=== PATIENT | male | born 1940 | race Caucasian/White ===

== ENCOUNTER → 2016-08-21 | Outpatient (REF) | payer OTHER ==
[~2016-08-21] MED LIST: ACET65TA OR; ACTO45TA OR; DIOV160T5 OR; DIOV80TA OR; GLIP5TAB2 OR; GLUC1000 OR; GLUC850T OR; SIMV40TA2 OR; VIT D 2000 OR; VITA250T OR
[2016-08-21 15:52] LABS: MEAN CORPUSCULAR HEMOGLOBIN 30.6 pg (27.0-33.0); MEAN CORPUSCULAR HGB CONC 33.7 g/dl (32.0-36.5); MEAN CORPUSCULAR VOLUME 90.8 fl (80.0-96.0); RED CELL DISTRIBUTION WIDTH 13.5 % (11.5-14.5); WHITE BLOOD COUNT 9.1 K/mm3 (4.0-10.0)
== END ==
LOC: M LAB REF 15:33
DX: I10 Essential (primary) hypertension (principal)

== ENCOUNTER → 2016-09-02 | Outpatient (REF) | payer OTHER ==
[2016-09-02 14:18] LABS: INR 1.28
== END ==
LOC: M SHH 13:38
DX: Z79.01 Long term (current) use of anticoagulants (principal)

== ENCOUNTER → 2016-09-06 | Outpatient (REF) | payer OTHER ==
[2016-09-06 11:54] LABS: INR 2.07
== END ==
LOC: M SHH 11:32
PROVIDERS: ATTEND Internal Medicine Cardiovascular Disease
DX: Z51.81 Encounter for therapeutic drug level monitoring (principal); Z79.01 Long term (current) use of anticoagulants; I48.91 Unspecified atrial fibrillation

== ENCOUNTER → 2016-09-12 | Outpatient (REF) | payer OTHER ==
[2016-09-12 12:28] LABS: INR 2.15
== END ==
LOC: M LAB REF 12:09
PROVIDERS: ATTEND Internal Medicine Cardiovascular Disease
DX: I48.91 Unspecified atrial fibrillation (principal); Z79.01 Long term (current) use of anticoagulants

== ENCOUNTER → 2016-09-19 | Outpatient (REF) | payer OTHER ==
[2016-09-19 10:17] LABS: INR 3.36
== END ==
LOC: M LABDRAW1 10:00
PROVIDERS: ATTEND Internal Medicine Cardiovascular Disease
DX: I48.91 Unspecified atrial fibrillation (principal)

== ENCOUNTER → 2016-09-26 | Outpatient (REF) | payer OTHER ==
[2016-09-26 11:41] LABS: INR 3.66
== END ==
LOC: M LABDRAW1 11:12
PROVIDERS: ATTEND Internal Medicine Cardiovascular Disease
DX: I48.91 Unspecified atrial fibrillation (principal)

== ENCOUNTER → 2016-10-03 | Outpatient (REF) | payer OTHER ==
[2016-10-03 12:18] LABS: INR 2.77
== END ==
LOC: M LABDRAW1 11:48
PROVIDERS: ATTEND Internal Medicine Cardiovascular Disease
DX: I48.91 Unspecified atrial fibrillation (principal)

== ENCOUNTER → 2016-10-10 | Outpatient (REF) | payer OTHER ==
[2016-10-10 13:26] LABS: INR 2.54
== END ==
LOC: M LABDRAW1 12:23
PROVIDERS: ATTEND Internal Medicine Cardiovascular Disease
DX: I48.91 Unspecified atrial fibrillation (principal)

== ENCOUNTER → 2016-10-17 | Outpatient (REF) | payer OTHER ==
[2016-10-17 11:47] LABS: INR 2.36
== END ==
LOC: M LABDRAW1 11:15
PROVIDERS: ATTEND Internal Medicine Cardiovascular Disease
DX: I48.91 Unspecified atrial fibrillation (principal)

== ENCOUNTER → 2016-10-31 | Outpatient (REF) | payer OTHER ==
[2016-10-31 11:47] LABS: INR 2.93
== END ==
LOC: M LABDRAW1 11:26
PROVIDERS: ATTEND Internal Medicine Cardiovascular Disease
DX: I48.91 Unspecified atrial fibrillation (principal)

== ENCOUNTER → 2016-11-04 | Outpatient (REF) | payer OTHER ==
[2016-11-04 16:21] LABS: BASO % 0.3 % (0.0-1.0); EOS # 0.8 K/mm3 (0.0-0.50); EOS % 8.2 % (0.0-3.0); LYMPH # 1.9 K/mm3 (1.5-4.5); LYMPH % 18.3 % (24.0-44.0); MEAN CORPUSCULAR HEMOGLOBIN 27.4 pg (27.0-33.0); MEAN CORPUSCULAR HGB CONC 32.4 g/dl (32.0-36.5); MEAN CORPUSCULAR VOLUME 84.4 fl (80.0-96.0); MONO # 0.7 K/mm3 (0.0-0.8); MONO % 7.2 % (0.0-5.0); NEUTROPHILS # 6.7 K/mm3 (1.8-7.7); NEUTROPHILS % 65.3 % (36.0-66.0); WHITE BLOOD COUNT 10.2 K/mm3 (4.0-10.0)
[2016-11-04 16:24] LABS: ALBUMIN 2.8 GM/DL (3.2-5.2); ALBUMIN/GLOBULIN RATIO 0.93 (1.00-1.93); ALKALINE PHOSPHATASE 105 U/L (45-117); ALT/SGPT 37 U/L (12-78); ANION GAP 9 MEQ/L (8-16); AST/SGOT 30 U/L (15-37); BILIRUBIN,TOTAL 0.3 MG/DL (0.2-1.0); BLOOD UREA NITROGEN 13 MG/DL (7-18); CALCIUM LEVEL 7.9 MG/DL (8.8-10.2); CARBON DIOXIDE LEVEL 26 MEQ/L (21-32); CHLORIDE LEVEL 108 MEQ/L (98-107); CREATININE FOR GFR 0.89 MG/DL (0.70-1.30); GLOMERULAR FILTRATION RATE > 60.0 (>42); GLUCOSE, FASTING 91 MG/DL (83-110); POTASSIUM SERUM 3.4 MEQ/L (3.5-5.1); SODIUM LEVEL 143 MEQ/L (136-145); TOTAL PROTEIN 5.8 GM/DL (6.4-8.2)
== END ==
LOC: M LABDRAW1 15:43
PROVIDERS: ATTEND Internal Medicine Cardiovascular Disease
DX: I50.42 Chronic combined systolic (congestive) and diastolic (congestive) heart failure (principal); I48.91 Unspecified atrial fibrillation; Z95.0 Presence of cardiac pacemaker

== ENCOUNTER → 2016-11-14 | Outpatient (REF) | payer OTHER ==
[2016-11-14 10:29] LABS: INR 2.16
== END ==
LOC: M LABDRAW1 10:13
PROVIDERS: ATTEND Internal Medicine Cardiovascular Disease
DX: I48.91 Unspecified atrial fibrillation (principal)

== ENCOUNTER → 2016-12-10 | Outpatient (REF) | payer OTHER ==
[2016-12-10 13:10] LABS: ANION GAP 9 MEQ/L (8-16); BLOOD UREA NITROGEN 25 MG/DL (7-18); CARBON DIOXIDE LEVEL 26 MEQ/L (21-32); CHLORIDE LEVEL 108 MEQ/L (98-107); CREATININE FOR GFR 0.98 MG/DL (0.70-1.30); GLOMERULAR FILTRATION RATE > 60.0 (>42); GLUCOSE, FASTING 93 MG/DL (83-110); POTASSIUM SERUM 3.1 MEQ/L (3.5-5.1); SODIUM LEVEL 143 MEQ/L (136-145)
== END ==
LOC: M LABDRAW1 11:27
PROVIDERS: ATTEND Internal Medicine Cardiovascular Disease
DX: I50.42 Chronic combined systolic (congestive) and diastolic (congestive) heart failure (principal)

== ENCOUNTER → 2016-12-16 | Outpatient (REF) | payer OTHER ==
[2016-12-16 11:53] LABS: BASO % 0.3 % (0.0-1.0); EOS # 0.3 K/mm3 (0.0-0.50); EOS % 3.8 % (0.0-3.0); LARGE UNSTAINED CELL # 0.1 K/mm3 (0.0-0.4); LARGE UNSTAINED CELL % 0.6 % (0.0-4.0); LYMPH # 1.5 K/mm3 (1.5-4.5); LYMPH % 17.1 % (24.0-44.0); MEAN CORPUSCULAR HEMOGLOBIN 27.5 pg (27.0-33.0); MEAN CORPUSCULAR HGB CONC 32.2 g/dl (32.0-36.5); MEAN CORPUSCULAR VOLUME 85.4 fl (80.0-96.0); MONO # 0.5 K/mm3 (0.0-0.8); MONO % 5.8 % (0.0-5.0); NEUTROPHILS # 6.3 K/mm3 (1.8-7.7); NEUTROPHILS % 72.3 % (36.0-66.0); PLATELET COUNT, AUTOMATED 121 k/mm3 (150-450); RED CELL DISTRIBUTION WIDTH 14.9 % (11.5-14.5); WHITE BLOOD COUNT 8.7 K/mm3 (4.0-10.0)
[2016-12-16 12:02] LABS: ALBUMIN 2.7 GM/DL (3.2-5.2); ALKALINE PHOSPHATASE 87 U/L (45-117); ALT/SGPT 29 U/L (12-78); ANION GAP 9 MEQ/L (8-16); AST/SGOT 23 U/L (15-37); BILIRUBIN,TOTAL 0.4 MG/DL (0.2-1.0); BLOOD UREA NITROGEN 16 MG/DL (7-18); CALCIUM LEVEL 7.9 MG/DL (8.8-10.2); CARBON DIOXIDE LEVEL 27 MEQ/L (21-32); CHLORIDE LEVEL 108 MEQ/L (98-107); CHOLESTEROL LEVEL 70 MG/DL (<200); CREATININE FOR GFR 0.86 MG/DL (0.70-1.30); GLOMERULAR FILTRATION RATE > 60.0 (>42); GLUCOSE, FASTING 100 MG/DL (83-110); MAGNESIUM LEVEL 1.7 MG/DL (1.8-2.4); POTASSIUM SERUM 3.1 MEQ/L (3.5-5.1); SODIUM LEVEL 144 MEQ/L (136-145); TOTAL PROTEIN 5.7 GM/DL (6.4-8.2); TRIGLYCERIDES LEVEL 58 MG/DL (<150)
== END ==
LOC: M LABDRAW1 11:16
PROVIDERS: ATTEND Emergency Medicine
DX: E55.9 Vitamin D deficiency, unspecified (principal); I50.42 Chronic combined systolic (congestive) and diastolic (congestive) heart failure; E11.9 Type 2 diabetes mellitus without complications

== ENCOUNTER → 2017-01-14 | Outpatient (REF) | payer OTHER ==
[~2017-01-14] MED LIST changes: +ATOR40TA PO; +CORE3.12 PO; +FURO40TA2 PO; +GLIM1TAB PO; +LOSA50TA20 PO; +METF750T PO; +POTA10TA44 PO; +PRAD150C PO; +SPIR25TA2 PO; +VITA50003 PO
[2017-01-14 13:26] LABS: ALBUMIN 2.9 GM/DL (3.2-5.2); BILIRUBIN,TOTAL 0.3 MG/DL (0.2-1.0); CALCIUM LEVEL 8.3 MG/DL (8.8-10.2); CREATININE FOR GFR 1.35 MG/DL (0.70-1.30); FREE T4 1.1 NG/DL (0.76-1.46); GLOMERULAR FILTRATION RATE 54.7 (>42); MAGNESIUM LEVEL 1.9 MG/DL (1.8-2.4); POTASSIUM SERUM 4.3 MEQ/L (3.5-5.1); TOTAL PROTEIN 5.8 GM/DL (6.4-8.2)
== END ==
LOC: M LABDRAW1 11:40
PROVIDERS: ATTEND Internal Medicine Cardiovascular Disease
DX: I48.0 Paroxysmal atrial fibrillation (principal); I50.42 Chronic combined systolic (congestive) and diastolic (congestive) heart failure

== ENCOUNTER → 2017-01-21 | Outpatient (REF) | payer OTHER ==
[2017-01-21 12:35] LABS: BASO % 0.3 % (0.0-1.0); EOS # 0.2 K/mm3 (0.0-0.50); EOS % 1.7 % (0.0-3.0); LARGE UNSTAINED CELL # 0.1 K/mm3 (0.0-0.4); LARGE UNSTAINED CELL % 0.7 % (0.0-4.0); LYMPH # 1.4 K/mm3 (1.5-4.5); LYMPH % 13.6 % (24.0-44.0); MEAN CORPUSCULAR HEMOGLOBIN 26.9 pg (27.0-33.0); MEAN CORPUSCULAR HGB CONC 31.8 g/dl (32.0-36.5); MEAN CORPUSCULAR VOLUME 84.6 fl (80.0-96.0); MONO # 0.6 K/mm3 (0.0-0.8); NEUTROPHILS # 7.5 K/mm3 (1.8-7.7); NEUTROPHILS % 77.6 % (36.0-66.0); PLATELET COUNT, AUTOMATED 121 k/mm3 (150-450); RED CELL DISTRIBUTION WIDTH 16.2 % (11.5-14.5); WHITE BLOOD COUNT 9.7 K/mm3 (4.0-10.0)
[2017-01-21 13:46] LABS: ALBUMIN 2.9 GM/DL (3.2-5.2); ALBUMIN/GLOBULIN RATIO 0.97 (1.00-1.93); BILIRUBIN,TOTAL 0.4 MG/DL (0.2-1.0); CREATININE FOR GFR 1.27 MG/DL (0.70-1.30); GLOMERULAR FILTRATION RATE 58.7 (>42); MAGNESIUM LEVEL 1.9 MG/DL (1.8-2.4); POTASSIUM SERUM 3.8 MEQ/L (3.5-5.1); TOTAL PROTEIN 5.9 GM/DL (6.4-8.2)
== END ==
LOC: M LABDRAW1 11:07
PROVIDERS: ATTEND Emergency Medicine
DX: I10 Essential (primary) hypertension (principal); E83.42 Hypomagnesemia

== ENCOUNTER → 2017-01-23 | Outpatient (CLI) | payer OTHER ==
[~2017-01-23] VITALS: Ht 175.3 cm; Wt 83.5 kg
[~2017-01-23] MED LIST changes: +ASPI81TA85 PO; -ATOR40TA PO; +ATOR40TA75 PO; +DRIS50002 PO; +GLIM1TAB; +LR 1,000 ML IV SCH; +PHENYLephrine HCL 500 MCG/5 ML (100MCG/ML) SYRINGE (J2370) As Ordered ONE; +POTA10TA17 PO; -POTA10TA44 PO; +PROPOFOL 200 MG/20 ML VIAL As Ordered ONE; +VITA1CAP40 PO; -VITA50003 PO
--- NOTE | 2017-01-23 09:07 | ROOR ---
Patient Name: Dino Baldwin Procedure Date: 01/23/2017 8:20 AM Date of : 1940 Age: 76 Room: [facility] Gender: Male Note Status: Finalized Procedure: Colonoscopy Indications: Surveillance: Personal history of adenomatous polyps on last colonoscopy > 5 years ago Providers: Derick Camejo MD Referring MD: JANNETH GALLARDO MD, Siobhan Gómez MD Requesting Provider: Medicines: Monitored Anesthesia Care Complications: No immediate complications. Procedure: Pre-Anesthesia Assessment: - Prior to the procedure, a History and Physical was performed, and patient medications and allergies were reviewed. The patient is competent. The risks and benefits of the procedure and the sedation options and risks were discussed with the patient. All questions were answered and informed consent was obtained. Patient identification and proposed procedure were verified by the physician, the nurse and the blade operator in the procedure room. Mental Status Examination: alert and oriented. Airway Examination: normal oropharyngeal airway and neck mobility. CV Examination: regular rate and rhythm. Prophylactic Antibiotics: The patient does not require prophylactic antibiotics. Prior Anticoagulants: The patient has taken no previous anticoagulant or antiplatelet agents. ASA Grade Assessment: III - A patient with severe systemic disease. After reviewing the risks and benefits, the patient was deemed in satisfactory condition to undergo the procedure. The anesthesia plan was to use monitored anesthesia care (MAC). Immediately prior to administration of medications, the patient was re-assessed for adequacy to receive sedatives. The heart rate, respiratory rate, oxygen saturations, blood pressure, adequacy of pulmonary ventilation, and response to care were monitored throughout the procedure. The physical status of the patient was re-assessed after the procedure. The Colonoscope was introduced through the anus and advanced to the cecum, identified by appendiceal orifice and ileocecal valve. The colonoscopy was performed without difficulty. The patient tolerated the procedure well. The quality of the bowel preparation was good. Findings: The perianal and digital rectal examinations were normal. A few medium-mouthed diverticula were found in the sigmoid colon and distal descending colon. A 7 mm polyp was found in the proximal ascending colon. The polyp was sessile. The polyp was removed with a piecemeal technique using a cold biopsy forceps. Resection was complete, and retrieval was complete. Impression: - Diverticulosis in the sigmoid colon and in the distal descending colon. - One 7 mm polyp in the proximal ascending colon, removed piecemeal using a cold biopsy forceps. Resected and retrieved. Recommendation: - Await pathology results. - Telephone endoscopist for pathology results in 10 days. - Resume previous diet. - Continue present medications. Derick Camejo MD 01/23/2017 9:06:20 AM Number of Addenda: 0 Note Initiated On: 01/23/2017 8:20 AM Estimated Blood Loss: Estimated blood loss was minimal.
[2017-01-23 09:15] VITALS: BP 121/6
== END | disposition home or self-care (01) ==
LOC: M OPP 07:05
PROVIDERS: ATTEND Surgery
DX: Z12.11 Encounter for screening for malignant neoplasm of colon (principal); D12.2 Benign neoplasm of ascending colon; K57.30 Diverticulosis of large intestine without perforation or abscess without bleeding; Z86.010 Personal history of colon polyps; R63.4 Abnormal weight loss; R19.4 Change in bowel habit; I10 Essential (primary) hypertension; I25.10 Atherosclerotic heart disease of native coronary artery without angina pectoris; E78.5 Hyperlipidemia, unspecified; Z86.79 Personal history of other diseases of the circulatory system; Z95.0 Presence of cardiac pacemaker; E11.9 Type 2 diabetes mellitus without complications; Z95.2 Presence of prosthetic heart valve; Z87.891 Personal history of nicotine dependence; Z79.899 Other long term (current) drug therapy; Z79.84 Long term (current) use of oral hypoglycemic drugs; Z79.01 Long term (current) use of anticoagulants; Z79.82 Long term (current) use of aspirin; Z80.3 Family history of malignant neoplasm of breast; Z80.8 Family history of malignant neoplasm of other organs or systems
CPT/HCPCS: 45380; 88305; J2370

== ENCOUNTER → 2017-02-04 | Outpatient (REF) | payer OTHER ==
[~2017-02-04] MED LIST changes: -LR 1,000 ML IV SCH; -PHENYLephrine HCL 500 MCG/5 ML (100MCG/ML) SYRINGE (J2370) As Ordered ONE; -PROPOFOL 200 MG/20 ML VIAL As Ordered ONE
[2017-02-04 11:28] LABS: BASO % 0.5 % (0.0-1.0); EOS # 0.2 K/mm3 (0.0-0.50); EOS % 2.2 % (0.0-3.0); LARGE UNSTAINED CELL # 0.1 K/mm3 (0.0-0.4); LARGE UNSTAINED CELL % 1.2 % (0.0-4.0); LYMPH # 1.3 K/mm3 (1.5-4.5); LYMPH % 18.1 % (24.0-44.0); MEAN CORPUSCULAR HEMOGLOBIN 27.2 pg (27.0-33.0); MEAN CORPUSCULAR HGB CONC 32.2 g/dl (32.0-36.5); MEAN CORPUSCULAR VOLUME 84.4 fl (80.0-96.0); MONO # 0.4 K/mm3 (0.0-0.8); MONO % 5.1 % (0.0-5.0); NEUTROPHILS # 5.4 K/mm3 (1.8-7.7); PLATELET COUNT, AUTOMATED 128 k/mm3 (150-450); RED CELL DISTRIBUTION WIDTH 15.8 % (11.5-14.5); WHITE BLOOD COUNT 7.4 K/mm3 (4.0-10.0)
[2017-02-04 11:47] LABS: PERCENT SATURATION 9.5 % (19.7-37.4); TOTAL IRON BINDING CAPACITY 316 UG/DL (250-450)
[2017-02-04 13:46] LABS: FOLATE > 24.0 NG/ML (>5.4); VITAMIN B12 LEVEL 193 PG/ML (247-911)
== END ==
LOC: M LABDRAW1 08:50
PROVIDERS: ATTEND Emergency Medicine
DX: D64.9 Anemia, unspecified (principal)

== ENCOUNTER → 2017-03-14 | Outpatient (REF) | payer OTHER ==
[2017-03-14 12:38] LABS: ALBUMIN 3.1 GM/DL (3.2-5.2); ALBUMIN/GLOBULIN RATIO 1.07 (1.00-1.93); BILIRUBIN,TOTAL 0.3 MG/DL (0.2-1.0); CALCIUM LEVEL 8.1 MG/DL (8.8-10.2); CREATININE FOR GFR 1.41 MG/DL (0.70-1.30); GLOMERULAR FILTRATION RATE 51.9 (>42); MAGNESIUM LEVEL 2.2 MG/DL (1.8-2.4); POTASSIUM SERUM 4.6 MEQ/L (3.5-5.1)
== END ==
LOC: M LABDRAW1 11:41
PROVIDERS: ATTEND Internal Medicine Cardiovascular Disease
DX: I48.0 Paroxysmal atrial fibrillation (principal); I50.42 Chronic combined systolic (congestive) and diastolic (congestive) heart failure

== ENCOUNTER 2017-03-30 18:39 | Emergency (ER) | payer OTHER ==
[~2017-03-30] VITALS: Ht 175.3 cm; Wt 79.5 kg
[~2017-03-30 18:39] MED LIST changes: -ASPI81TA85 PO; -DRIS50002 PO; -GLIM1TAB
[2017-03-30] MEDS ORDERED: DRIS50002 PO (18:50)
[2017-03-30] MEDS ORDERED: GLIM1TAB (18:50)
[2017-03-30] MEDS ORDERED: ASPI81TA85 PO (18:50)
[2017-03-30] MEDS ORDERED: NS 1,000 ML IV ONE (20:30)
[2017-03-30 21:19] LABS: BASO % 0.4 % (0.0-1.0); EOS # 0.2 K/mm3 (0.0-0.50); EOS % 1.6 % (0.0-3.0); LARGE UNSTAINED CELL # 0.1 K/mm3 (0.0-0.4); LARGE UNSTAINED CELL % 0.9 % (0.0-4.0); LYMPH # 2.4 K/mm3 (1.5-4.5); MEAN CORPUSCULAR HEMOGLOBIN 28.2 pg (27.0-33.0); MEAN CORPUSCULAR VOLUME 85.4 fl (80.0-96.0); MONO # 0.9 K/mm3 (0.0-0.8); MONO % 8.1 % (0.0-5.0); NEUTROPHILS # 7.1 K/mm3 (1.8-7.7); PLATELET COUNT, AUTOMATED 129 k/mm3 (150-450); RED CELL DISTRIBUTION WIDTH 15.7 % (11.5-14.5); WHITE BLOOD COUNT 10.6 K/mm3 (4.0-10.0)
[2017-03-30 21:46] LABS: ALBUMIN 3.2 GM/DL (3.2-5.2); ALBUMIN/GLOBULIN RATIO 0.91 (1.00-1.93); BILIRUBIN,DIRECT 0.1 MG/DL (0.0-0.2); BILIRUBIN,TOTAL 0.5 MG/DL (0.2-1.0); CALCIUM LEVEL 8.2 MG/DL (8.8-10.2); CREATININE FOR GFR 1.75 MG/DL (0.70-1.30); GLOMERULAR FILTRATION RATE 40.4 (>42); POTASSIUM SERUM 4.6 MEQ/L (3.5-5.1); TOTAL PROTEIN 6.7 GM/DL (6.4-8.2)
--- NOTE | 2017-03-30 22:25 | REP ---
Clinical: Abdominal pain and diarrhea. Technique: Axial noncontrast images from the lung bases to the pubic symphysis with coronal and sagittal re-formations. Comparison: 06/26/2011. Findings: The enteric system demonstrates distended, air and fluid-filled loops of small bowel as well as mildly distended colon. Infiltration to the mesentery along with prominent mesenteric lymph nodes are also appreciated as well as diffuse sigmoid diverticulosis without evidence for acute diverticulitis. A normal terminal ileum and appendix are identified in the right lower quadrant. No free air, free fluid or drainable collection identified. Liver, spleen, pancreas, and bilateral adrenal glands are normal for noncontrast evaluation. Kidneys demonstrate chronic-appearing age-related changes including chronic perinephric stranding and cortical thinning. 2 cm right renal hypodensity compatible with cyst. No hydronephrosis or nephroureterolithiasis. Cholelithiasis noted without CT evidence for acute cholecystitis. Pelvis demonstrates sigmoid diverticulosis. Partially collapsed normal bladder is appreciated along with mildly prominent prostate gland having mass effect on the base of the bladder. No significant retroperitoneal adenopathy. Abdominal aorta demonstrates atherosclerotic changes without aneurysm. Musculoskeletal structures demonstrate age-related degenerative changes without focal osseous abnormality. Lung bases demonstrate chronic changes. Impression: 1. Findings involving the small large bowel as described above suggest ileus. Differential diagnosis includes enterocolitis. 2. Chronic diverticulosis without acute diverticulitis. 3. Cholelithiasis without CT evidence for acute cholecystitis. 4. Further chronic changes as described above. 5. No further acute abdominopelvic pathology appreciated. Signed by Telly Bridges MD 03/30/2017 10:24 P
[2017-03-31 01:44] VITALS: BP 129/62
--- NOTE | 2017-03-31 01:45 | ED PDOC ---
Post-Departure Follow-Up AT THIS TIME, DR. PEREZ SPOKE WITH PT. PT STATED HAD 1 LARGE BOWEL MOVEMENT WHILE HERE IN THE ER AND IS FEELING IMPROVED. DR. PEREZ, THIS BEHAVIORAL HEALTH CONSULTANT AND PATIENT IN AGREEMENT FOR DISCHARGE AT THIS TIME. ANAND ALMARAZ PA-C Mar 31, 2017 01:45
== END 2017-03-31 02:06 | disposition home or self-care (01) ==
LOC: M ED 18:39
DX: K56.7 Ileus, unspecified (principal); I48.91 Unspecified atrial fibrillation; I25.10 Atherosclerotic heart disease of native coronary artery without angina pectoris; E11.9 Type 2 diabetes mellitus without complications; I10 Essential (primary) hypertension; E78.4 Other hyperlipidemia; Z95.1 Presence of aortocoronary bypass graft; Z87.891 Personal history of nicotine dependence

== ENCOUNTER → 2017-04-02 | Outpatient (REF) | payer OTHER ==
[~2017-04-02] MED LIST changes: +ASPI81TA85 PO; +DRIS50002 PO; +GLIM1TAB
== END ==
LOC: M LAB REF 10:39
PROVIDERS: ATTEND Emergency Medicine
DX: R19.7 Diarrhea, unspecified (principal)

== ENCOUNTER → 2017-04-16 | Outpatient (REF) | payer OTHER ==
[2017-04-16 18:36] LABS: BASO % 0.2 % (0.0-1.0); EOS # 0.1 K/mm3 (0.0-0.50); EOS % 1.2 % (0.0-3.0); LARGE UNSTAINED CELL # 0.1 K/mm3 (0.0-0.4); LYMPH # 1.3 K/mm3 (1.5-4.5); LYMPH % 16.4 % (24.0-44.0); MEAN CORPUSCULAR HEMOGLOBIN 29.3 pg (27.0-33.0); MEAN CORPUSCULAR HGB CONC 33.3 g/dl (32.0-36.5); MEAN CORPUSCULAR VOLUME 87.9 fl (80.0-96.0); MONO # 0.5 K/mm3 (0.0-0.8); MONO % 5.7 % (0.0-5.0); NEUTROPHILS # 6.1 K/mm3 (1.8-7.7); NEUTROPHILS % 75.4 % (36.0-66.0); PLATELET COUNT, AUTOMATED 118 k/mm3 (150-450); RED CELL DISTRIBUTION WIDTH 16.1 % (11.5-14.5)
== END ==
LOC: M LABDRAW1 14:31
PROVIDERS: ATTEND Emergency Medicine
DX: R19.7 Diarrhea, unspecified (principal)

== ENCOUNTER → 2017-05-01 | Outpatient (CLI) | payer OTHER ==
[~2017-05-01] MED LIST changes: +E-Z-PAQUE 96% w/w SUSP 176GM BTL As Ordered ONE
--- NOTE | 2017-05-01 17:22 | REP ---
Small follow-through study: History: Diarrhea, weight loss. Nearly [address] study abdomen and pelvis March 30, 2017. Findings: Preliminary electrical continuity inspector radiograph demonstrates opaque gallstones in the gallbladder and multiple loops of air-filled borderline caliber small bowel in the central abdomen. Sequential images after contrast injection show normal stomach, duodenal bulb and C-loop. The jejunum and ileum, however, are diffusely dilated and there are multiple large jejunal and ileal small bowel diverticula. Small bowel transit time is quite sluggish. The right colon was not opacified on the 250-minute imaging and the patient was allowed to eat. Following this, the right colon and distal ileum are opacified. The distal most ileum is normal. Some retention of barium in the small bowel diverticulosis changes is seen. The diverticula range in size up to 5-6 cm. No point of transition is seen. No mass lesion is observed. Impression: Extensive small bowel diverticulosis with delayed small bowel transit and mild dilation and mild mucosal fold thickening. Question malabsorption. Signed by Ahsan Vinson MD 05/01/2017 05:25 P
== END ==
LOC: M RAD 09:57
PROVIDERS: ATTEND Internal Medicine Gastroenterology
DX: R19.7 Diarrhea, unspecified (principal); K57.10 Diverticulosis of small intestine without perforation or abscess without bleeding; D64.9 Anemia, unspecified

== ENCOUNTER → 2017-05-01 | Outpatient (REF) | payer OTHER ==
[~2017-05-01] MED LIST changes: -E-Z-PAQUE 96% w/w SUSP 176GM BTL As Ordered ONE
== END ==
LOC: M LABDRAW1 10:31
PROVIDERS: ATTEND Internal Medicine Gastroenterology
DX: R19.7 Diarrhea, unspecified (principal); D64.9 Anemia, unspecified

== ENCOUNTER 2017-05-09 06:28 | Outpatient (CLI) | payer OTHER ==
[~2017-05-09] VITALS: Ht 175.3 cm; Wt 78.0 kg
[2017-05-09] MEDS ORDERED: NS 1,000 ML IV SCH (06:45)
[2017-05-09] MEDS ORDERED: PROPOFOL 200 MG/20 ML VIAL As Ordered ONE (07:58)
[2017-05-09] MEDS ORDERED: LIDOCAINE 2% INJ 100 MG/5 ML SDV (FOR ANES.) As Ordered ONE (07:58)
--- NOTE | 2017-05-09 08:07 | ROOR ---
Patient Name: Dino Baldwin Procedure Date: 05/09/2017 7:55 AM Date of : 1940 Age: 77 Room: [facility] Gender: Male Note Status: Finalized Procedure: Upper GI endoscopy Indications: Iron deficiency anemia. (Pt with extensive small bowel diverticulosis/malabsorption, diarrhea) Providers: Dino ACOSTA MD Referring MD: JANNETH GALLARDO MD Requesting Provider: Medicines: Monitored Anesthesia Care Complications: No immediate complications. Procedure: Pre-Anesthesia Assessment: - The heart rate, respiratory rate, oxygen saturations, blood pressure, adequacy of pulmonary ventilation, and response to care were monitored throughout the procedure. The Endoscope was introduced through the mouth, and advanced to the second part of duodenum. The upper GI endoscopy was accomplished without difficulty. The patient tolerated the procedure well. Findings: The esophagus was normal. The stomach was normal. The examined duodenum was normal. Impression: - Normal esophagus. - Normal stomach. - Normal examined duodenum. - No specimens collected. Recommendation: - Perform a colonoscopy today. Dino Acosta MD Dino ACOSTA MD 05/09/2017 8:07:20 AM This report has been signed electronically. Number of Addenda: 0 Note Initiated On: 05/09/2017 7:55 AM Estimated Blood Loss: Estimated blood loss: none.
[2017-05-09] MEDS ORDERED: ePHEDrine SULFATE 25 MG/5 ML(5MG/ML) SYRINGE As Ordered ONE (08:23)
--- NOTE | 2017-05-09 08:24 | ROOR ---
Patient Name: Dino Baldwin Procedure Date: 05/09/2017 7:56 AM Date of : 1940 Age: 77 Room: [facility] Gender: Male Note Status: Finalized Procedure: Colonoscopy Indications: Chronic diarrhea, Iron deficiency anemia. (extensive small bowel diverticulosis, malabsorption,diarrhea--r/o colonic pathology) Providers: Dino ACOSTA MD Referring MD: JANNETH GALLARDO MD Requesting Provider: Medicines: Monitored Anesthesia Care Complications: No immediate complications. Procedure: Pre-Anesthesia Assessment: - The heart rate, respiratory rate, oxygen saturations, blood pressure, adequacy of pulmonary ventilation, and response to care were monitored throughout the procedure. The Colonoscope was introduced through the anus and advanced to 10 cm into the ileum. The colonoscopy was performed without difficulty. The patient tolerated the procedure well. The quality of the bowel preparation was good. Findings: The perianal and digital rectal examinations were normal. (Exam: Complete, Prep: Good or Excellent.) Scattered medium-mouthed diverticula were found in the sigmoid colon and transverse colon. The entire examined colon appeared normal. The terminal ileum appeared normal. Biopsies for histology were taken with a cold forceps for evaluation of microscopic colitis. Impression: - (Exam: Complete, Prep: Good or Excellent.) - Mild diverticulosis in the sigmoid colon and in the transverse colon. - The entire examined colon is normal. - The examined portion of the ileum was normal. - Biopsies were taken with a cold forceps for evaluation of microscopic colitis. Recommendation: - Telephone endoscopist for pathology results in 2 weeks. - Resume Pradaxa (dabigatran) at prior dose today. - Await pathology results. Dino Acosta MD Dino ACOSTA MD 05/09/2017 8:24:15 AM This report has been signed electronically. Number of Addenda: 0 Note Initiated On: 05/09/2017 7:56 AM Estimated Blood Loss: Estimated blood loss: none.
[2017-05-09 08:50] VITALS: BP 101/53
== END 2017-05-09 08:58 | disposition home or self-care (01) ==
LOC: M OPP 06:28
PROVIDERS: ATTEND Internal Medicine Gastroenterology
DX: R50.9 Fever, unspecified (principal); R19.7 Diarrhea, unspecified; K57.30 Diverticulosis of large intestine without perforation or abscess without bleeding; K90.9 Intestinal malabsorption, unspecified; I10 Essential (primary) hypertension; Z95.2 Presence of prosthetic heart valve; I34.9 Nonrheumatic mitral valve disorder, unspecified; E78.5 Hyperlipidemia, unspecified; Z86.79 Personal history of other diseases of the circulatory system; Z95.0 Presence of cardiac pacemaker; E11.9 Type 2 diabetes mellitus without complications; K57.32 Diverticulitis of large intestine without perforation or abscess without bleeding; R23.3 Spontaneous ecchymoses; Z79.82 Long term (current) use of aspirin; Z79.899 Other long term (current) drug therapy; Z79.02 Long term (current) use of antithrombotics/antiplatelets; Z80.3 Family history of malignant neoplasm of breast; Z80.8 Family history of malignant neoplasm of other organs or systems

== ENCOUNTER → 2017-05-14 | Outpatient (REF) | payer OTHER ==
[2017-05-14 11:46] LABS: ALBUMIN 2.4 GM/DL (3.2-5.2); ALBUMIN/GLOBULIN RATIO 0.77 (1.00-1.93); ALKALINE PHOSPHATASE 122 U/L (45-117); ALT/SGPT 35 U/L (12-78); ANION GAP 6 MEQ/L (8-16); AST/SGOT 23 U/L (15-37); BILIRUBIN,TOTAL 0.4 MG/DL (0.2-1.0); BLOOD UREA NITROGEN 14 MG/DL (7-18); CALCIUM LEVEL 7.8 MG/DL (8.8-10.2); CARBON DIOXIDE LEVEL 28 MEQ/L (21-32); CHLORIDE LEVEL 105 MEQ/L (98-107); CREATININE FOR GFR 0.93 MG/DL (0.70-1.30); GLOMERULAR FILTRATION RATE > 60.0 (>42); GLUCOSE, FASTING 106 MG/DL (83-110); MAGNESIUM LEVEL 1.7 MG/DL (1.8-2.4); POTASSIUM SERUM 3.8 MEQ/L (3.5-5.1); SODIUM LEVEL 139 MEQ/L (136-145); TOTAL PROTEIN 5.5 GM/DL (6.4-8.2)
== END ==
LOC: M LABDRAW1 09:25
PROVIDERS: ATTEND Internal Medicine Cardiovascular Disease
DX: I48.0 Paroxysmal atrial fibrillation (principal); I50.42 Chronic combined systolic (congestive) and diastolic (congestive) heart failure

== ENCOUNTER → 2017-08-11 | Outpatient (REF) | payer OTHER ==
[2017-08-11 12:19] LABS: ANION GAP 6 MEQ/L (8-16); BLOOD UREA NITROGEN 29 MG/DL (7-18); CALCIUM LEVEL 8.1 MG/DL (8.8-10.2); CARBON DIOXIDE LEVEL 27 MEQ/L (21-32); CHLORIDE LEVEL 103 MEQ/L (98-107); CREATININE FOR GFR 1.31 MG/DL (0.70-1.30); GLOMERULAR FILTRATION RATE 56.5 (>42); GLUCOSE, FASTING 181 MG/DL (83-110); MAGNESIUM LEVEL 2.4 MG/DL (1.8-2.4); POTASSIUM SERUM 4.2 MEQ/L (3.5-5.1); SODIUM LEVEL 136 MEQ/L (136-145)
== END ==
LOC: M LABDRAW1 11:33
DX: I50.42 Chronic combined systolic (congestive) and diastolic (congestive) heart failure (principal); I48.91 Unspecified atrial fibrillation
CPT/HCPCS: 83735

== ENCOUNTER → 2017-09-10 | Outpatient (REF) | payer OTHER ==
[2017-09-10 10:26] LABS: ANION GAP 7 MEQ/L (8-16); BLOOD UREA NITROGEN 31 MG/DL (7-18); CALCIUM LEVEL 8.4 MG/DL (8.8-10.2); CARBON DIOXIDE LEVEL 27 MEQ/L (21-32); CHLORIDE LEVEL 102 MEQ/L (98-107); CREATININE FOR GFR 1.19 MG/DL (0.70-1.30); GLOMERULAR FILTRATION RATE > 60.0 (>42); GLUCOSE, FASTING 129 MG/DL (70-100); MAGNESIUM LEVEL 1.7 MG/DL (1.8-2.4); POTASSIUM SERUM 3.9 MEQ/L (3.5-5.1); SODIUM LEVEL 136 MEQ/L (136-145)
== END ==
LOC: M LABDRAW1 09:47
DX: I50.42 Chronic combined systolic (congestive) and diastolic (congestive) heart failure (principal); I48.91 Unspecified atrial fibrillation
CPT/HCPCS: 83735

== ENCOUNTER → 2017-09-29 | Outpatient (REF) | payer OTHER ==
[2017-09-29 11:54] LABS: BASO % 0.3 % (0.0-1.0); EOS # 0.4 10^3/uL (0.0-0.50); EOS % 4.2 % (0.0-3.0); HEMATOCRIT 32.7 % (42.0-52.0); HEMOGLOBIN 10.8 g/dl (14.0-18.0); IMMATURE GRANULOCYTE # 0.1 10^3/uL (0-0); IMMATURE GRANULOCYTE % 0.5 % (0-3.0); LYMPH # 1.6 10^3/uL (1.5-4.5); MEAN CORPUSCULAR HEMOGLOBIN 28.7 pg (27.0-33.0); MONO % 10.2 % (0.0-5.0); NEUTROPHILS # 6.9 10^3/uL (1.8-7.7); NEUTROPHILS % 68.8 % (36.0-66.0); PLATELET COUNT, AUTOMATED 129 10^3/uL (150-450); RED BLOOD COUNT 3.76 10^6/uL (4.30-6.10); RED CELL DISTRIBUTION WIDTH 14.7 % (11.5-14.5)
[2017-09-29 12:39] LABS: ANION GAP 11 MEQ/L (8-16); BLOOD UREA NITROGEN 27 MG/DL (7-18); CALCIUM LEVEL 8.4 MG/DL (8.8-10.2); CARBON DIOXIDE LEVEL 23 MEQ/L (21-32); CHLORIDE LEVEL 103 MEQ/L (98-107); CREATININE FOR GFR 1.18 MG/DL (0.70-1.30); GLOMERULAR FILTRATION RATE > 60.0 (>42); GLUCOSE, FASTING 143 MG/DL (70-100); MAGNESIUM LEVEL 1.7 MG/DL (1.8-2.4); POTASSIUM SERUM 3.8 MEQ/L (3.5-5.1); SODIUM LEVEL 137 MEQ/L (136-145)
== END ==
LOC: M LABDRAW1 08:49
DX: I50.42 Chronic combined systolic (congestive) and diastolic (congestive) heart failure (principal); I80.9 Phlebitis and thrombophlebitis of unspecified site; I47.2 Ventricular tachycardia
CPT/HCPCS: 83735

== ENCOUNTER → 2017-11-07 | Outpatient (REF) | payer OTHER ==
[2017-11-07 11:31] LABS: ANION GAP 7 MEQ/L (8-16); BLOOD UREA NITROGEN 42 MG/DL (7-18); CALCIUM LEVEL 8.3 MG/DL (8.8-10.2); CARBON DIOXIDE LEVEL 23 MEQ/L (21-32); CHLORIDE LEVEL 108 MEQ/L (98-107); CREATININE FOR GFR 1.53 MG/DL (0.70-1.30); GLOMERULAR FILTRATION RATE 47.2 (>42); GLUCOSE, FASTING 127 MG/DL (70-100); MAGNESIUM LEVEL 2.5 MG/DL (1.8-2.4); POTASSIUM SERUM 4.9 MEQ/L (3.5-5.1); SODIUM LEVEL 138 MEQ/L (136-145)
== END ==
LOC: M LABDRAW1 10:39
DX: I50.42 Chronic combined systolic (congestive) and diastolic (congestive) heart failure (principal); I48.91 Unspecified atrial fibrillation
CPT/HCPCS: 83735

== ENCOUNTER 2017-11-17 10:33 | Inpatient (IN) | payer OTHER ==
[2017-11-17 11:49] LABS: BASO % 0.1 % (0.0-1.0); EOS # 0.1 10^3/uL (0.0-0.50); EOS % 0.5 % (0.0-3.0); HEMATOCRIT 28.6 % (42.0-52.0); HEMOGLOBIN 9.6 g/dl (13.5-17.5); IMMATURE GRANULOCYTE % 0.4 % (0-3.0); LYMPH # 1.3 10^3/uL (1.5-4.5); LYMPH % 10.4 % (24.0-44.0); MEAN CORPUSCULAR HEMOGLOBIN 28.9 pg (27.0-33.0); MEAN CORPUSCULAR HGB CONC 33.6 g/dl (32.0-36.5); MEAN CORPUSCULAR VOLUME 86.1 fl (80.0-96.0); MONO # 1.1 10^3/uL (0.0-0.8); MONO % 8.7 % (0.0-5.0); NEUTROPHILS # 10.3 10^3/uL (1.8-7.7); NEUTROPHILS % 79.9 % (36.0-66.0); PLATELET COUNT, AUTOMATED 106 10^3/uL (150-450); RED BLOOD COUNT 3.32 10^6/uL (4.30-6.10); RED CELL DISTRIBUTION WIDTH 14.8 % (11.5-14.5); WHITE BLOOD COUNT 12.8 10^3/uL (4.0-10.0)
[2017-11-17 11:59] LABS: ANION GAP 11 MEQ/L (8-16); BLOOD UREA NITROGEN 95 MG/DL (7-18); CALCIUM LEVEL 7.9 MG/DL (8.8-10.2); CARBON DIOXIDE LEVEL 16 MEQ/L (21-32); CHLORIDE LEVEL 106 MEQ/L (98-107); GLOMERULAR FILTRATION RATE 34.7 (>42); GLUCOSE, FASTING 202 MG/DL (70-100); POTASSIUM SERUM 4.6 MEQ/L (3.5-5.1); SODIUM LEVEL 133 MEQ/L (136-145)
[2017-11-17] MEDS: NS 1,000 ML IV ×2 (12:13→13:00)
[2017-11-17] MEDS: PANTOPRAZOLE 40MG INJ (PROTONIX) (C9113) IV (12:14)
[2017-11-17] MEDS: PANTOPRAZOLE SODIUM 40 MG in D5W 50 ML IV ×3 (12:14→20:58)
[2017-11-17 12:51] LABS: PROTHROMBIN TIME 27.1 SECONDS (12.4-14.5)
[2017-11-17 12:53] LABS: PARTIAL THROMBOPLASTIN TIME 71.7 SECONDS (26.8-37.9)
[2017-11-17 13:10] LABS: BILIRUBIN,DIRECT 0.2 MG/DL (0.0-0.2)
[2017-11-17 13:13] LABS: ALBUMIN 2.9 GM/DL (3.2-5.2); ALBUMIN/GLOBULIN RATIO 0.88 (1.00-1.93); ALKALINE PHOSPHATASE 93 U/L (45-117); ALT/SGPT 26 U/L (12-78); AST/SGOT 18 U/L (7-37); BILIRUBIN,TOTAL 0.6 MG/DL (0.2-1.0); CK-MB VALUE MASS 2.3 NG/ML (<3.6); CPK CREATINE PHOSPHOKINASE 41 U/L (39-308); TOTAL PROTEIN 6.2 GM/DL (6.4-8.2); TROPONIN I 0.02 NG/ML (< 0.10)
[2017-11-17] MEDS: LR 1,000 ML IV ×2 (13:24→23:56)
[2017-11-17] MEDS: idaruCIZUmab 2.5 GM in APPROPRIATE DILUENT 1 EA IV ×2 (13:34→13:37)
[2017-11-17] MEDS: SUCRALFATE 1 GM TAB PO ×3 (14:27→23:24)
[2017-11-17 14:54] LABS: IMMEDIATE SPIN CROSSMATCH 1 2
[2017-11-17 19:49] LABS: HEMATOCRIT 28.8 % (42.0-52.0); HEMOGLOBIN 9.6 g/dl (13.5-17.5)
[2017-11-17 19:50] LABS: POSITIVE MORPH POS FLAG
[2017-11-17] MEDS ORDERED: PANTOPRAZOLE 40MG INJ (PROTONIX) (C9113) IV (21:00)
[2017-11-18] MEDS: PANTOPRAZOLE SODIUM 40 MG in D5W 50 ML IV ×2 (02:06→07:17)
[2017-11-18 05:41] LABS: HEMATOCRIT 26.9 % (42.0-52.0); HEMOGLOBIN 9.1 g/dl (13.5-17.5); MEAN CORPUSCULAR HEMOGLOBIN 28.6 pg (27.0-33.0); MEAN CORPUSCULAR HGB CONC 33.8 g/dl (32.0-36.5); MEAN CORPUSCULAR VOLUME 84.6 fl (80.0-96.0); RED BLOOD COUNT 3.18 10^6/uL (4.30-6.10); RED CELL DISTRIBUTION WIDTH 14.5 % (11.5-14.5); WHITE BLOOD COUNT 5.9 10^3/uL (4.0-10.0)
[2017-11-18] MEDS: SUCRALFATE 1 GM TAB PO ×3 (05:43→16:37)
[2017-11-18 05:55] LABS: ALBUMIN 2.4 GM/DL (3.2-5.2); ANION GAP 5 MEQ/L (8-16); BLOOD UREA NITROGEN 70 MG/DL (7-18); CALCIUM LEVEL 8.2 MG/DL (8.8-10.2); CARBON DIOXIDE LEVEL 19 MEQ/L (21-32); CHLORIDE LEVEL 115 MEQ/L (98-107); CREATININE FOR GFR 1.24 MG/DL (0.70-1.30); GLOMERULAR FILTRATION RATE > 60.0 (>42); GLUCOSE, FASTING 80 MG/DL (70-100); PHOSPHORUS LEVEL 2.7 MG/DL (2.5-4.9); POTASSIUM SERUM 4.2 MEQ/L (3.5-5.1); SODIUM LEVEL 139 MEQ/L (136-145)
[2017-11-18 05:59] LABS: IMMATURE PLATELET FRACTION % 6.7 % (0.0-10.9); PLATELET COUNT, AUTOMATED 79 10^3/uL (150-450)
[2017-11-18] MEDS ORDERED: LIDOCAINE 2% INJ 100 MG/5 ML SDV (FOR ANES.) As Ordered (07:04)
[2017-11-18] MEDS ORDERED: PROPOFOL 200 MG/20 ML VIAL As Ordered (07:04)
[2017-11-18] MEDS: LR 1,000 ML IV (07:17)
[2017-11-18] MEDS: ATORVASTATIN 20 MG TAB PO (09:42)
[2017-11-18] MEDS: PANTOPRAZOLE 40MG INJ (PROTONIX) (C9113) IV ×2 (09:42→21:27)
[2017-11-18 11:43] LABS: MAGNESIUM LEVEL 1.7 MG/DL (1.8-2.4)
[2017-11-18 13:36] LABS: HEMOGLOBIN 9.1 g/dl (13.5-17.5)
[2017-11-18 19:33] LABS: HEMATOCRIT 26.6 % (42.0-52.0)
[2017-11-19] MEDS: SUCRALFATE 1 GM TAB PO ×3 (00:16→11:17)
[2017-11-19 01:44] LABS: HEMOGLOBIN 8.5 g/dl (13.5-17.5)
[2017-11-19 05:11] LABS: HEMATOCRIT 24.7 % (42.0-52.0); HEMOGLOBIN 8.5 g/dl (13.5-17.5); MEAN CORPUSCULAR HEMOGLOBIN 29.5 pg (27.0-33.0); MEAN CORPUSCULAR HGB CONC 34.4 g/dl (32.0-36.5); MEAN CORPUSCULAR VOLUME 85.8 fl (80.0-96.0); RED BLOOD COUNT 2.88 10^6/uL (4.30-6.10); RED CELL DISTRIBUTION WIDTH 14.6 % (11.5-14.5); WHITE BLOOD COUNT 5.8 10^3/uL (4.0-10.0)
[2017-11-19 05:21] LABS: PLATELET COUNT, AUTOMATED 73 10^3/uL (150-450)
[2017-11-19 05:22] LABS: ALBUMIN 2.2 GM/DL (3.2-5.2); ANION GAP 6 MEQ/L (8-16); BLOOD UREA NITROGEN 36 MG/DL (7-18); CALCIUM LEVEL 7.9 MG/DL (8.8-10.2); CARBON DIOXIDE LEVEL 22 MEQ/L (21-32); CHLORIDE LEVEL 113 MEQ/L (98-107); CREATININE FOR GFR 1.06 MG/DL (0.70-1.30); GLOMERULAR FILTRATION RATE > 60.0 (>42); GLUCOSE, FASTING 96 MG/DL (70-100); PHOSPHORUS LEVEL 2.5 MG/DL (2.5-4.9); POTASSIUM SERUM 4.3 MEQ/L (3.5-5.1); SODIUM LEVEL 141 MEQ/L (136-145)
[2017-11-19] MEDS: ATORVASTATIN 20 MG TAB PO (08:49)
[2017-11-19] MEDS: PANTOPRAZOLE 40MG INJ (PROTONIX) (C9113) IV (08:49)
[2017-11-19] MEDS ORDERED: SLF 3 ML SYR IV (11:30)
[2017-11-19] MEDS: SLF 3 ML SYR IV (12:27)
[2017-11-19 14:17] LABS: HEMATOCRIT 28.6 % (42.0-52.0); HEMOGLOBIN 9.6 g/dl (13.5-17.5)
== END 2017-11-19 16:14 | disposition home or self-care (01) | DRG 378 ==
LOC: M ED 10:33 → M ED INP 13:24 → M PCU 16:25
PROC: 0DJ08ZZ Inspection of Upper Intestinal Tract, Via Natural or Artificial Opening Endoscopic (ICD-10-PCS; 2017-11-18 07:30)
PROC: 30233N1 Transfusion of Nonautologous Red Blood Cells into Peripheral Vein, Percutaneous Approach (ICD-10-PCS; principal; 2017-11-18 08:11)
DX: K92.2 Gastrointestinal hemorrhage, unspecified (principal); D62 Acute posthemorrhagic anemia; I11.0 Hypertensive heart disease with heart failure; E78.5 Hyperlipidemia, unspecified; I50.9 Heart failure, unspecified; K57.30 Diverticulosis of large intestine without perforation or abscess without bleeding; K44.9 Diaphragmatic hernia without obstruction or gangrene; K29.70 Gastritis, unspecified, without bleeding; K21.9 Gastro-esophageal reflux disease without esophagitis; Z79.899 Other long term (current) drug therapy; Z95.0 Presence of cardiac pacemaker; K80.20 Calculus of gallbladder without cholecystitis without obstruction; Z95.2 Presence of prosthetic heart valve; I45.6 Pre-excitation syndrome; D69.6 Thrombocytopenia, unspecified

== ENCOUNTER → 2018-01-09 | Outpatient (REF) | payer OTHER ==
[2018-01-09 12:26] LABS: BASO % 0.3 % (0.0-1.0); EOS # 0.1 10^3/uL (0.0-0.50); EOS % 1.5 % (0.0-3.0); HEMATOCRIT 34.6 % (42.0-52.0); HEMOGLOBIN 11.4 g/dl (13.5-17.5); IMMATURE GRANULOCYTE % 0.5 % (0-3.0); LYMPH # 2.1 10^3/uL (1.5-4.5); LYMPH % 23.8 % (24.0-44.0); MEAN CORPUSCULAR HEMOGLOBIN 28.4 pg (27.0-33.0); MEAN CORPUSCULAR HGB CONC 32.9 g/dl (32.0-36.5); MEAN CORPUSCULAR VOLUME 86.3 fl (80.0-96.0); MONO # 0.8 10^3/uL (0.0-0.8); NEUTROPHILS # 5.7 10^3/uL (1.8-7.7); NEUTROPHILS % 64.9 % (36.0-66.0); PLATELET COUNT, AUTOMATED 112 10^3/uL (150-450); RED BLOOD COUNT 4.01 10^6/uL (4.30-6.10); RED CELL DISTRIBUTION WIDTH 15.2 % (11.5-14.5); WHITE BLOOD COUNT 8.8 10^3/uL (4.0-10.0)
[2018-01-09 13:13] LABS: ALBUMIN 2.4 GM/DL (3.2-5.2); ALKALINE PHOSPHATASE 93 U/L (45-117); ALT/SGPT 28 U/L (12-78); ANION GAP 8 MEQ/L (8-16); AST/SGOT 27 U/L (7-37); BILIRUBIN,TOTAL 0.7 MG/DL (0.2-1.0); BLOOD UREA NITROGEN 20 MG/DL (7-18); CALCIUM LEVEL 5.6 MG/DL (8.8-10.2); CARBON DIOXIDE LEVEL 27 MEQ/L (21-32); CHLORIDE LEVEL 106 MEQ/L (98-107); CHOLESTEROL LEVEL 82 MG/DL (<200); CHOLESTEROL RISK RATIO 1.518 (<5); CREATININE FOR GFR 1.15 MG/DL (0.70-1.30); GLOMERULAR FILTRATION RATE > 60.0 (>42); GLUCOSE, FASTING 86 MG/DL (70-100); HDL CHOLESTEROL 54 MG/DL (>40); IRON (FE) 35 UG/DL (65-175); LDL CHOLESTEROL 16.8 MG/DL (<100); NON-HDL-C 28 MG/DL; POTASSIUM SERUM 2.5 MEQ/L (3.5-5.1); SODIUM LEVEL 141 MEQ/L (136-145); TOTAL IRON BINDING CAPACITY 250 UG/DL (250-450); TOTAL PROTEIN 5.4 GM/DL (6.4-8.2); TRIGLYCERIDES LEVEL 56 MG/DL (<150)
[2018-01-09 13:23] LABS: MAGNESIUM LEVEL 0.7 MG/DL (1.8-2.4)
[2018-01-09 13:59] LABS: ESTIMATED AVERAGE GLUCOSE 123 MG/DL (60-110); HEMOGLOBIN A1c 5.9 %
[2018-01-09 14:59] LABS: TOTAL 25(OH) VITAMIN D 51.3 NG/ML (30.0-100.0)
== END ==
LOC: M LAB REF 11:33
DX: E55.9 Vitamin D deficiency, unspecified (principal); E11.9 Type 2 diabetes mellitus without complications; I50.42 Chronic combined systolic (congestive) and diastolic (congestive) heart failure; D50.9 Iron deficiency anemia, unspecified; Z79.899 Other long term (current) drug therapy; I48.91 Unspecified atrial fibrillation
CPT/HCPCS: 83550

== ENCOUNTER → 2018-01-09 | Outpatient (REF) | payer OTHER ==
[2018-01-09 13:00] LABS: ANION GAP 9 MEQ/L (8-16); BLOOD UREA NITROGEN 20 MG/DL (7-18); CALCIUM LEVEL 5.7 MG/DL (8.8-10.2); CARBON DIOXIDE LEVEL 27 MEQ/L (21-32); CHLORIDE LEVEL 106 MEQ/L (98-107); GLOMERULAR FILTRATION RATE > 60.0 (>42); GLUCOSE, FASTING 86 MG/DL (70-100); POTASSIUM SERUM 2.5 MEQ/L (3.5-5.1); SODIUM LEVEL 142 MEQ/L (136-145)
[2018-01-09 13:26] LABS: MAGNESIUM LEVEL 0.8 MG/DL (1.8-2.4)
== END ==
LOC: M LABDRAW1 11:35
DX: I50.42 Chronic combined systolic (congestive) and diastolic (congestive) heart failure (principal); I48.91 Unspecified atrial fibrillation
CPT/HCPCS: 83735

== ENCOUNTER → 2018-01-12 | Outpatient (REF) | payer OTHER ==
[2018-01-12 12:35] LABS: ANION GAP 11 MEQ/L (8-16); BLOOD UREA NITROGEN 17 MG/DL (7-18); CALCIUM LEVEL 5.9 MG/DL (8.8-10.2); CARBON DIOXIDE LEVEL 25 MEQ/L (21-32); CHLORIDE LEVEL 104 MEQ/L (98-107); CREATININE FOR GFR 1.08 MG/DL (0.70-1.30); GLOMERULAR FILTRATION RATE > 60.0 (>42); GLUCOSE, FASTING 109 MG/DL (70-100); POTASSIUM SERUM 3.3 MEQ/L (3.5-5.1); SODIUM LEVEL 140 MEQ/L (136-145)
== END ==
LOC: M LABDRAW1 11:30
DX: E87.6 Hypokalemia (principal)
CPT/HCPCS: 80048

== ENCOUNTER → 2018-01-19 | Outpatient (REF) | payer OTHER ==
[2018-01-19 13:47] LABS: ANION GAP 10 MEQ/L (8-16); BLOOD UREA NITROGEN 15 MG/DL (7-18); CALCIUM LEVEL 5.8 MG/DL (8.8-10.2); CARBON DIOXIDE LEVEL 25 MEQ/L (21-32); CHLORIDE LEVEL 107 MEQ/L (98-107); CREATININE FOR GFR 0.97 MG/DL (0.70-1.30); GLOMERULAR FILTRATION RATE > 60.0 (>42); GLUCOSE, FASTING 66 MG/DL (70-100); SODIUM LEVEL 142 MEQ/L (136-145)
[2018-01-19 13:58] LABS: MAGNESIUM LEVEL 0.8 MG/DL (1.8-2.4)
== END ==
LOC: M LABDRAW1 08:17
DX: E87.6 Hypokalemia (principal); E83.42 Hypomagnesemia
CPT/HCPCS: 83735

== ENCOUNTER → 2018-01-26 | Outpatient (REF) | payer OTHER ==
[2018-01-26 11:56] LABS: ANION GAP 7 MEQ/L (8-16); BLOOD UREA NITROGEN 16 MG/DL (7-18); CALCIUM LEVEL 7.1 MG/DL (8.8-10.2); CARBON DIOXIDE LEVEL 26 MEQ/L (21-32); CHLORIDE LEVEL 109 MEQ/L (98-107); CREATININE FOR GFR 1.13 MG/DL (0.70-1.30); GLOMERULAR FILTRATION RATE > 60.0 (>42); GLUCOSE, FASTING 112 MG/DL (70-100); MAGNESIUM LEVEL 1.2 MG/DL (1.8-2.4); POTASSIUM SERUM 4.2 MEQ/L (3.5-5.1); SODIUM LEVEL 142 MEQ/L (136-145)
== END ==
LOC: M LABDRAW1 07:30
DX: I50.42 Chronic combined systolic (congestive) and diastolic (congestive) heart failure (principal)
CPT/HCPCS: 83735

== ENCOUNTER → 2018-02-09 | Outpatient (REF) | payer OTHER ==
[2018-02-09 12:12] LABS: ALBUMIN 2.5 GM/DL (3.2-5.2); ALBUMIN/GLOBULIN RATIO 0.74 (1.00-1.93); ALKALINE PHOSPHATASE 90 U/L (45-117); ALT/SGPT 27 U/L (12-78); ANION GAP 10 MEQ/L (8-16); AST/SGOT 20 U/L (7-37); BILIRUBIN,TOTAL 0.4 MG/DL (0.2-1.0); BLOOD UREA NITROGEN 25 MG/DL (7-18); CALCIUM LEVEL 7.5 MG/DL (8.8-10.2); CARBON DIOXIDE LEVEL 23 MEQ/L (21-32); CHLORIDE LEVEL 108 MEQ/L (98-107); CREATININE FOR GFR 1.33 MG/DL (0.70-1.30); GLOMERULAR FILTRATION RATE 55.5 (>42); GLUCOSE, FASTING 113 MG/DL (70-100); MAGNESIUM LEVEL 1.2 MG/DL (1.8-2.4); POTASSIUM SERUM 3.4 MEQ/L (3.5-5.1); SODIUM LEVEL 141 MEQ/L (136-145); TOTAL PROTEIN 5.9 GM/DL (6.4-8.2)
== END ==
LOC: M LABDRAW1 07:54
DX: I50.42 Chronic combined systolic (congestive) and diastolic (congestive) heart failure (principal)
CPT/HCPCS: 83735

== ENCOUNTER → 2018-02-23 | Outpatient (REF) | payer OTHER ==
[2018-02-23 11:10] LABS: ANION GAP 8 MEQ/L (8-16); BLOOD UREA NITROGEN 26 MG/DL (7-18); CALCIUM LEVEL 7.5 MG/DL (8.8-10.2); CARBON DIOXIDE LEVEL 25 MEQ/L (21-32); CHLORIDE LEVEL 107 MEQ/L (98-107); CREATININE FOR GFR 1.16 MG/DL (0.70-1.30); GLOMERULAR FILTRATION RATE > 60.0 (>42); GLUCOSE, FASTING 161 MG/DL (70-100); MAGNESIUM LEVEL 1.4 MG/DL (1.8-2.4); SODIUM LEVEL 140 MEQ/L (136-145)
== END ==
LOC: M LABDRAW1 09:59
DX: I50.42 Chronic combined systolic (congestive) and diastolic (congestive) heart failure (principal)
CPT/HCPCS: 83735

== ENCOUNTER → 2018-02-26 | Outpatient (REF) | payer OTHER ==
[2018-02-26 09:59] LABS: HEMATOCRIT 36.3 % (42.0-52.0); HEMOGLOBIN 11.4 g/dl (13.5-17.5); MEAN CORPUSCULAR HEMOGLOBIN 27.1 pg (27.0-33.0); MEAN CORPUSCULAR HGB CONC 31.4 g/dl (32.0-36.5); MEAN CORPUSCULAR VOLUME 86.4 fl (80.0-96.0); PLATELET COUNT, AUTOMATED 179 10^3/uL (150-450); RED CELL DISTRIBUTION WIDTH 14.1 % (11.5-14.5); WHITE BLOOD COUNT 7.2 10^3/uL (4.0-10.0)
[2018-02-26 10:19] LABS: ANION GAP 7 MEQ/L (8-16); BLOOD UREA NITROGEN 17 MG/DL (7-18); CALCIUM LEVEL 7.9 MG/DL (8.8-10.2); CARBON DIOXIDE LEVEL 26 MEQ/L (21-32); CHLORIDE LEVEL 109 MEQ/L (98-107); CREATININE FOR GFR 0.89 MG/DL (0.70-1.30); GLOMERULAR FILTRATION RATE > 60.0 (>42); GLUCOSE, FASTING 118 MG/DL (70-100); POTASSIUM SERUM 3.7 MEQ/L (3.5-5.1); SODIUM LEVEL 142 MEQ/L (136-145)
== END ==
LOC: M LABDRAW1 09:46
DX: I48.91 Unspecified atrial fibrillation (principal)
CPT/HCPCS: 80048

== ENCOUNTER → 2018-03-09 | Outpatient (REF) | payer OTHER ==
[2018-03-09 12:41] LABS: ANION GAP 8 MEQ/L (8-16); BLOOD UREA NITROGEN 23 MG/DL (7-18); CARBON DIOXIDE LEVEL 26 MEQ/L (21-32); CHLORIDE LEVEL 106 MEQ/L (98-107); GLOMERULAR FILTRATION RATE > 60.0 (>42); GLUCOSE, FASTING 114 MG/DL (70-100); MAGNESIUM LEVEL 1.8 MG/DL (1.8-2.4); POTASSIUM SERUM 4.3 MEQ/L (3.5-5.1); SODIUM LEVEL 140 MEQ/L (136-145)
== END ==
LOC: M LABDRAW1 08:20
DX: I50.42 Chronic combined systolic (congestive) and diastolic (congestive) heart failure (principal)
CPT/HCPCS: 83735

== ENCOUNTER → 2018-03-23 | Outpatient (REF) | payer OTHER ==
[2018-03-23 12:45] LABS: ANION GAP 8 MEQ/L (8-16); BLOOD UREA NITROGEN 22 MG/DL (7-18); CALCIUM LEVEL 7.8 MG/DL (8.8-10.2); CARBON DIOXIDE LEVEL 24 MEQ/L (21-32); CHLORIDE LEVEL 109 MEQ/L (98-107); CREATININE FOR GFR 0.97 MG/DL (0.70-1.30); GLOMERULAR FILTRATION RATE > 60.0 (>42); GLUCOSE, FASTING 92 MG/DL (70-100); MAGNESIUM LEVEL 1.4 MG/DL (1.8-2.4); POTASSIUM SERUM 4.2 MEQ/L (3.5-5.1); SODIUM LEVEL 141 MEQ/L (136-145)
== END ==
LOC: M LABDRAW1 11:47
DX: I48.91 Unspecified atrial fibrillation (principal); I50.42 Chronic combined systolic (congestive) and diastolic (congestive) heart failure
CPT/HCPCS: 83735

== ENCOUNTER → 2018-04-06 | Outpatient (REF) | payer OTHER ==
[2018-04-06 10:26] LABS: ANION GAP 6 MEQ/L (8-16); BLOOD UREA NITROGEN 17 MG/DL (7-18); CALCIUM LEVEL 7.7 MG/DL (8.8-10.2); CARBON DIOXIDE LEVEL 25 MEQ/L (21-32); CHLORIDE LEVEL 110 MEQ/L (98-107); GLOMERULAR FILTRATION RATE > 60.0 (>42); GLUCOSE, FASTING 94 MG/DL (70-100); MAGNESIUM LEVEL 1.8 MG/DL (1.8-2.4); SODIUM LEVEL 141 MEQ/L (136-145)
== END ==
LOC: M LABDRAW1 09:27
DX: I48.91 Unspecified atrial fibrillation (principal); I50.42 Chronic combined systolic (congestive) and diastolic (congestive) heart failure
CPT/HCPCS: 83735

== ENCOUNTER → 2018-04-20 | Outpatient (REF) | payer OTHER ==
[2018-04-20 13:02] LABS: ANION GAP 8 MEQ/L (8-16); BLOOD UREA NITROGEN 22 MG/DL (7-18); CALCIUM LEVEL 7.7 MG/DL (8.8-10.2); CARBON DIOXIDE LEVEL 22 MEQ/L (21-32); CHLORIDE LEVEL 110 MEQ/L (98-107); CREATININE FOR GFR 0.94 MG/DL (0.70-1.30); GLOMERULAR FILTRATION RATE > 60.0 (>42); GLUCOSE, FASTING 86 MG/DL (70-100); MAGNESIUM LEVEL 1.6 MG/DL (1.8-2.4); POTASSIUM SERUM 4.2 MEQ/L (3.5-5.1); SODIUM LEVEL 140 MEQ/L (136-145)
== END ==
LOC: M LABDRAW1 09:08
DX: I48.1 Persistent atrial fibrillation (principal); I50.42 Chronic combined systolic (congestive) and diastolic (congestive) heart failure
CPT/HCPCS: 83735

== ENCOUNTER → 2018-05-04 | Outpatient (REF) | payer OTHER ==
[2018-05-04 11:46] LABS: ANION GAP 8 MEQ/L (8-16); BLOOD UREA NITROGEN 25 MG/DL (7-18); CALCIUM LEVEL 7.3 MG/DL (8.8-10.2); CARBON DIOXIDE LEVEL 20 MEQ/L (21-32); CHLORIDE LEVEL 112 MEQ/L (98-107); CREATININE FOR GFR 1.02 MG/DL (0.70-1.30); GLOMERULAR FILTRATION RATE > 60.0 (>42); GLUCOSE, FASTING 115 MG/DL (70-100); MAGNESIUM LEVEL 1.6 MG/DL (1.8-2.4); POTASSIUM SERUM 4.3 MEQ/L (3.5-5.1); SODIUM LEVEL 140 MEQ/L (136-145)
== END ==
LOC: M LABDRAW1 10:29
DX: I48.91 Unspecified atrial fibrillation (principal); I50.42 Chronic combined systolic (congestive) and diastolic (congestive) heart failure
CPT/HCPCS: 83735

== ENCOUNTER → 2018-05-18 | Outpatient (REF) | payer OTHER ==
[2018-05-18 11:33] LABS: ANION GAP 7 MEQ/L (8-16); BLOOD UREA NITROGEN 22 MG/DL (7-18); CALCIUM LEVEL 7.9 MG/DL (8.8-10.2); CARBON DIOXIDE LEVEL 23 MEQ/L (21-32); CHLORIDE LEVEL 110 MEQ/L (98-107); CREATININE FOR GFR 1.08 MG/DL (0.70-1.30); GLOMERULAR FILTRATION RATE > 60.0 (>42); GLUCOSE, FASTING 91 MG/DL (70-100); MAGNESIUM LEVEL 1.6 MG/DL (1.8-2.4); POTASSIUM SERUM 4.3 MEQ/L (3.5-5.1); SODIUM LEVEL 140 MEQ/L (136-145)
== END ==
LOC: M LABDRAW1 10:58
DX: I48.1 Persistent atrial fibrillation (principal); I50.42 Chronic combined systolic (congestive) and diastolic (congestive) heart failure
CPT/HCPCS: 83735

== ENCOUNTER → 2018-06-01 | Outpatient (REF) | payer OTHER ==
[2018-06-01 13:33] LABS: ANION GAP 7 MEQ/L (8-16); BLOOD UREA NITROGEN 27 MG/DL (7-18); CALCIUM LEVEL 8.1 MG/DL (8.8-10.2); CARBON DIOXIDE LEVEL 23 MEQ/L (21-32); CHLORIDE LEVEL 107 MEQ/L (98-107); CREATININE FOR GFR 1.12 MG/DL (0.70-1.30); GLOMERULAR FILTRATION RATE > 60.0 (>42); GLUCOSE, FASTING 84 MG/DL (70-100); MAGNESIUM LEVEL 1.7 MG/DL (1.8-2.4); POTASSIUM SERUM 4.6 MEQ/L (3.5-5.1); SODIUM LEVEL 137 MEQ/L (136-145)
== END ==
LOC: M LABDRAW1 12:07
DX: I50.42 Chronic combined systolic (congestive) and diastolic (congestive) heart failure (principal)
CPT/HCPCS: 83735

== ENCOUNTER → 2018-06-15 | Outpatient (REF) | payer OTHER ==
[2018-06-15 12:14] LABS: ANION GAP 8 MEQ/L (8-16); BLOOD UREA NITROGEN 22 MG/DL (7-18); CALCIUM LEVEL 8.3 MG/DL (8.8-10.2); CARBON DIOXIDE LEVEL 21 MEQ/L (21-32); CHLORIDE LEVEL 111 MEQ/L (98-107); GLOMERULAR FILTRATION RATE > 60.0 (>42); GLUCOSE, FASTING 109 MG/DL (70-100); MAGNESIUM LEVEL 1.7 MG/DL (1.8-2.4); POTASSIUM SERUM 4.5 MEQ/L (3.5-5.1); SODIUM LEVEL 140 MEQ/L (136-145)
== END ==
LOC: M LABDRAW1 08:36
DX: I48.91 Unspecified atrial fibrillation (principal); I50.42 Chronic combined systolic (congestive) and diastolic (congestive) heart failure
CPT/HCPCS: 83735

== ENCOUNTER → 2018-06-29 | Outpatient (REF) | payer OTHER ==
[2018-06-29 12:08] LABS: ANION GAP 9 MEQ/L (8-16); BLOOD UREA NITROGEN 23 MG/DL (7-18); CALCIUM LEVEL 7.3 MG/DL (8.8-10.2); CARBON DIOXIDE LEVEL 24 MEQ/L (21-32); CHLORIDE LEVEL 110 MEQ/L (98-107); GLOMERULAR FILTRATION RATE > 60.0 (>42); GLUCOSE, FASTING 128 MG/DL (70-100); MAGNESIUM LEVEL 1.4 MG/DL (1.8-2.4); POTASSIUM SERUM 3.8 MEQ/L (3.5-5.1); SODIUM LEVEL 143 MEQ/L (136-145)
== END ==
LOC: M LABDRAW1 09:12
DX: I50.42 Chronic combined systolic (congestive) and diastolic (congestive) heart failure (principal); I48.1 Persistent atrial fibrillation
CPT/HCPCS: 83735

== ENCOUNTER → 2018-07-13 | Outpatient (REF) | payer OTHER ==
[~2018-07-13] MED LIST changes: -DRIS50002 PO; +DRIS50003 PO; +KLOR10TA76 PO; +LASI40TA PO; -LOSA50TA20 PO; +LOSA50TA73 PO; +PROT1TAB2 PO; +SPIR-10 PO; -SPIR25TA2 PO; +SUCR1TA PO; -VITA1CAP40 PO; +VITA50005 PO
[2018-07-13 12:39] LABS: BASO % 0.5 % (0.0-1.0); EOS # 0.2 10^3/uL (0.0-0.50); EOS % 2.3 % (0.0-3.0); HEMATOCRIT 33.7 % (42.0-52.0); HEMOGLOBIN 10.2 g/dl (13.5-17.5); LYMPH # 1.5 10^3/uL (1.5-4.5); LYMPH % 23.2 % (24.0-44.0); MEAN CORPUSCULAR HEMOGLOBIN 24.9 pg (27.0-33.0); MEAN CORPUSCULAR HGB CONC 30.3 g/dl (32.0-36.5); MEAN CORPUSCULAR VOLUME 82.2 fl (80.0-96.0); MONO # 0.6 10^3/uL (0.0-0.8); MONO % 9.4 % (0.0-5.0); NEUTROPHILS # 4.3 10^3/uL (1.8-7.7); NEUTROPHILS % 64.4 % (36.0-66.0); PLATELET COUNT, AUTOMATED 122 10^3/uL (150-450); WHITE BLOOD COUNT 6.6 10^3/uL (4.0-10.0)
[2018-07-13 12:59] LABS: ALBUMIN 2.9 GM/DL (3.2-5.2); ALT/SGPT 21 U/L (12-78); BILIRUBIN,TOTAL 0.4 MG/DL (0.2-1.0); BLOOD UREA NITROGEN 21 MG/DL (7-18); CALCIUM LEVEL 7.9 MG/DL (8.8-10.2); CARBON DIOXIDE LEVEL 22 MEQ/L (21-32); CHLORIDE LEVEL 111 MEQ/L (98-107); CHOLESTEROL LEVEL 86 MG/DL (<200); CHOLESTEROL RISK RATIO 2.457 (<5); CREATININE FOR GFR 1.09 MG/DL (0.70-1.30); GLOMERULAR FILTRATION RATE > 60.0 (>42); GLUCOSE, FASTING 88 MG/DL (70-100); HDL CHOLESTEROL 35 MG/DL (>40); LDL CHOLESTEROL 35 MG/DL (<100); MAGNESIUM LEVEL 1.5 MG/DL (1.8-2.4); NON-HDL-C 51 MG/DL; POTASSIUM SERUM 4.3 MEQ/L (3.5-5.1); SODIUM LEVEL 142 MEQ/L (136-145); TOTAL 25(OH) VITAMIN D 27.1 NG/ML (30.0-100.0); TOTAL PROTEIN 5.7 GM/DL (6.4-8.2); TRIGLYCERIDES LEVEL 82 MG/DL (<150)
[2018-07-13 13:28] LABS: HEMOGLOBIN A1c 5.9 %
== END ==
LOC: M LABDRAW1 11:44
PROVIDERS: ATTEND Emergency Medicine
DX: D50.9 Iron deficiency anemia, unspecified (principal); E11.42 Type 2 diabetes mellitus with diabetic polyneuropathy; I10 Essential (primary) hypertension; E78.2 Mixed hyperlipidemia; E83.42 Hypomagnesemia; E55.9 Vitamin D deficiency, unspecified

== ENCOUNTER → 2018-07-23 | Outpatient (REF) | payer OTHER ==
[~2018-07-23] MED LIST changes: -LASI40TA PO; +LASI40TA9 PO; -LOSA50TA73 PO; +LOSA50TA88 PO
[2018-07-23 11:37] LABS: BLOOD UREA NITROGEN 23 MG/DL (7-18); CALCIUM LEVEL 7.8 MG/DL (8.8-10.2); CARBON DIOXIDE LEVEL 22 MEQ/L (21-32); CHLORIDE LEVEL 111 MEQ/L (98-107); CREATININE FOR GFR 1.04 MG/DL (0.70-1.30); GLOMERULAR FILTRATION RATE > 60.0 (>42); GLUCOSE, FASTING 95 MG/DL (70-100); MAGNESIUM LEVEL 1.4 MG/DL (1.8-2.4); SODIUM LEVEL 141 MEQ/L (136-145)
== END ==
LOC: M LABDRAW1 09:40
PROVIDERS: ATTEND Internal Medicine Cardiovascular Disease
DX: I50.42 Chronic combined systolic (congestive) and diastolic (congestive) heart failure (principal)

== ENCOUNTER → 2018-08-10 | Outpatient (REF) | payer OTHER ==
[2018-08-10 10:36] LABS: BLOOD UREA NITROGEN 24 MG/DL (7-18); CALCIUM LEVEL 8.2 MG/DL (8.8-10.2); CARBON DIOXIDE LEVEL 20 MEQ/L (21-32); CHLORIDE LEVEL 110 MEQ/L (98-107); CREATININE FOR GFR 1.01 MG/DL (0.70-1.30); GLOMERULAR FILTRATION RATE > 60.0 (>42); GLUCOSE, FASTING 97 MG/DL (70-100); MAGNESIUM LEVEL 1.9 MG/DL (1.8-2.4); POTASSIUM SERUM 4.1 MEQ/L (3.5-5.1); SODIUM LEVEL 141 MEQ/L (136-145)
== END ==
LOC: M LABDRAW1 09:29
PROVIDERS: ATTEND Internal Medicine Cardiovascular Disease
DX: I50.42 Chronic combined systolic (congestive) and diastolic (congestive) heart failure (principal); I48.91 Unspecified atrial fibrillation

== ENCOUNTER → 2018-08-24 | Outpatient (REF) | payer OTHER ==
[2018-08-24 12:41] LABS: BLOOD UREA NITROGEN 23 MG/DL (7-18); CALCIUM LEVEL 8.1 MG/DL (8.8-10.2); CARBON DIOXIDE LEVEL 20 MEQ/L (21-32); CHLORIDE LEVEL 112 MEQ/L (98-107); CREATININE FOR GFR 1.17 MG/DL (0.70-1.30); GLOMERULAR FILTRATION RATE > 60.0 (>42); GLUCOSE, FASTING 107 MG/DL (70-100); MAGNESIUM LEVEL 1.8 MG/DL (1.8-2.4); POTASSIUM SERUM 4.1 MEQ/L (3.5-5.1); SODIUM LEVEL 141 MEQ/L (136-145)
== END ==
LOC: M LABDRAW1 11:30
PROVIDERS: ATTEND Internal Medicine Cardiovascular Disease
DX: I50.42 Chronic combined systolic (congestive) and diastolic (congestive) heart failure (principal)

== ENCOUNTER → 2018-09-07 | Outpatient (REF) | payer OTHER ==
[~2018-09-07] MED LIST changes: +ASPI325T25 PO; +FLUTISP NARES; +MAGN400C PO; +PLAV1TAB2 PO; +RANI300T PO
== END ==
LOC: M LABDRAW1 09:03
PROVIDERS: ATTEND Internal Medicine Cardiovascular Disease
DX: I48.91 Unspecified atrial fibrillation (principal); I50.42 Chronic combined systolic (congestive) and diastolic (congestive) heart failure

== ENCOUNTER → 2018-09-07 | Outpatient (REF) | payer OTHER ==
[2018-09-07 12:07] LABS: BASO % 0.3 % (0.0-1.0); EOS # 0.2 10^3/uL (0.0-0.50); EOS % 2.9 % (0.0-3.0); HEMATOCRIT 36.7 % (42.0-52.0); HEMOGLOBIN 11.3 g/dl (13.5-17.5); LYMPH # 1.7 10^3/uL (1.5-4.5); LYMPH % 23.8 % (24.0-44.0); MEAN CORPUSCULAR HEMOGLOBIN 25.6 pg (27.0-33.0); MEAN CORPUSCULAR HGB CONC 30.8 g/dl (32.0-36.5); MONO # 0.6 10^3/uL (0.0-0.8); MONO % 8.5 % (0.0-5.0); NEUTROPHILS # 4.5 10^3/uL (1.8-7.7); NEUTROPHILS % 64.2 % (36.0-66.0); PLATELET COUNT, AUTOMATED 111 10^3/uL (150-450); RED BLOOD COUNT 4.42 10^6/uL (4.30-6.10); WHITE BLOOD COUNT 6.9 10^3/uL (4.0-10.0)
[2018-09-07 12:15] LABS: ALBUMIN 3.2 GM/DL (3.2-5.2); ALT/SGPT 26 U/L (12-78); BILIRUBIN,TOTAL 0.3 MG/DL (0.2-1.0); BLOOD UREA NITROGEN 24 MG/DL (7-18); CALCIUM LEVEL 7.7 MG/DL (8.8-10.2); CARBON DIOXIDE LEVEL 23 MEQ/L (21-32); CHLORIDE LEVEL 112 MEQ/L (98-107); CREATININE FOR GFR 1.15 MG/DL (0.70-1.30); FERRITIN 10 NG/ML (26-388); GLOMERULAR FILTRATION RATE > 60.0 (>42); GLUCOSE, FASTING 91 MG/DL (70-100); IRON (FE) 32 UG/DL (65-175); PERCENT SATURATION 8.8 % (19.7-50.0); SODIUM LEVEL 141 MEQ/L (136-145); TOTAL IRON BINDING CAPACITY 364 UG/DL (250-450); TOTAL PROTEIN 6.1 GM/DL (6.4-8.2)
== END ==
LOC: M LABDRAW1 08:59
PROVIDERS: ATTEND Physician Assistant
DX: D64.9 Anemia, unspecified (principal); I11.0 Hypertensive heart disease with heart failure; E83.42 Hypomagnesemia; I48.91 Unspecified atrial fibrillation; I50.42 Chronic combined systolic (congestive) and diastolic (congestive) heart failure

== ENCOUNTER 2018-09-16 06:20 | Day surgery (SDC) | payer MEDICARE ==
[~2018-09-16] VITALS: Ht 175.3 cm; Wt 74.8 kg
[~2018-09-16 06:20] MED LIST changes: +ACETAMINOPHEN 325 MG TAB PO PRN
[2018-09-16] MEDS ORDERED: CEFUROXIME 1MG/0.1ML INTRACAMERAL INJ As Ordered ONE (06:41)
[2018-09-16] MEDS ORDERED: LIDOCAINE 1% SDV 5 ML VIAL As Ordered ONE (06:41)
[2018-09-16] MEDS ORDERED: BALANCED SALT IRRIGATION SOLUTION 500ML BAG (FOR OR EYE MACHINE) As Ordered ONE (06:41)
[2018-09-16] MEDS ORDERED: POVIDONE-IODINE 5% OPHTH PREP SOL 30ML As Ordered ONE (06:41)
[2018-09-16] MEDS ORDERED: HEALON DUET PRO(HEALON 10MG/ML 0.55ML & HEALON ENDOCOAT 30MG/ML 0.85ML) As Ordered ONE (06:42)
[2018-09-16] MEDS ORDERED: OFLOXACIN 0.3 % (OCUFLOX) OPTH SOL 5ML OD ONE (07:00)
[2018-09-16] MEDS ORDERED: PHENYLEPHRINE HCL 10 % OPHTH. SOL 5ML OD PRN (07:00)
[2018-09-16] MEDS ORDERED: PHENYLEPHRINE 2.5% OPHTH SOL 2ML OD ONE (07:00)
[2018-09-16] MEDS ORDERED: LIDOCAINE 3.5 % 1ML OPHTH TOPICAL GEL OU ONE (07:00)
[2018-09-16] MEDS ORDERED: CYCLOPENTOLATE 2% OPHTH SOLN 2ML BTL OD ONE (07:00)
[2018-09-16] MEDS ORDERED: TROPICAMIDE 1% OPHTH SOLN 2ML OD ONE (07:00)
[2018-09-16] MEDS ORDERED: PROPARACAINE 0.5% OPHTH SOL 15ML OD PRN (07:01)
[2018-09-16] MEDS ORDERED: ACETYLCHOLINE OPHTH SOLN 1% 2ML (MIOCHOL-E) As Ordered ONE (08:14)
[2018-09-16] MEDS ORDERED: fentaNYL 100 MCG/2 ML INJECTION (J3010) As Ordered ONE ×2 (08:40→10:28)
[2018-09-16] MEDS ORDERED: MIDAZOLAM INJ 2 MG/2 ML VIAL (J2250) As Ordered ONE ×2 (08:40→10:28)
[2018-09-16] MEDS ORDERED: TRIMETHOBENZAMIDE 300 MG CAP PO PRN (09:00)
[2018-09-16] MEDS ORDERED: AcetaZOLAMIDE 500 MG ER CAP PO ONE (09:00)
[2018-09-16] MEDS ORDERED: KETOROLAC 0.5% OPHTH SOLN OD ONE (09:00)
[2018-09-16 09:15] VITALS: BP 141/74
--- NOTE | 2018-09-17 09:39 | RO ---
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 PROCEDURE PERFORMED: Phacoemulsification with posterior chamber intraocular lens implantation and use of pupil expansion device, right eye. Lens used was an AU00T0, 22.5 diopters. SURGEON: Kaci Rodriguez MD POLICE ACADEMY PROGRAM COORDINATOR: ANESTHESIA: Topical with sedation. DESCRIPTION OF PROCEDURE: The patient was prepped and draped in the usual fashion. A lid speculum was placed between the lids. The eye was fixated. A stab incision was made into the anterior chamber. 1% nonpreserved lidocaine was instilled, and viscoelastic was injected. The eye was refixated. A 2.4 mm keratome was used to make a clear corneal temporal limbal incision. The Malyugin ring was placed into its splitter operator and then injected into the eye. First the distal scroll engaging the iris, then the superior and then inferior scrolls engaging the iris. The proximal scroll was placed with manipulation hook. Capsulorrhexis was begun with a 30 gauge bent needle cystotome and carried out in circular fashion with capsulorrhexis forceps. The lens was hydrodissected and the phacoemulsification unit used to groove the nucleus in two meridians. The nucleus was cracked into four quadrants. Each quadrant was removed with the phacoemulsification unit. Any remaining cortex was removed with irrigation and aspiration (I and A). The capsular bag was refilled with viscoelastic and a posterior chamber intraocular lens was placed into the capsular bag without difficulty. The Malyugin ring was disinserted from the iris at the four scrolls and extracted from the eye from the eye with a manipulation hook. Any remaining viscoelastic was removed with the I and A. The wound was hydrated and Miochol and cefuroxime were instilled. Patient tolerated the procedure well and went to recovery room in stable condition.
== END 2018-09-16 09:20 | disposition home or self-care (01) ==
LOC: M SDC 06:20
PROVIDERS: ATTEND Ophthalmology
DX: H25.11 Age-related nuclear cataract, right eye (principal); H57.03 Miosis; I10 Essential (primary) hypertension; E11.42 Type 2 diabetes mellitus with diabetic polyneuropathy; E83.42 Hypomagnesemia; I48.0 Paroxysmal atrial fibrillation; E78.2 Mixed hyperlipidemia; K57.32 Diverticulitis of large intestine without perforation or abscess without bleeding; R19.7 Diarrhea, unspecified; T88.59XD Other complications of anesthesia, subsequent encounter; J30.9 Allergic rhinitis, unspecified; Z79.899 Other long term (current) drug therapy; Z79.82 Long term (current) use of aspirin; Z87.891 Personal history of nicotine dependence; Z95.0 Presence of cardiac pacemaker; Z95.4 Presence of other heart-valve replacement
CPT/HCPCS: 66982; 92015; J2250; J3010; V2632

== ENCOUNTER → 2018-09-21 | Outpatient (REF) | payer MEDICARE ==
[~2018-09-21] MED LIST changes: -ACETAMINOPHEN 325 MG TAB PO PRN
== END ==
LOC: M LABDRAW1 10:36
PROVIDERS: ATTEND Internal Medicine Cardiovascular Disease
DX: I48.91 Unspecified atrial fibrillation (principal); I50.42 Chronic combined systolic (congestive) and diastolic (congestive) heart failure

== ENCOUNTER → 2018-10-02 | Outpatient (REF) | payer MEDICARE | LOC: M LABDRAW1 12:20 | PROVIDERS: ATTEND Internal Medicine Cardiovascular Disease | DX: I48.91 Unspecified atrial fibrillation (principal); I50.42 Chronic combined systolic (congestive) and diastolic (congestive) heart failure ==

== ENCOUNTER → 2018-10-19 | Outpatient (REF) | payer MEDICARE | LOC: M LABDRAW1 10:13 | PROVIDERS: ATTEND Internal Medicine Cardiovascular Disease | DX: I48.91 Unspecified atrial fibrillation (principal); I50.42 Chronic combined systolic (congestive) and diastolic (congestive) heart failure ==

== ENCOUNTER → 2018-11-02 | Outpatient (REF) | payer MEDICARE ==
[~2018-11-02] MED LIST changes: +ASPI-255 PO; -ASPI325T25 PO; -PRAD150C PO; +PRAD150C6 PO
== END ==
LOC: M LABDRAW1 10:46
PROVIDERS: ATTEND Internal Medicine Cardiovascular Disease
DX: I48.91 Unspecified atrial fibrillation (principal); I50.42 Chronic combined systolic (congestive) and diastolic (congestive) heart failure

== ENCOUNTER → 2018-11-16 | Outpatient (REF) | payer MEDICARE ==
[~2018-11-16] MED LIST changes: +CARV3.12 PO; +FERR325T3 PO
== END ==
LOC: M LABDRAW1 11:28
PROVIDERS: ATTEND Internal Medicine Cardiovascular Disease
DX: I48.91 Unspecified atrial fibrillation (principal); I50.42 Chronic combined systolic (congestive) and diastolic (congestive) heart failure

== ENCOUNTER → 2018-11-19 | Outpatient (REF) | payer MEDICARE ==
[2018-11-19 13:27] LABS: BASO % 0.4 % (0.0-1.0); EOS # 0.2 10^3/uL (0.0-0.50); EOS % 1.8 % (0.0-3.0); HEMATOCRIT 41.2 % (42.0-52.0); HEMOGLOBIN 12.7 g/dl (13.5-17.5); LYMPH # 1.4 10^3/uL (1.5-4.5); LYMPH % 16.8 % (24.0-44.0); MEAN CORPUSCULAR HEMOGLOBIN 27.7 pg (27.0-33.0); MEAN CORPUSCULAR HGB CONC 30.8 g/dl (32.0-36.5); MONO # 0.8 10^3/uL (0.0-0.8); MONO % 9.3 % (0.0-5.0); NEUTROPHILS % 71.2 % (36.0-66.0); PLATELET COUNT, AUTOMATED 100 10^3/uL (150-450); RED BLOOD COUNT 4.58 10^6/uL (4.30-6.10); WHITE BLOOD COUNT 8.4 10^3/uL (4.0-10.0)
[2018-11-19 13:42] LABS: PERCENT SATURATION 12.1 % (19.7-50.0)
[2018-11-19 14:02] LABS: MALB URINE SIEMENS 28.5 MG/L
== END ==
LOC: M LABDRAW1 11:56
PROVIDERS: ATTEND Physician Assistant
DX: D64.9 Anemia, unspecified (principal); E11.42 Type 2 diabetes mellitus with diabetic polyneuropathy

== ENCOUNTER → 2018-11-30 | Outpatient (REF) | payer MEDICARE | LOC: M LABDRAW1 11:51 | PROVIDERS: ATTEND Internal Medicine Cardiovascular Disease | DX: I48.91 Unspecified atrial fibrillation (principal); I50.42 Chronic combined systolic (congestive) and diastolic (congestive) heart failure ==

== ENCOUNTER 2018-12-02 08:13 | Day surgery (SDC) | payer MEDICARE ==
[~2018-12-02] VITALS: Ht 177.8 cm; Wt 74.8 kg
[~2018-12-02 08:13] MED LIST changes: +ACETAMINOPHEN 325 MG TAB PO PRN; +BALANCED SALT IRRIGATION SOLUTION 500ML BAG (FOR OR EYE MACHINE) As Ordered ONE; +CEFUROXIME 1MG/0.1ML INTRACAMERAL INJ As Ordered ONE; +CYCLOPENTOLATE 2% OPHTH SOLN 2ML BTL OS ONE; +HEALON DUET PRO(HEALON 10MG/ML 0.55ML & HEALON ENDOCOAT 30MG/ML 0.85ML) As Ordered ONE; +LIDOCAINE 1% SDV 5 ML VIAL As Ordered ONE; +LIDOCAINE 3.5 % 1ML OPHTH TOPICAL GEL OU ONE; +MIDAZOLAM INJ 2 MG/2 ML VIAL (J2250) As Ordered ONE; +OFLOXACIN 0.3 % (OCUFLOX) OPTH SOL 5ML OS ONE; +PHENYLEPHRINE 2.5% OPHTH SOL 2ML OS ONE; +PHENYLEPHRINE HCL 10 % OPHTH. SOL 5ML OS PRN; +POVIDONE-IODINE 5% OPHTH PREP SOL 30ML As Ordered ONE; +PROPARACAINE 0.5% OPHTH SOL 15ML OS PRN; +TROPICAMIDE 1% OPHTH SOLN 2ML OS ONE; +fentaNYL 100 MCG/2 ML INJECTION (J3010) As Ordered ONE
--- NOTE | 2018-12-02 12:07 | REP ---
DATE OF PROCEDURE: 12/02/2018 PREOPERATIVE DIAGNOSIS: Age-related nuclear cataract and myotic pupil, left eye. POSTPROCEDURE DIAGNOSIS: Age-related nuclear cataract and myotic pupil, left eye. PROCEDURE PERFORMED: Phacoemulsification and posterior chamber intraocular lens implantation with the use of pupil expansion device, left eye. Lens used is a AU00T0 22.5 diopter. SURGEON: Kaci Rodriguez MD APPOINTMENT SCHEDULER: ANESTHESIA: Topical with sedation. DESCRIPTION OF PROCEDURE: The patient was prepped and draped in the usual fashion. A lid speculum was placed between the lids. The eye was fixated. A stab incision was made to the anterior chamber, and 1% nonpreserved Lidocaine was instilled. Then, viscoelastic was instilled. The eye was refixated. A 2.4 mm keratome was used to make a clear corneal temporal limbal incision. The Malyugin ring was then loaded into its gasoline tractor operator and injected in the eye, first the distal scroll engaging the iris, then the superior and inferior scrolls engaging the iris. The proximal scroll was placed with a manipulation hook. Capsulorrhexis was begun with a capsulorrhexis forceps carried out in a circular fashion. Lens was hydrodissected and then the phacoemulsification unit used to groove the nucleus in two meridians. The nucleus was cracked into four quadrants, and each quadrant was removed with the phacoemulsification unit. Any remaining cortex was removed with the irrigation and aspiration (I and A) unit. The posterior chamber was refilled with viscoelastic. A posterior chamber intraocular lens was placed in the eye with no difficulty. The Malyugin ring was dys-inserted from the eye using the four scrolls and extracted from the eye with manipulation hook. Any remaining viscoelastic was removed with the I and A unit. The wound was hydrated, and balanced salts and cefuroxime were instilled The patient tolerated the procedure well and went to the recovery room in stable condition.
[2018-12-02 12:15] VITALS: BP 110/58
[2018-12-02] MEDS ORDERED: AcetaZOLAMIDE 500 MG ER CAP PO ONE (12:30)
[2018-12-02] MEDS ORDERED: TRIMETHOBENZAMIDE 300 MG CAP PO PRN (12:30)
[2018-12-02] MEDS ORDERED: KETOROLAC 0.5% OPHTH SOLN OS ONE (12:30)
== END 2018-12-02 12:30 | disposition home or self-care (01) ==
LOC: M SDC 08:13
PROVIDERS: ATTEND Ophthalmology
DX: H25.12 Age-related nuclear cataract, left eye (principal); I48.91 Unspecified atrial fibrillation; I10 Essential (primary) hypertension; I25.10 Atherosclerotic heart disease of native coronary artery without angina pectoris; I50.9 Heart failure, unspecified; E78.5 Hyperlipidemia, unspecified; K58.8 Other irritable bowel syndrome; K21.9 Gastro-esophageal reflux disease without esophagitis; D64.9 Anemia, unspecified; Z79.82 Long term (current) use of aspirin; Z79.899 Other long term (current) drug therapy
CPT/HCPCS: 66984; J2250; J3010; V2632

== ENCOUNTER → 2018-12-14 | Outpatient (REF) | payer MEDICARE ==
[~2018-12-14] MED LIST changes: -ACETAMINOPHEN 325 MG TAB PO PRN; -BALANCED SALT IRRIGATION SOLUTION 500ML BAG (FOR OR EYE MACHINE) As Ordered ONE; -CEFUROXIME 1MG/0.1ML INTRACAMERAL INJ As Ordered ONE; -CYCLOPENTOLATE 2% OPHTH SOLN 2ML BTL OS ONE; -HEALON DUET PRO(HEALON 10MG/ML 0.55ML & HEALON ENDOCOAT 30MG/ML 0.85ML) As Ordered ONE; -LIDOCAINE 1% SDV 5 ML VIAL As Ordered ONE; -LIDOCAINE 3.5 % 1ML OPHTH TOPICAL GEL OU ONE; -MIDAZOLAM INJ 2 MG/2 ML VIAL (J2250) As Ordered ONE; -OFLOXACIN 0.3 % (OCUFLOX) OPTH SOL 5ML OS ONE; -PHENYLEPHRINE 2.5% OPHTH SOL 2ML OS ONE; -PHENYLEPHRINE HCL 10 % OPHTH. SOL 5ML OS PRN; -POVIDONE-IODINE 5% OPHTH PREP SOL 30ML As Ordered ONE; -PROPARACAINE 0.5% OPHTH SOL 15ML OS PRN; -TROPICAMIDE 1% OPHTH SOLN 2ML OS ONE; -fentaNYL 100 MCG/2 ML INJECTION (J3010) As Ordered ONE
== END ==
LOC: M LABDRAW1 11:31
PROVIDERS: ATTEND Internal Medicine Cardiovascular Disease
DX: I48.91 Unspecified atrial fibrillation (principal); I50.42 Chronic combined systolic (congestive) and diastolic (congestive) heart failure

== ENCOUNTER → 2019-01-13 | Outpatient (REF) | payer MEDICARE ==
[2019-01-13 13:28] LABS: ALBUMIN 3.4 GM/DL (3.2-5.2); ALT/SGPT 28 U/L (12-78); BILIRUBIN,TOTAL 0.6 MG/DL (0.2-1.0); BLOOD UREA NITROGEN 25 MG/DL (7-18); CALCIUM LEVEL 8.3 MG/DL (8.8-10.2); CARBON DIOXIDE LEVEL 22 MEQ/L (21-32); CHLORIDE LEVEL 113 MEQ/L (98-107); CHOLESTEROL LEVEL 64 MG/DL (<200); CHOLESTEROL RISK RATIO 2.133 (<5); CREATININE FOR GFR 1.14 MG/DL (0.70-1.30); FERRITIN 42 NG/ML (26-388); GLOMERULAR FILTRATION RATE > 60.0 (>42); GLUCOSE, FASTING 95 MG/DL (70-100); HDL CHOLESTEROL 30 MG/DL (>40); IRON (FE) 42 UG/DL (65-175); LDL CHOLESTEROL 21 MG/DL (<100); NON-HDL-C 34 MG/DL; PERCENT SATURATION 13.5 % (19.7-50.0); SODIUM LEVEL 141 MEQ/L (136-145); TOTAL IRON BINDING CAPACITY 310 UG/DL (250-450); TOTAL PROTEIN 6.2 GM/DL (6.4-8.2); TRIGLYCERIDES LEVEL 66 MG/DL (<150)
[2019-01-13 13:35] LABS: TOTAL 25(OH) VITAMIN D 24.1 NG/ML (30.0-100.0)
[2019-01-13 13:48] LABS: HEMOGLOBIN A1c 6.1 %
[2019-01-13 13:50] LABS: BASO % 0.2 % (0.0-1.0); EOS # 0.1 10^3/uL (0.0-0.50); EOS % 1.4 % (0.0-3.0); HEMATOCRIT 38.8 % (42.0-52.0); HEMOGLOBIN 12.3 g/dl (13.5-17.5); LYMPH # 1.3 10^3/uL (1.5-4.5); LYMPH % 13.3 % (24.0-44.0); MEAN CORPUSCULAR HEMOGLOBIN 30.1 pg (27.0-33.0); MEAN CORPUSCULAR HGB CONC 31.7 g/dl (32.0-36.5); MEAN CORPUSCULAR VOLUME 94.9 fl (80.0-96.0); MONO # 0.8 10^3/uL (0.0-0.8); MONO % 8.6 % (0.0-5.0); NEUTROPHILS # 7.2 10^3/uL (1.8-7.7); NEUTROPHILS % 76.1 % (36.0-66.0); RED BLOOD COUNT 4.09 10^6/uL (4.30-6.10); WHITE BLOOD COUNT 9.5 10^3/uL (4.0-10.0)
[2019-01-13 14:01] LABS: MALB URINE SIEMENS 31.5 MG/L; MAU/CREAT RATIO 17.7 MCG/MG (0.0-30.0)
[2019-01-13 14:03] LABS: PLATELET COUNT, AUTOMATED 92 10^3/uL (150-450)
== END ==
LOC: M LABDRAW1 09:14
PROVIDERS: ATTEND Physician Assistant
DX: I10 Essential (primary) hypertension (principal); E78.2 Mixed hyperlipidemia; E11.42 Type 2 diabetes mellitus with diabetic polyneuropathy; D64.9 Anemia, unspecified; E83.42 Hypomagnesemia

== ENCOUNTER → 2019-01-22 | Outpatient (REF) | payer MEDICARE ==
[2019-01-22 13:02] LABS: BLOOD UREA NITROGEN 25 MG/DL (7-18); CALCIUM LEVEL 8.2 MG/DL (8.8-10.2); CARBON DIOXIDE LEVEL 22 MEQ/L (21-32); CHLORIDE LEVEL 112 MEQ/L (98-107); CREATININE FOR GFR 1.11 MG/DL (0.70-1.30); GLOMERULAR FILTRATION RATE > 60.0 (>42); GLUCOSE, FASTING 110 MG/DL (70-100); MAGNESIUM LEVEL 1.9 MG/DL (1.8-2.4); POTASSIUM SERUM 3.9 MEQ/L (3.5-5.1); SODIUM LEVEL 140 MEQ/L (136-145)
== END ==
LOC: M LABDRAW1 12:08
PROVIDERS: ATTEND Internal Medicine Cardiovascular Disease
DX: I50.42 Chronic combined systolic (congestive) and diastolic (congestive) heart failure (principal)

== ENCOUNTER → 2019-01-22 | Outpatient (REF) | payer MEDICARE ==
[2019-01-22 13:01] LABS: BASO % 0.5 % (0.0-1.0); EOS # 0.2 10^3/uL (0.0-0.50); EOS % 1.9 % (0.0-3.0); HEMATOCRIT 39.8 % (42.0-52.0); HEMOGLOBIN 12.5 g/dl (13.5-17.5); LYMPH # 1.3 10^3/uL (1.5-4.5); LYMPH % 16.4 % (24.0-44.0); MEAN CORPUSCULAR HEMOGLOBIN 30.6 pg (27.0-33.0); MEAN CORPUSCULAR HGB CONC 31.4 g/dl (32.0-36.5); MEAN CORPUSCULAR VOLUME 97.3 fl (80.0-96.0); MONO # 0.8 10^3/uL (0.0-0.8); MONO % 10.5 % (0.0-5.0); NEUTROPHILS # 5.5 10^3/uL (1.8-7.7); NEUTROPHILS % 70.3 % (36.0-66.0); PERCENT SATURATION 19.2 % (19.7-50.0); RED BLOOD COUNT 4.09 10^6/uL (4.30-6.10); WHITE BLOOD COUNT 7.8 10^3/uL (4.0-10.0)
[2019-01-22 13:05] LABS: PLATELET COUNT, AUTOMATED 82 10^3/uL (150-450)
== END ==
LOC: M LABDRAW1 12:06
PROVIDERS: ATTEND Physician Assistant
DX: D50.9 Iron deficiency anemia, unspecified (principal); I50.42 Chronic combined systolic (congestive) and diastolic (congestive) heart failure

== ENCOUNTER → 2019-03-01 | Outpatient (REF) | payer MEDICARE ==
[2019-03-01 14:20] LABS: BLOOD UREA NITROGEN 21 MG/DL (7-18); CALCIUM LEVEL 8.6 MG/DL (8.8-10.2); CARBON DIOXIDE LEVEL 25 MEQ/L (21-32); CHLORIDE LEVEL 111 MEQ/L (98-107); CREATININE FOR GFR 1.17 MG/DL (0.70-1.30); GLOMERULAR FILTRATION RATE > 60.0 (>42); GLUCOSE, FASTING 102 MG/DL (70-100); MAGNESIUM LEVEL 2.1 MG/DL (1.8-2.4); POTASSIUM SERUM 4.2 MEQ/L (3.5-5.1); SODIUM LEVEL 140 MEQ/L (136-145)
== END ==
LOC: M LABDRAW1 12:56
PROVIDERS: ATTEND Internal Medicine Cardiovascular Disease
DX: I50.42 Chronic combined systolic (congestive) and diastolic (congestive) heart failure (principal)

== ENCOUNTER → 2019-04-12 | Outpatient (REF) | payer MEDICARE ==
[~2019-04-12] MED LIST changes: -METF750T PO; +METF750T36 PO
[2019-04-12 13:09] LABS: ALBUMIN 3.3 GM/DL (3.2-5.2); ALT/SGPT 54 U/L (12-78); BILIRUBIN,TOTAL 0.6 MG/DL (0.2-1.0); BLOOD UREA NITROGEN 21 MG/DL (7-18); CALCIUM LEVEL 8.3 MG/DL (8.8-10.2); CARBON DIOXIDE LEVEL 23 MEQ/L (21-32); CHLORIDE LEVEL 109 MEQ/L (98-107); CREATININE FOR GFR 1.16 MG/DL (0.70-1.30); GLOMERULAR FILTRATION RATE > 60.0 (>42); GLUCOSE, FASTING 111 MG/DL (70-100); MAGNESIUM LEVEL 1.8 MG/DL (1.8-2.4); SODIUM LEVEL 140 MEQ/L (136-145); TOTAL PROTEIN 5.9 GM/DL (6.4-8.2)
== END ==
LOC: M LABDRAW1 11:42
PROVIDERS: ATTEND Internal Medicine Cardiovascular Disease
DX: I50.42 Chronic combined systolic (congestive) and diastolic (congestive) heart failure (principal)

== ENCOUNTER → 2019-05-24 | Outpatient (REF) | payer MEDICARE ==
[~2019-05-24] MED LIST changes: -GLIM1TAB; -GLIM1TAB PO; +GLIM1TAB2; +GLIM1TAB2 PO
[2019-05-24 12:45] LABS: BLOOD UREA NITROGEN 24 MG/DL (7-18); CARBON DIOXIDE LEVEL 24 MEQ/L (21-32); CHLORIDE LEVEL 107 MEQ/L (98-107); CREATININE FOR GFR 1.22 MG/DL (0.70-1.30); GLOMERULAR FILTRATION RATE > 60.0 (>42); GLUCOSE, FASTING 87 MG/DL (70-100); MAGNESIUM LEVEL 1.8 MG/DL (1.8-2.4); POTASSIUM SERUM 4.6 MEQ/L (3.5-5.1); SODIUM LEVEL 137 MEQ/L (136-145)
== END ==
LOC: M LABDRAW1 12:00
PROVIDERS: ATTEND Internal Medicine Cardiovascular Disease
DX: I50.42 Chronic combined systolic (congestive) and diastolic (congestive) heart failure (principal)

== ENCOUNTER → 2019-07-05 | Outpatient (REF) | payer MEDICARE ==
[2019-07-05 12:30] LABS: CALCIUM LEVEL 8.3 MG/DL (8.8-10.2); CREATININE FOR GFR 1.3 MG/DL (0.70-1.30); GLOMERULAR FILTRATION RATE 56.7 (>42); MAGNESIUM LEVEL 1.8 MG/DL (1.8-2.4)
== END ==
LOC: M LABDRAW1 11:53
PROVIDERS: ATTEND Internal Medicine Cardiovascular Disease
DX: I50.42 Chronic combined systolic (congestive) and diastolic (congestive) heart failure (principal)

== ENCOUNTER → 2019-08-11 | Outpatient (REF) | payer MEDICARE ==
[~2019-08-11] MED LIST changes: -GLIM1TAB2; -GLIM1TAB2 PO; +GLIM1TAB4; +GLIM1TAB4 PO
[2019-08-11 09:13] LABS: ALBUMIN 3.2 GM/DL (3.2-5.2); ALT/SGPT 46 U/L (12-78); BILIRUBIN,TOTAL 0.5 MG/DL (0.2-1.0); BLOOD UREA NITROGEN 28 MG/DL (7-18); CARBON DIOXIDE LEVEL 20 MEQ/L (21-32); CHLORIDE LEVEL 112 MEQ/L (98-107); CHOLESTEROL LEVEL 68 MG/DL (<200); CHOLESTEROL RISK RATIO 2.344 (<5); CREATININE FOR GFR 1.16 MG/DL (0.70-1.30); GLOMERULAR FILTRATION RATE > 60.0 (>42); GLUCOSE, FASTING 105 MG/DL (70-100); HDL CHOLESTEROL 29 MG/DL (>40); LDL CHOLESTEROL 28 MG/DL (<100); MAGNESIUM LEVEL 1.9 MG/DL (1.8-2.4); NON-HDL-C 39 MG/DL; SODIUM LEVEL 140 MEQ/L (136-145); TOTAL PROTEIN 5.7 GM/DL (6.4-8.2); TRIGLYCERIDES LEVEL 57 MG/DL (<150)
== END ==
LOC: M LABDRAW1 07:49
PROVIDERS: ATTEND Internal Medicine Cardiovascular Disease
DX: I50.9 Heart failure, unspecified (principal); I48.91 Unspecified atrial fibrillation; E78.2 Mixed hyperlipidemia; I47.2 Ventricular tachycardia

== ENCOUNTER → 2019-09-20 | Outpatient (REF) | payer MEDICARE ==
[2019-09-20 13:02] LABS: BLOOD UREA NITROGEN 23 MG/DL (7-18); CALCIUM LEVEL 8.5 MG/DL (8.8-10.2); CARBON DIOXIDE LEVEL 22 MEQ/L (21-32); CHLORIDE LEVEL 110 MEQ/L (98-107); CREATININE FOR GFR 1.11 MG/DL (0.70-1.30); GLOMERULAR FILTRATION RATE > 60.0 (>42); GLUCOSE, FASTING 96 MG/DL (70-100); MAGNESIUM LEVEL 1.8 MG/DL (1.8-2.4); POTASSIUM SERUM 4.2 MEQ/L (3.5-5.1); SODIUM LEVEL 140 MEQ/L (136-145)
== END ==
LOC: M LABDRAW1 11:16 → M LABDRAWC 11:16
PROVIDERS: ATTEND Internal Medicine Cardiovascular Disease
DX: I50.42 Chronic combined systolic (congestive) and diastolic (congestive) heart failure (principal)

== ENCOUNTER → 2019-10-25 | Outpatient (REF) | payer MEDICARE ==
[2019-10-25 10:59] LABS: BLOOD UREA NITROGEN 23 MG/DL (7-18); CALCIUM LEVEL 8.2 MG/DL (8.8-10.2); CARBON DIOXIDE LEVEL 25 MEQ/L (21-32); CHLORIDE LEVEL 107 MEQ/L (98-107); CREATININE FOR GFR 1.13 MG/DL (0.70-1.30); GLOMERULAR FILTRATION RATE > 60.0 (>42); GLUCOSE, FASTING 145 MG/DL (70-100); MAGNESIUM LEVEL 1.8 MG/DL (1.8-2.4); POTASSIUM SERUM 4.3 MEQ/L (3.5-5.1); SODIUM LEVEL 139 MEQ/L (136-145)
== END ==
LOC: M LABDRAW1 08:05
PROVIDERS: ATTEND Internal Medicine Cardiovascular Disease
DX: I50.42 Chronic combined systolic (congestive) and diastolic (congestive) heart failure (principal)

== ENCOUNTER → 2019-12-06 | Outpatient (CLI) | payer MEDICARE ==
[2019-12-06 10:11] LABS: BLOOD UREA NITROGEN 25 MG/DL (7-18); CALCIUM LEVEL 7.8 MG/DL (8.8-10.2); CARBON DIOXIDE LEVEL 24 MEQ/L (21-32); CHLORIDE LEVEL 109 MEQ/L (98-107); GLOMERULAR FILTRATION RATE > 60.0 (>42); GLUCOSE, FASTING 180 MG/DL (70-100); MAGNESIUM LEVEL 1.8 MG/DL (1.8-2.4); POTASSIUM SERUM 4.6 MEQ/L (3.5-5.1); SODIUM LEVEL 140 MEQ/L (136-145)
== END ==
LOC: M LAB 08:47
PROVIDERS: ATTEND Internal Medicine Cardiovascular Disease
DX: I50.42 Chronic combined systolic (congestive) and diastolic (congestive) heart failure (principal)

== ENCOUNTER → 2020-01-03 | Outpatient (CLI) | payer MEDICARE ==
[2020-01-03 08:51] LABS: BASO % 0.1 % (0.0-1.0); EOS # 0.2 10^3/uL (0.0-0.5); EOS % 2.4 % (0.0-3.0); HEMATOCRIT 41.2 % (42.0-52.0); HEMOGLOBIN 13.1 g/dl (13.5-17.5); LYMPH # 1.1 10^3/uL (1.5-5.0); LYMPH % 16.1 % (24.0-44.0); MEAN CORPUSCULAR HEMOGLOBIN 31.6 pg (27.0-33.0); MEAN CORPUSCULAR HGB CONC 31.8 g/dl (32.0-36.5); MEAN CORPUSCULAR VOLUME 99.5 fl (80.0-96.0); MONO # 0.6 10^3/uL (0.0-0.8); NEUTROPHILS # 4.9 10^3/uL (1.5-8.5); NEUTROPHILS % 72.1 % (36.0-66.0); RED BLOOD COUNT 4.14 10^6/uL (4.30-6.10); WHITE BLOOD COUNT 6.8 10^3/uL (4.0-10.0)
[2020-01-03 09:11] LABS: PLATELET COUNT, AUTOMATED 81 10^3/uL (150-450)
[2020-01-03 09:20] LABS: ALBUMIN 3.4 GM/DL (3.2-5.2); ALT/SGPT 58 U/L (12-78); BILIRUBIN,TOTAL 0.6 MG/DL (0.2-1.0); BLOOD UREA NITROGEN 27 MG/DL (7-18); CALCIUM LEVEL 8.2 MG/DL (8.8-10.2); CARBON DIOXIDE LEVEL 23 MEQ/L (21-32); CHLORIDE LEVEL 110 MEQ/L (98-107); CHOLESTEROL LEVEL 76 MG/DL (<200); CHOLESTEROL RISK RATIO 2.303 (<5); CREATININE FOR GFR 1.16 MG/DL (0.70-1.30); GLOMERULAR FILTRATION RATE > 60.0 (>42); GLUCOSE, FASTING 94 MG/DL (70-100); HDL CHOLESTEROL 33 MG/DL (>40); LDL CHOLESTEROL 32 MG/DL (<100); NON-HDL-C 43 MG/DL; POTASSIUM SERUM 4.2 MEQ/L (3.5-5.1); SODIUM LEVEL 140 MEQ/L (136-145); TOTAL PROTEIN 6.3 GM/DL (6.4-8.2); TRIGLYCERIDES LEVEL 55 MG/DL (<150)
[2020-01-03 09:27] LABS: MALB URINE SIEMENS 20.5 MG/L
[2020-01-03 09:28] LABS: HEMOGLOBIN A1c 6.1 %
== END ==
LOC: M LAB 08:01
PROVIDERS: ATTEND Family Medicine
DX: R73.03 Prediabetes (principal); Z79.899 Other long term (current) drug therapy

== ENCOUNTER → 2020-01-17 | Outpatient (CLI) | payer MEDICARE ==
[2020-01-17 08:22] LABS: CALCIUM LEVEL 8.3 MG/DL (8.8-10.2); CREATININE FOR GFR 1.29 MG/DL (0.70-1.30); GLOMERULAR FILTRATION RATE 57.2 (>42); MAGNESIUM LEVEL 1.8 MG/DL (1.8-2.4)
== END ==
LOC: M LAB 07:18
PROVIDERS: ATTEND Internal Medicine Cardiovascular Disease
DX: I50.42 Chronic combined systolic (congestive) and diastolic (congestive) heart failure (principal)

== ENCOUNTER → 2020-02-22 | Outpatient (REF) | payer MEDICARE ==
[~2020-02-22] MED LIST changes: -ASPI81TA85 PO; +ASPI81TA86 PO
== END ==
LOC: M LAB REF 14:42
PROVIDERS: ATTEND Nurse Practitioner Family
DX: R50.9 Fever, unspecified (principal)

== ENCOUNTER → 2020-02-22 | Outpatient (CLI) | payer MEDICARE ==
[2020-03-20 19:32] LABS: BASO % 0.2 % (0.0-1.0); EOS # 0.1 10^3/uL (0.0-0.5); EOS % 0.4 % (0.0-3.0); HEMATOCRIT 38.8 % (42.0-52.0); HEMOGLOBIN 12.5 g/dl (13.5-17.5); LYMPH # 0.9 10^3/uL (1.5-5.0); LYMPH % 7.7 % (24.0-44.0); MEAN CORPUSCULAR HEMOGLOBIN 31.6 pg (27.0-33.0); MEAN CORPUSCULAR HGB CONC 32.2 g/dl (32.0-36.5); MONO # 1.1 10^3/uL (0.0-0.8); MONO % 9.3 % (0.0-5.0); NEUTROPHILS # 9.5 10^3/uL (1.5-8.5); RED BLOOD COUNT 3.96 10^6/uL (4.30-6.10); WHITE BLOOD COUNT 11.5 10^3/uL (4.0-10.0)
[2020-03-20 19:39] LABS: PLATELET COUNT, AUTOMATED 76 10^3/uL (150-450)
[2020-05-16 14:12] LABS: GLUCOSE, FASTING SEE SEPARATE REPORT
== END ==
LOC: M LAB 16:52
PROVIDERS: ATTEND Nurse Practitioner Family
DX: R50.9 Fever, unspecified (principal)

== ENCOUNTER → 2020-02-28 | Outpatient (CLI) | payer MEDICARE ==
[2020-05-16 09:15] LABS: GLUCOSE, FASTING SEE SEPARATE REPORT
== END ==
LOC: M LAB 07:07 → M INFU 07:07
PROVIDERS: ATTEND Internal Medicine Cardiovascular Disease
DX: I50.42 Chronic combined systolic (congestive) and diastolic (congestive) heart failure (principal)

== ENCOUNTER → 2020-04-09 | Outpatient (CLI) | payer MEDICARE ==
[2020-04-09 11:47] LABS: BLOOD UREA NITROGEN 28 MG/DL (7-18); CARBON DIOXIDE LEVEL 22 MEQ/L (21-32); CHLORIDE LEVEL 112 MEQ/L (98-107); CREATININE FOR GFR 1.21 MG/DL (0.70-1.30); GLOMERULAR FILTRATION RATE > 60.0 (>35); GLUCOSE, FASTING 268 MG/DL (70-100); MAGNESIUM LEVEL 1.6 MG/DL (1.8-2.4); POTASSIUM SERUM 3.9 MEQ/L (3.5-5.1); SODIUM LEVEL 139 MEQ/L (136-145)
== END ==
LOC: M LAB 11:03
PROVIDERS: ATTEND Internal Medicine Cardiovascular Disease
DX: I50.42 Chronic combined systolic (congestive) and diastolic (congestive) heart failure (principal)

== ENCOUNTER → 2020-04-24 | Outpatient (CLI) | payer MEDICARE | LOC: M LAB 11:51 | PROVIDERS: ATTEND Internal Medicine Cardiovascular Disease | DX: I50.42 Chronic combined systolic (congestive) and diastolic (congestive) heart failure (principal) ==

== ENCOUNTER → 2020-05-21 | Outpatient (CLI) | payer MEDICARE ==
[2020-05-21 10:03] LABS: ALBUMIN 3.2 GM/DL (3.2-5.2); ALT/SGPT 87 U/L (12-78); BILIRUBIN,TOTAL 0.6 MG/DL (0.2-1.0); BLOOD UREA NITROGEN 24 MG/DL (7-18); CALCIUM LEVEL 8.1 MG/DL (8.8-10.2); CARBON DIOXIDE LEVEL 24 MEQ/L (21-32); CHLORIDE LEVEL 113 MEQ/L (98-107); CREATININE FOR GFR 1.11 MG/DL (0.70-1.30); GLOMERULAR FILTRATION RATE > 60.0 (>35); GLUCOSE, FASTING 110 MG/DL (70-100); MAGNESIUM LEVEL 1.9 MG/DL (1.8-2.4); NT-PRO BNP 476 PG/ML (<450); POTASSIUM SERUM 4.2 MEQ/L (3.5-5.1); SODIUM LEVEL 141 MEQ/L (136-145); TOTAL PROTEIN 6.3 GM/DL (6.4-8.2)
== END ==
LOC: M LAB 08:53
PROVIDERS: ATTEND Internal Medicine Cardiovascular Disease
DX: I50.42 Chronic combined systolic (congestive) and diastolic (congestive) heart failure (principal); I47.2 Ventricular tachycardia; E78.2 Mixed hyperlipidemia

== ENCOUNTER → 2020-07-02 | Outpatient (CLI) | payer MEDICARE ==
[2020-07-02 09:56] LABS: BASO % 0.3 % (0.0-1.0); EOS # 0.1 10^3/uL (0.0-0.5); EOS % 1.8 % (0.0-3.0); HEMATOCRIT 41.8 % (42.0-52.0); HEMOGLOBIN 12.9 g/dl (13.5-17.5); LYMPH # 1.1 10^3/uL (1.5-5.0); LYMPH % 14.2 % (24.0-44.0); MEAN CORPUSCULAR HEMOGLOBIN 30.4 pg (27.0-33.0); MEAN CORPUSCULAR HGB CONC 30.9 g/dl (32.0-36.5); MEAN CORPUSCULAR VOLUME 98.6 fl (80.0-96.0); MONO # 0.6 10^3/uL (0.0-0.8); MONO % 8.2 % (0.0-5.0); NEUTROPHILS # 5.6 10^3/uL (1.5-8.5); NEUTROPHILS % 75.1 % (36.0-66.0); RED BLOOD COUNT 4.24 10^6/uL (4.30-6.10); WHITE BLOOD COUNT 7.4 10^3/uL (4.0-10.0)
[2020-07-02 09:59] LABS: PLATELET COUNT, AUTOMATED 84 10^3/uL (150-450)
[2020-07-02 10:58] LABS: ALBUMIN 3.5 GM/DL (3.2-5.2); ALT/SGPT 76 U/L (12-78); BILIRUBIN,TOTAL 0.5 MG/DL (0.2-1.0); BLOOD UREA NITROGEN 25 MG/DL (7-18); CALCIUM LEVEL 8.6 MG/DL (8.8-10.2); CARBON DIOXIDE LEVEL 24 MEQ/L (21-32); CHLORIDE LEVEL 111 MEQ/L (98-107); CHOLESTEROL LEVEL 84 MG/DL (<200); CHOLESTEROL RISK RATIO 1.953 (<5); GLOMERULAR FILTRATION RATE > 60.0 (>35); GLUCOSE, FASTING 103 MG/DL (70-100); HDL CHOLESTEROL 43 MG/DL (>40); LDL CHOLESTEROL 30 MG/DL (<100); MAGNESIUM LEVEL 2.1 MG/DL (1.8-2.4); NON-HDL-C 41 MG/DL; POTASSIUM SERUM 4.3 MEQ/L (3.5-5.1); SODIUM LEVEL 139 MEQ/L (136-145); TOTAL PROTEIN 6.6 GM/DL (6.4-8.2); TRIGLYCERIDES LEVEL 54 MG/DL (<150)
[2020-07-02 11:39] LABS: HEMOGLOBIN A1c 5.8 %
== END ==
LOC: M LAB 08:47
PROVIDERS: ATTEND Physician Assistant
DX: R73.03 Prediabetes (principal); E83.42 Hypomagnesemia; I11.0 Hypertensive heart disease with heart failure; I50.42 Chronic combined systolic (congestive) and diastolic (congestive) heart failure

== ENCOUNTER → 2020-07-02 | Outpatient (CLI) | payer MEDICARE | LOC: M LAB 08:50 | PROVIDERS: ATTEND Internal Medicine Cardiovascular Disease | DX: E83.42 Hypomagnesemia (principal) ==

== ENCOUNTER 2020-07-26 10:16 | Emergency (ER) | payer MEDICARE ==
[2020-07-26 11:18] LABS: VENOUS HCO3 15.1 MEQ/L (23.0-27.0); VENOUS O2 SATURATION 93.7 % (60.0-80.0); VENOUS PARTIAL PRESSURE CO2 34.9 mmHg (38.0-50.0); VENOUS PH 7.255 UNITS (7.330-7.430); VENOUS STANDARD HCO3 15.7 MEQ/L; VENOUS TOTAL CO2 16.2 MEQ/L (24.0-28.0)
[2020-07-26 11:22] LABS: HEMATOCRIT 35.7 % (42.0-52.0); HEMOGLOBIN 11.2 g/dl (13.5-17.5); MEAN CORPUSCULAR HGB CONC 31.4 g/dl (32.0-36.5); MEAN CORPUSCULAR VOLUME 98.9 fl (80.0-96.0); RED BLOOD COUNT 3.61 10^6/uL (4.30-6.10)
[2020-07-26 11:38] LABS: INR 1.12; PROTHROMBIN TIME 14.7 SECONDS (12.5-14.3)
[2020-07-26 11:48] LABS: ALBUMIN 2.9 GM/DL (3.2-5.2); BILIRUBIN,DIRECT 0.3 MG/DL (0.0-0.2); BILIRUBIN,TOTAL 0.7 MG/DL (0.2-1.0); CALCIUM LEVEL 7.2 MG/DL (8.8-10.2); CK-MB VALUE MASS 3.7 NG/ML (<3.6); CREATININE FOR GFR 1.37 MG/DL (0.70-1.30); GLOMERULAR FILTRATION RATE 53.2 (>35); MB/CK RELATIVE INDEX 2.94 (< OR =4); PLATELET COUNT, AUTOMATED 69 10^3/uL (150-450); POTASSIUM SERUM 4.1 MEQ/L (3.5-5.1); TOTAL PROTEIN 5.4 GM/DL (6.4-8.2); TROPONIN I 0.59 NG/ML (< 0.10)
[2020-07-26 11:49] LABS: THYROID STIMULATING HORMONE 1.3 uIU/ML (0.358-3.740)
[2020-07-26 11:56] LABS: LYMPHOCYTES 1 % (16-44); MONOCYTES 1 % (0-5); NEUTROPHILS 96 % (28-66); PLATELET ESTIMATE DECREASED (NORMAL)
[2020-07-26 11:59] LABS: OVALOCYTES 1+
--- NOTE | 2020-07-26 13:11 | REP ---
INDICATION: DYSPNEA/COUGH COMPARISON: 11/17/2017 TECHNIQUE: Portable AP view of the chest FINDINGS: The mediastinum and cardiac silhouette are stable and within normal limits for portable technique. Evidence for prior sternotomy, aortic valve repair, and pacemaker again noted. The lung lopez are clear without acute consolidation, effusion, or pneumothorax. Skeletal structures are intact. IMPRESSION: No acute cardiopulmonary process appreciated. <Electronically signed by Telly Bridges > 07/26/20 2111
--- NOTE | 2020-07-26 14:11 | REP ---
INDICATION: cough COMPARISON: None TECHNIQUE: Axial noncontrast images from the thoracic inlet to the upper abdomen with coronal and sagittal reformations. This CT examination was performed using the following dose reduction techniques: Automated exposure control, adjustment of mA and/or kv according to the patient's size, and use of iterative reconstruction technique. FINDINGS: Mild cardiomegaly with prior aortic and mitral valve repair noted as well as pacemaker and atherosclerotic disease to the coronary arteries. No pericardial effusion. There is mild prominence to the pulmonary vasculature and interstitium suggesting chronic pulmonary vascular congestion. No consolidation, pleural effusion, or pneumothorax. Tracheobronchial tree is patent. No significant adenopathy. Musculoskeletal structures demonstrate age-related changes and evidence for prior sternotomy. Limited upper abdomen demonstrates normal bilateral adrenal glands, 2 cm right renal hypodensities suggesting cyst, and cholelithiasis. IMPRESSION: Findings suggest mild/early pulmonary vascular congestion. No consolidation or effusion. <Electronically signed by Telly Bridges > 07/26/20 [id number]
[2020-07-26] MEDS ORDERED: FUROSEMIDE 20MG/2ML VIAL (J1940) IV ONE (14:15)
[2020-07-26] MEDS ORDERED: cefTRIAXone SOD 1 GM in D5W MINI-BAG PLUS 50 ML IV ONE (15:00)
[2020-07-26 16:42] LABS: CK-MB VALUE MASS 3.8 NG/ML (<3.6); MB/CK RELATIVE INDEX 2.57 (< OR =4); TROPONIN I 0.94 NG/ML (< 0.10)
[2020-07-26 19:40] VITALS: BP 95/54
--- NOTE | 2020-07-27 13:29 | ECGEPIP ---
[facility] - ED Test Date: 2020-07-26 Pat Name: YARON CLAY Department: Room: - Gender: Male Control Operator Flow Coat: FEDERICO : 1940 Requested By: YARON Valenzuela Order Number: [id number] Reading MD: Angeles Sheikh Measurements Intervals [place] Rate: 60 P: 242 NV: 158 QRS: 253 QRSD: 158 T: 67 QT: 472 QTc: 472 Interpretive Statements ELECTRONIC ATRIAL PACEMAKER ELECTRONIC VENTRICULAR PACEMAKER ABNORMAL RHYTHM ECG SIMILAR 11/17/17 Electronically Signed on 07-27-2020 13:29:22 EST by Angeles Sheikh
--- NOTE | 2020-07-27 13:31 | ECGEPIP ---
[facility] - ED Test Date: 2020-07-26 Pat Name: YARON CLAY Department: Room: - Gender: Male Advertising Project Manager: FEDERICO : 1940 Requested By: YARON Valenzuela Order Number: [id number] Reading MD: Angeles Sheikh Measurements Intervals [place] Rate: 61 P: MD: 0 QRS: 256 QRSD: 149 T: 67 QT: 462 QTc: 467 Interpretive Statements ELECTRONIC VENTRICULAR PACEMAKER ABNORMAL RHYTHM ECG Electronically Signed on 07-27-2020 13:31:27 EST by Angeles Sheikh
== END 2020-07-26 19:29 | disposition short-term general hospital (02) ==
LOC: EDBD 10:16 → M ED 10:16
DX: I50.9 Heart failure, unspecified (principal); N39.0 Urinary tract infection, site not specified; I21.4 Non-ST elevation (NSTEMI) myocardial infarction; R94.31 Abnormal electrocardiogram [ECG] [EKG]; Z95.0 Presence of cardiac pacemaker; R05 Cough; R68.83 Chills (without fever); I10 Essential (primary) hypertension; E78.5 Hyperlipidemia, unspecified; K44.9 Diaphragmatic hernia without obstruction or gangrene; Z79.82 Long term (current) use of aspirin; Z79.899 Other long term (current) drug therapy
CPT/HCPCS: 71045; 71250; 80048; 80076; 81001; 82550; 82553; 82803; 83605; 83880; 84443; 84484; 85025; 85049; 85055; 85610; 87040; 87088; 87186; 87486; 87581; 87633; 87798; 93005; 93041; 96374; 99285; J0696; J1940

== ENCOUNTER → 2020-08-06 | Outpatient (CLI) | payer MEDICARE | LOC: M LAB 08:03 | PROVIDERS: ATTEND Internal Medicine Cardiovascular Disease | DX: E83.42 Hypomagnesemia (principal) ==

== ENCOUNTER → 2020-08-06 | Outpatient (CLI) | payer MEDICARE ==
[2020-08-06 08:41] LABS: BASO % 0.3 % (0.0-1.0); EOS # 0.2 10^3/uL (0.0-0.5); EOS % 1.9 % (0.0-3.0); HEMATOCRIT 37.2 % (42.0-52.0); HEMOGLOBIN 11.1 g/dl (13.5-17.5); LYMPH # 0.9 10^3/uL (1.5-5.0); MEAN CORPUSCULAR HEMOGLOBIN 30.5 pg (27.0-33.0); MEAN CORPUSCULAR HGB CONC 29.8 g/dl (32.0-36.5); MEAN CORPUSCULAR VOLUME 102.2 fl (80.0-96.0); MONO # 0.5 10^3/uL (0.0-0.8); MONO % 6.6 % (0.0-5.0); NEUTROPHILS # 6.1 10^3/uL (1.5-8.5); NEUTROPHILS % 78.8 % (36.0-66.0); PLATELET COUNT, AUTOMATED 131 10^3/uL (150-450); RED BLOOD COUNT 3.64 10^6/uL (4.30-6.10); WHITE BLOOD COUNT 7.8 10^3/uL (4.0-10.0)
[2020-08-06 09:37] LABS: ALBUMIN 2.9 GM/DL (3.2-5.2); ALT/SGPT 57 IU/L (0-32); BILIRUBIN,TOTAL 0.4 MG/DL (0.2-1.0); BLOOD UREA NITROGEN 23 MG/DL (7-18); CALCIUM LEVEL 7.7 MG/DL (8.8-10.2); CARBON DIOXIDE LEVEL 29 mmol/L (20-29); CHLORIDE LEVEL 107 MEQ/L (98-107); CREATININE FOR GFR 1.07 MG/DL (0.70-1.30); GLOMERULAR FILTRATION RATE > 60.0 (>35); GLUCOSE, FASTING 129 MG/DL (70-100); POTASSIUM SERUM 4.6 MEQ/L (3.5-5.1); SODIUM LEVEL 139 MEQ/L (136-145); TOTAL PROTEIN 5.7 GM/DL (6.4-8.2)
== END ==
LOC: M LAB 08:06
PROVIDERS: ATTEND Nurse Practitioner Family
DX: D50.9 Iron deficiency anemia, unspecified (principal); I10 Essential (primary) hypertension; E83.42 Hypomagnesemia

== ENCOUNTER → 2020-09-17 | Outpatient (CLI) | payer MEDICARE ==
[~2020-09-17] MED LIST changes: +POTA10CA32 PO
== END ==
LOC: M LAB 08:03
PROVIDERS: ATTEND Internal Medicine Cardiovascular Disease
DX: E83.42 Hypomagnesemia (principal)

== ENCOUNTER 2020-09-19 13:16 | Observation (INO) | payer MEDICARE ==
[~2020-09-19] VITALS: Ht 172.7 cm; Wt 68.4 kg
[~2020-09-19 13:16] MED LIST changes: -POTA10CA32 PO
--- OUTSIDE RECORDS SUMMARY | 2020-09-19 13:28 | CCD | Continuity of Care Document ---
Author Author Dino NEGRO M.D. Organization Unknown Address [address], [address] [place] [address] Phone [phone] Care Team Providers Care Environmental Economist Name Role Phone Jone Brenner MD AUTM [phone] Problems Description No Information Available Social History Type Date Description Comments Sex Unknown Allergies, Adverse Reactions, Alerts Description No Information Available Medications Description No Information Available Immunizations Description No Information Available Vital Signs Description No Information Available Results Description No Information Available Procedures Date Code Description Status 07/27/2020 66372 Echocardiography, Tranthoracic R eal-Time Image Documentation Completed Medical Devices Description No Information Available Encounters Type Date Location Provider Dx Diagnosis Office Visit 07/27/2020 11:55a [facility] Keven brewer MD R79.89 Other specified abnormal findings of blo od chemistry I24.8 Other forms of acute ischemi c heart disease I11.0 Hypertensive heart disease w ith heart failure I50.22 Chronic systolic (congestive ) heart failure A41.9 Sepsis, unspecified organism N39.0 Urinary tract infection, sit e not specified Z86.79 Personal history of other di seases of the circulatory system Z95.2 Presence of prosthetic heart valve Assessments Date Code Description Provider 07/27/2020 R79.89 Other specified abnormal finding s of blood chemistry Keven Negro MD 07/27/2020 I24.8 Other forms of acute ischemic he art disease Keven Negro MD 07/27/2020 I11.0 Hypertensive heart disease with heart failure Keven Negro MD 07/27/2020 I50.22 Chronic systolic (congestive) he art failure Keven Negro MD 07/27/2020 A41.9 Sepsis, unspecified organism Waldemar Negro MD 07/27/2020 N39.0 Urinary tract infection, site no t specified Keven Negro MD 07/27/2020 Z86.79 Personal history of other diseas es of the circulatory system Keven Negro MD 07/27/2020 Z95.2 Presence of prosthetic heart camila ve Keven Negro MD 07/27/2020 I50.9 Heart failure, unspecified Kobe Neely MD Plan of Treatment No Information Available Functional Status Description No Information Available Mental Status Description No Information Available Referrals Description No Information Available
--- OUTSIDE RECORDS SUMMARY | 2020-09-19 13:28 | CCD | Continuity of Care Document ---
Author Author Dino LUIS MD Organization Unknown Address [address] [place] [address] [place] [address] Phone [phone] Care Team Providers Care Religious Assistant Name Role Phone Jone Brenner MD AUTM [phone] Problems Description No Information Available Social History Type Date Description Comments Sex Unknown Allergies, Adverse Reactions, Alerts Description No Information Available Medications Description No Information Available Immunizations Description No Information Available Vital Signs Description No Information Available Results Description No Information Available Procedures Date Code Description Status 07/27/2020 83207 Echocardiography, Tranthoracic R eal-Time Image Documentation Completed 07/26/2020 38233 Electrocardiogram Interpretation & Report Only Completed Medical Devices Description No Information Available Encounters Type Date Location Provider Dx Diagnosis Office Visit 07/27/2020 11:55a [facility] Keven brewer MD R79.89 Other [...] MD 07/27/2020 I50.9 Heart failure, unspecified Kobe h Vic Luis MD 07/26/2020 R77.8 Other specified abnormalities of plasma proteins Yordy Luis MD 07/26/2020 N39.0 Urinary tract infection, site no t specified Yordy Luis MD 07/26/2020 I24.8 Other forms of acute ischemic he art disease Yordy Luis MD 07/26/2020 I50.22 Chronic systolic (congestive) he art failure Yordy Luis MD 07/26/2020 F17.210 Nicotine dependence, cigarettes, uncomplicated Yordy Luis MD 07/26/2020 I95.9 Hypotension, unspecified Yordy Luis MD 07/26/2020 E11.9 Type 2 diabetes mellitus without complications Yordy Luis MD 07/26/2020 I11.0 Hypertensive heart disease with heart failure Yordy Luis MD Plan of Treatment No Information Available Functional Status Description No Information Available Mental Status Description No Information Available Referrals Description No Information Available
--- OUTSIDE RECORDS SUMMARY | 2020-09-19 13:28 | CCD | Continuity of Care Document ---
Author Author Dino VOSS PLASTERER APPRENTICE Organization Unknown Address [address] [place] [address] Phone [phone] Care Team Providers Care Dredge Pipe Installer Name Role Phone Derick Camejo MD AUTM [phone] [facility] AUTM [phone] [facility] G[facility] - Gastroenterology AUTM [facility] AUTM [phone] [facility] AUTM [phone] Problems Active Problems Provider Date Essential hypertension Shar Miller M.D. Onset: Mixed hyperlipidemia Shar Miller M.D. Onset: 11/09 Aortic valve disorder Shar Miller M.D. Onset: 10/26 Chronic combined systolic and diastolic heart failure Ely Singh ch, FNP Onset: 07/11/2020 Paroxysmal atrial fibrillation Ely Voss FNP Onset: 1 09/11/2019 Prediabetes Ely Voss FNP Onset: 07/11/2020 Iron deficiency anemia Ely Voss FNP Onset: 0 Social History Type Date Description Comments Sex Unknown Tobacco Use Start: Unknown End: Unknown Current Ciga rette Smoker Cigarettes Daily 1-5 Tobacco Use Start: Unknown Never Used Smokeless Tobacco ETOH Use Denies alcohol use Recreational Drug Use Never Used Drugs Tobacco Use Reviewed: 08/01/20 Patient is a current smoker, smokes some days A pack of cigarettes lasts him 2-3 months Smoking Status Reviewed: 08/01/20 Patient is a current smoker, smokes some days A pack of cigarettes lasts him 2-3 months Exercise Type/Frequency Exercises regularly Sun Exposure Does not use sunscreen Seat Belt/Car Seat Always uses seat belt Smoke Alarms Yes Smoke Alarms Carbon Monoxide Detector: Yes Allergies, Adverse Reactions, Alerts Description No Known Drug Allergies Medications Active Medications SIG Qnty Indications Ordering Provide r Date Iron 325(65Fe) mg Tablets 1 by mouth every other day 30tabs Tara Paez M.D. 019 Magnesium Oxide 400mg Tablets 2 by mouth twice a day 90tabs Tara Paez M.D. 018 Potassium Chloride ER 10Meq Capsul es ER 2 by mouth every day 180caps Shar Miller M.D. Lancets Thin Misc use for twice daily glucose checks, dx 250.00 200units Shar Miller M.D. 02/09/2015 Onetouch Ultra Blue Strips Test Fasting Glucose Every Morning 50units Shar Miller M.D. 12/24/2011 Carvedilol 3.125mg Tablets 1 by mouth twice a day Morgan Campbell MD Spironolactone 25mg Tablets every morning daily Morgan Campbell MD Aspirin 325mg Tablets DR 1 by mouth every day Unknown History Medications Bactrim DS 800-160mg Tablets 1 by mouth twice a day for 7 days 14tabs N39.0 Ely Voss FNP 01/26 - 07/11/2020 Immunizations CPT Code Status Date Vaccine Lot # [id number] Given 05/18/2019 Influenza Virus Vaccine, Quadrivalent,age 3 and up,multidose vial [id number] Given 01/12/2019 Pneumococcal Vaccine [id number] Given 05/04/2018 Influenza Virus Vaccine, Quadrivalent,age 3 and up,multidose vial [id number] Given 05/05/2017 Influenza Vaccine (Fluzone)( medicare) [id number] 49516 Given 06/24/2016 Prevnar 13 For Adults [id number] Q2038 Given 06/03/2016 Influenza Vaccine (Fluzone)( medicare) [id number] Q2038 Given 05/15/2015 Influenza Vaccine (Fluzone)( medicare) [id number] Q2038 Given 04/19/2014 Influenza Vaccine (Fluzone)( medicare) [id number] Q2038 Given 04/15/2013 Influenza Vaccine (Fluzone)( medicare) [id number] Given 04/15/2013 Influenza Vaccination [id number] 43214 Given 05/17/2011 Influenza Vaccination [id number] Vital Signs Date Vital Result Comment 08/01/2020 1:23pm BP Systolic 131 mmHg BP Diastolic 54 mmHg Heart Rate 61 /min Body Temperature 97.5 F Respiratory Rate 16 /min Height 68.0 inches 5'8" Weight 155.38 lb O2 % BldC Oximetry 97 % Peak Expiratory Flow Rate 462 Estimated Peak Flow Rate [place] Body Weight 154 lb BMI (Body Mass Index) 23.6 kg/m2 07/11/2020 1:08pm BP Systolic 130 mmHg BP Diastolic 57 mmHg Heart Rate 74 /min Body Temperature 96.8 F Respiratory Rate 16 /min Height 68.0 inches 5'8" Weight 149.38 lb O2 % BldC Oximetry 100 % Peak Expiratory Flow Rate 462 Estimated Peak Flow Rate [place] Body Weight 154 lb BMI (Body Mass Index) 22.7 kg/m2 Results Test Acquired Date Facility Test Result H/L Range Note CBC With Differential 08/06/2020 [facility] [phone] White Blood Count 7.8 10 Normal 4.0-10.0 Red Blood Count 3.64 10 Low 4.30-6.10 Hemoglobin 11.1 g/dL Low 13.5-17.5 Hematocrit 37.2 % Low 42.0-52.0 Mean Corpuscular Volume 102.2 fl High 80.0-96.0 Mean Corpuscular Hemoglobin 30.5 pg Normal 27.0-33.0 Mean Corpuscular HGB Conc 29.8 g/dL Low 32.0-36.5 Red Cell Distribution Width 13.9 % Normal 11.5-14.5 Platelet Count, Automated 131 10 Low 150-450 Neutrophils % 78.8 % High 36.0-66.0 Lymph % 12.0 % Low 24.0-44.0 Deuel % 6.6 % High 0.0-5.0 Eos % 1.9 % Normal 0.0-3.0 Baso % 0.3 % Normal 0.0-1.0 Immature Granulocyte % 0.4 % Normal 0-3.0 Nucleated Red Blood Cell % 0.0 % Normal 0-0 Neutrophils # 6.1 10 Normal 1.5-8.5 Lymph # 0.9 10 Low 1.5-5.0 Deuel # 0.5 10 Normal 0.0-0.8 Eos # 0.2 10 Normal 0.0-0.5 Baso # 0.0 10 Normal 0.0-0.2 Comprehensive Metabolic Profil 08/06/2020 [facility] [phone] Glucose, Fasting 129 mg/dL High 70-100 Blood Urea Nitrogen 23 mg/dL High 7-18 Creatinine For GFR 1.07 mg/dL Normal 0.70-1.30 Glomerular Filtration Rate > 60.0 Normal >35 1 Sodium Level 139 mEq/L Normal 136-145 Potassium Serum 4.6 mEq/L Normal 3.5-5.1 Chloride Level 107 mEq/L Normal 98-107 Carbon Dioxide Level 29 mmol/L Normal 20-29 Anion Gap 3 mEq/L Low 8-16 Calcium Level 7.7 mg/dL Low 8.8-10.2 Ast/Sgot 30 IU/L Normal Alt/SGPT 57 IU/L High 0-32 Alkaline Phosphatase 98 U/L Normal 45-117 Bilirubin,Total 0.4 mg/dL Normal 0.2-1.0 Total Protein 5.7 GM/DL Low 6.4-8.2 Albumin 2.9 GM/DL Low 3.2-5.2 Albumin/Globulin Ratio 1.0 Normal Laboratory test finding 08/06/2020 [facility] [place] [address] [phone] Magnesium Level 2.0 mg/dL Normal 1.8-2.4 Hemoglobin A1c 07/02/2020 [facility]ter [phone] Hemoglobin A1c 5.8 % Normal 2 Estimated Average Glucose 120 mg/dL High 60-110 Comprehensive Metabolic Profil 07/02/2020 [facility] [phone] Glucose, Fasting 103 mg/dL High 70-100 Blood Urea Nitrogen 25 mg/dL High 7-18 Creatinine For GFR 1.20 mg/dL Normal 0.70-1.30 Glomerular Filtration Rate > 60.0 Normal >35 3 Sodium Level 139 mEq/L Normal 136-145 Potassium Serum 4.3 mEq/L Normal 3.5-5.1 Chloride Level 111 mEq/L High 98-107 Carbon Dioxide Level 24 mEq/L Normal 21-32 Anion Gap 4 mEq/L Low 8-16 Calcium Level 8.6 mg/dL Low 8.8-10.2 Ast/Sgot 38 U/L High 7-37 Alt/SGPT 76 U/L Normal 12-78 Alkaline Phosphatase 111 U/L Normal 45-117 Bilirubin,Total 0.5 mg/dL Normal 0.2-1.0 Total Protein 6.6 GM/DL Normal 6.4-8.2 Albumin 3.5 GM/DL Normal 3.2-5.2 Albumin/Globulin Ratio 1.1 Normal Laboratory test finding 07/02/2020 [facility] [phone] Magnesium Level 2.1 mg/dL Normal 1.8-2.4 4 Lipid Panel 07/02/2020 [facility] nter [phone] Triglycerides Level 54 mg/dL Normal <150 Cholesterol Level 84 mg/dL Normal <200 HDL Cholesterol 43 mg/dL Normal >40 LDL Cholesterol 30 mg/dL Normal <100 Non-HDL-C 41 mg/dL Normal Cholesterol Risk Ratio 1.953 Normal <5 CBC With Differential 07/02/2020 [facility] [phone] White Blood Count 7.4 10 Normal 4.0-10.0 Red Blood Count 4.24 10 Low 4.30-6.10 Hemoglobin 12.9 g/dL Low 13.5-17.5 Hematocrit 41.8 % Low 42.0-52.0 Mean Corpuscular Volume 98.6 fl High 80.0-96.0 Mean Corpuscular Hemoglobin 30.4 pg Normal 27.0-33.0 Mean Corpuscular HGB Conc 30.9 g/dL Low 32.0-36.5 Red Cell Distribution Width 14.6 % High 11.5-14.5 Platelet Count, Automated 84 10 Low 150-450 Neutrophils % 75.1 % High 36.0-66.0 Lymph % 14.2 % Low 24.0-44.0 Deuel % 8.2 % High 0.0-5.0 Eos % 1.8 % Normal 0.0-3.0 Baso % 0.3 % Normal 0.0-1.0 Immature Granulocyte % 0.4 % Normal 0-3.0 Nucleated Red Blood Cell % 0.0 % Normal 0-0 Neutrophils # 5.6 10 Normal 1.5-8.5 Lymph # 1.1 10 Low 1.5-5.0 Deuel # 0.6 10 Normal 0.0-0.8 Eos # 0.1 10 Normal 0.0-0.5 Baso # 0.0 10 Normal 0.0-0.2 Laboratory test finding 07/02/2020 [facility] [phone] Immature Platelet Fraction 7.9 % Normal 0.0-1 0.91 Laboratory test finding 07/02/2020 [place] [address] [phone] Magnesium Level 2.0 mg/dL Normal 1.8-2.4 5 Laboratory test finding 05/21/2020 [place] [address] [phone] Magnesium Level 1.9 mg/dL Normal 1.8-2.4 6 NT-Pro BNP 476 pg/mL High <450 7 Comprehensive Metabolic Profil 05/21/2020 [place] [address] [phone] Glucose, Fasting 110 mg/dL High 70-100 Blood Urea Nitrogen 24 mg/dL High 7-18 Creatinine For GFR 1.11 mg/dL Normal 0.70-1.30 Glomerular Filtration Rate > 60.0 Normal >35 8 Sodium Level 141 mEq/L Normal 136-145 Potassium Serum 4.2 mEq/L Normal 3.5-5.1 Chloride Level 113 mEq/L High 98-107 Carbon Dioxide Level 24 mEq/L Normal 21-32 Anion Gap 4 mEq/L Low 8-16 Calcium Level 8.1 mg/dL Low 8.8-10.2 Ast/Sgot 56 U/L High 7-37 Alt/SGPT 87 U/L High 12-78 Alkaline Phosphatase 104 U/L Normal 45-117 Bilirubin,Total 0.6 mg/dL Normal 0.2-1.0 Total Protein 6.3 GM/DL Low 6.4-8.2 Albumin 3.2 GM/DL Normal 3.2-5.2 Albumin/Globulin Ratio 1.0 Normal Laboratory test finding 04/24/2020 [facility] [place] [address] [phone] Magnesium Level 1.9 mg/dL Normal 1.8-2.4 9 Basic Metabolic Profile 04/09/2020 [place] [address] [phone] Glucose, Fasting 268 mg/dL High 70-100 Blood Urea Nitrogen 28 mg/dL High 7-18 Creatinine For GFR 1.21 mg/dL Normal 0.70-1.30 Glomerular Filtration Rate > 60.0 Normal >35 1 0 Sodium Level 139 mEq/L Normal 136-145 Potassium Serum 3.9 mEq/L Normal 3.5-5.1 Chloride Level 112 mEq/L High 98-107 Carbon Dioxide Level 22 mEq/L Normal 21-32 Anion Gap 5 mEq/L Low 8-16 Calcium Level 8.0 mg/dL Low 8.8-10.2 Laboratory test finding 04/09/2020 [place] [address] [phone] Magnesium Level 1.6 mg/dL Low 1.8-2.4 11 Basic Metabolic Profile 02/28/2020 [place] [address] [phone] Glucose, Fasting SEE SEPARATE REP <SEE NOTE> Normal 12 Blood Urea Nitrogen TNP mg/dL Normal 7-18 Creatinine For GFR TNP mg/dL Normal 0.70-1.30 Glomerular Filtration Rate TNP Normal >42 Sodium Level TNP mEq/L Normal 136-145 Potassium Serum TNP mEq/L Normal 3.5-5.1 Chloride Level TNP mEq/L Normal 98-107 Carbon Dioxide Level TNP mmol/L Normal 20-29 Anion Gap TNP mEq/L Normal 8-16 Calcium Level TNP mg/dL Normal 8.8-10.2 Laboratory test finding 02/28/2020 [facility] [place] [id number] [phone] Magnesium Level TNP mg/dL Normal 1.8-2.4 CBC With Differential 02/22/2020 [place] [address] [phone] White Blood Count 11.5 10 High 4.0-10.0 Red Blood Count 3.96 10 Low 4.30-6.10 Hemoglobin 12.5 g/dL Low 13.5-17.5 Hematocrit 38.8 % Low 42.0-52.0 Mean Corpuscular Volume 98.0 fl High 80.0-96.0 Mean Corpuscular Hemoglobin 31.6 pg Normal 27.0-33.0 Mean Corpuscular HGB Conc 32.2 g/dL Normal 32.0-36.5 Red Cell Distribution Width 13.8 % Normal 11.5-14.5 Platelet Count, Automated 76 10 Low 150-450 Neutrophils % 82.0 % High 36.0-66.0 Lymph % 7.7 % Low 24.0-44.0 Deuel % 9.3 % High 0.0-5.0 Eos % 0.4 % Normal 0.0-3.0 Baso % 0.2 % Normal 0.0-1.0 Immature Granulocyte % 0.4 % Normal 0-3.0 Nucleated Red Blood Cell % 0.0 % Normal 0-0 Neutrophils # 9.5 10 High 1.5-8.5 Lymph # 0.9 10 Low 1.5-5.0 Deuel # 1.1 10 High 0.0-0.8 Eos # 0.1 10 Normal 0.0-0.5 Baso # 0.0 10 Normal 0.0-0.2 Laboratory test finding 02/22/2020 [place] [address] [phone] Immature Platelet Fraction 9.0 % Normal 0.0-1 0.91 Urine Culture 02/22/2020 [facility] [place] [id number] [phone] Urine Culture FULL REPORT IN L <SEE NOTE> Normal 13 Ua Routine 02/22/2020 [facility] [address] [place] [address] [phone] Ua Specific [place] 1.015 Ua PH 6 Ua Color dk yellow strong odor Ua Appera cloudy Ua WBC 2+ Ua Protein 2+ Ua Glucose neg Ua Ketones trace Ua Bilirubin 1+ Ua Urobilinogen neg Ua Nitrite pos Ua Occult Blood 2+ Comprehensive Metabolic Profil 02/22/2020 [facility] [phone] Glucose, Fasting SEE SEPARATE REP <SEE NOTE> Normal 14 Blood Urea Nitrogen TNP mg/dL Normal 7-18 Creatinine For GFR TNP mg/dL Normal 0.70-1.30 Glomerular Filtration Rate TNP Normal >42 Sodium Level TNP mEq/L Normal 136-145 Potassium Serum TNP mEq/L Normal 3.5-5.1 Chloride Level TNP mEq/L Normal 98-107 Carbon Dioxide Level TNP mmol/L Normal 20-29 Anion Gap TNP mEq/L Normal 8-16 Calcium Level TNP mg/dL Normal 8.8-10.2 Ast/Sgot TNP IU/L Normal Alt/SGPT TNP IU/L Normal 0-32 Alkaline Phosphatase TNP U/L Normal 45-117 Bilirubin,Total TNP mg/dL Normal 0.2-1.0 Total Protein TNP GM/DL Normal 6.4-8.2 Albumin TNP GM/DL Normal 3.2-5.2 Albumin/Globulin Ratio TNP Normal 1 Units are mL/min/1.73 m2 Chronic Kidney Disease Staging per NKF: Stage I & II GFR >=60 Normal to Mildly Decreased Stage III GFR 30-59 Moderately Decreased Stage IV GFR 15-29 Severely Decreased Stage V GFR <15 Very Little GFR Left ESRD GFR <15 on SUPERVISOR [employer]ENG[employer] 2 REFERENCE RANGES: <=5.6% NORMAL 5.7-6.4% SUGGESTS IMPAIRED GLUCOSE META BOLISM/PREDIABETIC >= 6.5% ABNORMAL 3 Units are mL/min/1.73 m2 Chronic Kidney Disease Staging per NKF: Stage I & II GFR >=60 Normal to Mildly Decreased Stage III GFR 30-59 Moderately Decreased Stage IV GFR 15-29 Severely Decreased Stage V GFR <15 Very Little GFR Left ESRD GFR <15 on [employer] 4 note:<nlbl:demographic_chang ed> 5 note:<nlbl:demographic_chang ed> 6 note:<nlbl:demographic_chang ed> 7 note:<nlbl:demographic_chang ed> 8 Units are mL/min/1.73 m2 Chronic Kidney Disease Staging per NKF: Stage I & II GFR >=60 Normal to Mildly Decreased Stage III GFR 30-59 Moderately Decreased Stage IV GFR 15-29 Severely Decreased Stage V GFR <15 Very Little GFR Left ESRD GFR <15 on [employer] 9 note:<nlbl:demographic_chang ed> 10 Units are mL/min/1.73 m2 Chronic Kidney Disease Staging per NKF: Stage I & II GFR >=60 Normal to Mildly Decreased Stage III GFR 30-59 Moderately Decreased Stage IV GFR 15-29 Severely Decreased Stage V GFR <15 Very Little GFR Left ESRD GFR <15 on [employer] 11 note:<nlbl:demographic_chang ed> 12 SEE SEPARATE REPORT 6Testing performed at reference lab . Re port copy to follow on a separate form. 05/16/20 REF LAB#:[id number] FULL REPORT IN LAB NOTES (eC W and Medcely). ORGANISM 1: ESCHERICHIA COLI COLONY COUNT >100,000 ORGANISM 1: ESCHERICHIA COLI ESCHERICHIA COLI: REACTION TRIMETHOPRIM/SULFAMETHOXAZOLE IV 160mg TMP & 800mg SMXq6h <=20 S TRIMETHOPRIM/SULFAMETHOXAZOLE PO Bactrim DS Bid <=20 S AMPICILLIN IV 500mg q6h <=2 S AMPICILLIN PO 500mg q6h fasting <=2 S GENTAMICIN IV 80mg q8h <=1 S NITROFURANTOIN PO 100mg BID <=16 S CEFAZOLIN IV 1gm q8h <=4 S LEVOFLOXACIN IV 500mg qd 1 S LEVOFLOXACIN PO 250mg qd 1 S LEVOFLOXACIN PO 500mg qd 1 S TOBRAMYCIN IV 80mg q8h <=1 S CEFTRIAXONE IV 1gm q24h <=1 S CEFTAZIDIME IV 1gm q8h <=1 S AMPICILLIN/SULBACTAM IV 1.5g q6h <=2 S PIPERACILLIN/TAZOBACTAM IV 2.25 gm q6h <=4 S AZTREONAM IV 1gm q8h <=1 S ERTAPENEM IV 1gm qd <=0.5 S MEROPENEM IV 1 gm q8h <=0.25 S MEROPENEM IV 500 mg q8h <=0.25 S TIGECYCLINE IV 50mg q12h <=0.5 S CEFEPIME IV 1 gm q12h <=1 S CEFEPIME IV 2 gm q12h <=1 S EXTD BRD SPCTRM BETA LACTAMASE IV NEGATIVE FOR ESBL 14 SEE SEPARATE REPORT Testing performed at reference lab . Report copy to follow on a separate form. 05/16/20 REF LAB#:[id number] Procedures Date Code Description Status 01/11/2020 042620333 Diabetic Foot Exam Completed Medical Devices Description No Information Available Encounters Type Date Location Provider Dx Diagnosis Office Visit 08/01/2020 1:30p Main Office PleyuliyaachEly, PLASTERER APPRENTICE N39.0 Urinary tract infection, site not specified I10 Essential (primary) hyperten edda I48.0 Paroxysmal atrial fibrillati on R73.03 Prediabetes E78.2 Mixed hyperlipidemia 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 D50.9 Iron deficiency anemia, unsp ecified K21.9 Gastro-esophageal reflux dis ease without esophagitis Office Visit 07/11/2020 1:00p Main Office PleyuliyaachCarlay, PLASTERER APPRENTICE I10 Essential (primary) hypertension I48.0 Paroxysmal atrial fibrillati on R73.03 Prediabetes E78.2 Mixed hyperlipidemia 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 D50.9 Iron deficiency anemia, unsp ecified K21.9 Gastro-esophageal reflux dis ease without esophagitis Office Visit 02/22/2020 3:45p Main Office PleyuliyaachEly, PLASTERER APPRENTICE N39.0 Urinary tract infection, site not specified R50.9 Fever, unspecified Assessments Date Code Description Provider 08/01/2020 N39.0 Urinary tract infection, site no t specified PleEly vences, PLASTERER APPRENTICE 08/01/2020 I10 Essential (primary) hypertension Ely Voss, PLASTERER APPRENTICE 08/01/2020 I48.0 Paroxysmal atrial fibrillation P Ely patel, [facility] 08/01/2020 R73.03 Prediabetes PleCarla vencesy, PLASTERER APPRENTICE 08/01/2020 E78.2 Mixed hyperlipidemia Naveen Voss, [facility] 08/01/2020 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 PleCarla vencesy, PLASTERER APPRENTICE 08/01/2020 D50.9 Iron deficiency anemia, unspecif ied PleCarla vencesy, PLASTERER APPRENTICE 08/01/2020 K21.9 Gastro-esophageal reflux disease without esophagitis Ely Voss, PLASTERER APPRENTICE 07/11/2020 I10 Essential (primary) hypertension PleEly vences, PLASTERER APPRENTICE 07/11/2020 I48.0 Paroxysmal atrial fibrillation P Ely patel, PLASTERER APPRENTICE 07/11/2020 R73.03 Prediabetes PleCarla vencesy, PLASTERER APPRENTICE 07/11/2020 E78.2 Mixed hyperlipidemia Naveen Voss, PLASTERER APPRENTICE 07/11/2020 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 Ely Voss, PLASTERER APPRENTICE 07/11/2020 D50.9 Iron deficiency anemia, unspecif ied Ely Voss, PLASTERER APPRENTICE 07/11/2020 K21.9 Gastro-esophageal reflux disease without esophagitis Ely Voss, PLASTERER APPRENTICE 02/22/2020 N39.0 Urinary tract infection, site no t specified Ely Voss FNP 02/22/2020 R50.9 Fever, unspecified Linda Voss, PLASTERER APPRENTICE Plan of Treatment Future Appointment(s):* 01/09/2021 11:30 am - Ely Voss FNP at Main Office 08/01/2020 - Ely Voss FNP* N39.0 Urinary tract infection, site not specified* Comments:* hospitalized with sepsis. Sx significantly improved. Finish abx * Follow up:* as scheduled * I10 Essential (primary) hypertension* Comments:* controlled, continue current medications * I48.0 Paroxysmal atrial fibrillation* Comments:* follows with cardiology * R73.03 Prediabetes * E78.2 Mixed hyperlipidemia * I50.42 Chronic combined systolic (congestive) and diastolic (congestive) heart failure* Comments:* advised to f/u with his bus info consultant * D50.9 Iron deficiency anemia, unspecified * K21.9 Gastro-esophageal reflux disease without esophagitis Goals 08/01/2020 - Ely Voss FNP* N39.0 Urinary tract infection, site not specified* Drink plenty of liquids Functional Status Functional Condition Comment Date Status Glasses Active Independent with all ADL's Activ e Partial dentures Active Independent with all IADL's Acti ve Pacemaker Active Mental Status Description No Information Available Referrals Description No Information Available
--- OUTSIDE RECORDS SUMMARY | 2020-09-19 13:29 | CCD | Continuity of Care Document ---
Author Author Dino VOSS BUSINESS SERVICES OFFICER Organization Unknown Address [address] [place] [address] Phone [phone] Care Team Providers Care Bow Maker Gift Wrapping Name Role Phone Derick Camejo MD AUTM [phone] [facility] AUTM [phone] [facility] Gastro - Gastroenterology AUTM [phone] [facility] - [facility] AUTM [phone] [facility] AUTM [phone] Problems Active Problems Provider Date Essential hypertension [...] CPT Code Status Date Vaccine Lot # 73728 Given 05/18/2019 Influenza Virus Vaccine, Quadrivalent,age 3 and up,multidose vial [id number] 85528 Given 01/12/2019 Pneumococcal Vaccine [id number] 25724 Given 05/04/2018 Influenza Virus Vaccine, Quadrivalent,age 3 and up,multidose vial [id number] Given 05/05/2017 Influenza Vaccine (Fluzone)( medicare) [id number] 84229 Given 06/24/2016 Prevnar 13 For Adults [id number] Q2038 Given 06/03/2016 Influenza Vaccine (Fluzone)( medicare) [id number] Q2038 Given 05/15/2015 Influenza Vaccine (Fluzone)( medicare) [id number] Q2038 Given 04/19/2014 Influenza Vaccine (Fluzone)( medicare) [id number] Q2038 Given 04/15/2013 Influenza Vaccine (Fluzone)( medicare) 47713 Given 04/15/2013 Influenza Vaccination [id number] 50435 Given 05/17/2011 Influenza Vaccination [id number] Vital Signs Date Vital Result Comment 08/01/2020 1:23pm BP Systolic 131 mmHg BP Diastolic 54 mmHg Heart Rate 61 /min Body Temperature 97.5 F Respiratory Rate 16 /min Height 68.0 inches 5'8" Weight 155.38 lb O2 % BldC Oximetry 97 % Peak Expiratory Flow Rate 462 Estimated Peak Flow Rate [place] Body Weight 154 lb BMI (Body Mass Index) 23.6 kg/m2 07/11/2020 1:08pm BP Systolic 130 mmHg BP Diastolic 57 mmHg Heart Rate 74 /min Body Temperature 96.8 F Respiratory Rate 16 /min Height 68.0 inches 5'8" Weight 149.38 lb O2 % BldC Oximetry 100 % Peak Expiratory Flow Rate 462 Estimated Peak Flow Rate [place] Body Weight 154 lb BMI (Body Mass Index) 22.7 kg/m2 Results Test Acquired Date Facility Test Result H/L Range Note CBC With Differential 08/06/2020 [facility] [phone] White Blood Count 7.8 10 Normal 4.0-10.0 [...] 36.0-66.0 Lymph % 12.0 % Low 24.0-44.0 [place] % 6.6 % High 0.0-5.0 Eos % 1.9 % Normal 0.0-3.0 Baso % 0.3 % Normal 0.0-1.0 Immature Granulocyte % 0.4 % Normal 0-3.0 Nucleated Red Blood Cell % 0.0 % Normal 0-0 Neutrophils # 6.1 10 Normal 1.5-8.5 Lymph # 0.9 10 Low 1.5-5.0 Hardin # 0.5 10 Normal 0.0-0.8 Eos # 0.2 10 Normal 0.0-0.5 Baso # 0.0 10 Normal 0.0-0.2 Comprehensive Metabolic Profil 08/06/2020 [facility] [phone] Glucose, Fasting 129 mg/dL High 70-100 Blood [...] Laboratory test finding 08/06/2020 [place] [address] [phone] Magnesium Level 2.0 mg/dL Normal 1.8-2.4 Hemoglobin A1c 07/02/2020 [facility] [phone] Hemoglobin A1c 5.8 % Normal 2 Estimated Average Glucose 120 mg/dL High 60-110 Comprehensive Metabolic Profil 07/02/2020 [facility] [phone] Glucose, Fasting 103 mg/dL High 70-100 Blood [...] Ratio 1.1 Normal Laboratory test finding 07/02/2020 [facility] [phone] Magnesium Level 2.1 mg/dL Normal 1.8-2.4 4 Lipid Panel 07/02/2020 [facility] [phone] Triglycerides Level 54 mg/dL Normal <150 Cholesterol Level 84 mg/dL Normal <200 HDL Cholesterol 43 mg/dL Normal >40 LDL Cholesterol 30 mg/dL Normal <100 Non-HDL-C 41 mg/dL Normal Cholesterol Risk Ratio 1.953 Normal <5 CBC With Differential 07/02/2020 [facility] [phone] White Blood Count 7.4 10 Normal 4.0-10.0 [...] 36.0-66.0 Lymph % 14.2 % Low 24.0-44.0 [place] % 8.2 % High 0.0-5.0 Eos % 1.8 % Normal 0.0-3.0 Baso % 0.3 % Normal 0.0-1.0 Immature Granulocyte % 0.4 % Normal 0-3.0 Nucleated Red Blood Cell % 0.0 % Normal 0-0 Neutrophils # 5.6 10 Normal 1.5-8.5 Lymph # 1.1 10 Low 1.5-5.0 [place] # 0.6 10 Normal 0.0-0.8 Eos # 0.1 10 Normal 0.0-0.5 Baso # 0.0 10 Normal 0.0-0.2 Laboratory test finding 07/02/2020 [facility] [phone] Immature Platelet Fraction 7.9 % Normal 0.0-1 0.91 Laboratory test finding 07/02/2020 [place] [address] [phone] Magnesium Level 2.0 mg/dL Normal 1.8-2.4 5 Laboratory test finding 05/21/2020 [place] [address] [phone] Magnesium Level 1.9 mg/dL Normal 1.8-2.4 6 NT-Pro BNP 476 pg/mL High <450 7 Comprehensive Metabolic Profil 05/21/[address] [place] [address] [phone] Glucose, Fasting 110 mg/dL High 70-100 Blood [...] Laboratory test finding 04/24/2020 [facility] [place] [address] [phone] Magnesium Level 1.9 mg/dL Normal 1.8-2.4 9 Basic Metabolic Profile 04/09/2020 [place] [address] [phone] Glucose, Fasting 268 mg/dL High 70-100 Blood [...] 8.8-10.2 Laboratory test finding 04/09/2020 [place] [address] [phone] Magnesium Level 1.6 mg/dL Low 1.8-2.4 11 Basic Metabolic Profile 02/28/2020 [place] [address] [phone] Glucose, Fasting SEE SEPARATE REP <SEE NOTE> [...] 8.8-10.2 Laboratory test finding 02/28/2020 [facility] [place] [id number] [phone] Magnesium Level TNP mg/dL Normal 1.8-2.4 CBC With Differential 02/22/2020 [place] [address] [phone] White Blood Count 11.5 10 High 4.0-10.0 [...] 36.0-66.0 Lymph % 7.7 % Low 24.0-44.0 [place] % 9.3 % High 0.0-5.0 Eos % 0.4 % Normal 0.0-3.0 Baso % 0.2 % Normal 0.0-1.0 Immature Granulocyte % 0.4 % Normal 0-3.0 Nucleated Red Blood Cell % 0.0 % Normal 0-0 Neutrophils # 9.5 10 High 1.5-8.5 Lymph # 0.9 10 Low 1.5-5.0 Hard[place] # 1.1 10 High 0.0-0.8 Eos # 0.1 10 Normal 0.0-0.5 Baso # 0.0 10 Normal 0.0-0.2 Laboratory test finding 02/22/2020 [place] [address] [phone] Immature Platelet Fraction 9.0 % Normal 0.0-1 0.91 Urine Culture 02/22/2020 [facility] [place] [id number] [phone] Urine Culture FULL REPORT IN L <SEE NOTE> Normal 13 Ua Routine 02/22/2020 [facility] [address] [place] [address] [phone] Ua Specific [place] 1.015 Ua PH 6 Ua Color dk yellow strong odor Ua Appera cloudy Ua WBC 2+ Ua Protein 2+ Ua Glucose neg Ua Ketones trace Ua Bilirubin 1+ Ua Urobilinogen neg Ua Nitrite pos Ua Occult Blood 2+ Comprehensive Metabolic Profil 02/22/2020 [facility] [phone] Glucose, Fasting SEE SEPARATE REP <SEE NOTE> [...] Little GFR Left ESRD GFR <15 on MAT SEWER 2 REFERENCE RANGES: <=5.6% NORMAL 5.7-6.4% SUGGESTS IMPAIRED GLUCOSE META BOLISM/PREDIABETIC >= 6.5% ABNORMAL 3 Units are mL/min/1.73 m2 Chronic Kidney Disease Staging per NKF: Stage I & II GFR >=60 Normal to Mildly Decreased Stage III GFR 30-59 Moderately Decreased Stage IV GFR 15-29 Severely Decreased Stage V GFR <15 Very Little GFR Left ESRD GFR <15 on MAT SEWER 4 note:<nlbl:demographic_chang ed> 5 note:<nlbl:demographic_chang ed> 6 note:<nlbl:demographic_chang ed> 7 note:<nlbl:demographic_chang ed> 8 Units are mL/min/1.73 m2 Chronic Kidney Disease Staging per NKF: Stage I & II GFR >=60 Normal to Mildly Decreased Stage III GFR 30-59 Moderately Decreased Stage IV GFR 15-29 Severely Decreased Stage V GFR <15 Very Little GFR Left ESRD GFR <15 on MAT SEWER 9 note:<nlbl:demographic_chang ed> 10 Units are mL/min/1.73 m2 Chronic Kidney Disease Staging per NKF: Stage I & II GFR >=60 Normal to Mildly Decreased Stage III GFR 30-59 Moderately Decreased Stage IV GFR 15-29 Severely Decreased Stage V GFR <15 Very Little GFR Left ESRD GFR <15 on MAT SEWER 11 note:<nlbl:demographic_chang ed> 12 SEE SEPARATE REPORT 6Testing performed at reference lab . Re port copy to follow on a separate form. 05/16/20 REF LAB#:[id number] FULL REPORT IN LAB NOTES (eC [...] follow on a separate form. 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 D50.9 Iron deficiency anemia, unsp ecified K21.9 Gastro-esophageal reflux dis ease without esophagitis Office Visit 07/11/2020 1:00p Main Office PleyuliyaachCarlay, BUSINESS SERVICES OFFICER I10 Essential (primary) hypertension I48.0 Paroxysmal atrial fibrillati on R73.03 Prediabetes E78.2 Mixed hyperlipidemia 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 D50.9 Iron deficiency anemia, unsp ecified K21.9 Gastro-esophageal reflux dis ease without esophagitis Office Visit 02/22/2020 3:45p Main Office PleyuliyaachEly, BUSINESS SERVICES OFFICER N39.0 Urinary tract infection, site not specified R50.9 Fever, unspecified Assessments Date Code Description Provider 08/01/2020 N39.0 Urinary tract infection, site no t specified PleEly vences, BUSINESS SERVICES OFFICER 08/01/2020 I10 Essential (primary) hypertension Ely Voss, BUSINESS SERVICES OFFICER 08/01/2020 I48.0 Paroxysmal atrial fibrillation P Ely patel, [facility] 08/01/2020 R73.03 Prediabetes PleCarla vencesy, BUSINESS SERVICES OFFICER 08/01/2020 E78.2 Mixed hyperlipidemia Naveen Voss, [facility] 08/01/2020 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 PleCarla vencesy, BUSINESS SERVICES OFFICER 08/01/2020 D50.9 Iron deficiency anemia, unspecif ied PleCarla vencesy, BUSINESS SERVICES OFFICER 08/01/2020 K21.9 Gastro-esophageal reflux disease without esophagitis Ely Voss, BUSINESS SERVICES OFFICER 07/11/2020 I10 Essential (primary) hypertension PleEly vences, BUSINESS SERVICES OFFICER 07/11/2020 I48.0 Paroxysmal atrial fibrillation P Ely patel, BUSINESS SERVICES OFFICER 07/11/2020 R73.03 Prediabetes PleCarla vencesy, BUSINESS SERVICES OFFICER 07/11/2020 E78.2 Mixed hyperlipidemia Naveen Voss, BUSINESS SERVICES OFFICER 07/11/2020 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
--- OUTSIDE RECORDS SUMMARY | 2020-09-19 13:29 | CCD | Continuity of Care Document ---
Author Author Dino PLASCENCIA M.D. Organization Unknown Address [address] [place] [address] Phone [phone] Care Team Providers Care Multimedia Manager Name Role Phone Derick Camejo MD AUTM [phone] [facility] AUTM [facility] Gastro - Gastroenterology AUTM [facility] - [facility] & Rectal [facility] AUTM [phone] [facility] AUTM [phone] Problems Active Problems Provider Date Essential hypertension [...] by mouth every other day 30tabs Tara Plascencia M.D. 019 Magnesium Oxide 400mg Tablets 2 by mouth twice a day 90tabs Tara Plascencia M.D. 018 Potassium Chloride ER 10Meq Capsul [...] CPT Code Status Date Vaccine Lot # 61988 Given 05/18/2019 Influenza Virus Vaccine, Quadrivalent,age 3 and up,multidose vial [id number] 65600 Given 01/12/2019 Pneumococcal Vaccine [id number] 15382 Given 05/04/2018 Influenza Virus Vaccine, Quadrivalent,age 3 and up,multidose vial Q2038 Given 05/05/2017 Influenza Vaccine (Fluzone)( medicare) [id number] 20168 Given 06/24/2016 Prevnar 13 For Adults [id number] Q2038 Given 06/03/2016 Influenza Vaccine (Fluzone)( medicare) [id number] Q2038 Given 05/15/2015 Influenza Vaccine (Fluzone)( medicare) [id number] Q2038 Given 04/19/2014 Influenza Vaccine (Fluzone)( medicare) [id number] Q2038 Given 04/15/2013 Influenza Vaccine (Fluzone)( medicare) [id number] Given 04/15/2013 Influenza Vaccination [id number] 30385 Given 05/17/2011 Influenza Vaccination [id number] Vital Signs Date Vital Result Comment 08/01/2020 1:23pm BP Systolic 131 mmHg BP Diastolic 54 mmHg Heart Rate 61 /min Body Temperature 97.5 F Respiratory Rate 16 /min Height 68.0 inches 5'8" Weight 155.38 lb O2 % BldC Oximetry 97 % Peak Expiratory Flow Rate 462 Estimated Peak Flow Rate [place] Body Weight 154 lb BMI (Body Mass Index) 23.6 kg/m2 07/11/2020 1:08pm BP Systolic 130 mmHg BP Diastolic 57 mmHg Heart Rate 74 /min Body Temperature 96.8 F Respiratory Rate 16 /min Height 68.0 inches 5'8" Weight 149.38 lb O2 % BldC Oximetry 100 % Peak Expiratory Flow Rate 462 Estimated Peak Flow Rate [place] Body Weight 154 lb BMI (Body Mass Index) 22.7 kg/m2 Results Test Acquired Date Facility Test Result H/L Range Note CBC With Differential 08/06/2020 [facility] [phone] White Blood Count 7.8 10 Normal 4.0-10.0 [...] 36.0-66.0 Lymph % 12.0 % Low 24.0-44.0 [place] % 6.6 % High 0.0-5.0 Eos % 1.9 % Normal 0.0-3.0 Baso % 0.3 % Normal 0.0-1.0 Immature Granulocyte % 0.4 % Normal 0-3.0 Nucleated Red Blood Cell % 0.0 % Normal 0-0 Neutrophils # 6.1 10 Normal 1.5-8.5 Lymph # 0.9 10 Low 1.5-5.0 [place] # 0.5 10 Normal 0.0-0.8 Eos # 0.2 10 Normal 0.0-0.5 Baso # 0.0 10 Normal 0.0-0.2 Comprehensive Metabolic Profil 08/06/2020 [facility] [phone] Glucose, Fasting 129 mg/dL High 70-100 Blood [...] Laboratory test finding 08/06/2020 [place] [address] [phone] Magnesium Level 2.0 mg/dL Normal 1.8-2.4 Hemoglobin A1c 07/02/2020 [facility] nter [phone] Hemoglobin A1c 5.8 % Normal 2 Estimated Average Glucose 120 mg/dL High 60-110 Comprehensive Metabolic Profil 07/02/2020 [facility] [phone] Glucose, Fasting 103 mg/dL High 70-100 Blood [...] 1.1 Normal Laboratory test finding 07/02/2020 [facility] [place] [phone] Magnesium Level 2.1 mg/dL Normal 1.8-2.4 4 Lipid Panel 07/02/2020 [facility] nter [phone] Triglycerides Level 54 mg/dL Normal <150 Cholesterol Level 84 mg/dL Normal <200 HDL Cholesterol 43 mg/dL Normal >40 LDL Cholesterol 30 mg/dL Normal <100 Non-HDL-C 41 mg/dL Normal Cholesterol Risk Ratio 1.953 Normal <5 CBC With Differential 07/02/2020 [facility] [phone] White Blood Count 7.4 10 Normal 4.0-10.0 [...] 36.0-66.0 Lymph % 14.2 % Low 24.0-44.0 [place] % 8.2 % High 0.0-5.0 Eos % 1.8 % Normal 0.0-3.0 Baso % 0.3 % Normal 0.0-1.0 Immature Granulocyte % 0.4 % Normal 0-3.0 Nucleated Red Blood Cell % 0.0 % Normal 0-0 Neutrophils # 5.6 10 Normal 1.5-8.5 Lymph # 1.1 10 Low 1.5-5.0 [place] # 0.6 10 Normal 0.0-0.8 Eos # 0.1 10 Normal 0.0-0.5 Baso # 0.0 10 Normal 0.0-0.2 Laboratory test finding 07/02/2020 [facility] [place] [phone] Immature Platelet Fraction 7.9 % Normal 0.0-1 0.91 Laboratory test finding 07/02/2020 [place] [address] [phone] Magnesium Level 2.0 mg/dL Normal 1.8-2.4 5 Laboratory test finding 05/21/2020 [place] [address] [phone] Magnesium Level 1.9 mg/dL Normal 1.8-2.4 6 NT-Pro BNP 476 pg/mL High <450 7 Comprehensive Metabolic Profil 05/21/[address] [place] [address] [phone] Glucose, Fasting 110 mg/dL High 70-100 Blood [...] Laboratory test finding 04/24/2020 [place] [address] [phone] Magnesium Level 1.9 mg/dL Normal 1.8-2.4 9 Basic Metabolic Profile 04/09/2020 [place] [address] [phone] Glucose, Fasting 268 mg/dL High 70-100 Blood [...] 8.8-10.2 Laboratory test finding 04/09/2020 [place] [address] [phone] Magnesium Level 1.6 mg/dL Low 1.8-2.4 11 Basic Metabolic Profile 02/28/2020 [place] [address] [phone] Glucose, Fasting SEE SEPARATE REP <SEE NOTE> [...] 8.8-10.2 Laboratory test finding 02/28/2020 [facility] [place] [address]4928 [phone] Magnesium Level TNP mg/dL Normal 1.8-2.4 CBC With Differential 02/22/2020 [place] [address] [phone] White Blood Count 11.5 10 High 4.0-10.0 [...] 36.0-66.0 Lymph % 7.7 % Low 24.0-44.0 [place] % 9.3 % High 0.0-5.0 Eos % 0.4 % Normal 0.0-3.0 Baso % 0.2 % Normal 0.0-1.0 Immature Granulocyte % 0.4 % Normal 0-3.0 Nucleated Red Blood Cell % 0.0 % Normal 0-0 Neutrophils # 9.5 10 High 1.5-8.5 Lymph # 0.9 10 Low 1.5-5.0 [place] # 1.1 10 High 0.0-0.8 Eos # 0.1 10 Normal 0.0-0.5 Baso # 0.0 10 Normal 0.0-0.2 Laboratory test finding 02/22/2020 [place] [address] [phone] Immature Platelet Fraction 9.0 % Normal 0.0-1 0.91 Urine Culture 02/22/2020 [facility] [place] [id number] [phone] Urine Culture FULL REPORT IN L <SEE NOTE> Normal 13 Ua Routine 02/22/2020 [facility] [address] [place] [address] [phone] Ua Specific [place] 1.015 Ua PH 6 Ua Color dk yellow strong odor Ua Appera cloudy Ua WBC 2+ Ua Protein 2+ Ua Glucose neg Ua Ketones trace Ua Bilirubin 1+ Ua Urobilinogen neg Ua Nitrite pos Ua Occult Blood 2+ Comprehensive Metabolic Profil 02/22/2020 [facility] [phone] Glucose, Fasting SEE SEPARATE REP <SEE NOTE> [...] Little GFR Left ESRD GFR <15 on DIRECTOR DIABETES 2 REFERENCE RANGES: <=5.6% NORMAL 5.7-6.4% SUGGESTS IMPAIRED GLUCOSE META BOLISM/PREDIABETIC >= 6.5% ABNORMAL 3 Units are mL/min/1.73 m2 Chronic Kidney Disease Staging per NKF: Stage I & II GFR >=60 Normal to Mildly Decreased Stage III GFR 30-59 Moderately Decreased Stage IV GFR 15-29 Severely Decreased Stage V GFR <15 Very Little GFR Left ESRD GFR <15 on DIRECTOR DIABETES 4 note:<nlbl:demographic_chang ed> 5 note:<nlbl:demographic_chang ed> 6 note:<nlbl:demographic_chang ed> 7 note:<nlbl:demographic_chang ed> 8 Units are mL/min/1.73 m2 Chronic Kidney Disease Staging per NKF: Stage I & II GFR >=60 Normal to Mildly Decreased Stage III GFR 30-59 Moderately Decreased Stage IV GFR 15-29 Severely Decreased Stage V GFR <15 Very Little GFR Left ESRD GFR <15 on DIRECTOR DIABETES 9 note:<nlbl:demographic_chang ed> 10 Units are mL/min/1.73 m2 Chronic Kidney Disease Staging per NKF: Stage I & II GFR >=60 Normal to Mildly Decreased Stage III GFR 30-59 Moderately Decreased Stage IV GFR 15-29 Severely Decreased Stage V GFR <15 Very Little GFR Left ESRD GFR <15 on DIRECTOR DIABETES 11 note:<nlbl:demographic_chang ed> 12 SEE SEPARATE REPORT 6Testing performed at reference lab . Re port copy to follow on a separate form. 05/16/20 REF LAB#:[id number] FULL REPORT IN LAB NOTES (eC [...] follow on a separate form. 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 D50.9 Iron deficiency anemia, unsp ecified K21.9 Gastro-esophageal reflux dis ease without esophagitis Office Visit 07/11/2020 1:00p Main Office PleyuliyaachCarlay, EMBROIDERY SUPERVISOR I10 Essential (primary) hypertension I48.0 Paroxysmal atrial fibrillati on R73.03 Prediabetes E78.2 Mixed hyperlipidemia 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 D50.9 Iron deficiency anemia, unsp ecified K21.9 Gastro-esophageal reflux dis ease without esophagitis Office Visit 02/22/2020 3:45p Main Office PleyuliyaachEly, EMBROIDERY SUPERVISOR N39.0 Urinary tract infection, site not specified R50.9 Fever, unspecified Assessments Date Code Description Provider 08/01/2020 N39.0 Urinary tract infection, site no t specified PleEly vences, EMBROIDERY SUPERVISOR 08/01/2020 I10 Essential (primary) hypertension Ely Voss, EMBROIDERY SUPERVISOR 08/01/2020 I48.0 Paroxysmal atrial fibrillation P Ely patel, [facility] 08/01/2020 R73.03 Prediabetes PleCarla vencesy, EMBROIDERY SUPERVISOR 08/01/2020 E78.2 Mixed hyperlipidemia Naveen Voss, [facility] 08/01/2020 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 PleCarla vencesy, EMBROIDERY SUPERVISOR 08/01/2020 D50.9 Iron deficiency anemia, unspecif ied PleCarla vencesy, EMBROIDERY SUPERVISOR 08/01/2020 K21.9 Gastro-esophageal reflux disease without esophagitis Ely Voss, EMBROIDERY SUPERVISOR 07/11/2020 I10 Essential (primary) hypertension PleEly vences, EMBROIDERY SUPERVISOR 07/11/2020 I48.0 Paroxysmal atrial fibrillation P Ely patel, EMBROIDERY SUPERVISOR 07/11/2020 R73.03 Prediabetes PleCarla vencesy, EMBROIDERY SUPERVISOR 07/11/2020 E78.2 Mixed hyperlipidemia Naveen Voss, EMBROIDERY SUPERVISOR 07/11/2020 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
--- OUTSIDE RECORDS SUMMARY | 2020-09-19 13:29 | CCD | Continuity of Care Document ---
Author Author Dino VOSS [facility] Organization Unknown Address [address] [place] [address] Phone [phone] Care Team Providers Care Patient Registration Manager Name Role Phone Derick Camejo MD AUTM [phone] [facility] AUTM [phone] [facility] G[facility] - Gastroenterology [facility] AUTM [phone] [facility] AUTM [phone] Problems Active Problems Provider Date Essential hypertension [...] a day for 7 days 14tabs N39.0 Eyl Voss FNP 01/26 - 07/11/2020 Immunizations CPT Code Status Date Vaccine Lot # [id number] Given 05/18/2019 Influenza Virus Vaccine, Quadrivalent,age 3 and up,multidose vial [id number] Given 01/12/2019 Pneumococcal Vaccine [id number] 72652 Given 05/04/2018 Influenza Virus Vaccine, Quadrivalent,age 3 and up,multidose vial [id number] Given 05/05/2017 Influenza Vaccine (Fluzone)( medicare) [id number] 60199 Given 06/24/2016 Prevnar 13 For Adults [id number] Q2038 Given 06/03/2016 Influenza Vaccine (Fluzone)( medicare) [id number] Q2038 Given 05/15/2015 Influenza Vaccine (Fluzone)( medicare) [id number] Q2038 Given 04/19/2014 Influenza Vaccine (Fluzone)( medicare) [id number] Q2038 Given 04/15/2013 Influenza Vaccine (Fluzone)( medicare) [id number] Given 04/15/2013 Influenza Vaccination [id number] 84120 Given 05/17/2011 Influenza Vaccination [id number] Vital Signs Date Vital Result Comment 08/01/2020 1:23pm BP Systolic 131 mmHg BP Diastolic 54 mmHg Heart Rate 61 /min Body Temperature 97.5 F Respiratory Rate 16 /min Height 68.0 inches 5'8" Weight 155.38 lb O2 % BldC Oximetry 97 % Peak Expiratory Flow Rate 462 Estimated Peak Flow Rate [employer] Body Weight 154 lb BMI (Body Mass Index) 23.6 kg/m2 07/11/2020 1:08pm BP Systolic 130 mmHg BP Diastolic 57 mmHg Heart Rate 74 /min Body Temperature 96.8 F Respiratory Rate 16 /min Height 68.0 inches 5'8" Weight 149.38 lb O2 % BldC Oximetry 100 % Peak Expiratory Flow Rate 462 Estimated Peak Flow Rate [employer] Body Weight 154 lb BMI (Body Mass Index) 22.7 kg/m2 Results Test Acquired Date Facility Test Result H/L Range Note Hemoglobin A1c 07/02/2020 [facility] [phone] Hemoglobin A1c 5.8 % Normal 1 Estimated Average Glucose 120 mg/dL High 60-110 Comprehensive Metabolic Profil 07/02/2020 [facility] [phone] Glucose, Fasting 103 mg/dL High 70-100 Blood Urea Nitrogen 25 mg/dL High 7-18 Creatinine For GFR 1.20 mg/dL Normal 0.70-1.30 Glomerular Filtration Rate > 60.0 Normal >35 2 Sodium Level 139 mEq/L Normal 136-145 Potassium [...] Ratio 1.1 Normal Laboratory test finding 07/02/2020 [facility] [phone] Magnesium Level 2.1 mg/dL Normal 1.8-2.4 3 Lipid Panel 07/02/2020 [facility] [phone] Triglycerides Level 54 mg/dL Normal <150 Cholesterol Level 84 mg/dL Normal <200 HDL Cholesterol 43 mg/dL Normal >40 LDL Cholesterol 30 mg/dL Normal <100 Non-HDL-C 41 mg/dL Normal Cholesterol Risk Ratio 1.953 Normal <5 CBC With Differential 07/02/2020 [facility] [phone] White Blood Count 7.4 10 Normal 4.0-10.0 [...] 36.0-66.0 Lymph % 14.2 % Low 24.0-44.0 [place] % 8.2 % High 0.0-5.0 Eos % 1.8 % Normal 0.0-3.0 Baso % 0.3 % Normal 0.0-1.0 Immature Granulocyte % 0.4 % Normal 0-3.0 Nucleated Red Blood Cell % 0.0 % Normal 0-0 Neutrophils # 5.6 10 Normal 1.5-8.5 Lymph # 1.1 10 Low 1.5-5.0 [place] # 0.6 10 Normal 0.0-0.8 Eos # 0.1 10 Normal 0.0-0.5 Baso # 0.0 10 Normal 0.0-0.2 Laboratory test finding 07/02/2020 [facility] [phone] Immature Platelet Fraction 7.9 % Normal 0.0-1 0.91 Laboratory test finding 07/02/2020 [place] [address] [phone] Magnesium Level 2.0 mg/dL Normal 1.8-2.4 4 Comprehensive Metabolic Profil 05/21/2020 [place] [address] [phone] Glucose, Fasting 110 mg/dL High 70-100 Blood Urea Nitrogen 24 mg/dL High 7-18 Creatinine For GFR 1.11 mg/dL Normal 0.70-1.30 Glomerular Filtration Rate > 60.0 Normal >35 5 Sodium Level 141 mEq/L Normal 136-145 Potassium [...] Albumin/Globulin Ratio 1.0 Normal Laboratory test finding 05/21/2020 [place] [address] [phone] Magnesium Level 1.9 mg/dL Normal 1.8-2.4 6 NT-Pro BNP 476 pg/mL High <450 7 Laboratory test finding 04/24/2020 [place] [address] [phone] Magnesium Level 1.9 mg/dL Normal 1.8-2.4 8 Laboratory test finding 04/09/2020 [facility] [place], [place] [id number] [phone] Magnesium Level 1.6 mg/dL Low 1.8-2.4 9 Basic Metabolic Profile 04/09/2020 [facility] [place], [place] [id number] [phone] Glucose, Fasting 268 mg/dL High 70-100 Blood [...] 8-16 Calcium Level 8.0 mg/dL Low 8.8-10.2 Basic Metabolic Profile 02/28/2020 [place] [address] [phone] Glucose, Fasting SEE SEPARATE REP <SEE NOTE> Normal 11 Blood Urea Nitrogen TNP mg/dL Normal 7-18 Creatinine For GFR TNP mg/dL Normal 0.70-1.30 Glomerular Filtration Rate TNP Normal >42 Sodium Level TNP mEq/L Normal 136-145 Potassium Serum TNP mEq/L Normal 3.5-5.1 Chloride Level TNP mEq/L Normal 98-107 Carbon Dioxide Level TNP mmol/L Normal 20-29 Anion Gap TNP mEq/L Normal 8-16 Calcium Level TNP mg/dL Normal 8.8-10.2 Laboratory test finding 02/28/2020 [place] [address] [phone] Magnesium Level TNP mg/dL Normal 1.8-2.4 CBC With Differential 02/22/2020 [place] [address] [phone] White Blood Count 11.5 10 High 4.0-10.0 [...] 36.0-66.0 Lymph % 7.7 % Low 24.0-44.0 [place] % 9.3 % High 0.0-5.0 Eos % 0.4 % Normal 0.0-3.0 Baso % 0.2 % Normal 0.0-1.0 Immature Granulocyte % 0.4 % Normal 0-3.0 Nucleated Red Blood Cell % 0.0 % Normal 0-0 Neutrophils # 9.5 10 High 1.5-8.5 Lymph # 0.9 10 Low 1.5-5.0 [place] # 1.1 10 High 0.0-0.8 Eos # 0.1 10 Normal 0.0-0.5 Baso # 0.0 10 Normal 0.0-0.2 Laboratory test finding 02/22/2020 [facility] [place] [address] [phone] Immature Platelet Fraction 9.0 % Normal 0.0-1 0.91 Urine Culture 02/22/2020 [facility] [place] [id number] [phone] Urine Culture FULL REPORT IN L <SEE NOTE> Normal 12 Ua Routine 02/22/2020 [facility] [address] [place] [address] [phone] Ua Specific [place] 1.015 Ua PH 6 Ua Color dk yellow strong odor Ua Appera cloudy Ua WBC 2+ Ua Protein 2+ Ua Glucose neg Ua Ketones trace Ua Bilirubin 1+ Ua Urobilinogen neg Ua Nitrite pos Ua Occult Blood 2+ Comprehensive Metabolic Profil 02/22/2020 [facility] [phone] Glucose, Fasting SEE SEPARATE REP <SEE NOTE> Normal 13 Blood Urea Nitrogen TNP mg/dL Normal 7-18 [...] Normal 3.2-5.2 Albumin/Globulin Ratio TNP Normal 1 REFERENCE RANGES: <=5.6% NORMAL 5.7-6.4% SUGGESTS IMPAIRED GLUCOSE META BOLISM/PREDIABETIC >= 6.5% ABNORMAL 2 Units are mL/min/1.73 m2 Chronic Kidney Disease Staging per NKF: Stage I & II GFR >=60 Normal to Mildly Decreased Stage III GFR 30-59 Moderately Decreased Stage IV GFR 15-29 Severely Decreased Stage V GFR <15 Very Little GFR Left ESRD GFR <15 on TRAINING INTERN 3 note:<nlbl:demographic_chang ed> 4 note:<nlbl:demographic_chang ed> 5 Units are mL/min/1.73 m2 Chronic Kidney Disease Staging per NKF: Stage I & II GFR >=60 Normal to Mildly Decreased Stage III GFR 30-59 Moderately Decreased Stage IV GFR 15-29 Severely Decreased Stage V GFR <15 Very Little GFR Left ESRD GFR <15 on TRAINING INTERN 6 note:<nlbl:demographic_chang ed> 7 note:<nlbl:demographic_chang ed> 8 note:<nlbl:demographic_chang ed> 9 note:<nlbl:demographic_chang ed> 10 Units are mL/min/1.73 m2 Chronic Kidney Disease Staging per NKF: Stage I & II GFR >=60 Normal to Mildly Decreased Stage III GFR 30-59 Moderately Decreased Stage IV GFR 15-29 Severely Decreased Stage V GFR <15 Very Little GFR Left ESRD GFR <15 on TRAINING INTERN 11 SEE SEPARATE REPORT 6Testing performed at reference lab . Re port copy to follow on a separate form. 05/16/20 REF LAB#:[id number] FULL REPORT IN LAB NOTES (eC W and [facility]). ORGANISM 1: ESCHERICHIA COLI COLONY COUNT >100,000 [...] SPCTRM BETA LACTAMASE IV NEGATIVE FOR ESBL 13 SEE SEPARATE REPORT Testing performed at reference lab . Report copy to follow on a separate form. 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 D50.9 Iron deficiency anemia, unsp ecified K21.9 Gastro-esophageal reflux dis ease without esophagitis Office Visit 02/22/2020 3:45p Main Office Ely Voss FNP N39.0 Urinary tract infection, site not specified R50.9 Fever, unspecified Assessments Date Code Description Provider 08/01/2020 N39.0 Urinary tract infection, site no t specified Ely Voss FNP 08/01/2020 I10 Essential (primary) hypertension Ely Voss FNP 08/01/2020 I48.0 Paroxysmal atrial fibrillation P leskach Ely, [facility] 08/01/2020 R73.03 Prediabetes Pleskach, Ely, [facility] 08/01/2020 E78.2 Mixed hyperlipidemia Pleskach, M hue, [facility] 08/01/2020 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 Pleskach, Ely, [facility] 08/01/2020 D50.9 Iron deficiency anemia, unspecif ied Pleskach, Ely, [facility] 08/01/2020 K21.9 Gastro-esophageal reflux disease without esophagitis Pleskach, Ely, [facility] 07/11/2020 I10 Essential (primary) hypertension Pleskach Ely, [facility] 07/11/2020 I48.0 Paroxysmal atrial fibrillation P sarkisCarla diggsy, ST[facility] 07/11/2020 R73.03 Prediabetes Pleskach, Ely, [facility] 07/11/2020 E78.2 Mixed hyperlipidemia Pleskach, M hue, [facility] 07/11/2020 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 Sx significantly improved. Finish abx * Follow up:* as scheduled * I10 Essential (primary) hypertension* New Labs:* Comprehensive Metabolic Profil, Scheduled: 08/01/20 * I48.0 Paroxysmal atrial fibrillation * R73.03 Prediabetes * E78.2 Mixed hyperlipidemia * I50.42 Chronic combined systolic (congestive) and diastolic (congestive) heart failure * D50.9 Iron deficiency anemia, unspecified* New Labs:* CBC With Differential, Scheduled: 08/01/20 * K21.9 Gastro-esophageal reflux disease without esophagitis [...]
--- OUTSIDE RECORDS SUMMARY | 2020-09-19 13:30 | CCD ---
Author Author [facility] Organization [facility] Address Unknown Phone Unavailable Care Team Providers Care Forging Dies Final Finisher Name Role Phone PCP, PT Does Not have, OUT OF AREA Unavailable Unav ailable Scordo, M Di PA Unavailable Unavailable Scordo, M Di PA Unavailable Unavailable Scordo, M Di PA Unavailable Unavailable Scordo, M Di PA Unavailable Unavailable Scordo, M Di PA Unavailable Unavailable Scordo, M Di PA Unavailable Unavailable Scordo, M Di PA Unavailable Unavailable Scordo, M Di PA Unavailable Unavailable Scordo, M Di PA Unavailable Unavailable Scordo, M Di PA Unavailable Unavailable Scordo, M Di PA Unavailable Unavailable Scordo, M Di PA Unavailable Unavailable Scordo, M Di PA Unavailable Unavailable Scordo, M Di PA Unavailable Unavailable Scordo, M Di PA Unavailable Unavailable Scordo, M Di PA Unavailable Unavailable Scordo, M Di PA Unavailable Unavailable Scordo, M Di PA Unavailable Unavailable Scordo, M Di PA Unavailable Unavailable Scordo, M Di PA Unavailable Unavailable Scordo, M Di PA Unavailable Unavailable Scordo, M Di PA Unavailable Unavailable Scordo, M Di PA Unavailable Unavailable Scordo, M Di PA Unavailable Unavailable Scordo, M Di PA Unavailable Unavailable Scordo, M Di PA Unavailable Unavailable Scordo, M Di PA Unavailable Unavailable Scordo, M Di PA Unavailable Unavailable Scordo, M Di PA Unavailable Unavailable Scordo, M Di PA Unavailable Unavailable Scordo, M Di PA Unavailable Unavailable Scordo, M Di PA Unavailable Unavailable Scordo, M Di PA Unavailable Unavailable Scordo, M Di PA Unavailable Unavailable Scordo, M Di PA Unavailable Unavailable Scordo, M Di PA Unavailable Unavailable Scordo, M Di PA Unavailable Unavailable Scordo, M Di PA Unavailable Unavailable Scordo, M Di PA Unavailable Unavailable Scordo, M Di PA Unavailable Unavailable Scordo, M Di PA Unavailable Unavailable Scordo, M Di PA Unavailable Unavailable Scordo, M Di PA Unavailable Unavailable GOSHOW, J MELIA PA Unavailable Unavailable GOSHOW, J MELIA PA Unavailable Unavailable GOSHOW, J MELIA PA Unavailable Unavailable GOSHOW, J MELIA PA Unavailable Unavailable GOSHOW, J MELIA PA Unavailable Unavailable GOSHOW, J MELIA PA Unavailable Unavailable PHYSICIAN, PHYSICIAN ER Unavailable Unavailable Robert Paez MD Unavailable Unavailable Robert Paez MD Unavailable Unavailable Robert Paez MD Unavailable Unavailable Robert Paez MD Unavailable Unavailable Robert Paez MD Unavailable Unavailable Robert Paez MD Unavailable Unavailable Robert Paez MD Unavailable Unavailable Robert Paez MD Unavailable Unavailable Robert Paez MD Unavailable Unavailable Robert Paez MD Unavailable Unavailable Robert Paez MD Unavailable Unavailable Robert Paez MD Unavailable Unavailable Robert Paez MD Unavailable Unavailable Robert Paez MD Unavailable Unavailable Robret Paez MD Unavailable Unavailable Robert Paez MD Unavailable Unavailable Robert Paez MD Unavailable Unavailable Robert Paez MD Unavailable Unavailable Robert Paez MD Unavailable Unavailable Robert Paez MD Unavailable Unavailable Robert Paez MD Unavailable Unavailable Robert Paez MD Unavailable Unavailable Robert Paez MD Unavailable Unavailable Robert Paez MD Unavailable Unavailable Robert Paez MD Unavailable Unavailable Robert Paez MD Unavailable Unavailable Robert Paez MD Unavailable Unavailable Robert Paez MD Unavailable Unavailable Robert Paez MD Unavailable Unavailable Robert Paez MD Unavailable Unavailable Robert Paez MD Unavailable Unavailable Robert Paez MD Unavailable Unavailable Robert Paez MD Unavailable Unavailable Robert Paez MD Unavailable Unavailable Robert Paez MD Unavailable Unavailable Philippe, Robert Pacheco MD Unavailable Unavailable Philippe, Robert Pacheco MD Unavailable Unavailable Philippe, Robert Pacheco MD Unavailable Unavailable Philippe, Robert Pacheco MD Unavailable Unavailable Philippe, Robert Pacheco MD Unavailable Unavailable Philippe, Robert Pacheco MD Unavailable Unavailable Philippe, Robert Pacheco MD Unavailable Unavailable Philippe, Robert Pacheco MD Unavailable Unavailable Philippe, Robert Pacheco MD Unavailable Unavailable Philippe, Robert Pacheco MD Unavailable Unavailable Philippe, Robert Pacheco MD Unavailable Unavailable Philippe, Robert Pacheco MD Unavailable Unavailable Philippe, Robert Pacheco MD Unavailable Unavailable Philippe, Robert Pacheco MD Unavailable Unavailable Philippe, Robert Pacheco MD Unavailable Unavailable Philippe, Robert Pacheco MD Unavailable Unavailable Philippe, Robert Pacheco MD Unavailable Unavailable Philippe, Robert Pacheco MD Unavailable Unavailable Philippe, Robert Pacheco MD Unavailable Unavailable Philippe, Robert Pacheco MD Unavailable Unavailable Philippe, Robert Pacheco MD Unavailable Unavailable Philippe, Robert Pacheco MD Unavailable Unavailable Philippe, Robert Pacheco MD Unavailable Unavailable Philippe, Robert Pacheco MD Unavailable Unavailable Philippe, Robert Pacheco MD Unavailable Unavailable Philippe, Robert Pacheco MD Unavailable Unavailable Philippe, Robert Pacheco MD Unavailable Unavailable Philippe, Robert Pacheco MD Unavailable Unavailable Philippe, Robert Pacheco MD Unavailable Unavailable Philippe, Robert Pacheco MD Unavailable Unavailable Philippe, Robert Pacheco MD Unavailable Unavailable Philippe, Robert Pacheco MD Unavailable Unavailable Philippe, Robert Pacheco MD Unavailable Unavailable Philippe, Robert Pacheco MD Unavailable Unavailable Philippe, Robert Pacheco MD Unavailable Unavailable Philippe, Robert Pacheco MD Unavailable Unavailable Philippe, Robert Pacheco MD Unavailable Unavailable Philippe, Robert Pacheco MD Unavailable Unavailable Philippe, Robert Pacheco MD Unavailable Unavailable Philippe, Robert Pacheco MD Unavailable Unavailable Rita Ansari MD Unavailable Unavailable Rita Ansari MD Unavailable Unavailable Rita Ansari MD Unavailable Unavailable Rita Ansari MD Unavailable Unavailable Rita Ansari MD Unavailable Unavailable Rita Ansari MD Unavailable Unavailable Rita Ansari MD Unavailable Unavailable Rita Ansari MD Unavailable Unavailable Rita Ansari MD Unavailable Unavailable Rita Ansari MD Unavailable Unavailable Rita Ansari MD Unavailable Unavailable Rita Ansari MD Unavailable Unavailable Rita Ansari MD Unavailable Unavailable Rita Ansari MD Unavailable Unavailable Rita Ansari MD Unavailable Unavailable Rita Ansari MD Unavailable Unavailable Rita Ansari MD Unavailable Unavailable Rita Ansari MD Unavailable Unavailable Rita Ansari MD Unavailable Unavailable Marky, Rita Baca MD Unavailable Unavailable Marky, Rita Baca MD Unavailable Unavailable Marky, Rita Baca MD Unavailable Unavailable Marky, Rita Baca MD Unavailable Unavailable Marky, Rita Baca MD Unavailable Unavailable Marky, Rita Baca MD Unavailable Unavailable Marky, Rita Baca MD Unavailable Unavailable Marky, Rita Baca MD Unavailable Unavailable Marky, Rita Baca MD Unavailable Unavailable Marky, Rita Baca MD Unavailable Unavailable Marky, Rita Baca MD Unavailable Unavailable Marky, Rita Baca MD Unavailable Unavailable Marky, Rita Baca MD Unavailable Unavailable Marky, W Keven OJEDA Unavailable Unavailable Marky, Rita Baca MD Unavailable Unavailable Marky, Rita Baca MD Unavailable Unavailable Marky, Rita Baca MD Unavailable Unavailable Marky, Rita Baca MD Unavailable Unavailable Marky, Rita Baca MD Unavailable Unavailable Marky, Rita Baca MD Unavailable Unavailable Marky, Rita Baca MD Unavailable Unavailable Marky, Rita Baca MD Unavailable Unavailable Marky, Rita Baca MD Unavailable Unavailable Rita Ansari MD Unavailable Unavailable Rita Ansari MD Unavailable Unavailable Marky, Rita Baca MD Unavailable Unavailable Naveen COLLINS MD Unavailable Unavailable Naveen COLLINS MD Unavailable Unavailable Naveen COLLINS MD Unavailable Unavailable Naveen COLLINS MD Unavailable Unavailable Naveen COLLINS MD Unavailable Unavailable Naveen COLLINS MD Unavailable Unavailable Naveen COLLINS MD Unavailable Unavailable Naveen COLLINS MD Unavailable Unavailable Naveen COLLINS MD Unavailable Unavailable Naveen COLLINS MD Unavailable Unavailable Naveen COLLINS MD Unavailable Unavailable Naveen COLLINS MD Unavailable Unavailable Naveen COLLINS MD Unavailable Unavailable Naveen COLLINS MD Unavailable Unavailable Naveen COLLINS MD Unavailable Unavailable PHYSICIAN, ER Unavailable Unavailable SONJA DUDLEY MD Unavailable Unavailable Rita Juares MD Unavailable Unavailable Rita Juares MD Unavailable Unavailable Rita Juares MD Unavailable Unavailable Rita Juares MD Unavailable Unavailable Rita Juares MD Unavailable Unavailable Rita Juares MD Unavailable Unavailable Rita Juares MD Unavailable Unavailable Rita Juares MD Unavailable Unavailable Rita Juares MD Unavailable Unavailable Rita Juares MD Unavailable Unavailable Rita Juares MD Unavailable Unavailable Rita Juares MD Unavailable Unavailable Rita Juares MD Unavailable Unavailable Rita Juares MD Unavailable Unavailable Rita Juares MD Unavailable Unavailable Rita Juares MD Unavailable Unavailable Rita Juares MD Unavailable Unavailable Rita Juares MD Unavailable Unavailable Rita Juares MD Unavailable Unavailable Rita Juares MD Unavailable Unavailable Rita Juares MD Unavailable Unavailable Rita Juares MD Unavailable Unavailable Rita Juares MD Unavailable Unavailable Rita Juares MD Unavailable Unavailable Pleskach, Ely COATING SUPERVISOR Unavailable Unavailable Pleskach, Ely COATING SUPERVISOR Unavailable Unavailable Pleskach, Ely COATING SUPERVISOR Unavailable Unavailable Pleskach, Ely COATING SUPERVISOR Unavailable Unavailable Pleskach, Ely COATING SUPERVISOR Unavailable Unavailable Pleskach, Ely COATING SUPERVISOR Unavailable Unavailable Pleskach, Ely COATING SUPERVISOR Unavailable Unavailable Pleskach, Ely COATING SUPERVISOR Unavailable Unavailable Pleskach, Ely COATING SUPERVISOR Unavailable Unavailable Pleskach, Ely COATING SUPERVISOR Unavailable Unavailable Pleskach, Ely COATING SUPERVISOR Unavailable Unavailable Pleskach, Ely COATING SUPERVISOR Unavailable Unavailable Pleskach, Ely COATING SUPERVISOR Unavailable Unavailable Pleskach, Ely COATING SUPERVISOR Unavailable Unavailable Pleskach, Ely COATING SUPERVISOR Unavailable Unavailable Pleskach, Ely COATING SUPERVISOR Unavailable Unavailable Pleskach, Ley COATING SUPERVISOR Unavailable Unavailable Pleskach, Ely COATING SUPERVISOR Unavailable Unavailable Pleskach, Ely COATING SUPERVISOR Unavailable Unavailable Pleskach, Ely COATING SUPERVISOR Unavailable Unavailable Pleskach, Ely COATING SUPERVISOR Unavailable Unavailable Pleskach, Ely COATING SUPERVISOR Unavailable Unavailable Pleskach, Ely COATING SUPERVISOR Unavailable Unavailable Pleskach, Ely COATING SUPERVISOR Unavailable Unavailable Pleskach, Ely COATING SUPERVISOR Unavailable Unavailable Pleskach, Ely COATING SUPERVISOR Unavailable Unavailable Pleskach, Ely COATING SUPERVISOR Unavailable Unavailable Pleskach, Ely COATING SUPERVISOR Unavailable Unavailable Pleskach, Ely COATING SUPERVISOR Unavailable Unavailable Pleskach, Ely COATING SUPERVISOR Unavailable Unavailable BARRACO, SONJA Unavailable Unavailable OCTAVIA, SONJA Unavailable Unavailable Rita Juares MD Unavailable Unavailable Rita Juares MD Unavailable Unavailable Rita Juares MD Unavailable Unavailable Leyhane, W Rolando MD Unavailable Unavailable Leyhane, W Rolando MD Unavailable Unavailable Leyhane, W Rolando MD Unavailable Unavailable Leyhane, W Rolando MD Unavailable Unavailable Leyhane, W Rolando MD Unavailable Unavailable Leyhane, W Rolando MD Unavailable Unavailable Leyhane, W Rolando MD Unavailable Unavailable Leyhane, W Rolando MD Unavailable Unavailable Leyhane, W Rolando MD Unavailable Unavailable Leyhane, W Rolando MD Unavailable Unavailable Leyhane, W Rolando MD Unavailable Unavailable Leyhane, W Rolando MD Unavailable Unavailable Leyhane, W Rolando MD Unavailable Unavailable Leyhane, W Rolando MD Unavailable Unavailable Leyhane, W Rolando MD Unavailable Unavailable Leyhane, W Rolando MD Unavailable Unavailable Leyhane, W Rolando MD Unavailable Unavailable Leyhane, W Rolando MD Unavailable Unavailable Leyhane, W Rolando MD Unavailable Unavailable Leyhane, W Rolando MD Unavailable Unavailable Leyhane, W Rolando MD Unavailable Unavailable Re-disclosure Warning The records that you are about to access may contain information from federally-assisted alcohol or drug abuse programs. If such information is present, then the following federally mandated warning applies: This information has been disclosed to you from records protected by federal confidentiality rules (42 CFR part 2). The federal rules prohibit you from making any further disclosure of this information unless further disclosure is expressly permitted by the written consent of the person to whom it pertains or as otherwise permitted by 42 CFR part 2. A general authorization for the release of medical or other information is NOT sufficient for this purpose. The Federal rules restrict any use of the information to criminally investigate or prosecute any alcohol or drug abuse patient.The records that you are about to access may contain highly sensitive health information, the redisclosure of which is protected by Article 27-F of the [facility] Public Health law. If you continue you may have access to information: Regarding HIV / AIDS; Provided by facilities licensed or operated by the [facility] Office of Mental Health; or Provided by the [facility] Office for People With Developmental Disabilities. If such information is present, then the following [facility] mandated warning applies: This information has been disclosed to you from confidential records which are protected by state law. State law prohibits you from making any further disclosure of this information without the specific written consent of the person to whom it pertains, or as otherwise permitted by law. Any unauthorized further disclosure in violation of state law may result in a fine or mcc sentence or both. A general authorization for the release of medical or other information is NOT sufficient authorization for further disc losure. Allergies and Adverse Reactions Type Description Substance Reaction Status Data Source(s ) Drug Class NO KNOWN ALLERGIES NO KNOWN ALLERGIES [facility] Family History Family Member Name Family Member Gender Family Member Status Date o f Status Description Data Source(s) Unknown Unknown Problem [facility] ([facility], ) sister Unknown Male Problem [facility] ([facility]) Unknown Male Problem [facility] ([facility]) Unknown Unknown Problem [facility] ([facility] Encounters Encounter Providers Location Date Indications Data Source(s ) Outpatient Attender: Ely Voss [facility] Main Office 08/01/2020 1 2:30:00 PM EST [facility] ([facility] Outpatient Attender: Keven Ansari MD [facility] Internal Med at [place] 07/27/2020 10:55:00 AM EST [facility] ([facility]) ( in Healthcare facility) Attender: LIZABETH DUDLEYAdmitter: Yaron COLLINS MDConsultant: OUT OF AREA PCP, PT Does Not have 07/27/2020 03:05:00 AM EST - 07/28/2020 02:16:00 PM EST [facility] Inpatient Attender: ER PHYSICIAN 07/27/2020 03:05:00 AM [facility] Inpatient Attender: SONJA DUDLEY MD Attender: Rolando Juares MDAttender: MELIA JARRETT PAAttender: ER PHYSICIANAdmitter: MELIA BRAR 07/26/2020 09:58:44 PM EST Lab [place] [facility] Inpatient Attender: SONJA Trinidad bronwyn: Rolando Juares MDAttender: Yaron COLLINS MDAttender: ER PHYSICIANAdmitter: Yaron COLLINS MD 07/26/2020 08:49:00 PM EST - 07/28/2020 02:16:00 PM EST [facility] CHF EXACERBATION Patient discharged. Outpatient 07/26/2020 06:11:00 PM EST orthopnea , UTI, Trop 0.94, [facility] orthopnea, UTI, Trop 0.94, CHF Outpatient Attender: Ely Voss [facility] Main Office 07/11/2020 1 2:00:00 PM EST [facility] ([facility] Outpatient [id number] 02/29/2020 10:58:00 AM EDT - 02/29/2020 10:58:00 AM EDT Lab test [facility] Lab test Outpatient Attender: [facility] MDAdmitter: Tara Calderon ams, MD 008 02/23/2020 02:23:41 PM EDT - 02/23/2020 02:18:00 PM EDT Lab test [facility] Lab test Patient discharged. Outpatient Attender: Ely Voss [facility] Main Office 02/22/2020 0 3:45:00 PM EDT [facility] ([facility] Outpatient Attender: Di BRAR Main Office 01/11/2020 01:40:00 PM EDT [facility] ([facility] Immunizations Vaccine Date Status Description Data Source(s) COVID-19 VACCINE, MRNA-[id number], LNP-S (MODERNA)/PF 09/06/2020 1 2:00:00 AM EST completed [facility] INFLUENZA VIRUS VACCINE QUADRIVAL SPLIT 2019-(65 YR UP)/PF 05/05/2020 12:00:00 AM EDT completed [facility] Medications Medication Brand Name Start Date Product Form Dose Route Admi nistrative Instructions Pharmacy Instructions Status Indications Reaction Description Data Source(s) 300 mg 07/28/2020 12:00:00 AM EST capsule 10 TAKE ONE CAPSULE BY MOUTH TWICE A DAY TAKE ONE CAPSULE BY MOUTH TWICE A DAY SOLD: 07/28/2020 [facility] 300-30 mg 03/22/2020 12:00:00 AM EDT tablet 15 TAKE ONE TABLET BY MOUTH EVERY 6 HOURS NEEDED FOR PAIN MAXIMUM DAILY DOSE = 4 TABLETS PER DAY TAKE ONE TABLET BY MOUTH EVERY 6 HOURS NEEDED FOR PAIN MAXIMUM DAILY DOSE = 4 TABLETS PER DAY SOLD: 03/22/2020 [facility] 500 mg 03/22/2020 12:00:00 AM EDT capsule 21 TAKE ONE CAPSULE BY MOUTH EVERY 8 HOURS UNTIL GONE TAKE ONE CAPSULE BY MOUTH EVERY 8 HOURS UNTIL GONE [facility] carvedilol 3.125 MG Oral Tablet CARVEDILOL 03/16/2020 12:00:00 AM EDT tablet 180 TAKE ONE TABLET BY MOUTH TWICE A DAY WIT H FOOD TAKE ONE TABLET BY MOUTH TWICE A DAY WITH FOOD SOLD: 03/20/2020 [facility] carvedilol 3.125 MG Oral Tablet CARVEDILOL 03/16/2020 12:00:00 AM EDT tablet 180 TAKE ONE TABLET BY MOUTH TWICE A DAY WIT H FOOD TAKE ONE TABLET BY MOUTH TWICE A DAY WITH FOOD SOLD: 06/19/2020 [facility] carvedilol 3.125 MG Oral Tablet CARVEDILOL 03/16/2020 12:00:00 AM EDT tablet 180 TAKE ONE TABLET BY MOUTH TWICE A DAY WIT H FOOD TAKE ONE TABLET BY MOUTH TWICE A DAY WITH FOOD SOLD: 09/16/2020 [facility] 500 mg 02/29/2020 12:00:00 AM EDT capsule 4 TAKE 4 CAPSULES [2 GRAMS] BY MOUTH 1 HOUR PRIOR TO DENTAL WORK TAKE 4 CAPSULES [2 GRAMS] BY MOUTH 1 CHARO R PRIOR TO DENTAL WORK SOLD: 03/02/2020 [facility] Sulfamethoxazole 800 MG / Trimethoprim 160 MG Oral Tablet [B actrim] Bactrim DS 02/22/2020 12:00:00 AM EDT ORAL completed [facility] ([facility] 800-160 mg 02/22/2020 12:00:00 AM EDT tablet 14 TAKE ONE TABLET BY MOUTH TWICE A DAY FOR 7 DAYS TAKE ONE TABLET BY MOUTH TWICE A DAY FOR 7 DAYS SOLD: 02/22/2020 [facility] Potassium Chloride 10 MEQ Extended Release Oral Capsule POTA SSIUM CHLORIDE 01/10/2020 12:00:00 AM EDT capsule, extended release 60 TAKE TWO CAPSULES BY MOUTH EVERY DAY WITH FOOD TAKE TWO CAPSULES BY MOUTH EVERY DAY WITH FOOD SOLD: 09/16/2020 [facility] Potassium Chloride 10 MEQ Extended Release Oral Capsule POTA SSIUM CHLORIDE 01/10/2020 12:00:00 AM EDT capsule, extended release 60 TAKE TWO CAPSULES BY MOUTH EVERY DAY WITH FOOD TAKE TWO CAPSULES BY MOUTH EVERY DAY WITH FOOD SOLD: 07/14/2020 [facility] Potassium Chloride 10 MEQ Extended Release Oral Capsule POTA SSIUM CHLORIDE 01/10/2020 12:00:00 AM EDT capsule, extended release 60 TAKE TWO CAPSULES BY MOUTH EVERY DAY WITH FOOD TAKE TWO CAPSULES BY MOUTH EVERY DAY WITH FOOD SOLD: 08/15/2020 [facility] Potassium Chloride 10 MEQ Extended Release Oral Capsule POTA SSIUM CHLORIDE 01/10/2020 12:00:00 AM EDT capsule, extended release 60 TAKE TWO CAPSULES BY MOUTH EVERY DAY WITH FOOD TAKE TWO CAPSULES BY MOUTH EVERY DAY WITH FOOD SOLD: 06/14/2020 [facility] 10 mEq 01/10/2020 12:00:00 AM EDT capsule, extended relea se 60 TAKE TWO CAPSULES BY MOUTH EVERY DAY WITH FOOD TAKE TWO CAPSULES BY MOUTH EVERY DAY WIT H FOOD SOLD: 02/14/2020 [facility] 10 mEq 01/10/2020 12:00:00 AM EDT capsule, extended relea se 60 TAKE TWO CAPSULES BY MOUTH EVERY DAY WITH FOOD TAKE TWO CAPSULES BY MOUTH EVERY DAY WIT H FOOD SOLD: 04/15/2020 [facility] 10 mEq 01/10/2020 12:00:00 AM EDT capsule, extended relea se 60 TAKE TWO CAPSULES BY MOUTH EVERY DAY WITH FOOD TAKE TWO CAPSULES BY MOUTH EVERY DAY WIT H FOOD SOLD: 05/15/2020 [facility] 10 mEq 01/10/2020 12:00:00 AM EDT capsule, extended relea se 60 TAKE TWO CAPSULES BY MOUTH EVERY DAY WITH FOOD TAKE TWO CAPSULES BY MOUTH EVERY DAY WIT H FOOD SOLD: 03/15/2020 [facility] 10 mEq 01/10/2020 12:00:00 AM EDT capsule, extended relea se 60 TAKE TWO CAPSULES BY MOUTH EVERY DAY WITH FOOD TAKE TWO CAPSULES BY MOUTH EVERY DAY WIT H FOOD SOLD: 01/15/2020 [facility] 25 mg 01/06/2020 12:00:00 AM EDT tablet 90 TAKE ONE TABLET (25MG) BY MOUTH ONE TIME DAILY TAKE ONE TABLET (25MG) BY MOUTH ONE TIME DAILY SOLD: 020 [facility] 25 mg 01/06/2020 12:00:00 AM EDT tablet 90 TAKE ONE TABLET (25MG) BY MOUTH ONE TIME DAILY TAKE ONE TABLET (25MG) BY MOUTH ONE TIME DAILY SOLD: 020 [facility] 25 mg 01/06/2020 12:00:00 AM EDT tablet 90 TAKE ONE TABLET (25MG) BY MOUTH ONE TIME DAILY TAKE ONE TABLET (25MG) BY MOUTH ONE TIME DAILY SOLD: 020 [facility] 1,250 mcg (50,000 unit) 12/03/2019 12:00:00 AM EDT capsule 12 TAKE ONE CAPSULE BY MOUTH EVERY WEEK TAKE ONE CAPSULE BY MOUTH EVERY WEEK SOLD: 12/06/2019 [facility] Ergocalciferol 54786 UNT Oral Capsule Vitamin D (Ergocalcife rol) 12/01/2019 12:00:00 AM EDT completed [facility] ([facility] atorvastatin 40 MG Oral Tablet ATORVASTATIN CALCIUM 09/24/2019 1 2:00:00 AM EST tablet 90 TAKE ONE TABLET BY MOUTH EVERY D AY TAKE ONE TABLET BY MOUTH EVERY DAY SOLD: 06/27/2020 [facility] 40 mg 09/24/2019 12:00:00 AM EST tablet 90 TAKE ONE TABLET BY MOUTH EVERY DAY TAKE ONE TABLET BY MOUTH EVERY DAY SOLD: 03/28/2020 [facility] 40 mg 09/24/2019 12:00:00 AM EST tablet 90 TAKE ONE TABLET BY MOUTH EVERY DAY TAKE ONE TABLET BY MOUTH EVERY DAY SOLD: 12/27/2019 [facility] 40 mg 09/24/2019 12:00:00 AM EST tablet 90 TAKE ONE TABLET BY MOUTH EVERY DAY TAKE ONE TABLET BY MOUTH EVERY DAY SOLD: 09/27/2019 [facility] 1,250 mcg (50,000 unit) 06/16/2019 12:00:00 AM EST capsule 12 TAKE ONE CAPSULE BY MOUTH EVERY WEEK TAKE ONE CAPSULE BY MOUTH EVERY WEEK SOLD: 09/12/2019 [facility] 10 mEq 02/09/2019 12:00:00 AM EDT capsule, extended relea se 60 TAKE TWO CAPSULES BY MOUTH EVERY DAY WITH FOOD TAKE TWO CAPSULES BY MOUTH EVERY DAY WIT H FOOD SOLD: 09/19/2019 [facility] 10 mEq 02/09/2019 12:00:00 AM EDT capsule, extended relea se 60 TAKE TWO CAPSULES BY MOUTH EVERY DAY WITH FOOD TAKE TWO CAPSULES BY MOUTH EVERY DAY WIT H FOOD SOLD: 10/18/2019 [facility] 10 mEq 02/09/2019 12:00:00 AM EDT capsule, extended relea se 60 TAKE TWO CAPSULES BY MOUTH EVERY DAY WITH FOOD TAKE TWO CAPSULES BY MOUTH EVERY DAY WIT H FOOD SOLD: 08/21/2019 [facility] 10 mEq 02/09/2019 12:00:00 AM EDT capsule, extended relea se 60 TAKE TWO CAPSULES BY MOUTH EVERY DAY WITH FOOD TAKE TWO CAPSULES BY MOUTH EVERY DAY WIT H FOOD SOLD: 12/13/2019 [facility] 10 mEq 02/09/2019 12:00:00 AM EDT capsule, extended relea se 60 TAKE TWO CAPSULES BY MOUTH EVERY DAY WITH FOOD TAKE TWO CAPSULES BY MOUTH EVERY DAY WIT H FOOD SOLD: 07/24/2019 [facility] 10 mEq 02/09/2019 12:00:00 AM EDT capsule, extended relea se 60 TAKE TWO CAPSULES BY MOUTH EVERY DAY WITH FOOD TAKE TWO CAPSULES BY MOUTH EVERY DAY WIT H FOOD SOLD: 11/15/2019 [facility] 25 mg 01/08/2019 12:00:00 AM EDT tablet 90 TAKE ONE TABLET (25MG) BY MOUTH ONE TIME DAILY TAKE ONE TABLET (25MG) BY MOUTH ONE TIME DAILY SOLD: 020 [facility] carvedilol 3.125 MG Oral Tablet CARVEDILOL 12/25/2018 12:00:00 AM EDT tablet 180 TAKE ONE TABLET BY MOUTH TWICE A DAY WIT H FOOD TAKE ONE TABLET BY MOUTH TWICE A DAY WITH FOOD SOLD: 12/19/2019 [facility] carvedilol 3.125 MG Oral Tablet CARVEDILOL 12/25/2018 12:00:00 AM EDT tablet 180 TAKE ONE TABLET BY MOUTH TWICE A DAY WIT H FOOD TAKE ONE TABLET BY MOUTH TWICE A DAY WITH FOOD SOLD: 09/22/2019 [facility] Insurance Providers Payer name Policy type / Coverage type Policy ID Covered democrat ID Covered democrat's relationship to munoz Policy Munoz Plan Information WELLCARE [id number] SP [id number] WELLCARE O [id number] S [id number] WELLCARE [id number] SP [id number] WELLCARE [id number] SP [id number] MEDICARE KAVON [id number] S [id number] WELLCARE HEA [id number] S [id number] WELLCARE [id number] SP [id number] Wellcare Today's Options Commercial [id number] Self [id number] Wellcare Today's Options Commercial [id number] Self [id number] Wellcare Today's Options Commercial [id number] Self [id number] Wellcare Today's Options Commercial [id number] Self [id number] TODAYS OPTIONS [id number] SP [id number] Wellcare Today's Options Commercial [id number] Self [id number] [place] Progressive Commercial [id number] Self [id number] AMER PROG TODAYS OPTIONS G [id number] Self [id number] [place] Progressive Commercial [id number] Self [id number] AMER PROG TODAYS OPTIONS G [id number] Self [id number] AMER PROG TODAYS OPTIONS G [id number] Self [id number] Today's Options Medicare Commercial [id number] Self [id number] [place] Progressive Commercial [id number] Self [id number] TODAYS OPTIONS/CANA[place] O [id number] S [id number] Macedonian Progressive Commercial [id number] Self [id number] Macedonian Progressive Commercial [id number] Self [id number] Macedonian Progressive Commercial [id number] Self [id number] TODAYS OPTIONS [id number] SP [id number] Today's Options Medicare Commercial [id number] Self [id number] Macedonian Progressive Commercial [id number] Self [id number] Macedonian Progressive Commercial [id number] Self [id number] Macedonian Progressive Commercial [id number] Self [id number] Macedonian Progressive Commercial [id number] Self [id number] Macedonian Progressive Commercial [id number] Self [id number] TODAYS OPTIONS [id number] SP [id number] Macedonian Progressive Commercial [id number] Self [id number] TODAYS OPTION MEDICARE [id number] [place] [id number] TODAYS OPTION MEDICARE [id number] [place] [id number] Maced[place] Progressive Commercial Self Medicare (Part B) Medicare Primary Self BCBS Excellus Ppo U/W Medigap Part B Family Depend ent Today's Options Ppo Commercial Self Today's Options PFFS Commercial Self Proclaim Commercial Family Dependent Blue Ppo Medigap Part B Family Dependent U/HC Medicare Solutions Commercial Self UNITED HEALTHCARE O [id number] S [id number] UNITED HEALTHCARE O [id number] S [id number] [facility] UNITED MEDICARE COMPLETE G [id number] Self [id number] MEDICARE COMPLETE [id number] SP [id number] United Healthcare Commercial Self Medicare Medicare Primary Self BC/BS [place] Medigap Part B Family Depend ent MEDICARE COMPLETE [id number] SP [id number] Problems, Conditions, and Diagnoses Code Display Name Description Problem Type Effective Dates Data Source(s) 65956457 Iron deficiency anemia Iron deficiency anemia Problem 07/11/2020 12:00:00 AM EST [facility] ([facility] [id number] Prediabetes Prediabetes Problem 07/11/2020 12:00:00 AM EST [facility] ([facility] [id number] Paroxysmal atrial fibrillation Paroxysmal atrial fibri llation Problem 07/11/2020 12:00:00 AM EST [facility] ([facility] [id number] 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 94, CHF Diagnosis 07/26/2020 06:11:00 PM [facility] [id number] Encounter for other specified aftercare Encounter for other specified aftercare Diagnosis 02/29/2020 10:58:00 AM EDT [facility] Surgeries/Procedures Procedure Description Date Indications Data Source(s) Echocardiography, Tranthoracic Real-Time Image Documentation 07/27/2020 12:00:00 AM EST [facility] ([facility]) Electrocardiogram Interpretation & Report Only 020 12:00:00 AM EST [facility] ([facility]) Diabetic Foot Exam 01/11/2020 12:00:00 AM EDT [facility] ([facility] Results ID Date Data Source [id number] 08/06/2020 08:24:00 AM EST [facility] ([facility] Name Value Range Interpretation Code Description Data Mariam rce(s) Supporting Document(s) Blood Urea Nitrogen 23 mg/dL 7-18 [facility] ([facility] Creatinine For GFR 1.07 mg/dL 0.70-1.30 [facility] ([facility] Glucose, Fasting 129 mg/dL 70-100 [facility] ([facility] Sodium Level 139 meq/L 136-145 [facility] ([facility] Glomerular Filtration Rate Laboratory test result [facility] ([facility] <content>Units are mL/min/1.73 m2</content>
<content></content>
<content>Chronic Kidney Disease Staging per NKF:</content>
<content></content>
<content>Stage I & II GFR >=60 Normal to Mildly Decreased</content>
<content>Stage III GFR 30- 59 Moderately Decreased</content>
<content>Stage IV GFR 15-29 Severely Decreased</content>
<content>Stage V GFR <15 Very Little GFR Left</content>
<content>ESRD GFR <15 on SILVERING DEPARTMENT SUPERVISOR</content>
<content></content> Carbon Dioxide Level 29 mmol/L 20-29 [facility] ([facility] Potassium Serum 4.6 meq/L 3.5-5.1 [facility] ([facility] Chloride Level 107 meq/L 98-107 [facility] Ast/Sgot 30 IU/L [facility] ([facility] Calcium Level 7.7 mg/dL 8.8-10.2 [facility] Anion Gap 3 meq/L 8-16 [facility] Alt/SGPT 57 IU/L 0-32 [facility] Bilirubin,Total 0.4 mg/dL 0.2-1.0 [facility] ([facility] Alkaline Phosphatase 98 U/L 45-117 [facility] ([facility] Total Protein 5.7 GM/DL 6.4-8.2 [facility] ([facility] Albumin 2.9 GM/DL 3.2-5.2 [facility] Albumin/Globulin Ratio 1.0 [facility] ID Date Data Source [id number] 08/06/2020 08:24:00 AM EST [facility] ([facility] Name Value Range Interpretation Code Description Data Mariam rce(s) Supporting Document(s) White Blood Count 7.8 10 4.0-10.0 [facility] ([facility] Hematocrit 37.2 % 42.0-52.0 [facility] ([facility] Red Blood Count 3.64 10 4.30-6.10 [facility] ([facility] Hemoglobin 11.1 g/dL 13.5-17.5 [facility] Mean Corpuscular Volume 102.2 fl 80.0-96.0 M [facility] ([facility] Mean Corpuscular Hemoglobin 30.5 pg 27.0-33.0 [facility] Mean Corpuscular HGB Conc 29.8 g/dL 32.0-36.5 [facility] ([facility] Platelet Count, Automated 131 10 150-450 [facility] Red Cell Distribution Width 13.9 % 11.5-14.5 [facility] Lymph % 12.0 % 24.0-44.0 [facility] Neutrophils % 78.8 % 36.0-66.0 [facility] Heard % 6.6 % 0.0-5.0 [facility] Baso % 0.3 % 0.0-1.0 [facility] Eos % 1.9 % 0.0-3.0 [facility] Immature Granulocyte % 0.4 % 0-3.0 [facility] Neutrophils # 6.1 10 1.5-8.5 [facility] Nucleated Red Blood Cell % 0.0 % 0-0 [facility] ([facility] Lymph # 0.9 10 1.5-5.0 [facility] Eos # 0.2 10 0.0-0.5 [facility] Heard # 0.5 10 0.0-0.8 [facility] Baso # 0.0 10 0.0-0.2 [facility] ID Date Data Source [id number] 08/06/2020 08:21:00 AM EST [facility] ([facility] Name Value Range Interpretation Code Description Data Mariam rce(s) Supporting Document(s) Magnesium [Mass/volume] in Serum or Plasma 2.0 mg/dL 1.8-2.4 [facility] ID Date Data Source [id number] 07/28/2020 07:04:00 AM EST [facility] Name Value Range Interpretation Code Description Data Mariam rce(s) Supporting Document(s) SODIUM 140 mmol/L (136-145) [facility] POTASSIUM 4.0 mmol/L (3.6-5.2) [facility] CHLORIDE 113 mmol/L (100-108) H [facility] CO2 21 mmol/L (22-31) L [facility] ANION GAP 6 mmol/L (7-16) L [facility] UREA NITROGEN 45 mg/dL (7-24) H [facility] CREATININE 1.26 mg/dL (0.80-1.30) [facility] BUN/CREAT RATIO 35.7 RATIO (10.0-20.0) H [facility] GLUCOSE 76 mg/dL (70-99) [facility] CALCIUM 8.0 mg/dL (8.4-10.2) L [facility] GFR 55 ml/min/1.73m2 (>59) L [facility] GFR ([facility] AM) >60 ml/min/1.73m2 (>59) [facility] GFR INTERPRETATION [facility] --NORMAL KIDNEY FUNCTION OR MILD DISEASE - GFR >OR= 60CHRONIC KIDNEY DISEASE - GFR 15 - 59RENAL FAILURE - GFR <15 Est. GFR calculation based on the MDRDstudy equation, which assumes a steadystate for creatinine. Est. GFR should notbe used for medication dosing. ID Date Data Source [id number] 07/28/2020 06:39:17 AM EST [facility] Name Value Range Interpretation Code Description Data Mariam rce(s) Supporting Document(s) WBC 9.1 10*3/uL (4.1-11.0) [facility] [place] [facility] [place] RBC 3.48 10*6/uL (4.60-6.10) L [facility] HGB 11.2 g/dL (13.5-18.0) L [facility] HCT 33.8 % (41.0-53.0) L [facility] MCV 97.1 fL (80.0-95.0) H [facility] MCH 32.1 pg (27.0-32.0) H [facility] MCHC 33.1 g/dL (32.0-36.0) [facility] RDW 15.2 % (10.5-14.5) H [facility] PLT 60 10*3/uL (150-450) L [facility] MPV 12.1 fL (7.1-10.7) H [facility] ID Date Data Source [id number] 07/29/2020 07:51:22 AM EST [facility] [place] [facility] [place] SPECIMEN DESCRIPTION GROINSPECIAL REQUESTS NONECULTURE RESULTS NO METHICILLIN RESISTANT STAPH AUREUS ISOLATED.REPORT STATUS FINAL 07/29/2020 Name Value Range Interpretation Code Description Data Mariam rce(s) Supporting Document(s) ID Date Data Source [id number] 07/28/2020 08:58:57 AM EST [facility] [place] Name Value Range Interpretation Code Description Data Mariam rce(s) Supporting Document(s) SPECIMEN DESCRIPTION [facility] STAPH SCREEN RESULTS (ONEGSA) [facility] COMMENT [facility] [place] GENE TO DETECT STAPH AUREUS. (2) RT-P CR WAS PERFORMED FOR THE mecA AND SCCmec GENES TO DETECT METHICILLIN RESISTANCE IN STAPH AUREUS. ID Date Data Source [id number] 07/29/2020 04:18:00 PM EST [facility] Keven Ansari, [facility] [id number] [place], [place] [id number] NAME: YARON CLAYDATE OF : 1940REPORT: CONSULTATIONPATIENT NUMBER: [id number] STATUS: IPMEDICAL RECORD NUMBER: [id number]: [id number] CONSULTATIONDATE OF CONSULTATION: 07/27/2020PROVIDING REQUESTING CONSULTATION: ER.REASON FOR CONSULTATION: Elevated troponin.HISTORY OF PRESENT ILLNESS: Yaron is a very pleasant 80-year-old gentlemanwho follows with Dr. Gómez, his auto damage adjuster. He has a history ofdiabetes, hypertension, intermittent tobacco use, aortic stenosis, statuspost aortic valve replacement in 2017. He tells me he did not requirebypass at that point and has no history of coronary artery disease he isaware of. 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 He is currently AV paced. He presented as a transfer from [facility] given the elevatedtroponin. He went to [facility] with fever and just feelingunwell, tells me his temperature was up to 104. He felt weak and fatigued,perhaps a little bit short of breath. He was found to have a UTI for whichhe has been started on antibiotic. He was also given a shot of Lasix ashis proBNP was mildly elevated. He has never complained of any chestdiscomfort and does not feel short of breath. Here he was slightlyhypotensive upon arrival with systolics in the 80s and with mild MERLYN, so hewas seen by the ICU team for consideration of admission given his relativehypotension. 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, history of ablation perhaps WPW ablation, he is paced withpacemaker and appears pacemaker dependent, paroxysmal AFib, status postWatchman device placement.ALLERGIES: No known drug allergies.MEDICATIONS:atorvastatin 40 mg Tablet 1 tablet oral daily every mornin gMedication Status: activeLast Taken Date/Time: 07/26/2020 0730potassium chloride 10 mEq Tablet Extended Release 1 tablet oral dailyMedication Status: activeLast Taken Date/Time: 07/26/2020 0730spironolactone 25 mg Tablet 1 tablet oral dailyMedication Status: activeLast Taken Date/Time: 07/26/2020 0730aspirin 325 mg tablet,delayed release (DR/EC) 1 tablet oral dailyMedication Status: activeLast Taken Date/Time: 07/26/2020 0730magnesium oxide 400 mg (241.3 mg magnesium) Tablet 1 tablet oral threetimes a dayMedication Status: activeLast Taken Date/Time: 07/26/2020 0730carvedilol 3.125 mg Tablet 1 tablet oral twice a dayMedication Status: activeLast Taken Date/Time: 07/26/2020 0730SOCIAL HISTORY: He lives with his at [facility]. He haschildren, grandchildren and great-grandchildren. 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 Smokes cigarettes occasionally. No alcohol or illicit drugs.FAMILY HISTORY: Family history was reviewed and noncontributory.REVIEW OF SYSTEMS: Pertinent positives and negatives listed in HPI,otherwise full 10-point review of systems were performed and foundnegative.PHYSICAL EXAMINATION: Temperature is 36.8, heart rate 60, blood [id number]/58, respirations 16, oxygen saturation 98 percent room air. General: He is awake, alert, oriented, in no acute distress. HEENT: Mucousmembranes are moist. Pharynx erythematous. Sclerae are anicteric. Neck/Lymph: There is no palpable cervical lymphadenopathy. Heart isregular S1, S2 with a harsh 4/6 systolic murmur at the upper sternalborder. Lungs are clear to auscultation bilaterally without wheezes orrhonchi. Abdomen: Soft, nondistended, nontender. Extremities are warmand well perfused without edema. Neuro: Cranial nerves grossly intact andsymmetric. Moving all for extremities. Speech is fluent.Chest x-ray shows no acute disease.LABORATORIES: His troponin was 1.18, it has come to 0.67; lactate is 1, itwas mildly elevated at the outside hospital. Sodium 139, potassium 3.7,chloride 110, bicarbonate 17, BUN 45, creatinine 1.5, glucose 90. LFTsnormal. WBC 15.1, hemoglobin 11.1, hematocrit 35.1, platelets 58,000. UAsuggestive of UTI.His ECG demonstrates an AV dual-paced rhythm with PVCs.ASSESSMENT: Yaron Clay is a pleasant 80-year-old gentleman with a historyof intermittent tobacco use, hypertension, type 2 diabetes and aorticstenosis, status post surgical aortic valve replacement in 2017. He has apresumed nonischemic cardiomyopathy with an EF of 40 percent. He ischronically paced and has a Watchman device for paroxysmal AFib. He is AVpaced on ECG and presents with UTI with sepsis, fever, mild MERLYN a nd mildlyhypotensive after receiving some Lasix at the outside hospital. I amconsulted for an elevated troponin. Again, there are no symptoms of chestpain and he has no known coronary artery disease, I think this is demandischemia in the setting of UTI, sepsis and hypotension. Would treat theunderlying illness and have him follow up with his outpatient cardiologistand find no indication for further cardiac testing at this point, thepatient is asymptomatic.1. Troponin elevation as above, demand ischemia in the setting of UTI, sepsis and hypotension, he is asymptomatic. No chest pain. Lungs are clear. I do not think this is decompensated heart failure. Would treat supportively for his urine infection. I do not find a need to trend any more troponins, but continue his aspirin, statin and beta-gay and have him follow up with his outpatient auto damage adjuster.2. Chronic systolic congestive heart failure, EF of reportedly 40 percent, appears euvolemic. He is just on Aldactone as an outpatient. I do not think he needs any further Lasix at this point.3. History of aortic stenosis, status post aortic valve replacement.4. Hypertension. Would hold the Aldactone given his MERLYN and hypotension in the setting of UTI with sepsis.5. UTI with sepsis. Antibiotics and further supportive care per primary team.Thank you for this consultation.DICTATED BY: LISANDRO Canoictated: 07/27/2020 8:18DT: 07/27/2020 8:26Job #: [id number]: Siobhan Gómez MDNOTE: [facility] computer generated reports are not confirmed orauthenticated unless they are signed by the providerElectronically Authenticated by:KEVEN ANSARI MD On 07/29/2020 04:18 PM EST Name Value Range Interpretation Code Description Data Mariam rce(s) Supporting Document(s) ID Date Data Source [id number] 07/28/2020 07:36:39 AM EST [facility] [place] [facility] SPECIMEN DESCRIPTION MIDSTREAM UR INE,CLEAN CATCHCULTURE RESULTS NO GROWTHREPORT STATUS FINAL 07/28/2020 Name Value Range Interpretation Code Description Data Mariam rce(s) Supporting Document(s) ID Date Data Source [id number] 07/27/2020 06:46:41 AM EST [facility] Name Value Range Interpretation Code Description Data Mariam rce(s) Supporting Document(s) URINE WBC (0-5) [facility] URINE RBC (0-2) [facility] BACTERIA 2+ [HPF] [facility] MUCUS 1+ [HPF] [facility] FINE GRAN CAST [facility] WBC CLUMPING 1+ [facility] [place] [facility] [place] ID Date Data Source [id number] 07/27/2020 06:13:47 AM EST [facility] Name Value Range Interpretation Code Description Data Mariam rce(s) Supporting Document(s) COLOR [facility] APPEARANCE [facility] SPEC GRAV URINE 1.015 (1.003-1.030) [facility] PH URINE 5.5 (5.0-7.5) [facility] LEUK ESTERASE 1+ (NEG) A [facility] NITRITE URINE (NEG) A [facility] PROTEIN URINE 1+ (NEG) A [facility] GLUCOSE URINE (NEG) [facility] KETONE URINE (NEG) [facility] [place] [facility] [place] UROBILINOGEN 0.2 mg/dL (0-1.0) [facility] [place] [facility] [place] BILIRUBIN URINE (NEG) [facility] [place] [facility] BLOOD/HGB URINE (NEG) A [facility] [place] [facility] ID Date Data Source [id number] 08/02/2020 10:36:53 AM EST [facility] [place] [facility] SPECIMEN DESCRIPTION PERIPHERALSP ECIAL REQUESTS NONECULTURE RESULTS NO GROWTH 6 DAYSREPORT STATUS FINAL 08/02/2020 Name Value Range Interpretation Code Description Data Mariam rce(s) Supporting Document(s) ID Date Data Source [id number] 07/27/2020 06:06:16 AM EST [facility] Name Value Range Interpretation Code Description Data Mariam rce(s) Supporting Document(s) SODIUM 139 mmol/L (136-145) [facility] POTASSIUM 3.7 mmol/L (3.6-5.2) [facility] CHLORIDE 110 mmol/L (100-108) H [facility] [place] [facility] CO2 17 mmol/L (22-31) L [facility] ANION GAP 12 mmol/L (7-16) [facility] UREA NITROGEN 45 mg/dL (7-24) H [facility] [place] [facility] CREATININE 1.48 mg/dL (0.80-1.30) H [facility] [facility] BUN/CREAT RATIO 30.4 RATIO (10.0-20.0) H [facility] GLUCOSE 90 mg/dL (70-99) [facility] [facility] CALCIUM 7.4 mg/dL (8.4-10.2) L [facility] [facility] TOTAL PROTEIN 5.0 g/dL (6.4-8.2) L [facility] [facility] ALBUMIN 2.6 g/dL (3.2-4.5) L [facility] GLOBULIN 2.4 g/dL (2.7-4.3) L [facility] ALB/GLOB RATIO 1.1 RATIO [facility] [place] [facility] ALKALINE PHOSPHATASE 77 U/L (45-117) [facility] BILIRUBIN,TOTAL 0.7 mg/dL (0.0-1.0) [facility] [place] [facility] PLEASE NOTE:Total bilirubin results may be falselyelevated in patients taking Eltrombopag. AST (SGOT) 44 U/L (11-39) H [facility] [place] [facility] ALT (SGPT) 68 U/L (12-78) [facility] [facility] GFR 46 ml/min/1.73m2 (>59) L [facility] [place] [facility] GFR ( AMER) 55 ml/min/1.73m2 (>59) L [facility] [place] [facility] GFR INTERPRETATION [facility] --NORMAL KIDNEY FUNCTION OR MILD DISEASE - GFR >OR= 60CHRONIC KIDNEY DISEASE - GFR 15 - 59RENAL FAILURE - GFR <15 Est. GFR calculation based on the MDRDstudy equation, which assumes a steadystate for creatinine. Est. GFR should notbe used for medication dosing. ID Date Data Source [id number] 07/27/2020 06:06:16 AM EST [facility] [place] [facility] [place] Name Value Range Interpretation Code Description Data Mariam rce(s) Supporting Document(s) PHOSPHORUS 4.7 mg/dL (2.5-4.5) H [facility] [place] [facility] [place] ID Date Data Source [id number] 07/27/2020 06:06:16 AM EST [facility] [place] Name Value Range Interpretation Code Description Data Mariam rce(s) Supporting Document(s) MAGNESIUM 1.8 mg/dL (1.7-2.4) [facility] [place] [facility] [place] ID Date Data Source [id number] 07/27/2020 06:06:16 AM EST [facility] [facility] [place] Name Value Range Interpretation Code Description Data Mariam rce(s) Supporting Document(s) TROPONIN I 0.67 ng/mL (<0.05) H [facility] [place] [facility] [place] Less than 0.05: Myocardial injury unlike lyGreater than or equal to 0.05: Highly suggestive of myocardial injuryCorrelation with rise and/or fall ofserial troponins, clinical symptomsand ECG changes is necessary. ID Date Data Source [id number] 07/27/2020 05:42:26 AM EST [facility] [facility] [place] Name Value Range Interpretation Code Description Data Mariam rce(s) Supporting Document(s) LACTIC ACID 1.0 mmol/L (0.4-2.0) [facility] [place] [facility] [place] ID Date Data Source [id number] 07/27/2020 05:40:31 AM EST [facility] [facility] [place] Name Value Range Interpretation Code Description Data Mariam rce(s) Supporting Document(s) WBC 15.1 10*3/uL (4.1-11.0) H [facility] [place] [facility] RBC 3.59 10*6/uL (4.60-6.10) L [facility] [place] [facility] HGB 11.1 g/dL (13.5-18.0) L [facility] [place] [facility] HCT 35.1 % (41.0-53.0) L [facility] [place] [facility] MCV 97.6 fL (80.0-95.0) H [facility] [place] [facility] MCH 31.0 pg (27.0-32.0) [facility] [place] [facility] MCHC 31.8 g/dL (32.0-36.0) L [facility] [place] [facility] RDW 15.3 % (10.5-14.5) H [facility] [place] Wright PLT 58 10*3/uL (150-450) L [facility] [place] [facility] [place] MPV 11.6 fL (7.1-10.7) H [facility] [place] [facility] [place] ID Date Data Source [id number] 08/02/2020 10:36:53 AM EST [facility] [place] [facility] [place] SPECIMEN DESCRIPTION PERIPHERALSP ECIAL REQUESTS NONECULTURE RESULTS NO GROWTH 6 DAYSREPORT STATUS FINAL 08/02/2020 Name Value Range Interpretation Code Description Data Mariam rce(s) Supporting Document(s) ID Date Data Source [id number] 07/27/2020 06:23:00 AM EST [facility] DATE OF EXAM: 07/27/2020Chest 1V Portabl e INDICATION: COUGH AND FEVER COMPARISON: None TECHNIQUE: A single AP film of the chest was obtained. FINDINGS: Dual lead left upper chest wall cardiac pacer placement. There is no consolidation. There is no effusion. The cardiac and mediastinal contours appear normal. IMPRESSION: Were clear. No evidence of pneumonia. Professional interpretation performed at [facility] .End of diagnostic report for accession: [id number] Interpreted: Uzma Patterson MDTranscribed: 07/27/2020 06:22 AMSigned: 07/27/2020 06:23 AM Uzma Patterson MD [facility] # [id number] BILL # [id number] Name Value Range Interpretation Code Description Data Mariam rce(s) Supporting Document(s) ID Date Data Source [id number] 07/26/2020 10:53:43 PM EST [facility] Name Value Range Interpretation Code Description Data Mariam rce(s) Supporting Document(s) MUSE EKG PDF encoded [facility] spital [id number] [file] repair technician/z [file] [id number] ID Date Data Source [id number] 07/26/2020 10:08:20 PM EST [facility] [place] [facility] [place] Name Value Range Interpretation Code Description Data Mariam rce(s) Supporting Document(s) TROPONIN I 1.18 ng/mL (<0.05) [facility] [place] [facility] Less than 0.05: Myocardial injury unlike lyGreater than or equal to 0.05: Highly suggestive of myocardial injuryCorrelation with rise and/or fall ofserial troponins, clinical symptomsand ECG changes is necessary.[facility] [place] [address] [place] [id number] ID Date Data Source [id number] 07/26/2020 09:58:44 PM EST [facility] [place] [facility] Name Value Range Interpretation Code Description Data Mariam rce(s) Supporting Document(s) LACTIC ACID 1.4 mmol/L (0.4-2.0) Lab [place] Russel DELGADILLO ID Date Data Source [id number] 07/26/2020 11:05:00 AM EST [facility] Name Value Range Interpretation Code Description Data Mariam rce(s) Supporting Document(s) SARS-CoV-2 (COVID 19) [facility] This lab was ordered by [facility] a nd reported by [facility]. ID Date Data Source [id number] 07/02/2020 09:33:00 AM EST [facility] Name Value Range Interpretation Code Description Data Mariam rce(s) Supporting Document(s) Estimated Average Glucose 120 mg/dL 60-110 [facility] Hemoglobin A1c/Hemoglobin.total in Blood 5.8 % [facility] <content>REFERENCE RANGES:</content><br/ ><content></content>
<content><=5.6% NORMAL</content>
<content>5.7-6.4% SUGGESTS IMPAIRED GLUCOSE METABOLISM/PREDIABETIC</content>
<content>>= 6.5% ABNORMAL</content>
<content></content> ID Date Data Source [id number] 07/02/2020 09:33:00 AM EST [facility] Name Value Range Interpretation Code Description Data Mariam rce(s) Supporting Document(s) Platelets reticulated/100 platelets in Blood by Automated count 7.9 % 0.0-10.91 [facility] ID Date Data Source [id number] 07/02/2020 09:33:00 AM EST [facility] Name Value Range Interpretation Code Description Data Mariam rce(s) Supporting Document(s) White Blood Count 7.4 10 4.0-10.0 [facility] Red Blood Count 4.24 10 4.30-6.10 [facility] Hemoglobin 12.9 g/dL 13.5-17.5 [facility] Hematocrit 41.8 % 42.0-52.0 [facility] Mean Corpuscular Volume 98.6 fl 80.0-96.0 M [facility] Red Cell Distribution Width 14.6 % 11.5-14.5 [facility] Mean Corpuscular HGB Conc 30.9 g/dL 32.0-36.5 [facility] Mean Corpuscular Hemoglobin 30.4 pg 27.0-33.0 [facility] Lymph % 14.2 % 24.0-44.0 [facility] Neutrophils % 75.1 % 36.0-66.0 [facility] Platelet Count, Automated 84 10 150-450 [facility] Eos % 1.8 % 0.0-3.0 [facility] Heard % 8.2 % 0.0-5.0 [facility] ([facility] Nucleated Red Blood Cell % 0.0 % 0-0 [facility] Baso % 0.3 % 0.0-1.0 [facility] Immature Granulocyte % 0.4 % 0-3.0 [facility] Heard # 0.6 10 0.0-0.8 [facility] Neutrophils # 5.6 10 1.5-8.5 [facility] Lymph # 1.1 10 1.5-5.0 [facility] Eos # 0.1 10 0.0-0.5 [facility] Baso # 0.0 10 0.0-0.2 [facility] ID Date Data Source [id number] 07/02/2020 09:33:00 AM EST [facility] Name Value Range Interpretation Code Description Data Mariam rce(s) Supporting Document(s) Cholesterol Level 84 mg/dL [facility] Triglycerides Level 54 mg/dL [facility] HDL Cholesterol 43 mg/dL [facility] Non-HDL-C 41 mg/dL [facility] Cholesterol Risk Ratio 1.953 [facility] LDL Cholesterol 30 mg/dL [facility] ID Date Data Source [id number] 07/02/2020 09:33:00 AM EST [facility] Name Value Range Interpretation Code Description Data Mariam rce(s) Supporting Document(s) Magnesium [Mass/volume] in Serum or Plasma 2.1 mg/dL 1.8-2.4 [facility] <content>note:<nlbl:demographic_changed> </content>
<content></content> ID Date Data Source [id number] 07/02/2020 09:33:00 AM EST [facility] Name Value Range Interpretation Code Description Data Mariam rce(s) Supporting Document(s) Creatinine For GFR 1.20 mg/dL 0.70-1.30 [facility] Blood Urea Nitrogen 25 mg/dL 7-18 [facility] Glucose, Fasting 103 mg/dL 70-100 [facility] Sodium Level 139 meq/L 136-145 [facility] Glomerular Filtration Rate Laboratory test result [facility] <content>Units are mL/min/1.73 m2</content>
<content></content>
<content>Chronic Kidney Disease Staging per NKF:</content>
<content></content>
<content>Stage I & II GFR >=60 Normal to Mildly Decreased</content>
<content>Stage III GFR 30- 59 Moderately Decreased</content>
<content>Stage IV GFR 15-29 Severely Decreased</content>
<content>Stage V GFR <15 Very Little GFR Left</content>
<content>ESRD GFR <15 on [employer]</content>
<content></content> Potassium Serum 4.3 meq/L 3.5-5.1 [facility] Carbon Dioxide Level 24 meq/L 21-32 [facility] Chloride Level 111 meq/L 98-107 [facility] Anion Gap 4 meq/L 8-16 [facility] Calcium Level 8.6 mg/dL 8.8-10.2 [facility] Alt/SGPT 76 U/L 12-78 [facility] Ast/Sgot 38 U/L 7-37 [facility] Bilirubin,Total 0.5 mg/dL 0.2-1.0 [facility] Alkaline Phosphatase 111 U/L 45-117 [facility] Total Protein 6.6 GM/DL 6.4-8.2 [facility] Albumin 3.5 GM/DL 3.2-5.2 [facility] Albumin/Globulin Ratio 1.1 [facility] ID Date Data Source [id number] 07/02/2020 09:31:00 AM EST [facility] Name Value Range Interpretation Code Description Data Mariam rce(s) Supporting Document(s) Magnesium [Mass/volume] in Serum or Plasma 2.0 mg/dL 1.8-2.4 [facility] <content>note:<nlbl:demographic_changed> </content>
<content></content> ID Date Data Source [id number] 05/21/2020 09:05:00 AM EDT [facility] Name Value Range Interpretation Code Description Data Mariam rce(s) Supporting Document(s) Blood Urea Nitrogen 24 mg/dL 7-18 [facility] Creatinine For GFR 1.11 mg/dL 0.70-1.30 [facility] Glucose, Fasting 110 mg/dL 70-100 [facility] Sodium Level 141 meq/L 136-145 [facility] Potassium Serum 4.2 meq/L 3.5-5.1 [facility] Glomerular Filtration Rate Laboratory test result [facility] <content>Units are mL/min/1.73 m2</content>
<content></content>
<content>Chronic Kidney Disease Staging per NKF:</content>
<content></content>
<content>Stage I & II GFR >=60 Normal to Mildly Decreased</content>
<content>Stage III GFR 30- 59 Moderately Decreased</content>
<content>Stage IV GFR 15-29 Severely Decreased</content>
<content>Stage V GFR <15 Very Little GFR Left</content>
<content>ESRD GFR <15 on [employer]</content>
<content></content> Anion Gap 4 meq/L 8-16 [facility] Chloride Level 113 meq/L 98-107 [facility] Carbon Dioxide Level 24 meq/L 21-32 [facility] Ast/Sgot 56 U/L 7-37 [facility] Calcium Level 8.1 mg/dL 8.8-10.2 [facility] Alt/SGPT 87 U/L 12-78 [facility] Alkaline Phosphatase 104 U/L 45-117 [facility] Bilirubin,Total 0.6 mg/dL 0.2-1.0 [facility] Total Protein 6.3 GM/DL 6.4-8.2 [facility] Albumin 3.2 GM/DL 3.2-5.2 [facility] Albumin/Globulin Ratio 1.0 [facility] ID Date Data Source [id number] 05/21/2020 09:05:00 AM EDT [facility] Name Value Range Interpretation Code Description Data Mariam rce(s) Supporting Document(s) Magnesium [Mass/volume] in Serum or Plasma 1.9 mg/dL 1.8-2.4 [facility] <content>note:<nlbl:demographic_changed> </content>
<content></content> Natriuretic peptide.B prohormone N-Terminal [Mass/volu me] in Serum or Plasma 476 pg/mL [facility] <content>note:<nlbl:demographic_changed> </content>
<content></content> ID Date Data Source [id number] 04/24/2020 12:16:00 PM EDT [facility] Name Value Range Interpretation Code Description Data Mariam rce(s) Supporting Document(s) Magnesium [Mass/volume] in Serum or Plasma 1.9 mg/dL 1.8-2.4 [facility] <content>note:<nlbl:demographic_changed> </content>
<content></content> ID Date Data Source [id number] 04/09/2020 11:12:00 AM EDT [facility] Name Value Range Interpretation Code Description Data Mariam rce(s) Supporting Document(s) Magnesium [Mass/volume] in Serum or Plasma 1.6 mg/dL 1.8-2.4 [facility] <content>note:<nlbl:demographic_changed> </content>
<content></content> ID Date Data Source [id number] 04/09/2020 11:12:00 AM EDT [facility] Name Value Range Interpretation Code Description Data Mariam rce(s) Supporting Document(s) Glucose, Fasting 268 mg/dL 70-100 [facility] Blood Urea Nitrogen 28 mg/dL 7-18 [facility] Glomerular Filtration Rate Laboratory test result [facility] <content>Units are mL/min/1.73 m2</content>
<content></content>
<content>Chronic Kidney Disease Staging per NKF:</content>
<content></content>
<content>Stage I & II GFR >=60 Normal to Mildly Decreased</content>
<content>Stage III GFR 30- 59 Moderately Decreased</content>
<content>Stage IV GFR 15-29 Severely Decreased</content>
<content>Stage V GFR <15 Very Little GFR Left</content>
<content>ESRD GFR <15 on [employer]</content>
<content></content> Creatinine For GFR 1.21 mg/dL 0.70-1.30 [facility] Sodium Level 139 meq/L 136-145 [facility] Potassium Serum 3.9 meq/L 3.5-5.1 [facility] Carbon Dioxide Level 22 meq/L 21-32 [facility] Chloride Level 112 meq/L 98-107 [facility] Calcium Level 8.0 mg/dL 8.8-10.2 [facility] Anion Gap 5 meq/L 8-16 [facility] ID Date Data Source [id number] 02/28/2020 07:15:00 AM EDT [facility] Name Value Range Interpretation Code Description Data Mariam rce(s) Supporting Document(s) Magnesium [Mass/volume] in Serum or Plasma 1.8 mg/dL 1.8 - 2.4 [facility] ID Date Data Source [id number] 02/28/2020 07:15:00 AM EDT [facility] Name Value Range Interpretation Code Description Data Mariam rce(s) Supporting Document(s) BASIC METABOLIC PANEL [facility] BASIC METABOLIC PANEL Sodium [Moles/volume] in Serum or Plasma 133 mEq/L 136 - 145 Below low normal [facility] Potassium [Moles/volume] in Serum or Plasma 4.7 mEq/L 3.5 - 5.1 [facility] Chloride [Moles/volume] in Serum or Plasma 104 mEq/L 98 - 107 [facility] Carbon dioxide, total [Moles/volume] in Serum or Plasma 17.1 mEq /L 21.0 - 32.0 Below low normal [facility] Glucose [Mass/volume] in Serum or Plasma 99 mg/dL 70 - 100 [facility] Urea nitrogen [Mass/volume] in Serum or Plasma 30 mg/dL 7 - 18 Above high normal [facility] CREATININE SERUM 1.45 mg/dL 0.70 - 1.30 Above high normal [facility] AGE 79 yrs [facility] l eGFR NON-AFR AMR 47 [facility] eGFR AFR AMR 57 [facility] ital BUN/CREAT 21 6 - 25 [facility] Calcium [Mass/volume] in Serum or Plasma 8.6 mg/dL 8.8 - 10.2 Below low normal [facility] ANION GAP 12 7 - 15 [facility] l Estimated GFR reference r prachi: > 60 mL/min/1.73m >18 years: Calculated using IDMS traceable MDRD Study Equation <18 years: Calculated using IDMS traceable [facility]side Rangel Equation ID Date Data Source [id number] 02/28/2020 07:15:00 AM EDT [facility] Name Value Range Interpretation Code Description Data Mariam rce(s) Supporting Document(s) Magnesium [Mass/volume] in Serum or Plasma Laboratory test result 1.8 -2.4 [facility] ID Date Data Source [id number] 02/28/2020 07:15:00 AM EDT [facility] Name Value Range Interpretation Code Description Data Mariam rce(s) Supporting Document(s) Blood Urea Nitrogen Laboratory test result 7-18 [facility] Glucose, Fasting Laboratory test result [facility] SEE SEPARATE REPORT 6Testing performed at reference lab . Re port copy to follow on a separate form. 05/16/20 REF LAB#:[id number] Sodium Level Laboratory test result 136-145 [facility] Creatinine For GFR Laboratory test result 0.70-1.30 [facility] Glomerular Filtration Rate Laboratory test result [facility] Carbon Dioxide Level Laboratory test result 20-29 [facility] Chloride Level Laboratory test result 98-107 [facility] Potassium Serum Laboratory test result 3.5-5.1 [facility] Anion Gap Laboratory test result 8-16 [facility] Calcium Level Laboratory test result 8.8-10.2 [facility] ID Date Data Source [id number] 02/22/2020 05:10:00 PM EDT [facility] Name Value Range Interpretation Code Description Data Mariam rce(s) Supporting Document(s) Platelets reticulated/100 platelets in Blood by Automated count 9.0 % 0.0-10.91 [facility] ID Date Data Source [id number] 02/22/2020 05:10:00 PM EDT [facility] Name Value Range Interpretation Code Description Data Mariam e(s) Supporting Document(s) White Blood Count 11.5 10 4.0-10.0 [facility] Red Blood Count 3.96 10 4.30-6.10 [facility] Hemoglobin 12.5 g/dL 13.5-17.5 [facility] Mean Corpuscular Volume 98.0 fl 80.0-96.0 [facility] Hematocrit 38.8 % 42.0-52.0 [facility] Mean Corpuscular Hemoglobin 31.6 pg 27.0-33.0 [facility] Mean Corpuscular HGB Conc 32.2 g/dL 32.0-36.5 [facility] Red Cell Distribution Width 13.8 % 11.5-14.5 [facility] Neutrophils % 82.0 % 36.0-66.0 [facility] Platelet Count, Automated 76 10 150-450 [facility] Lymph % 7.7 % 24.0-44.0 [facility] Heard % 9.3 % 0.0-5.0 [facility] Baso % 0.2 % 0.0-1.0 [facility] Eos % 0.4 % 0.0-3.0 [facility] Neutrophils # 9.5 10 1.5-8.5 [facility] Immature Granulocyte % 0.4 % 0-3.0 [facility] Nucleated Red Blood Cell % 0.0 % 0-0 [facility] Heard # 1.1 10 0.0-0.8 [facility] Eos # 0.1 10 0.0-0.5 [facility] Lymph # 0.9 10 1.5-5.0 [facility] Baso # 0.0 10 0.0-0.2 [facility] ID Date Data Source [id number] 02/22/2020 05:10:00 PM EDT [facility] Name Value Range Interpretation Code Description Data Mariam rce(s) Supporting Document(s) COMPREHENSIVE CHEM PROFILE i [facility] COMPREHENSIVE METABOLIC PANEL Sodium [Moles/volume] in Serum or Plasma 132 mEq/L 136 - 145 Below low normal [facility] Potassium [Moles/volume] in Serum or Plasma 4.2 mEq/L 3.5 - 5.1 [facility] Chloride [Moles/volume] in Serum or Plasma 103 mEq/L 98 - 107 [facility] Carbon dioxide, total [Moles/volume] in Serum or Plasma 21.8 mEq /L 21.0 - 32.0 [facility] Glucose [Mass/volume] in Serum or Plasma 106 mg/dL 70 - 100 Above high normal [facility] Urea nitrogen [Mass/volume] in Serum or Plasma 39 mg/dL 7 - 18 Above high normal [facility] CREATININE SERUM 1.44 mg/dL 0.70 - 1.30 Above high normal [facility] AGE 79 yrs [facility] l HEIGHT NA [facility] eGFR NON-AFR AMR 47 [facility] eGFR AFR AMR 57 [facility] ital BUN/CREAT 27 6 - 25 Above high normal [facility] Protein [Mass/volume] in Serum or Plasma 6.0 g/dL 6.0 - 8.3 [facility] Albumin [Mass/volume] in Serum or Plasma 3.6 g/dL 3.8 - 5.4 Below low normal [facility] GLOBULIN 2.4 g/dL 2.0 - 4.0 [facility] A/G RATIO 1.5 0.8 - 2.0 [facility] Calcium [Mass/volume] in Serum or Plasma 8.1 mg/dL 8.8 - 10.2 Below low normal [facility] Bilirubin.total [Mass/volume] in Serum or Plasma 0.8 mg/dL 0.2 - 1.0 [facility] Bilirubin.direct [Mass/volume] in Serum or Plasma 0.3 mg/dL 0.0 - 0.2 Above high normal [facility] INDIRECT BILI 0.5 mg/dL 0.0 - 1.1 [facility] pital ALK PHOSPHATASE 83 U/L 40 - 129 [facility] ospital Aspartate aminotransferase [Enzymatic ac tivity/volume] in Serum or Plasma by With P-5'-P 26 IU/L 7 - 37 [facility] Alanine aminotransferase [Enzymatic acti vity/volume] in Serum or Plasma by With P-5'-P 41 IU/L 12 - 78 [facility] ANION GAP 7 7 - 15 [facility] l Estimated GFR referenc e range: >60ml/min/1.73m >18 years: Calculated using IDWI traceable Study Equation <18 years: Calculated using IDMS tracable Bedside Schartz Equation ID Date Data Source [id number] 02/22/2020 03:57:00 PM EDT [facility] Name Value Range Interpretation Code Description Data Mariam rce(s) Supporting Document(s) Bacteria identified in Urine by Culture Laboratory test result [facility] ID Date Data Source [id number] 02/22/2020 03:56:00 PM EDT [facility] Name Value Range Interpretation Code Description Data Mariam rce(s) Supporting Document(s) Urine Culture Laboratory test result [facility] <content>FULL REPORT IN LAB NOTES ([facility] a nd [facility]).</content>
<content></content>
<content>ORGANISM 1: ESCHERICHIA COLI</content>
<content></content>
<content>COLONY COUNT > 100,000</content>
<content></content>
<content></content>
<content>O RGANISM 1: ESCHERICHIA COLI</content>
<content></content>
<content> ESCHERICHIA COLI: REACTION</content>
<content>TRIMETHOPRIM/SULFAMETHOXAZOLE IV 160mg TMP & 800mg SMXq6h <=20 S</content>
<content> TRIMETHOPRIM/SULFAMETHOXAZOLE PO Bactrim DS Bid <=20 S</content>
<content>AMPICILLIN IV 500mg q6h <=2 S</content>
<content>AMPICILLIN PO 500mg q6h fasting <=2 S</content>
<content>GENTAMICIN IV 80mg q8h <=1 S</content>
<content>NITROFURANTOIN PO 100mg BID <=16 S</content>
<content>CEFAZOLIN IV 1gm q8h <=4 S</content>
<content> LEVOFLOXACIN IV 500mg qd 1 S</content>
<content>LEVOFLOXACIN PO 250mg qd 1 S</content>
<content>LEVOFLOXACIN PO 500mg qd 1 S</content>
<content>TOBRAMYCIN IV 80mg q8h <=1 S</content>
<content>CEFTRIAXONE IV 1gm q24h <=1 S</content>
<content>CEFTAZIDIME IV 1gm q8h <=1 S</content>
<content> AMPICILLIN/SULBACTAM IV 1.5g q6h <=2 S</content>
<content>PIPERACILLIN/TAZOBACTAM IV 2.25 gm q6h <=4 S</content>
<content>AZTREONAM IV 1gm q8h <=1 S</content>
<content>ERTAPENEM IV 1gm qd <=0.5 S</content>
<content>MEROPENEM IV 1 gm q8h <=0.25 S</content>
<content>MEROPENEM IV 500 mg q8h <=0.25 S</content>
<content> TIGECYCLINE IV 50mg q12h <=0.5 S</content>
<content>CEFEPIME IV 1 gm q12h <=1 S</content>
<content>CEFEPIME IV 2 gm q12h <=1 S</content>
<content>EXTD BRD SPCTRM BETA LACTAMASE IV NEGATIVE FOR ESBL</content>
<content></content> ID Date Data Source [id number] 02/22/2020 03:52:00 PM EDT [facility] Name Value Range Interpretation Code Description Data Mariam rce(s) Supporting Document(s) Specific gravity of Urine 1.015 [facility] Appearance of Urine Laboratory test result [facility] pH of Urine by Test strip 6 [facility] Color of Urine Laboratory test result [facility] Leukocytes [#/area] in Urine sediment by Microscopy [facility] Laboratory test result [facility] Protein [Presence] in Urine by Test strip Laboratory test result [facility] Glucose [Presence] in Urine Laboratory test result [facility] Ketones [Presence] in Urine by Test strip Laboratory test result [facility] Bilirubin.total [Presence] in Urine by Test strip Laboratory test res ult [facility] Urobilinogen [Mass/volume] in Urine by Test strip Laboratory test res ult [facility] Nitrite [Presence] in Urine by Test strip Laboratory test result [facility] Hemoglobin [Presence] in Urine by Test strip Laboratory test result [facility] ID Date Data Source [id number] 02/22/2020 01:55:00 PM EDT [facility] Name Value Range Interpretation Code Description Data Mariam rce(s) Supporting Document(s) Glucose, Fasting Laboratory test result [facility] SEE SEPARATE REPORT Testing performed at reference lab . Report copy to follow on a separate form. 05/16/20 REF LAB#:[id number] Creatinine For GFR Laboratory test result 0.70-1.30 [facility] Blood Urea Nitrogen Laboratory test result 7-18 [facility] Sodium Level Laboratory test result 136-145 [facility] Glomerular Filtration Rate Laboratory test result [facility] Potassium Serum Laboratory test result 3.5-5.1 [facility] Carbon Dioxide Level Laboratory test result 20-29 [facility] Anion Gap Laboratory test result 8-16 [facility] Chloride Level Laboratory test result 98-107 [facility] Ast/Sgot Laboratory test result [facility] Alt/SGPT Laboratory test result 0-32 [facility] Calcium Level Laboratory test result 8.8-10.2 [facility] Bilirubin,Total Laboratory test result 0.2-1.0 [facility] Alkaline Phosphatase Laboratory test result 45-117 [facility] Total Protein Laboratory test result 6.4-8.2 [facility] Albumin Laboratory test result 3.2-5.2 [facility] ([facility] Albumin/Globulin Ratio Laboratory test result [facility] ([facility] ID Date Data Source [id number] 01/03/2020 08:20:00 AM EDT [facility] ([facility] Name Value Range Interpretation Code Description Data Mariam rce(s) Supporting Document(s) Platelets reticulated/100 platelets in Blood by Automated count 7.0 % 0.0-10.91 [facility] ([facility] ID Date Data Source [id number] 01/03/2020 08:20:00 AM EDT [facility] ([facility] Name Value Range Interpretation Code Description Data [facility](s) Supporting Document(s) Creatinine, Urine 136.0 mg/dL [facility] ([facility] Malb Urine Siemens 20.5 mg/L [facility] (Wu [facility] Ac/Creat Ratio 15.0 MCG/MG 0.0-30.0 [facility] ([facility] [employer] STATES THAT MICROALBUMINURIA IS PRESENT IF THE MICROALBUMIN/CREATININE RATIO EXCEEDS 30 MCG/MG. THE THRESHOLD FOR CLINICAL ALBUMINURIA IS REACHED AT 300 MCG/MG. THE CLASSIFICATION OF A PATIENT SHOULD BE BASED UPON AT LEAST 2 OF 3 ABNORMAL RESULTS ON SPECIMENS COLLECTED WITHIN A 3 TO 6 MONTH TIME FRAME. ID Date Data Source [id number] 01/03/2020 08:20:00 AM EDT [facility] ([facility] Name Value Range Interpretation Code Description Data [facility](s) Supporting Document(s) Triglycerides Level 55 mg/dL [facility] ([facility] Cholesterol Level 76 mg/dL [facility] ([facility] HDL Cholesterol 33 mg/dL [facility] ([facility] Non-HDL-C 43 mg/dL [facility] ([facility] LDL Cholesterol 32 mg/dL [facility] ([facility] Cholesterol Risk Ratio 2.303 [facility] ([facility] ID Date Data Source [id number] 01/03/2020 08:20:00 AM EDT [facility] ([facility] Name Value Range Interpretation Code Description Data [facility](s) Supporting Document(s) Hemoglobin A1c 6.1 % [facility] ([facility] REFERENCE RANGES: 4.5-5.6% NORMAL 5.7-6.4% SUGGESTS IMPAIRED GLUCOSE META BOLISM >= 6.5% ABNORMAL Estimated Average Glucose 128 mg/dL 60-110 [facility] ([facility] ID Date Data Source [id number] 01/03/2020 08:20:00 AM EDT [facility] Name Value Range Interpretation Code Description Data Mariam rce(s) Supporting Document(s) Glucose, Fasting 94 mg/dL 70-100 [facility] Glomerular Filtration Rate Laboratory test result [facility] ([facility] <content>Units are mL/min/1.73 m2</content>
<content></content>
<content>Chronic Kidney Disease Staging per [facility]:</content>
<content></content>
<content>Stage I & II GFR >=60 Normal to Mildly Decreased</content>
<content>Stage III GFR 30- 59 Moderately Decreased</content>
<content>Stage IV GFR 15-29 Severely Decreased</content>
<content>Stage V GFR <15 Very Little GFR Left</content>
<content>ESRD GFR <15 on [employer]</content>
<content></content> Creatinine For GFR 1.16 mg/dL 0.70-1.30 [facility] ([facility] Blood Urea Nitrogen 27 mg/dL 7-18 [facility] ([facility] Potassium Serum 4.2 meq/L 3.5-5.1 [facility] Sodium Level 140 meq/L 136-145 [facility] Carbon Dioxide Level 23 meq/L 21-32 [facility] ([facility] Anion Gap 7 meq/L 8-16 [facility] ([facility] Chloride Level 110 meq/L 98-107 [facility] Alt/SGPT 58 U/L 12-78 [facility] Calcium Level 8.2 mg/dL 8.8-10.2 [facility] ([facility] Ast/Sgot 34 U/L 7-37 [facility] Bilirubin,Total 0.6 mg/dL 0.2-1.0 [facility] ([facility] Alkaline Phosphatase 102 U/L 45-117 [facility] ([facility] Total Protein 6.3 GM/DL 6.4-8.2 [facility] Albumin/Globulin Ratio 1.2 [facility] Albumin 3.4 GM/DL 3.2-5.2 [facility] ([facility] ID Date Data Source [id number] 01/03/2020 08:20:00 AM EDT [facility] ([facility] Name Value Range Interpretation Code Description Data Mariam rce(s) Supporting Document(s) Red Blood Count 4.14 10 4.30-6.10 [facility] White Blood Count 6.8 10 4.0-10.0 [facility] ([facility] Hemoglobin 13.1 g/dL 13.5-17.5 [facility] ([facility] Hematocrit 41.2 % 42.0-52.0 [facility] Mean Corpuscular Volume 99.5 fl 80.0-96.0 M [facility] ([facility] Mean Corpuscular Hemoglobin 31.6 pg 27.0-33.0 [facility] Red Cell Distribution Width 13.8 % 11.5-14.5 [facility] Mean Corpuscular HGB Conc 31.8 g/dL 32.0-36.5 [facility] Platelet Count, Automated 81 10 150-450 [facility] Lymph % 16.1 % 24.0-44.0 [facility] Heard % 9.0 % 0.0-5.0 [facility] Neutrophils % 72.1 % 36.0-66.0 [facility] Eos % 2.4 % 0.0-3.0 [facility] Baso % 0.1 % 0.0-1.0 [facility] Neutrophils # 4.9 10 1.5-8.5 [facility] Nucleated Red Blood Cell % 0.0 % 0-0 [facility] ([facility] Immature Granulocyte % 0.3 % 0-3.0 [facility] Heard # 0.6 10 0.0-0.8 [facility] Lymph # 1.1 10 1.5-5.0 [facility] Eos # 0.2 10 0.0-0.5 [facility] Baso # 0.0 10 0.0-0.2 [facility] ([facility] ID Date Data Source [id number] 08/11/2019 07:50:00 AM EST [facility] Name Value Range Interpretation Code Description Data Mariam rce(s) Supporting Document(s) Magnesium [Mass/volume] in Serum or Plasma 1.9 mg/dL 1.8-2.4 [facility] ID Date Data Source [id number] 08/11/2019 07:50:00 AM EST [facility] Name Value Range Interpretation Code Description Data Mariam rce(s) Supporting Document(s) Triglycerides Level 57 mg/dL [facility] ([facility] Cholesterol Level 68 mg/dL [facility] ([facility] LDL Cholesterol 28 mg/dL [facility] HDL Cholesterol 29 mg/dL [facility] Non-HDL-C 39 mg/dL [facility] Cholesterol Risk Ratio 2.344 [facility] ([facility] ID Date Data Source [id number] 08/11/2019 07:50:00 AM EST [facility] ([facility] Name Value Range Interpretation Code Description Data Mariam rce(s) Supporting Document(s) Glucose, Fasting 105 mg/dL 70-100 [facility] Creatinine For GFR 1.16 mg/dL 0.70-1.30 [facility] Blood Urea Nitrogen 28 mg/dL 7-18 [facility] ([facility] Glomerular Filtration Rate Laboratory test result [facility] ([facility] <content>Units are mL/min/1.73 m2</content>
<content></content>
<content>Chronic Kidney Disease Staging per [facility]:</content>
<content></content>
<content>Stage I & II GFR >=60 Normal to Mildly Decreased</content>
<content>Stage III GFR 30- 59 Moderately Decreased</content>
<content>Stage IV GFR 15-29 Severely Decreased</content>
<content>Stage V GFR <15 Very Little GFR Left</content>
<content>ESRD GFR <15 on [employer]</content>
<content></content> Chloride Level 112 meq/L 98-107 [facility] Potassium Serum 4.0 meq/L 3.5-5.1 [facility] Sodium Level 140 meq/L 136-145 [facility] Calcium Level 8.0 mg/dL 8.8-10.2 [facility] Anion Gap 8 meq/L 8-16 [facility] Carbon Dioxide Level 20 meq/L 21-32 [facility] ([facility] Ast/Sgot 29 U/L 7-37 [facility] Alt/SGPT 46 U/L 12-78 [facility] Alkaline Phosphatase 100 U/L 45-117 [facility] ([facility] Albumin 3.2 GM/DL 3.2-5.2 [facility] (Traa [facility] Bilirubin,Total 0.5 mg/dL 0.2-1.0 [facility] Total Protein 5.7 GM/DL 6.4-8.2 [facility] Albumin/Globulin Ratio 1.28 1.00-1.93 [facility] ([facility] Procedure Social History Code Duration Value Status Description Data Source(s ) 08/01/2020 12:00:00 AM EST Patient is a current smoker, smokes some days completed Patient is a current smoker, smokes some days [facility] ( [facility] Smoking 07/27/2020 02:49:00 PM EST Occasional Smoker completed Occasional Smoker [facility] Smoking 07/11/2020 12:00:00 AM EST - 07/28/2014 12:00:00 AM EST Patient is a former smoker completed Patient is a former smoker [facility] Vital Signs ID Date Data Source UNK Name Value Range Interpretation Code Description Data Source(s) Body mass index (BMI) [Ratio] 23.6 kg/m2 23.6 k g/m2 [facility] [place] body weight 154 [lb_av] 154 [lb_av] [facility] ([facility] Oxygen saturation in Arterial blood by Pulse oximetry 97 % 97 % [facility] Body weight 155.38 [lb_av] 155.38 [lb_av] [facility] ([facility] Body height 68.0 [in_i] 68.0 [in_i] [facility] (Wu [facility] 5'8" Respiratory rate 16 /min 16 /min [facility] ( [facility] Body temperature 97.5 [degF] 97.5 [degF] [facility] Heart rate 61 /min 61 /min [facility] Diastolic blood pressure 54 mm[Hg] 54 mm[Hg] [facility] Systolic blood pressure 131 mm[Hg] 131 mm[Hg] [facility] ([facility] Body temperature 36.4 vicky Normal (applies to non-numeric results) 36.4 vicky [facility] Respiratory rate 18 min Normal (applies to non-numeric results) 18 min [facility] Heart rate 77 min Normal (applies to non-numeric resul ts) 77 min [facility] Diastolic blood pressure 71 mm[Hg] Normal (applies to non-numeric results) 71 mm[Hg] [facility] Systolic blood pressure 128 mm[Hg] Normal (applies t o non-numeric results) 128 mm[Hg] [facility] Deprecated Oxygen saturation in Capillary blood by Oximetry 100 % Normal (applies to non-numeric results) 100 % [facility] Body weight Measured 145 [lb_av] Normal (applies to n on-numeric results) 145 [lb_av] [facility] Body height 174.3456 cm Normal (applies to non-numeric res ults) 174.3456 cm [facility] Body mass index (BMI) [Ratio] 21.41 kg/m2 No rmal (applies to non-numeric results) 21.41 kg/m2 [facility] Body mass index (BMI) [Ratio] 22.7 kg/m2 22.7 k g/m2 [facility] [place] body weight 154 [lb_av] 154 [lb_av] [facility] ([facility] Oxygen saturation in Arterial blood by Pulse oximetry 100 % 100 % [facility] Body weight 149.38 [lb_av] 149.38 [lb_av] [facility] ([facility] Body height 68.0 [in_i] 68.0 [in_i] [facility] (Wu [facility] 5'8" Respiratory rate 16 /min 16 /min [facility] ( [facility] Body temperature 96.8 [degF] 96.8 [degF] [facility] Heart rate 74 /min 74 /min [facility] Diastolic blood pressure 57 mm[Hg] 57 mm[Hg] [facility] Systolic blood pressure 130 mm[Hg] 130 mm[Hg] M [facility] ([facility] Body mass index (BMI) [Ratio] 22.8 kg/m2 22.8 k g/m2 [facility] [place] body weight 154 [lb_av] 154 [lb_av] [facility] ([facility] Oxygen saturation in Arterial blood by Pulse oximetry 97 % 97 % [facility] Body weight 150.12 [lb_av] 150.12 [lb_av] [facility] ([facility] Body height 68.0 [in_i] 68.0 [in_i] [facility] ([facility] 5'8" Respiratory rate 18 /min 18 /min [facility] ( [facility] Body temperature 97.2 [degF] 97.2 [degF] [facility] Heart rate 60 /min 60 /min [facility] Diastolic blood pressure 40 mm[Hg] 40 mm[Hg] [facility] Systolic blood pressure 116 mm[Hg] 116 mm[Hg] M [facility] ([facility] Body mass index (BMI) [Ratio] 23.0 kg/m2 23.0 k g/m2 [facility] [place] body weight 154 [lb_av] 154 [lb_av] [facility] T ([facility] Oxygen saturation in Arterial blood by Pulse oximetry 98 % 98 % [facility] Body weight 151.56 [lb_av] 151.56 [lb_av] [facility] ([facility] Body height 68.0 [in_i] 68.0 [in_i] [facility] ([facility] 5'8" Respiratory rate 16 /min 16 /min [facility] ( [facility] Body temperature 96.9 [degF] 96.9 [degF] [facility] Heart rate 60 /min 60 /min [facility] Diastolic blood pressure 53 mm[Hg] 53 mm[Hg] [facility] Systolic blood pressure 131 mm[Hg] 131 mm[Hg] [facility] ID Date Data Source [id number] 08/25/2020 01:31:08 AM [facility] Name Value Range Interpretation Code Description Data Source(s) TRANSFER FROM [facility]
--- NOTE | 2020-09-19 14:14 | REP ---
INDICATION: DYSPNEA/COUGH. COMPARISON: AP portable and CT 07/26/2020 TECHNIQUE: AP portable seated chest FINDINGS: Multilead pacer over the left upper chest with leads in the right atrium, right ventricle and epicardial lead again seen. Sternotomy wires are noted and intact with a cardiac valve replacement noted. Aorta is mildly tortuous the, calcified at the arch but unchanged. No widening of the mediastinum. Airway midline. Hilar contours symmetric grossly normal no infiltrate, pleural effusion, atelectasis or mass identified. No lateral pleural thickening or apical scarring. Bones without acute finding. No free air under the diaphragm. IMPRESSION: Sternotomy wires, cardiac valve replacement and a multilead pacer again seen and unchanged. No cardiomegaly, pulmonary edema, pleural effusion or definite infiltrate. <Electronically signed by Jimenez Sepulveda > 09/19/20 [id number]
[2020-09-19 14:25] LABS: BASO % 0.2 % (0.0-1.0); EOS % 0.5 % (0.0-3.0); HEMATOCRIT 38.9 % (42.0-52.0); HEMOGLOBIN 12.4 g/dl (13.5-17.5); LYMPH # 0.7 10^3/uL (1.5-5.0); MEAN CORPUSCULAR HEMOGLOBIN 31.2 pg (27.0-33.0); MEAN CORPUSCULAR HGB CONC 31.9 g/dl (32.0-36.5); MONO # 0.9 10^3/uL (0.0-0.8); MONO % 10.4 % (2.0-8.0); NEUTROPHILS # 6.9 10^3/uL (1.5-8.5); NEUTROPHILS % 80.4 % (36.0-66.0); RED BLOOD COUNT 3.97 10^6/uL (4.30-6.10); WHITE BLOOD COUNT 8.6 10^3/uL (4.0-10.0)
[2020-09-19 14:47] LABS: PLATELET COUNT, AUTOMATED 70 10^3/uL (150-450)
--- OUTSIDE RECORDS SUMMARY | 2020-09-19 14:51 | CCD ---
Author Author [facility] Organization [facility] Address Unknown Phone Unavailable Care Team Providers Care Liquefaction And Regasification Helper Name Role Phone PCP, PT Does Not [...] Unavailable Unavailable Rita Ansari MD Unavailable Unavailable Naveen COLLINS MD Unavailable Unavailable Naveen COLLINS MD Unavailable Unavailable Naveen COLLINS MD Unavailable Unavailable Naveen COLLINS MD Unavailable Unavailable Naveen COLLINS MD Unavailable Unavailable Naveen COLLINS MD Unavailable Unavailable Naveen COLLINS MD Unavailable Unavailable Naveen COLLINS MD Unavailable Unavailable Naveen COLLINS MD Unavailable Unavailable Naveen COLLINS MD Unavailable Unavailable Nvaeen COLLINS MD Unavailable Unavailable Naveen COLLINS MD [...] Rita Juares MD Unavailable Unavailable Pleskach, Ely DIAMOND ASSORTER Unavailable Unavailable Pleskach, Ely DIAMOND ASSORTER Unavailable Unavailable Pleskach, Ely DIAMOND ASSORTER Unavailable Unavailable Pleskach, Ely DIAMOND ASSORTER Unavailable Unavailable Pleskach, Ely DIAMOND ASSORTER Unavailable Unavailable Pleskach, Ely DIAMOND ASSORTER Unavailable Unavailable Pleskach, Ely DIAMOND ASSORTER Unavailable Unavailable Pleskach, Ely DIAMOND ASSORTER Unavailable Unavailable Pleskach, Ely DIAMOND ASSORTER Unavailable Unavailable Pleskach, Ely DIAMOND ASSORTER Unavailable Unavailable Pleskach, Ely DIAMOND ASSORTER Unavailable Unavailable Pleskach, Ely DIAMOND ASSORTER Unavailable Unavailable Pleskach, Ely DIAMOND ASSORTER Unavailable Unavailable Pleskach, Ely DIAMOND ASSORTER Unavailable Unavailable Pleskach, Ely DIAMOND ASSORTER Unavailable Unavailable Pleskach, Ely DIAMOND ASSORTER Unavailable Unavailable Pleskach, Ely DIAMOND ASSORTER Unavailable Unavailable Pleskach, Ely DIAMOND ASSORTER Unavailable Unavailable Pleskach, Ely DIAMOND ASSORTER Unavailable Unavailable Pleskach, Ely DIAMOND ASSORTER Unavailable Unavailable Pleskach, Ely DIAMOND ASSORTER Unavailable Unavailable Pleskach, Ely DIAMOND ASSORTER Unavailable Unavailable Pleskach, Ely DIAMOND ASSORTER Unavailable Unavailable Pleskach, Ely DIAMOND ASSORTER Unavailable Unavailable Pleskach, Ely DIAMOND ASSORTER Unavailable Unavailable Pleskach, Ely DIAMOND ASSORTER Unavailable Unavailable Pleskach, Ely DIAMOND ASSORTER Unavailable Unavailable Pleskach, Ely DIAMOND ASSORTER Unavailable Unavailable Pleskach, Ely DIAMOND ASSORTER Unavailable Unavailable Pleskach, Ely DIAMOND ASSORTER Unavailable Unavailable Barraco, Sonja, SONJA Unavailable Unavailable Baltazar, Sonja, SONJA Unavailable Unavailable Rita Juares MD Unavailable Unavailable Rita Juarse MD Unavailable Unavailable Rita Juares MD Unavailable [...] W Rolando MD Unavailable Unavailable Leyhane, W Orlando MD Unavailable Unavailable Leyhane, W Rolando MD [...] is protected by Article 27-F of the [facility] Public Health law. If you continue you may have access to information: Regarding HIV / AIDS; Provided by facilities licensed or operated by the [facility] Office of Mental Health; or Provided by the [facility] Office for People With Developmental Disabilities. If such information is present, then the following [facility] mandated warning applies: This information has been [...] law may result in a fine or alf sentence or both. A general authorization for the release of medical or other information is NOT sufficient authorization for further disc losure. Allergies and Adverse Reactions Type Description Substance Reaction Status Data Source(s ) Drug Class NO KNOWN ALLERGIES NO KNOWN ALLERGIES [facility] Family History Family Member Name Family Member Gender Family Member Status Date o f Status Description Data Source(s) Unknown Unknown Problem [facility] ([facility], ) sister Unknown Male Problem [facility] ([facility] Unknown Male Problem [facility] ([facility] Unknown Unknown Problem [facility] ([facility] Encounters Encounter Providers Location Date Indications Data Source(s ) Outpatient Attender: Ely Voss [facility] Main Office 08/01/2020 1 2:30:00 PM EST [facility] ([facility] Outpatient Attender: Keven Ansari MD [facility] Internal Med at [place] 07/27/2020 10:55:00 AM EST [facility] ([facility] [place] ( in Healthcare facility) Attender: Sonja BainAdmitter: Yaron COLLINS MDConsultant: OUT OF AREA PCP, PT Does Not have 07/27/2020 03:05:00 AM EST - 07/28/2020 02:16:00 PM EST [facility] Inpatient Attender: ER PHYSICIAN 07/27/2020 03:05:00 AM E [facility] Inpatient Attender: SONJA DUDLEY MD Attender: Rolando Juares MDAttender: MELIA JARRETT PAAttender: ER PHYSICIANAdmitter: MELIA BRAR 07/26/2020 09:58:44 PM EST [facility] Inpatient Attender: Robert Lopez nthonyAttender: Rolando Juares MDAttender: Yaron COLLINS MDAttender: ER PHYSICIANAdmitter: Yaron COLLINS MD 07/26/2020 08:49:00 PM EST - 07/28/2020 02:16:00 PM EST CHF EXACERBATION [facility] CHF EXACERBATION Patient discharged. Outpatient 07/26/2020 06:11:00 PM EST orthopnea , UTI, Trop 0.94, CHF [facility] orthopnea, UTI, Trop 0.94, CHF Outpatient Attender: Ely Voss [facility] Main Office 07/11/2020 1 2:00:00 PM EST [facility] ([facility] Outpatient 008 02/29/2020 10:58:00 AM EDT - 02/29/2020 10:58:00 AM EDT Lab test [facility] Lab test Outpatient Attender: Tara Paez MDAdmitter: Tara Calderon ams, MD 008 02/23/2020 02:23:41 PM EDT - 02/23/2020 02:18:00 PM EDT Lab test [facility] Lab test Patient discharged. Outpatient Attender: Ely Voss [facility] Main Office 02/22/2020 0 3:45:00 PM [...] A DAY WITH FOOD SOLD: 03/20/2020 [facility] carvedilol 3.125 MG Oral Tablet CARVEDILOL 03/16/2020 12:00:00 AM EDT tablet 180 TAKE ONE TABLET BY MOUTH TWICE A DAY WIT H FOOD TAKE ONE TABLET BY MOUTH TWICE A DAY WITH FOOD SOLD: 06/19/2020 [facility] carvedilol 3.125 MG Oral Tablet CARVEDILOL 03/16/2020 12:00:00 AM EDT tablet 180 TAKE ONE TABLET BY MOUTH TWICE A DAY WIT H FOOD TAKE ONE TABLET BY MOUTH TWICE A DAY WITH FOOD SOLD: 09/16/2020 [facility] 500 mg 02/29/2020 12:00:00 AM EDT [...] MOUTH EVERY DAY WITH FOOD SOLD: 07/14/2020 [facility] Potassium Chloride 10 MEQ Extended [...] (25MG) BY MOUTH ONE TIME DAILY SOLD: [facility] 25 mg 01/06/2020 12:00:00 AM EDT tablet 90 TAKE ONE TABLET (25MG) BY MOUTH ONE TIME DAILY TAKE ONE TABLET (25MG) BY MOUTH ONE TIME DAILY SOLD: 020 [facility] 1,250 mcg (50,000 unit) 12/03/2019 12:00:00 AM EDT capsule 12 TAKE ONE CAPSULE BY MOUTH EVERY WEEK TAKE ONE CAPSULE BY MOUTH EVERY WEEK SOLD: 12/06/2019 [facility] Ergocalciferol 19050 UNT Oral Capsule Vitamin D (Ergocalcife rol) [...] type / Coverage type Policy ID Covered alliance party ID Covered alliance party's relationship to munoz Policy Munoz Plan Information WELLCARE [id number] SP [id number] WELLCARE O [id number] S [id number] WELLCARE [id number] SP [id number] WELLCARE [id number] SP [id number] MEDICARE KAVON [id number] S [id number] WELLCARE HEA [id number] S [id number] WELLCARE [id number] SP [id number] Wellcare Today's Options Commercial [id number] Self [id number] Wellcare Today's Options Commercial [id number] Self [id number] Wellcare Today's Options Commercial [id number] Self [id number] Wellcare Today's Options Commercial [id number] Self [id number] TODAYS OPTIONS [id number] SP [id number] Wellcare Today's Options Commercial [id number] Self [id number] [place] Progressive Commercial [id number] Self [id number] AMER PROG TODAYS OPTIONS G [id number] Self [id number] [place] Progressive Commercial [id number] Self [id number] AMER PROG TODAYS OPTIONS G [id number] Self [id number] AMER PROG TODAYS OPTIONS G [id number] Self [id number] Today's Options Medicare Commercial [id number] Self [id number] [place] Progressive Commercial [id number] Self [id number] TODAYS OPTIONS/MONEGASQUE O [id number] S [id number] [place] Progressive Commercial [id number] Self [id number] [place] Progressive Commercial [id number] Self [id number] [place] Progressive Commercial [id number] Self [id number] TODAYS OPTIONS [id number] SP [id number] Today's Options Medicare Commercial [id number] Self [id number] [place] Progressive Commercial [id number] Self [id number] [place]er Progressive Commercial [id number] Self [id number] [place]er Progressive Commercial [id number] Self [id number] [place]er Progressive Commercial [id number] Self [id number] [place]er Progressive Commercial [id number] Self [id number] TODAYS OPTIONS [id number] SP [id number] [place] Islander Progressive Commercial [id number] Self [id number] TODAYS OPTION MEDICARE [id number] [place] [id number] TODAYS OPTION MEDICARE [id number] [place] [id number] [place] Progressive Commercial Self Medicare (Part B) Medicare Primary Self BCBS Excellus Ppo U/W Medigap Part B Family Depend ent Today's Options Ppo Commercial Self Today's Options PFFS Commercial Self Proclaim Commercial Family Dependent Blue Ppo Medigap Part B Family Dependent U/HC Medicare Solutions Commercial Self UNITED HEALTHCARE O [id number] S [id number] UNITED HEALTHCARE O [id number] S [id number] [facility] UNITED MEDICARE COMPLETE G [id number] Self [id number] MEDICARE COMPLETE [id number] SP [id number] United Healthcare Commercial Self Medicare Medicare Primary Self BC/BS [place] Medigap Part B Family Depend ent MEDICARE COMPLETE [id number] SP [id number] Problems, Conditions, and Diagnoses Code Display Name Description Problem Type Effective Dates Data Source(s) 97648962 Iron deficiency anemia Iron deficiency anemia Problem 07/11/2020 12:00:00 AM EST [facility] ([facility] [id number] Prediabetes Prediabetes Problem 07/11/2020 12:00:00 AM EST [facility] ([facility] [id number] Paroxysmal atrial fibrillation Paroxysmal atrial fibri llation Problem 07/11/2020 12:00:00 AM EST [facility] ([facility] [id number] 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 94, CHF Diagnosis 07/26/2020 06:11:00 PM [facility] [id number] Encounter for other specified aftercare Encounter for other specified aftercare Diagnosis 02/29/2020 10:58:00 AM T [facility] Surgeries/Procedures Procedure Description Date Indications Data Source(s) Echocardiography, Tranthoracic Real-Time Image Documentation 07/27/2020 12:00:00 AM EST [facility] ([facility]) Electrocardiogram Interpretation & Report Only 020 12:00:00 AM EST [facility] ([facility]) Diabetic Foot Exam 01/11/2020 12:00:00 AM EDT [facility] ([facility] Results ID Date Data Source [id number] 08/06/2020 08:24:00 AM EST [facility] ([facility] [...] Little GFR Left</content>
<content>ESRD GFR <15 on ENGLISH LECTURER</content>
<content></content> Carbon Dioxide Level 29 mmol/L 20-29 [...] [facility] ID Date Data Source [id number] 08/06/2020 08:24:00 AM EST [facility] ([facility] [...] % 36.0-66.0 [facility] ([facility] Barry % 6.6 % 0.0-5.0 [facility] ([facility] [...] 10 0.0-0.5 [facility] Barry # 0.5 10 0.0-0.8 [facility] Baso # 0.0 10 0.0-0.2 [facility] ID Date Data Source [id number] 08/06/2020 08:21:00 AM EST [facility] ([facility] Name Value Range Interpretation Code Description Data Mariam rce(s) Supporting Document(s) Magnesium [Mass/volume] in Serum or Plasma 2.0 mg/dL 1.8-2.4 [facility] ([facility] ID Date Data Source [id number] 07/28/2020 07:04:00 AM EST [facility] Name Value Range Interpretation Code Description Data Mariam rce(s) Supporting Document(s) SODIUM 140 mmol/L (136-145) [facility] POTASSIUM 4.0 mmol/L (3.6-5.2) [facility] CHLORIDE 113 mmol/L (100-108) H [facility] CO2 21 mmol/L (22-31) L [facility] ANION GAP 6 mmol/L (7-16) L [facility] UREA NITROGEN 45 mg/dL (7-24) H [facility] CREATININE 1.26 mg/dL (0.80-1.30) [facility] BUN/CREAT RATIO 35.7 RATIO (10.0-20.0) H [facility] GLUCOSE 76 mg/dL (70-99) [facility] CALCIUM 8.0 mg/dL (8.4-10.2) L [facility] GFR 55 ml/min/1.73m2 (>59) L [facility] GFR ([facility]) >60 ml/min/1.73m2 (>59) [facility] GFR INTERPRETATION [facility] --NORMAL KIDNEY FUNCTION OR MILD DISEASE - GFR >OR= 60CHRONIC KIDNEY DISEASE - GFR 15 - 59RENAL FAILURE - GFR <15 Est. GFR calculation based on the MDRDstudy equation, which assumes a steadystate for creatinine. Est. GFR should notbe used for medication dosing. ID Date Data Source [id number] 07/28/2020 06:39:17 AM EST [facility] Name Value Range Interpretation Code Description Data Mariam rce(s) Supporting Document(s) WBC 9.1 10*3/uL (4.1-11.0) [facility] [place] RBC 3.48 10*6/uL (4.60-6.10) L [facility] HGB 11.2 g/dL (13.5-18.0) L [facility] HCT 33.8 % (41.0-53.0) L [facility] MCV 97.1 fL (80.0-95.0) H [facility] MCH 32.1 pg (27.0-32.0) H [facility] MCHC 33.1 g/dL (32.0-36.0) [facility] RDW 15.2 % (10.5-14.5) H [facility] PLT 60 10*3/uL (150-450) L [facility] MPV 12.1 fL (7.1-10.7) H [facility] ID Date Data Source [id number] 07/29/2020 07:51:22 AM EST [facility] SPECIMEN DESCRIPTION GROINSPECIAL REQUESTS NONECULTURE RESULTS NO METHICILLIN RESISTANT STAPH AUREUS ISOLATED.REPORT STATUS FINAL 07/29/2020 Name Value Range Interpretation Code Description Data Mariam rce(s) Supporting Document(s) ID Date Data Source [id number] 07/28/2020 08:58:57 AM EST [facility] Name Value Range Interpretation Code Description Data Mariam rce(s) Supporting Document(s) SPECIMEN DESCRIPTION [facility] STAPH SCREEN RESULTS (ONEGSA) [facility] COMMENT [facility] GENE TO DETECT STAPH AUREUS. (2) RT-P CR WAS PERFORMED FOR THE mecA AND SCCmec GENES TO DETECT METHICILLIN RESISTANCE IN STAPH AUREUS. ID Date Data Source [id number] 07/29/2020 04:18:00 PM EST [facility] Kevne Ansari, [facility] [id number] [place], [place] [address]DQGYAEV NAME: OPAL CLAY OF : 1940REPORT: CONSULTATIONPATIENT NUMBER: [id number] STATUS: IPMEDICAL RECORD NUMBER: [id number]: [id number] CONSULTATIONDATE OF CONSULTATION: 07/27/2020PROVIDING REQUESTING CONSULTATION: ER.REASON FOR CONSULTATION: Elevated troponin.HISTORY OF PRESENT ILLNESS: Yaron is a very pleasant 80-year-old gentlemanwho follows with Dr. Gómez, his ep specialist. He has a history ofdiabetes, hypertension, intermittent [...] paced. He presented as a transfer from [facility] given the elevatedtroponin. He went to [facility] with fever and just feelingunwell, tells me [...] threetimes a dayMedication Status: activeLast Taken Date/Time: 07/26/202030carvedilol 3.125 mg Tablet 1 tablet oral twice a dayMedication Status: activeLast Taken Date/Time: 07/26/2020 0730SOCIAL HISTORY: He lives with his at [facility]. He haschildren, grandchildren and great-grandchildren. 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 Smokes cigarettes occasionally. No alcohol or illicit drugs.FAMILY HISTORY: Family history was reviewed and noncontributory.REVIEW OF SYSTEMS: Pertinent positives and negatives listed in HPI,otherwise full 10-point review of systems were performed and foundnegative.PHYSICAL EXAMINATION: Temperature is 36.8, heart rate 60, blood dgwclyfr898/58, respirations 16, oxygen saturation 98 percent room [...] have him follow up with his outpatient ep specialist.2. Chronic systolic congestive heart failure, EF of [...] LISANDRO Canoictated: 07/27/2020 8:18DT: 07/27/2020 8:26Job #: [id number]: Siobhan Gómez MDNOTE: [facility] computer generated reports are not confirmed orauthenticated unless they are signed by the providerElectronically Authenticated by:KEVEN ANSARI MD On 07/29/2020 04:18 PM EST Name Value Range Interpretation Code Description Data Mariam sumner(s) Supporting Document(s) ID Date Data Source [id number] 07/28/2020 07:36:39 AM EST [facility] SPECIMEN DESCRIPTION MIDSTREAM UR INE,CLEAN CATCHCULTURE RESULTS NO GROWTHREPORT STATUS FINAL 07/28/2020 Name Value Range Interpretation Code Description Data Mariam rce(s) Supporting Document(s) ID Date Data Source [id number] 07/27/2020 06:46:41 AM EST [facility] Name Value Range Interpretation Code Description Data Mariam rce(s) Supporting Document(s) URINE WBC (0-5) [facility] URINE RBC (0-2) [facility] BACTERIA 2+ [HPF] [facility] MUCUS 1+ [HPF] [facility] FINE GRAN CAST [facility] WBC CLUMPING 1+ [facility] [place] ID Date Data Source [id number] 07/27/2020 06:13:47 AM EST [facility] Name Value Range Interpretation Code Description Data Mariam rce(s) Supporting Document(s) COLOR [facility] APPEARANCE [facility] SPEC GRAV URINE 1.015 (1.003-1.030) [facility] PH URINE 5.5 (5.0-7.5) [facility] LEUK ESTERASE 1+ (NEG) A [facility] NITRITE URINE (NEG) A [facility] PROTEIN URINE 1+ (NEG) A [facility] GLUCOSE URINE (NEG) [facility] KETONE URINE (NEG) [facility] [place] UROBILINOGEN 0.2 mg/dL (0-1.0) [facility] [place] BILIRUBIN URINE (NEG) [facility] BLOOD/HGB URINE (NEG) A [facility] ID Date Data Source [id number] 08/02/2020 10:36:53 AM EST [facility] SPECIMEN DESCRIPTION PERIPHERALSP ECIAL REQUESTS NONECULTURE RESULTS NO GROWTH 6 DAYSREPORT STATUS FINAL 08/02/2020 Name Value Range Interpretation Code Description Data Mariam rce(s) Supporting Document(s) ID Date Data Source [id number] 07/27/2020 06:06:16 AM EST [facility] Name Value Range Interpretation Code Description Data Mariam rce(s) Supporting Document(s) SODIUM 139 mmol/L (136-145) [facility] POTASSIUM 3.7 mmol/L (3.6-5.2) [facility] CHLORIDE 110 mmol/L (100-108) H [facility] CO2 17 mmol/L (22-31) L [facility] ANION GAP 12 mmol/L (7-16) [facility] UREA NITROGEN 45 mg/dL (7-24) H [facility] CREATININE 1.48 mg/dL (0.80-1.30) H [facility] BUN/CREAT RATIO 30.4 RATIO (10.0-20.0) H [facility] GLUCOSE 90 mg/dL (70-99) [facility] CALCIUM 7.4 mg/dL (8.4-10.2) L [facility] TOTAL PROTEIN 5.0 g/dL (6.4-8.2) L [facility] ALBUMIN 2.6 g/dL (3.2-4.5) L [facility] GLOBULIN 2.4 g/dL (2.7-4.3) L [facility] ALB/GLOB RATIO 1.1 RATIO [facility] ALKALINE PHOSPHATASE 77 U/L (45-117) [facility] BILIRUBIN,TOTAL 0.7 mg/dL (0.0-1.0) [facility] PLEASE NOTE:Total bilirubin results may be falselyelevated in patients taking Eltrombopag. AST (SGOT) 44 U/L (11-39) H [facility] ALT (SGPT) 68 U/L (12-78) [facility] GFR 46 ml/min/1.73m2 (>59) L [facility] GFR ( AMER) 55 ml/min/1.73m2 (>59) L [facility] GFR INTERPRETATION [facility] --NORMAL KIDNEY FUNCTION OR MILD DISEASE - GFR >OR= 60CHRONIC KIDNEY DISEASE - GFR 15 - 59RENAL FAILURE - GFR <15 Est. GFR calculation based on the MDRDstudy equation, which assumes a steadystate for creatinine. Est. GFR should notbe used for medication dosing. ID Date Data Source [id number] 07/27/2020 06:06:16 AM EST [facility] [place] Name Value Range Interpretation Code Description Data Mariam rce(s) Supporting Document(s) PHOSPHORUS 4.7 mg/dL (2.5-4.5) H [facility] ID Date Data Source [id number] 07/27/2020 06:06:16 AM EST [facility] Name Value Range Interpretation Code Description Data Mariam rce(s) Supporting Document(s) MAGNESIUM 1.8 mg/dL (1.7-2.4) [facility] ID Date Data Source [id number] 07/27/2020 06:06:16 AM EST [facility] Name Value Range Interpretation Code Description Data Mariam rce(s) Supporting Document(s) TROPONIN I 0.67 ng/mL (<0.05) H [facility] Less than 0.05: Myocardial injury unlike lyGreater than or equal to 0.05: Highly suggestive of myocardial injuryCorrelation with rise and/or fall ofserial troponins, clinical symptomsand ECG changes is necessary. ID Date Data Source [id number] 07/27/2020 05:42:26 AM EST [facility] Name Value Range Interpretation Code Description Data Mariam rce(s) Supporting Document(s) LACTIC ACID 1.0 mmol/L (0.4-2.0) [facility] [place] ID Date Data Source [id number] 07/27/2020 05:40:31 AM EST [facility] [place] Name Value Range Interpretation Code Description Data Mariam rce(s) Supporting Document(s) WBC 15.1 10*3/uL (4.1-11.0) H [facility] RBC 3.59 10*6/uL (4.60-6.10) L [facility] HGB 11.1 g/dL (13.5-18.0) L [facility] HCT 35.1 % (41.0-53.0) L [facility] MCV 97.6 fL (80.0-95.0) H [facility] MCH 31.0 pg (27.0-32.0) [facility] MCHC 31.8 g/dL (32.0-36.0) L [facility] [place] RDW 15.3 % (10.5-14.5) H [facility] [place] PLT 58 10*3/uL (150-450) L [facility] [place] MPV 11.6 fL (7.1-10.7) H [facility] [place] ID Date Data Source [id number] 08/02/2020 10:36:53 AM EST [facility] [place] SPECIMEN DESCRIPTION PERIPHERALSP ECIAL REQUESTS NONECULTURE RESULTS NO GROWTH 6 DAYSREPORT STATUS FINAL 08/02/2020 Name Value Range Interpretation Code Description Data Mariam rce(s) Supporting Document(s) ID Date Data Source [id number] 07/27/2020 06:23:00 AM EST [facility] DATE OF EXAM: 07/27/2020Chest 1V Portabl e INDICATION: COUGH AND FEVER COMPARISON: None TECHNIQUE: A single AP film of the chest was obtained. FINDINGS: Dual lead left upper chest wall cardiac pacer placement. There is no consolidation. There is no effusion. The cardiac and mediastinal contours appear normal. IMPRESSION: Were clear. No evidence of pneumonia. Professional interpretation performed at [facility] .End of diagnostic report for accession: [id number] Interpreted: Uzma Patterson MDTranscribed: 07/27/2020 06:22 AMSigned: 07/27/2020 06:23 AM Uzma Patterson MD [facility] # [id number] BILL # [id number] Name Value Range Interpretation Code Description Data Mariam rce(s) Supporting Document(s) ID Date Data Source [id number] 07/26/2020 10:53:43 PM EST [facility] Name Value Range Interpretation Code Description Data Mariam rce(s) Supporting Document(s) MUSE EKG PDF encoded [facility] shamikatal [id number] jb2 [file] [id number]/zPz2+ov/vh2qRsd+G+d+///f/8c9/forest supervisor/z [file] [id number]== ID Date Data Source [id number] 07/26/2020 10:08:20 PM EST [facility] Name Value Range Interpretation Code Description Data Mariam rce(s) Supporting Document(s) TROPONIN I 1.18 ng/mL (<0.05) [facility] Less than 0.05: Myocardial injury unlike lyGreater than or equal to 0.05: Highly suggestive of myocardial injuryCorrelation with rise and/or fall ofserial troponins, clinical symptomsand ECG changes is necessary.[facility] 07[facility]2020 [place] [address] [id number] ID Date Data Source [id number] 07/26/2020 09:58:44 PM EST [facility] Name Value Range Interpretation Code Description Data Mariam rce(s) Supporting Document(s) LACTIC ACID 1.4 mmol/L (0.4-2.0) [facility] [place] ID Date Data Source [id number] 07/26/2020 11:05:00 AM EST [facility] Name Value Range Interpretation Code Description Data Mariam rce(s) Supporting Document(s) SARS-CoV-2 (COVID 19) [facility] This lab was ordered by [facility] a nd reported by [facility]. ID Date Data Source [id number] 07/02/2020 09:33:00 AM EST [facility] Name Value Range Interpretation Code Description Data Mariam rce(s) Supporting Document(s) Estimated Average Glucose 120 mg/dL 60-110 [facility] Hemoglobin A1c/Hemoglobin.total in Blood 5.8 % [facility] <content>REFERENCE RANGES:</content><br/ ><content></content>
<content><=5.6% NORMAL</content>
<content>5.7-6.4% SUGGESTS IMPAIRED GLUCOSE METABOLISM/PREDIABETIC</content>
<content>>= 6.5% ABNORMAL</content>
<content></content> ID Date Data Source [id number] 07/02/2020 09:33:00 AM EST [facility] Name Value Range Interpretation Code Description Data Mariam rce(s) Supporting Document(s) Platelets reticulated/100 platelets in Blood by Automated count 7.9 % 0.0-10.91 [facility] ID Date Data Source [id number] 07/02/2020 09:33:00 AM EST [facility] Name Value Range Interpretation Code Description Data Mariam rce(s) Supporting Document(s) White Blood Count 7.4 10 4.0-10.0 [facility] ([facility] Red Blood Count 4.24 10 4.30-6.10 [facility] Hemoglobin 12.9 g/dL 13.5-17.5 [facility] Hematocrit 41.8 % 42.0-52.0 [facility] Mean Corpuscular Volume 98.6 [...] % 0.0-3.0 [facility] Barry % 8.2 % 0.0-5.0 [facility] Nucleated Red Blood Cell % 0.0 % 0-0 [facility] Baso % 0.3 % 0.0-1.0 [facility] Immature Granulocyte % 0.4 % 0-3.0 [facility] Barry # 0.6 10 0.0-0.8 [facility] Neutrophils # 5.6 10 1.5-8.5 [facility] Lymph # 1.1 10 1.5-5.0 [facility] Eos # 0.1 10 0.0-0.5 [facility] Baso # 0.0 10 0.0-0.2 [facility] ID Date Data Source [id number] 07/02/2020 09:33:00 AM EST [facility] ([facility]ara Paez [...] [facility] ID Date Data Source [id number] 07/02/2020 09:33:00 AM EST [facility] Name Value Range Interpretation Code Description Data Mariam rce(s) Supporting Document(s) Magnesium [Mass/volume] in Serum or Plasma 2.1 mg/dL 1.8-2.4 [facility] <content>note:<nlbl:demographic_changed> </content>
<content></content> ID Date Data Source [id number] 07/02/2020 09:33:00 AM EST [facility] Name Value Range Interpretation Code Description [facility]) Creatinine For GFR 1.20 mg/dL [...] Little GFR Left</content>
<content>ESRD GFR <15 on ENGLISH LECTURER</content>
<content></content> Potassium Serum 4.3 meq/L 3.5-5.1 [facility] [...] [facility] ID Date Data Source [id number] 07/02/2020 09:31:00 AM EST [facility] Name Value Range Interpretation Code Description Data Mariam rce(s) Supporting Document(s) Magnesium [Mass/volume] in Serum or Plasma 2.0 mg/dL 1.8-2.4 [facility] <content>note:<nlbl:demographic_changed> </content>
<content></content> ID Date Data Source [id number] 05/21/2020 09:05:00 AM EDT [facility] ([facility]ara [facility] [...] Little GFR Left</content>
<content>ESRD GFR <15 on ENGLISH LECTURER</content>
<content></content> Anion Gap 4 meq/L 8-16 [facility] [...] [facility] ID Date Data Source [id number] 05/21/2020 09:05:00 AM EDT [facility] Name Value Range Interpretation Code Description Data Mariam rce(s) Supporting Document(s) Magnesium [Mass/volume] in Serum or Plasma 1.9 mg/dL 1.8-2.4 [facility] <content>note:<nlbl:demographic_changed> </content>
<content></content> Natriuretic peptide.B prohormone N-Terminal [Mass/volu me] in Serum or Plasma 476 pg/mL [facility] <content>note:<nlbl:demographic_changed> </content>
<content></content> ID Date Data Source [id number] 04/24/2020 12:16:00 PM EDT [facility] Name Value Range Interpretation Code Description Data Mariam rce(s) Supporting Document(s) Magnesium [Mass/volume] in Serum or Plasma 1.9 mg/dL 1.8-2.4 [facility] <content>note:<nlbl:demographic_changed> </content>
<content></content> ID Date Data Source [id number] 04/09/2020 11:12:00 AM EDT [facility] ([facility] Name Value Range Interpretation Code Description Data Mariam rce(s) Supporting Document(s) Magnesium [Mass/volume] in Serum or Plasma 1.6 mg/dL 1.8-2.4 [facility] <content>note:<nlbl:demographic_changed> </content>
<content></content> ID Date Data Source [id number] 04/09/2020 11:12:00 AM EDT [facility] (Tara Paez [...] Little GFR Left</content>
<content>ESRD GFR <15 on ENGLISH LECTURER</content>
<content></content> Creatinine For GFR 1.21 mg/dL 0.70-1.30 [...] [facility] ID Date Data Source [id number] 02/28/2020 07:15:00 AM EDT [facility] Name Value Range Interpretation Code Description Data Mariam rce(s) Supporting Document(s) Magnesium [Mass/volume] in Serum or Plasma 1.8 mg/dL 1.8 - 2.4 [facility] ID Date Data Source [id number] 02/28/2020 07:15:00 AM EDT [facility] Name Value Range Interpretation Code Description Data Mariam rce(s) Supporting Document(s) BASIC METABOLIC PANEL [facility] BASIC METABOLIC PANEL Sodium [Moles/volume] in Serum or Plasma 133 mEq/L 136 - 145 Below low normal [facility] Potassium [Moles/volume] in Serum or Plasma 4.7 mEq/L 3.5 - 5.1 [facility] Chloride [Moles/volume] in Serum or Plasma 104 mEq/L 98 - 107 [facility] Carbon dioxide, total [Moles/volume] in Serum or Plasma 17.1 mEq /L 21.0 - 32.0 Below low normal [facility] Glucose [Mass/volume] in Serum or Plasma 99 mg/dL 70 - 100 [facility] Urea nitrogen [Mass/volume] in Serum or Plasma 30 mg/dL 7 - 18 Above high normal [facility] CREATININE SERUM 1.45 mg/dL 0.70 - 1.30 Above high normal [facility] AGE [address] [facility] l eGFR NON-AFR AMR 47 [facility] eGFR AFR AMR 57 [facility] ital BUN/CREAT 21 6 - 25 [facility] l Calcium [Mass/volume] in Serum or Plasma 8.6 mg/dL 8.8 - 10.2 Below low normal [facility] ANION GAP 12 7 - 15 [facility] l Estimated GFR reference r prachi: > 60 mL/min/1.73m >18 years: Calculated using IDMS traceable MDRD Study Equation <18 years: Calculated using IDMS traceable Bedside Rangel Equation ID Date Data Source [id number] 02/28/2020 07:15:00 AM EDT [facility] ([facility] Name Value Range Interpretation Code Description Data Mariam rce(s) Supporting Document(s) Magnesium [Mass/volume] in Serum or Plasma Laboratory test result 1.8 -2.4 [facility] ID Date Data Source [id number] 02/28/2020 07:15:00 AM EDT [facility] ([facility] Name Value Range Interpretation Code Description Data Mariam rce(s) Supporting Document(s) Blood Urea Nitrogen Laboratory test result 7-18 [facility] Glucose, Fasting Laboratory test result [facility] SEE SEPARATE REPORT 6Testing performed at reference lab . Re port copy to follow on a separate form. 05/16/20 REF LAB#:[id number] Sodium Level Laboratory test result 136-145 [facility] [...] [facility] ID Date Data Source [id number] 02/22/2020 05:10:00 PM EDT [facility] ([facility] Name Value Range Interpretation Code Description Data Mariam rce(s) Supporting Document(s) Platelets reticulated/100 platelets in Blood by Automated count 9.0 % 0.0-10.91 [facility] ID Date Data Source [id number] 02/22/2020 05:10:00 PM EDT [facility] (Tara Paez [...] % 24.0-44.0 [facility] Barry % 9.3 % 0.0-5.0 [facility] (Tara upton [...] 0-0 [facility] Barry # 1.1 10 0.0-0.8 [facility] Eos # 0.1 10 0.0-0.5 [facility] Lymph # 0.9 10 1.5-5.0 [facility] Baso # 0.0 10 0.0-0.2 [facility] ID Date Data Source [id number] 02/22/2020 05:10:00 PM EDT [facility] Name Value Range Interpretation Code Description Data Mariam rce(s) Supporting Document(s) COMPREHENSIVE CHEM PROFILE i [facility] COMPREHENSIVE METABOLIC PANEL Sodium [Moles/volume] in Serum or Plasma 132 mEq/L 136 - 145 Below low normal [facility] Potassium [Moles/volume] in Serum or Plasma 4.2 mEq/L 3.5 - 5.1 [facility] Chloride [Moles/volume] in Serum or Plasma 103 mEq/L 98 - 107 [facility] Carbon dioxide, total [Moles/volume] in Serum or Plasma 21.8 mEq /L 21.0 - 32.0 [facility] Glucose [Mass/volume] in Serum or Plasma 106 mg/dL 70 - 100 Above high normal [facility] Urea nitrogen [Mass/volume] in Serum or Plasma 39 mg/dL 7 - 18 Above high normal [facility] CREATININE SERUM 1.44 mg/dL 0.70 - 1.30 Above high normal [facility] AGE 79 yrs [facility] HEIGHT NA [facility] l eGFR NON-AFR AMR 47 [facility] eGFR AFR AMR 57 [facility] ital BUN/CREAT 27 6 - 25 Above high normal [facility] Protein [Mass/volume] in Serum or Plasma 6.0 g/dL 6.0 - 8.3 [facility] Albumin [Mass/volume] in Serum or Plasma 3.6 g/dL 3.8 - 5.4 Below low normal [facility] GLOBULIN 2.4 g/dL 2.0 - 4.0 [facility] A/G RATIO 1.5 0.8 - 2.0 [facility] Calcium [Mass/volume] in Serum or Plasma 8.1 mg/dL 8.8 - 10.2 Below low normal [facility] Bilirubin.total [Mass/volume] in Serum or Plasma 0.8 mg/dL 0.2 - 1.0 [facility] Bilirubin.direct [Mass/volume] in Serum or Plasma 0.3 mg/dL 0.0 - 0.2 Above high normal [facility] INDIRECT BILI 0.5 mg/dL 0.0 - 1.1 [facility] pital ALK PHOSPHATASE 83 U/L 40 - 129 [facility] ospital Aspartate aminotransferase [Enzymatic ac tivity/volume] in Serum or Plasma by With P-5'-P 26 IU/L 7 - 37 [facility] Alanine aminotransferase [Enzymatic acti vity/volume] in Serum or Plasma by With P-5'-P 41 IU/L 12 - 78 [facility] ANION GAP 7 7 - 15 [facility] l Estimated GFR referenc e range: >60ml/min/1.73m >18 years: Calculated using IDMS traceable Study Equation <18 years: Calculated using IDMS tracable Bedside Schartz Equation ID Date Data Source [id number] 02/22/2020 03:57:00 PM EDT [facility] Name Value Range Interpretation Code Description Data Mariam rce(s) Supporting Document(s) Bacteria identified in Urine by Culture Laboratory test result [facility] ID Date Data Source [id number] 02/22/2020 03:56:00 PM EDT [facility] (Tara Paez [...] FOR ESBL</content>
<content></content> ID Date Data Source [id number] 02/22/2020 03:52:00 PM EDT [facility] (Tara Paez [...] Leukocytes [#/area] in Urine sediment by Microscopy [facility] Laboratory test result [facility] (Naveen [...] [facility] ID Date Data Source [id number] 02/22/2020 01:55:00 PM EDT [facility] Name Value Range Interpretation Code Description Data Mariam rce(s) Supporting Document(s) Glucose, Fasting Laboratory test result [facility] SEE SEPARATE REPORT Testing performed at reference lab . Report copy to follow on a separate form. 05/16/20 REF LAB#:[id number] Creatinine For GFR Laboratory test result 0.70-1.30 [facility] Blood Urea Nitrogen Laboratory test result 7-18 [facility] Sodium Level Laboratory test result 136-145 [facility] Glomerular [...] [facility] ID Date Data Source [id number] 01/03/2020 08:20:00 AM EDT [facility] ([facility] Name Value Range Interpretation Code Description Data Mariam rce(s) Supporting Document(s) Platelets reticulated/100 platelets in Blood by Automated count 7.0 % 0.0-10.91 [facility] ID Date Data Source [id number] 01/03/2020 08:20:00 AM EDT [facility] Name Value Range Interpretation Code Description Data [facility] Supporting Document(s) Creatinine, Urine 136.0 mg/dL [facility] ([facility] Malb Urine Siemens 20.5 mg/L [facility] (Wu [facility] Ac/Creat Ratio 15.0 MCG/MG 0.0-30.0 [facility] ([facility] THE [employer] STATES THAT MICROALBUMINURIA IS PRESENT IF THE MICROALBUMIN/CREATININE RATIO EXCEEDS 30 MCG/MG. THE THRESHOLD FOR CLINICAL ALBUMINURIA IS REACHED AT 300 MCG/MG. THE CLASSIFICATION OF A PATIENT SHOULD BE BASED UPON AT LEAST 2 OF 3 ABNORMAL RESULTS ON SPECIMENS COLLECTED WITHIN A 3 TO 6 MONTH TIME FRAME. ID Date Data Source [id number] 01/03/2020 08:20:00 AM EDT [facility] Name Value Range Interpretation Code Description Data [facility](s) Supporting Document(s) Triglycerides Level 55 mg/dL [facility] ([facility] Cholesterol Level 76 mg/dL [facility] HDL Cholesterol 33 mg/dL [facility] Non-HDL-C 43 mg/dL [facility] LDL Cholesterol 32 mg/dL [facility] Cholesterol Risk Ratio 2.303 [facility] ID Date Data Source [id number] 01/03/2020 08:20:00 AM EDT [facility] Name Value Range Interpretation Code Description Data [facility](s) Supporting Document(s) Hemoglobin A1c 6.1 % [facility] REFERENCE RANGES: 4.5-5.6% NORMAL 5.7-6.4% SUGGESTS IMPAIRED GLUCOSE META BOLISM >= 6.5% ABNORMAL Estimated Average Glucose 128 mg/dL 60-110 [facility] ID Date Data Source [id number] 01/03/2020 08:20:00 AM EDT [facility] (Tara Paez [...] Little GFR Left</content>
<content>ESRD GFR <15 on ENGLISH LECTURER</content>
<content></content> Creatinine For GFR 1.16 mg/dL 0.70-1.30 [...] [facility] ID Date Data Source [id number] 01/03/2020 08:20:00 AM EDT [facility] (Tara Paez [...] % 24.0-44.0 [facility] Barry % 9.0 % 0.0-5.0 [facility] (Tara upton [...] % 0-3.0 [facility] Barry # 0.6 10 0.0-0.8 [facility] Lymph # 1.1 10 1.5-5.0 [facility] ([facility] A. Demario liams[facility] Eos # 0.2 10 0.0-0.5 [facility] Baso # 0.0 10 0.0-0.2 [facility] ID Date Data Source [id number] 08/11/2019 07:50:00 AM EST [facility] Name Value Range Interpretation Code Description Data Mariam rce(s) Supporting Document(s) Magnesium [Mass/volume] in Serum or Plasma 1.9 mg/dL 1.8-2.4 [facility] ID Date Data Source [id number] 08/11/2019 07:50:00 AM EST [facility] (Tara Paez [...] [facility] ID Date Data Source [id number] 08/11/2019 07:50:00 AM EST [facility] Name Value Range Interpretation Code Description Data Mariam rce(s) Supporting Document(s) Glucose, Fasting 105 mg/dL 70-100 [facility] Creatinine For GFR 1.16 mg/dL 0.70-1.30 [facility] ([facility] A[facility] Philippe[facility] Blood Urea Nitrogen 28 mg/dL [...] Little GFR Left</content>
<content>ESRD GFR <15 on ENGLISH LECTURER</content>
<content></content> Chloride Level 112 meq/L 98-107 [facility] Potassium Serum 4.0 meq/L 3.5-5.1 [facility] Sodium Level 140 meq/L 136-145 [facility] Calcium Level 8.0 mg/dL 8.8-10.2 [facility] Anion Gap 8 meq/L 8-16 [facility] Carbon Dioxide Level 20 meq/L 21-32 [facility] (Comap [facility] Ast/Sgot 29 U/L 7-37 [facility] Alt/SGPT 46 U/L 12-78 [facility] Alkaline Phosphatase 100 U/L 45-117 [facility] (Compa [facility] Albumin 3.2 GM/DL 3.2-5.2 [facility] Bilirubin,Total 0.5 mg/dL 0.2-1.0 [facility] ([facility] Total Protein 5.7 GM/DL 6.4-8.2 [facility] Albumin/Globulin Ratio 1.28 1.00-1.93 [facility] ([facility] Procedure Social History Code Duration Value Status Description Data Source(s ) 08/01/2020 12:00:00 AM EST Patient is a current smoker, smokes some days completed Patient is a current smoker, smokes some days [facility] Smoking 07/27/2020 02:49:00 PM EST Occasional Smoker completed Occasional Smoker [facility] Smoking 07/11/2020 12:00:00 AM EST - 07/28/2014 12:00:00 AM EST Patient is a former smoker completed Patient is a former smoker [facility] Vital Signs ID Date Data Source [id number] Name Value Range Interpretation Code Description Data Source(s) Body mass index (BMI) [Ratio] 23.6 kg/m2 23.6 k g/m2 [facility] [place] body weight 154 [lb_av] 154 [lb_av] [facility] [...] Systolic blood pressure 131 mm[Hg] 131 mm[Hg] [facility] Body temperature 36.4 vicky Normal (applies to non-numeric results) 36.4 vicky [facility] Respiratory rate 18 min Normal (applies to non-numeric results) 18 min [facility] Heart rate 77 min Normal (applies to non-numeric resul ts) 77 min [facility] Diastolic blood pressure 71 mm[Hg] Normal (applies to non-numeric results) 71 mm[Hg] [facility] Systolic blood pressure 128 mm[Hg] Normal (applies t o non-numeric results) 128 mm[Hg] [facility] Deprecated Oxygen saturation in Capillary blood by Oximetry 100 % Normal (applies to non-numeric results) 100 % [facility] Body weight Measured 145 [lb_av] Normal (applies to n on-numeric results) 145 [lb_av] [facility] Body height 174.3456 cm Normal (applies to non-numeric res ults) 174.3456 cm [facility] Body mass index (BMI) [Ratio] 21.41 kg/m2 No rmal (applies to non-numeric results) 21.41 kg/m2 [facility] Body mass index (BMI) [Ratio] 22.7 kg/m2 22.7 k g/m2 [facility] [place] body weight 154 [lb_av] 154 [lb_av] [facility] Oxygen saturation in Arterial blood by Pulse oximetry 100 % 100 % [facility] Body weight 149.38 [lb_av] 149.38 [lb_av] [facility] ([facility] [...] k g/m2 [facility] [place] body weight 154 [lb_av] 154 [lb_av] [facility] [...] k g/m2 [facility] [place] body weight 154 [lb_av] 154 [lb_av] [facility] [...] Systolic blood pressure 131 mm[Hg] 131 mm[Hg] [facility] ID Date Data Source [id number] 08/25/2020 01:31:08 AM [facility] Name Value Range Interpretation Code Description Data Source(s) TRANSFER FROM [facility]
[2020-09-19 14:57] LABS: ALBUMIN 3.5 GM/DL (3.2-5.2); BILIRUBIN,DIRECT 0.3 MG/DL (0.0-0.2); BILIRUBIN,TOTAL 0.6 MG/DL (0.2-1.0); CALCIUM LEVEL 8.2 MG/DL (8.8-10.2); CK-MB VALUE MASS 1.5 NG/ML (<3.6); CREATININE FOR GFR 1.34 MG/DL (0.70-1.30); GLOMERULAR FILTRATION RATE 54.6 (>35); MB/CK RELATIVE INDEX 2.54 (< OR =4); POTASSIUM SERUM 4.2 MEQ/L (3.5-5.1); THYROID STIMULATING HORMONE 1.07 uIU/ML (0.358-3.740); THYROXINE (T4) 7.8 UG/DL (4.5-12.0); TOTAL PROTEIN 6.7 GM/DL (6.4-8.2); TROPONIN I 0.03 NG/ML (< 0.10)
[2020-09-19] MEDS ORDERED: NS 500 ML IV ONE (15:45)
[2020-09-19] MEDS ORDERED: cefTRIAXone SOD 1 GM in D5W MINI-BAG PLUS 50 ML IV ONE (17:45)
[2020-09-19] MEDS ORDERED: ACETAMINOPHEN TAB 650MG DOSE (2X325MG) PO PRN (18:00)
[2020-09-19] MEDS ORDERED: POTA10CA32 PO (18:01)
--- OUTSIDE RECORDS SUMMARY | 2020-09-19 18:12 | CCD ---
Author Author [facility] Organization [facility] Address Unknown Phone Unavailable Care Team Providers Care Category Consultant Name Role Phone PCP, PT Does Not [...] Unavailable Philippe, Robert Pacheco MD Unavailable Unavailable Pihlippe, Robert Pacheco MD Unavailable Unavailable Philippe, Robert Pacheco MD Unavailable Unavailable Philippe, Robert Pacheco MD Unavailable Unavailable Phliippe, Robret Pacheco MD Unavailable Unavailable Philippe, Robert Pacheco [...] Rita Juares MD Unavailable Unavailable Pleskach, Ely LEGAL NURSE CONSULTANT Unavailable Unavailable Pleskach, Ely LEGAL NURSE CONSULTANT Unavailable Unavailable Pleskach, Ely LEGAL NURSE CONSULTANT Unavailable Unavailable Pleskach, Ely LEGAL NURSE CONSULTANT Unavailable Unavailable Pleskach, Ely LEGAL NURSE CONSULTANT Unavailable Unavailable Pleskach, Ely LEGAL NURSE CONSULTANT Unavailable Unavailable Pleskach, Ely LEGAL NURSE CONSULTANT Unavailable Unavailable Pleskach, Ely LEGAL NURSE CONSULTANT Unavailable Unavailable Pleskach, Ely LEGAL NURSE CONSULTANT Unavailable Unavailable Pleskach, Ely LEGAL NURSE CONSULTANT Unavailable Unavailable Pleskach, Ely LEGAL NURSE CONSULTANT Unavailable Unavailable Pleskach, Ely LEGAL NURSE CONSULTANT Unavailable Unavailable Pleskach, Ely LEGAL NURSE CONSULTANT Unavailable Unavailable Pleskach, Ely LEGAL NURSE CONSULTANT Unavailable Unavailable Pleskach, Ely LEGAL NURSE CONSULTANT Unavailable Unavailable Pleskach, Ely LEGAL NURSE CONSULTANT Unavailable Unavailable Pleskach, Ely LEGAL NURSE CONSULTANT Unavailable Unavailable Pleskach, Ely LEGAL NURSE CONSULTANT Unavailable Unavailable Pleskach, Ely LEGAL NURSE CONSULTANT Unavailable Unavailable Pleskach, Ely LEGAL NURSE CONSULTANT Unavailable Unavailable Pleskach, Ely LEGAL NURSE CONSULTANT Unavailable Unavailable Pleskach, Ely LEGAL NURSE CONSULTANT Unavailable Unavailable Pleskach, Ely LEGAL NURSE CONSULTANT Unavailable Unavailable Pleskach, Ely LEGAL NURSE CONSULTANT Unavailable Unavailable Pleskach, Ely LEGAL NURSE CONSULTANT Unavailable Unavailable Pleskach, Ely LEGAL NURSE CONSULTANT Unavailable Unavailable Pleskach, Ely LEGAL NURSE CONSULTANT Unavailable Unavailable Pleskach, Ely LEGAL NURSE CONSULTANT Unavailable Unavailable Pleskach, Ely LEGAL NURSE CONSULTANT Unavailable Unavailable Pleskach, Ely LEGAL NURSE CONSULTANT Unavailable Unavailable BARRACO, SONJA Unavailable Unavailable BARRALLYSON, SONJA Unavailable Unavailable Rita Juares MD Unavailable [...] is protected by Article 27-F of the [facility] Public Health law. If you continue you may have access to information: Regarding HIV / AIDS; Provided by facilities licensed or operated by the [facility] Office of Mental Health; or Provided by the [facility] Office for People With Developmental Disabilities. If such information is present, then the following [facility] mandated warning applies: This information has [...] law may result in a fine or [place] health care facility sentence or both. A general authorization for the release of medical or other information is NOT sufficient authorization for further disc losure. Allergies and Adverse Reactions Type Description Substance Reaction Status Data Source(s ) Drug Class NO KNOWN ALLERGIES NO KNOWN ALLERGIES [facility] Family History Family Member Name Family Member Gender Family Member Status Date o f Status Description Data Source(s) Unknown Unknown Problem [facility] ([facility] ) sister Unknown Male Problem [facility] ([facility] Unknown Male Problem [facility] ([facility]) Unknown Unknown Problem [facility] ([facility] Encounters Encounter Providers Location Date Indications Data Source(s ) Outpatient Attender: Ely Voss [facility] Main Office 08/01/2020 1 2:30:00 PM EST [facility] ([facility] Outpatient Attender: Keven Ansari MD [facility] [place] 07/27/2020 10:55:00 AM EST [facility] ([facility] [place] ( in Healthcare facility) Attender: LIZABETH DUDLEYAdmitter: Yaron COLLINS MDConsultant: OUT OF AREA PCP, PT Does Not have 07/27/2020 03:05:00 AM EST - 07/28/2020 02:16:00 PM EST [facility] Inpatient Attender: ER PHYSICIAN 07/27/2020 03:05:00 AM [facility] Inpatient Attender: SONJA DUDLEY MD Attender: Rolando Juares MDAttender: MELIA JARRETT PAAttender: ER PHYSICIANAdmitter: MELIA BRAR 07/26/2020 09:58:44 PM EST [facility] Inpatient Attender: SONJA Trinidad bronwyn: Rolando Juares MDAttender: Yaron COLLINS MDAttender: ER PHYSICIANAdmitter: Yaron COLLINS MD 07/26/2020 08:49:00 PM EST - 07/28/2020 02:16:00 PM EST [facility] Patient discharged. Outpatient 07/26/2020 06:11:00 PM EST orthopnea , UTI, Trop 0.94, [facility] orthopnea, UTI, Trop 0.94, CHF Office Visit Attender: Ely Voss [facility] Main Office 12:00:00 PM EST [facility] ([facility] Outpatient 008 02/29/2020 10:58:00 AM EDT - 02/29/2020 10:58:00 AM EDT Lab test [facility] Lab test Outpatient Attender: Tara Paez MDAdmitter: Tara Calderon ams, MD 008 02/23/2020 02:23:41 PM EDT - 02/23/2020 02:18:00 PM EDT Lab test [facility] Lab test Patient discharged. Outpatient Attender: Ely Voss [facility] Main Office 02/22/2020 0 3:45:00 PM EDT [facility] ([facility] Outpatient Attender: Di BRAR Main Office 01/11/2020 01:40:00 PM EDT [facility] ([facility] Immunizations Vaccine Date Status Description Data Source(s) COVID-19 VACCINE, MRNA-1273, LNP-S (MODERNA)/PF 09/06/2020 1 2:00:00 AM EST completed [facility] INFLUENZA VIRUS VACCINE QUADRIVAL SPLIT 2020-(65 YR UP)/PF 05/05/2020 12:00:00 AM EDT completed [...] EVERY 8 HOURS UNTIL GONE ZIYAD Salvador Johnson carvedilol 3.125 MG Oral Tablet CARVEDILOL 03/16/2020 [...] EVERY WEEK SOLD: 12/06/2019 [facility] Ergocalciferol 88418 UNT Oral Capsule Vitamin D (Ergocalcife rol) [...] type / Coverage type Policy ID Covered constitution party ID Covered constitution party's relationship to munoz Policy Munoz Plan Information WELLCARE [id number] SP [id number] WELLCARE O [id number] S [id number] WELLCARE [id number] SP [id number] WELLCARE [id number] SP [id number] MEDICARE KAVON [id number] S [id number] WELLCARE HEA [id number] S [id number] WELLCARE [id number] SP [id number] Wellcare Today's Options Commercial [id number] Self [id number] Wellcare Today's Options Commercial [id number] Self [id number] Wellcare Today's Options Commercial [id number] Self [id number] Wellcare Today's Options Commercial [id number] Self [id number] TODAYS OPTIONS [id number] SP [id number] Wellcare Today's Options Commercial [id number] Self [id number] Ecuad[place] Progressive Commercial [id number] Self [id number] AMER PROG TODAYS OPTIONS G [id number] Self [id number] [place]cu[place] Progressive Commercial [id number] Self [id number] AMER PROG TODAYS OPTIONS G [id number] Self [id number] AMER PROG TODAYS OPTIONS G [id number] Self [id number] Today's Options Medicare Commercial [id number] Self [id number] [place]cu[place] Progressive Commercial [id number] Self [id number] TODAYS OPTIONS/BURKINAN O [id number] S [id number] Ecu[place] Progressive Commercial [id number] Self [id number] [place]cu[place] Progressive Commercial [id number] Self [id number] Ecuadorean Progressive Commercial [id number] Self [id number] TODAYS OPTIONS [id number] SP [id number] Today's Options Medicare Commercial [id number] Self [id number] [place]cu[place] Progressive Commercial [id number] Self [id number] Ecuadorean Progressive Commercial [id number] Self [id number] Ecuadorean Progressive Commercial [id number] Self [id number] Ecuadorean Progressive Commercial [id number] Self [id number] Ecuadorean Progressive Commercial [id number] Self [id number] TODAYS OPTIONS [id number] SP [id number] [place]cuadorean Progressive Commercial [id number] Self [id number] TODAYS OPTION MEDICARE [id number] [place] [id number] TODAYS OPTION MEDICARE [id number] [place] [id number] [place] Progressive Commercial Self Medicare (Part B) Medicare Primary Self BCBS Excellus Ppo U/W Medigap Part B Family Depend ent Today's Options Ppo Commercial Self Today's Options PFFS Commercial Self Proclaim Commercial Family Dependent Blue Ppo Medigap Part B Family Dependent U/HC Medicare Solutions Commercial Self UNITED HEALTHCARE O [id number] S [id number] UNITED HEALTHCARE O [id number] S [id number] [facility] UNITED MEDICARE COMPLETE G [id number] Self [id number] MEDICARE COMPLETE [id number] SP [id number] United Healthcare Commercial Self Medicare Medicare Primary Self BC/BS [place] Medigap Part B Family Depend ent MEDICARE COMPLETE [id number] SP [id number] Problems, Conditions, and Diagnoses Code Display Name Description Problem Type Effective Dates Data Source(s) 30361840 Iron deficiency anemia Iron deficiency anemia Problem 07/11/2020 12:00:00 AM EST [facility] ([facility] [id number] Prediabetes Prediabetes Problem 07/11/2020 12:00:00 AM EST [facility] ([facility] [id number] Paroxysmal atrial fibrillation Paroxysmal atrial fibri llation Problem 07/11/2020 12:00:00 AM EST [facility] ([facility] [id number] 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 94, CHF Diagnosis 07/26/2020 06:11:00 PM [facility] [id number] Encounter for other specified aftercare Encounter for other specified aftercare Diagnosis 02/29/2020 10:58:00 AM EDT [facility] Surgeries/Procedures Procedure Description Date Indications Data Source(s) Echocardiography, Tranthoracic Real-Time Image Documentation 07/27/2020 12:00:00 AM EST [facility] ([facility]) Electrocardiogram Interpretation & Report Only 020 12:00:00 AM EST [facility] ([facility]) Diabetic Foot Exam 01/11/2020 12:00:00 AM EDT [facility] ([facility] Results ID Date Data Source [id number] 09/17/2020 08:15:00 AM EST [facility] ([facility] Name Value Range Interpretation Code Description Data Mariam rce(s) Supporting Document(s) Magnesium [Mass/volume] in Serum or Plasma 1.8 mg/dL 1.8-2.4 [facility] ([facility] <content>note:<nlbl:demographic_changed> </content>
<content></content> ID Date Data Source [id number] 08/06/2020 08:24:00 AM EST [facility] ([facility] Name Value Range Interpretation Code Description Data Mariam rce(s) Supporting Document(s) Blood Urea Nitrogen 23 mg/dL 7-18 [facility] ([facility] Glucose, Fasting 129 mg/dL 70-100 [facility] ([facility] Creatinine For GFR 1.07 mg/dL 0.70-1.30 [facility] ([facility] Potassium Serum 4.6 meq/L [...] Little GFR Left</content>
<content>ESRD GFR <15 on WHOLESALE MANAGER</content>
<content></content> Carbon Dioxide Level 29 mmol/L 20-29 [facility] ([facility] Chloride Level 107 meq/L [...] Total Protein 5.7 GM/DL 6.4-8.2 [facility] ([facility] Albumin 2.9 GM/DL 3.2-5.2 [facility] ([facility] Albumin/Globulin Ratio 1.0 [facility] ([facility] ID Date Data Source [id number] 08/06/2020 08:24:00 AM EST [facility] ([facility] Name Value Range Interpretation Code Description Data Mariam rce(s) Supporting Document(s) Red Blood Count 3.64 10 4.30-6.10 [facility] White Blood Count 7.8 10 4.0-10.0 [facility] ([facility] Hemoglobin 11.1 g/dL 13.5-17.5 [facility] ([facility] Hematocrit 37.2 % 42.0-52.0 [facility] [...] % 36.0-66.0 [facility] Laurel % 6.6 % 0.0-5.0 [facility] Baso % 0.3 % 0.0-1.0 [facility] Eos % 1.9 % 0.0-3.0 [facility] Neutrophils # 6.1 10 1.5-8.5 [facility] Immature Granulocyte % 0.4 % 0-3.0 [facility] Nucleated Red Blood Cell % 0.0 % 0-0 MED [facility] ([facility] Lymph # 0.9 10 1.5-5.0 [facility] Eos # 0.2 10 0.0-0.5 [facility] Laurel # 0.5 10 0.0-0.8 [facility] Baso # 0.0 10 0.0-0.2 [facility]Sadiq ID Date Data Source [id number] 08/06/2020 08:21:00 AM EST [facility] ([facility] Name Value Range Interpretation Code Description Data Mariam rce(s) Supporting Document(s) Magnesium [Mass/volume] in Serum or Plasma 2.0 mg/dL 1.8-2.4 [facility] ID Date Data Source [id number] 07/28/2020 07:04:00 AM EST [facility] Name Value Range Interpretation Code Description Data Mariam rce(s) Supporting Document(s) SODIUM 140 mmol/L (136-145) [facility] POTASSIUM 4.0 mmol/L (3.6-5.2) [facility] CHLORIDE 113 mmol/L (100-108) H [facility] CO2 21 mmol/L (22-31) L [facility] ANION GAP 6 mmol/L (7-16) L [facility] UREA NITROGEN 45 mg/dL (7-24) H [facility] CREATININE 1.26 mg/dL (0.80-1.30) [facility] BUN/CREAT RATIO 35.7 RATIO (10.0-20.0) H [facility] GLUCOSE 76 mg/dL (70-99) [facility] CALCIUM 8.0 mg/dL (8.4-10.2) L [facility] GFR 55 ml/min/1.73m2 (>59) L [facility] GFR ( AMER) >60 ml/min/1.73m2 (>59) [facility] GFR INTERPRETATION [facility] --NORMAL KIDNEY FUNCTION OR MILD DISEASE - GFR >OR= 60CHRONIC KIDNEY DISEASE - GFR 15 - 59RENAL FAILURE - GFR <15 Est. GFR calculation based on the MDRDstudy equation, which assumes a steadystate for creatinine. Est. GFR should notbe used for medication dosing. ID Date Data Source [id number] 07/28/2020 06:39:17 AM EST [facility] Name Value Range Interpretation Code Description Data Mariam rce(s) Supporting Document(s) WBC 9.1 10*3/uL (4.1-11.0) [facility] RBC 3.48 10*6/uL (4.60-6.10) L [facility] HGB 11.2 g/dL (13.5-18.0) L [facility] HCT 33.8 % (41.0-53.0) L [facility] MCV 97.1 fL (80.0-95.0) H [facility] MCH 32.1 pg (27.0-32.0) H [facility] MCHC 33.1 g/dL (32.0-36.0) [facility] RDW 15.2 % (10.5-14.5) H [facility] PLT 60 10*3/uL (150-450) L [facility] MPV 12.1 fL (7.1-10.7) H [facility] ID Date Data Source [id number] 07/29/2020 07:51:22 AM EST [facility] SPECIMEN DESCRIPTION GROINSPECIAL REQUESTS NONECULTURE RESULTS NO METHICILLIN RESISTANT STAPH AUREUS ISOLATED.REPORT STATUS FINAL 07/29/2020 Name Value Range Interpretation Code Description Data Mariam rce(s) Supporting Document(s) ID Date Data Source [id number] 07/28/2020 08:58:57 AM EST [facility] Name Value Range Interpretation Code Description Data Mariam rce(s) Supporting Document(s) SPECIMEN DESCRIPTION [facility] STAPH SCREEN RESULTS (ONEGSA) [facility] COMMENT [facility] GENE TO DETECT STAPH AUREUS. (2) RT-P CR WAS PERFORMED FOR THE mecA AND SCCmec GENES TO DETECT METHICILLIN RESISTANCE IN STAPH AUREUS. ID Date Data Source [id number] 07/29/2020 04:18:00 PM EST [facility] Keven Ansari, [facility], [place] [address]UOGIJYL NAME: OPAL CLAY OF : 1940REPORT: CONSULTATIONPATIENT NUMBER: [id number] STATUS: IPMEDICAL RECORD NUMBER: [id number]: [id number] CONSULTATIONDATE OF CONSULTATION: 07/27/2020PROVIDING REQUESTING CONSULTATION: ER.REASON FOR CONSULTATION: Elevated troponin.HISTORY OF PRESENT ILLNESS: Yaron is a very pleasant 80-year-old gentlemanwho follows with Dr. Gómez, his flitch hanger. He has a history ofdiabetes, hypertension, intermittent [...] paced. He presented as a transfer from [facility] given the elevatedtroponin. He went to [facility] with fever and just feelingunwell, tells me [...] tablet oral dailyMedication Status: activeLast Taken Date/Time: 07/26/202030spironolactone 25 mg Tablet 1 tablet oral dailyMedication Status: activeLast Taken Date/Time: 07/26/202030aspirin 325 mg tablet,delayed release (DR/EC) 1 tablet oral dailyMedication Status: activeLast Taken Date/Time: 07/26/2020 0730magnesium oxide 400 mg (241.3 mg magnesium) Tablet 1 tablet oral threetimes a dayMedication Status: activeLast Taken Date/Time: 07/26/202030carvedilol 3.125 mg Tablet 1 tablet oral twice a dayMedication Status: activeLast Taken Date/Time: 07/26/2020729SOCIAL HISTORY: He lives with his at [facility]. He haschildren, grandchildren and great-grandchildren. 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 Smokes cigarettes occasionally. No alcohol or illicit drugs.FAMILY HISTORY: Family history was reviewed and noncontributory.REVIEW OF SYSTEMS: Pertinent positives and negatives listed in HPI,otherwise full 10-point review of systems were performed and foundnegative.PHYSICAL EXAMINATION: Temperature is 36.8, heart rate 60, blood ciksesab037/58, respirations 16, oxygen saturation 98 percent room [...] have him follow up with his outpatient flitch hanger.2. Chronic systolic congestive heart failure, EF of [...] LISANDRO Canoictated: 07/27/2020 8:18DT: 07/27/2020 8:26Job #: [id number]: Siobhan Gómez MDNOTE: [facility] computer generated reports are not confirmed orauthenticated unless they are signed by the providerElectronically Authenticated by:KEVEN ANSARI MD On 07/29/2020 04:18 PM EST Name Value Range Interpretation Code Description Data Mariam rce(s) Supporting Document(s) ID Date Data Source [id number] 07/28/2020 07:36:39 AM EST [facility] SPECIMEN DESCRIPTION MIDSTREAM UR INE,CLEAN CATCHCULTURE RESULTS NO GROWTHREPORT STATUS FINAL 07/28/2020 Name Value Range Interpretation Code Description Data Mariam rce(s) Supporting Document(s) ID Date Data Source [id number] 07/27/2020 06:46:41 AM EST [facility] Name Value Range Interpretation Code Description Data Mariam rce(s) Supporting Document(s) URINE WBC (0-5) [facility] URINE RBC (0-2) [facility] BACTERIA 2+ [HPF] [facility] MUCUS 1+ [HPF] [facility] FINE GRAN CAST [facility] WBC CLUMPING 1+ [facility] ID Date Data Source [id number] 07/27/2020 06:13:47 AM EST [facility] Name Value Range Interpretation Code Description Data Mariam rce(s) Supporting Document(s) COLOR [facility] APPEARANCE [facility] SPEC GRAV URINE 1.015 (1.003-1.030) [facility] PH URINE 5.5 (5.0-7.5) [facility] LEUK ESTERASE 1+ (NEG) A [facility] NITRITE URINE (NEG) A [facility] PROTEIN URINE 1+ (NEG) A [facility] GLUCOSE URINE (NEG) [facility] KETONE URINE (NEG) [facility] UROBILINOGEN 0.2 mg/dL (0-1.0) [facility] BILIRUBIN URINE (NEG) [facility] BLOOD/HGB URINE (NEG) [facility] ID Date Data Source [id number] 08/02/2020 10:36:53 AM EST [facility] SPECIMEN DESCRIPTION PERIPHERALSP ECIAL REQUESTS NONECULTURE RESULTS NO GROWTH 6 DAYSREPORT STATUS FINAL 08/02/2020 Name Value Range Interpretation Code Description Data Mariam rce(s) Supporting Document(s) ID Date Data Source [id number] 07/27/2020 06:06:16 AM EST [facility] Name Value Range Interpretation Code Description Data [facility] rce(s) Supporting Document(s) SODIUM 139 mmol/L (136-145) [facility] POTASSIUM 3.7 mmol/L (3.6-5.2) [facility] CHLORIDE 110 mmol/L (100-108) H [facility] CO2 17 mmol/L (22-31) L [facility] ANION GAP 12 mmol/L (7-16) [facility] UREA NITROGEN 45 mg/dL (7-24) H [facility] CREATININE 1.48 mg/dL (0.80-1.30) H [facility] BUN/CREAT RATIO 30.4 RATIO (10.0-20.0) H [facility] GLUCOSE 90 mg/dL (70-99) [facility] CALCIUM 7.4 mg/dL (8.4-10.2) L [facility] TOTAL PROTEIN 5.0 g/dL (6.4-8.2) L [facility] ALBUMIN 2.6 g/dL (3.2-4.5) L [facility] GLOBULIN 2.4 g/dL (2.7-4.3) L [facility] ALB/GLOB RATIO 1.1 RATIO [facility] ALKALINE PHOSPHATASE 77 U/L (45-117) [facility] BILIRUBIN,TOTAL 0.7 mg/dL (0.0-1.0) [facility] PLEASE NOTE:Total bilirubin results may be falselyelevated in patients taking Eltrombopag. AST (SGOT) 44 U/L (11-39) H [facility] ALT (SGPT) 68 U/L (12-78) [facility] GFR 46 ml/min/1.73m2 (>59) L [facility] GFR ( AMER) 55 ml/min/1.73m2 (>59) L [facility] GFR INTERPRETATION [facility] --NORMAL KIDNEY FUNCTION OR MILD DISEASE - GFR >OR= 60CHRONIC KIDNEY DISEASE - GFR 15 - 59RENAL FAILURE - GFR <15 Est. GFR calculation based on the MDRDstudy equation, which assumes a steadystate for creatinine. Est. GFR should notbe used for medication dosing. ID Date Data Source [id number] 07/27/2020 06:06:16 AM EST [facility] Name Value Range Interpretation Code Description Data Mariam rce(s) Supporting Document(s) PHOSPHORUS 4.7 mg/dL (2.5-4.5) H [facility] ID Date Data Source [id number] 07/27/2020 06:06:16 AM EST [facility] Name Value Range Interpretation Code Description Data Mariam rce(s) Supporting Document(s) MAGNESIUM 1.8 mg/dL (1.7-2.4) [facility] ID Date Data Source [id number] 07/27/2020 06:06:16 AM EST [facility] Name Value Range Interpretation Code Description Data Mariam rce(s) Supporting Document(s) TROPONIN I 0.67 ng/mL (<0.05) H [facility] Less than 0.05: Myocardial injury unlike lyGreater than or equal to 0.05: Highly suggestive of myocardial injuryCorrelation with rise and/or fall ofserial troponins, clinical symptomsand ECG changes is necessary. ID Date Data Source [id number] 07/27/2020 05:42:26 AM EST [facility] Name Value Range Interpretation Code Description Data Mariam rce(s) Supporting Document(s) LACTIC ACID 1.0 mmol/L (0.4-2.0) [facility] ID Date Data Source [id number] 07/27/2020 05:40:31 AM EST [facility] Name Value Range Interpretation Code Description Data Mariam rce(s) Supporting Document(s) WBC 15.1 10*3/uL (4.1-11.0) H [facility] RBC 3.59 10*6/uL (4.60-6.10) L [facility] HGB 11.1 g/dL (13.5-18.0) L [facility] HCT 35.1 % (41.0-53.0) L [facility] MCV 97.6 fL (80.0-95.0) H [facility] MCH 31.0 pg (27.0-32.0) [facility] MCHC 31.8 g/dL (32.0-36.0) L [facility] RDW 15.3 % (10.5-14.5) H [facility] PLT 58 10*3/uL (150-450) L [facility] MPV 11.6 fL (7.1-10.7) H [facility] ID Date Data Source [id number] 08/02/2020 10:36:53 AM EST [facility] SPECIMEN DESCRIPTION PERIPHERALSP ECIAL REQUESTS NONECULTURE RESULTS NO GROWTH 6 DAYSREPORT STATUS FINAL 08/02/2020 Name Value Range Interpretation Code Description Data Mariam rce(s) Supporting Document(s) ID Date Data Source [id number] 07/27/2020 06:23:00 AM EST [facility] DATE OF EXAM: 07/27/2020Chest 1V Portabl e INDICATION: COUGH AND FEVER COMPARISON: None TECHNIQUE: A single AP film of the chest was obtained. FINDINGS: Dual lead left upper chest wall cardiac pacer placement. There is no consolidation. There is no effusion. The cardiac and mediastinal contours appear normal. IMPRESSION: Were clear. No evidence of pneumonia. Professional interpretation performed at [facility] [phone].End of diagnostic report for accession: [id number] Interpreted: Uzma Patterson MDTranscribed: 07/27/2020 06:22 AMSigned: 07/27/2020 06:23 AM Uzma Patterson MD [facility] # [id number] BILL # [id number] Name Value Range Interpretation Code Description Data Mariam rce(s) Supporting Document(s) ID Date Data Source [id number] 07/26/2020 10:53:43 PM EST [facility] Name Value Range Interpretation Code Description Data Mariam rce(s) Supporting Document(s) MUSE EKG PDF encoded [facility] [id number] jb2 [file] [id number]+ov/sa1gPpw+G+d+///f/8c9/sanitation technician/z [file] [id number]== ID Date Data Source [id number] 07/26/2020 10:08:20 PM EST [facility] Name Value Range Interpretation Code Description Data Mariam rce(s) Supporting Document(s) TROPONIN I 1.18 ng/mL (<0.05) [facility] Less than 0.05: Myocardial injury unlike lyGreater than or equal to 0.05: Highly suggestive of myocardial injuryCorrelation with rise and/or fall ofserial troponins, clinical symptomsand ECG changes is necessary.RESULT(S) CALLED TO AND READ BACK BYMELVA MONTANEZ ON 07/26/2020 AT 2207 [place] [id number] ID Date Data Source [id number] 07/26/2020 09:58:44 PM EST [facility] Name Value Range Interpretation Code Description Data Mariam rce(s) Supporting Document(s) LACTIC ACID 1.4 mmol/L (0.4-2.0) [facility] ID Date Data Source [id number] 07/26/2020 11:05:00 AM EST [facility] Name Value Range Interpretation Code Description Data Mariam rce(s) Supporting Document(s) SARS-CoV-2 (COVID 19) [facility] This lab was ordered by [facility] a nd reported by [facility]. ID Date Data Source [id number] 07/02/2020 09:33:00 AM EST [facility] Name Value Range Interpretation Code Description Data Mariam rce(s) Supporting Document(s) Platelets reticulated/100 platelets in Blood by Automated count 7.9 % 0.0-10.91 [facility] ([facility] ID Date Data Source [id number] 07/02/2020 09:33:00 AM EST [facility] Name Value Range Interpretation Code Description Data Mariam rce(s) Supporting Document(s) White Blood Count 7.4 10 4.0-10.0 [facility] ([facility] Hematocrit 41.8 % 42.0-52.0 [facility] Red Blood Count 4.24 10 4.30-6.10 [facility] Hemoglobin 12.9 g/dL 13.5-17.5 [facility] Mean Corpuscular Hemoglobin 30.4 pg 27.0-33.0 [facility] Mean Corpuscular Volume 98.6 fl [...] % 0.0-1.0 [facility] Laurel % 8.2 % 0.0-5.0 [facility] Nucleated Red Blood Cell % 0.0 % 0-0 [facility] Immature Granulocyte % 0.4 % 0-3.0 [facility] Neutrophils # 5.6 10 1.5-8.5 [facility] Lymph # 1.1 10 1.5-5.0 [facility] Eos # 0.1 10 0.0-0.5 [facility] Laurel # 0.6 10 0.0-0.8 [facility] Baso # 0.0 10 0.0-0.2 [facility] ID Date Data Source [id number] 07/02/2020 09:33:00 AM EST [facility] Name Value Range Interpretation Code Description Data Mariam rce(s) Supporting Document(s) Triglycerides Level 54 mg/dL [facility] Cholesterol Level 84 mg/dL [facility] HDL Cholesterol 43 mg/dL [facility] LDL Cholesterol 30 mg/dL [facility] Non-HDL-C 41 mg/dL [facility] Cholesterol Risk Ratio 1.953 [facility] ID Date Data Source [id number] 07/02/2020 09:33:00 AM EST [facility] Name Value Range Interpretation Code Description Data Mariam rce(s) Supporting Document(s) Magnesium [Mass/volume] in Serum or Plasma 2.1 mg/dL 1.8-2.4 [facility] <content>note:<nlbl:demographic_changed> </content>
<content></content> ID Date Data Source [id number] 07/02/2020 09:33:00 AM EST [facility] Name Value Range Interpretation Code Description Data Mariam rce(s) Supporting Document(s) Glucose, Fasting 103 mg/dL 70-100 [facility] Creatinine For GFR 1.20 mg/dL 0.70-1.30 [facility] Glomerular [...] Little GFR Left</content>
<content>ESRD GFR <15 on WHOLESALE MANAGER</content>
<content></content> Blood Urea Nitrogen 25 mg/dL 7-18 [facility] Sodium Level 139 meq/L 136-145 [facility] Potassium Serum 4.3 meq/L 3.5-5.1 [facility] (Tara [...] [facility] ID Date Data Source [id number] 07/02/2020 09:33:00 AM EST [facility] Name Value Range Interpretation Code Description Data Mariam rce(s) Supporting Document(s) Hemoglobin A1c/Hemoglobin.total in Blood 5.8 % [facility] <content>REFERENCE RANGES:</content><br/ ><content></content>
<content><=5.6% NORMAL</content>
<content>5.7-6.4% SUGGESTS IMPAIRED GLUCOSE METABOLISM/PREDIABETIC</content>
<content>>= 6.5% ABNORMAL</content>
<content></content> Estimated Average Glucose 120 mg/dL 60-110 [facility] ID Date Data Source [id number] 07/02/2020 09:31:00 AM EST [facility] Name Value Range Interpretation Code Description Data Mariam rce(s) Supporting Document(s) Magnesium [Mass/volume] in Serum or Plasma 2.0 mg/dL 1.8-2.4 [facility] <content>note:<nlbl:demographic_changed> </content>
<content></content> ID Date Data Source [id number] 05/21/2020 09:05:00 AM EDT [facility] Name Value Range Interpretation Code Description Data Mariam rce(s) Supporting Document(s) Magnesium [Mass/volume] in Serum or Plasma 1.9 mg/dL 1.8-2.4 [facility] <content>note:<nlbl:demographic_changed> </content>
<content></content> Natriuretic peptide.B prohormone N-Terminal [Mass/volu me] in Serum or Plasma 476 pg/mL [facility] <content>note:<nlbl:demographic_changed> </content>
<content></content> ID Date Data Source [id number] 05/21/2020 09:05:00 AM EDT [facility] Name Value Range Interpretation Code Description Data Mariam rce(s) Supporting Document(s) Blood Urea Nitrogen 24 mg/dL 7-18 [facility] Glucose, Fasting 110 mg/dL 70-100 [facility] Creatinine For GFR 1.11 mg/dL 0.70-1.30 [facility] Glomerular [...] Little GFR Left</content>
<content>ESRD GFR <15 on WHOLESALE MANAGER</content>
<content></content> Sodium Level 141 meq/L 136-145 [facility] Potassium Serum 4.2 meq/L 3.5-5.1 [facility] Chloride Level 113 meq/L 98-107 [facility] Anion Gap 4 meq/L 8-16 [facility] Calcium Level 8.1 mg/dL 8.8-10.2 [facility] Carbon Dioxide Level 24 meq/L 21-32 [facility] Alkaline Phosphatase 104 U/L 45-117 [facility] Ast/Sgot 56 U/L 7-37 [facility] Alt/SGPT 87 U/L 12-78 [facility] Albumin 3.2 GM/DL 3.2-5.2 [facility] Bilirubin,Total 0.6 mg/dL 0.2-1.0 [facility] Total Protein 6.3 GM/DL 6.4-8.2 [facility] Albumin/Globulin Ratio 1.0 [facility] ID Date Data Source [id number] 04/24/2020 12:16:00 PM EDT [facility] Name Value Range Interpretation Code Description Data Mariam rce(s) Supporting Document(s) Magnesium [Mass/volume] in Serum or Plasma 1.9 mg/dL 1.8-2.4 [facility] <content>note:<nlbl:demographic_changed> </content>
<content></content> ID Date Data Source [id number] 04/09/2020 11:12:00 AM EDT [facility] Name Value Range Interpretation Code Description Data Mariam rce(s) Supporting Document(s) Magnesium [Mass/volume] in Serum or Plasma 1.6 mg/dL 1.8-2.4 [facility] <content>note:<nlbl:demographic_changed> </content>
<content></content> ID Date Data Source [id number] 04/09/2020 11:12:00 AM EDT [facility] (Tara Pae[facility] [...] Little GFR Left</content>
<content>ESRD GFR <15 on WHOLESALE MANAGER</content>
<content></content> Creatinine For GFR 1.21 mg/dL 0.70-1.30 [facility] Potassium Serum 3.9 meq/L 3.5-5.1 [facility] Chloride Level 112 meq/L 98-107 [facility] Sodium Level 139 meq/L 136-145 [facility] Calcium Level 8.0 mg/dL 8.8-10.2 [facility] Carbon Dioxide Level 22 meq/L 21-32 [facility] Anion Gap 5 meq/L 8-16 [facility] ID Date Data Source [id number] 02/28/2020 07:15:00 AM EDT [facility] Name Value Range Interpretation Code Description Data Mariam rce(s) Supporting Document(s) Magnesium [Mass/volume] in Serum or Plasma 1.8 mg/dL 1.8 - 2.4 [facility] ID Date Data Source [id number] 02/28/2020 07:15:00 AM EDT [facility] Name Value Range Interpretation Code Description Data Mariam rce(s) Supporting Document(s) BASIC METABOLIC PANEL [facility] BASIC METABOLIC PANEL Sodium [Moles/volume] in Serum or Plasma 133 mEq/L 136 - 145 Below low normal [facility] Potassium [Moles/volume] in Serum or Plasma 4.7 mEq/L 3.5 - 5.1 [facility] Chloride [Moles/volume] in Serum or Plasma 104 mEq/L 98 - 107 [facility] Carbon dioxide, total [Moles/volume] in Serum or Plasma 17.1 mEq /L 21.0 - 32.0 Below low normal [facility] Glucose [Mass/volume] in Serum or Plasma 99 mg/dL 70 - 100 [facility] Urea nitrogen [Mass/volume] in Serum or Plasma 30 mg/dL 7 - 18 Above high normal [facility] CREATININE SERUM 1.45 mg/dL 0.70 - 1.30 Above high normal [facility] AGE 79 yrs [facility] l eGFR NON-AFR AMR 47 [facility] eGFR AFR AMR 57 [facility] BUN/CREAT 21 6 - 25 [facility] l Calcium [Mass/volume] in Serum or Plasma 8.6 mg/dL 8.8 - 10.2 Below low normal [facility] ANION GAP 12 7 - 15 [facility] l Estimated GFR reference r prachi: > 60 mL/min/1.73m >18 years: Calculated using IDMS traceable MDRD Study Equation <18 years: Calculated using IDMS traceable Bedside Rangel Equation ID Date Data Source [id number] 02/28/2020 07:15:00 AM EDT [facility] Name Value Range Interpretation Code Description Data Mariam rce(s) Supporting Document(s) Magnesium [Mass/volume] in Serum or Plasma Laboratory test result 1.8 -2.4 [facility] ID Date Data Source [id number] 02/28/2020 07:15:00 AM EDT [facility] Name Value Range Interpretation Code Description Data Mariam rce(s) Supporting Document(s) Blood Urea Nitrogen Laboratory test result 7-18 [facility] Glucose, Fasting Laboratory test result [facility] SEE SEPARATE REPORT 6Testing performed at reference lab . Re port copy to follow on a separate form. 05/16/20 REF LAB#:[id number] Sodium Level Laboratory test result 136-145 [facility] [...] [facility] ID Date Data Source [id number] 02/22/2020 05:10:00 PM EDT [facility] Name Value Range Interpretation Code Description Data Mariam rce(s) Supporting Document(s) Platelets reticulated/100 platelets in Blood by Automated count 9.0 % 0.0-10.91 [facility] ID Date Data Source [id number] 02/22/2020 05:10:00 PM EDT [facility] Name Value Range Interpretation Code Description Data Mariam rce(s) Supporting Document(s) White Blood Count 11.5 10 [...] % 24.0-44.0 [facility] Laurel % 9.3 % 0.0-5.0 [facility] (Tara upton [...] 0-0 [facility] Laurel # 1.1 10 0.0-0.8 [facility] Eos # 0.1 10 0.0-0.5 [facility] Lymph # 0.9 10 1.5-5.0 [facility] Baso # 0.0 10 0.0-0.2 [facility] ID Date Data Source [id number] 02/22/2020 05:10:00 PM EDT [facility] Name Value Range Interpretation Code Description Data Mariam rce(s) Supporting Document(s) COMPREHENSIVE CHEM PROFILE i [facility] COMPREHENSIVE METABOLIC PANEL Sodium [Moles/volume] in Serum or Plasma 132 mEq/L 136 - 145 Below low normal [facility] Potassium [Moles/volume] in Serum or Plasma 4.2 mEq/L 3.5 - 5.1 [facility] Chloride [Moles/volume] in Serum or Plasma 103 mEq/L 98 - 107 [facility] Carbon dioxide, total [Moles/volume] in Serum or Plasma 21.8 mEq /L 21.0 - 32.0 [facility] Glucose [Mass/volume] in Serum or Plasma 106 mg/dL 70 - 100 Above high normal [facility] Urea nitrogen [Mass/volume] in Serum or Plasma 39 mg/dL 7 - 18 Above high normal [facility] CREATININE SERUM 1.44 mg/dL 0.70 - 1.30 Above high normal [facility] AGE 79 yrs [facility] HEIGHT NA [facility] l eGFR NON-AFR AMR 47 [facility] eGFR AFR AMR 57 [facility] ital BUN/CREAT 27 6 - 25 Above high normal [facility] Protein [Mass/volume] in Serum or Plasma 6.0 g/dL 6.0 - 8.3 [facility] Albumin [Mass/volume] in Serum or Plasma 3.6 g/dL 3.8 - 5.4 Below low normal [facility] GLOBULIN 2.4 g/dL 2.0 - 4.0 [facility] A/G RATIO 1.5 0.8 - 2.0 [facility] Calcium [Mass/volume] in Serum or Plasma 8.1 mg/dL 8.8 - 10.2 Below low normal [facility] Bilirubin.total [Mass/volume] in Serum or Plasma 0.8 mg/dL 0.2 - 1.0 [facility] Bilirubin.direct [Mass/volume] in Serum or Plasma 0.3 mg/dL 0.0 - 0.2 Above high normal [facility] INDIRECT BILI 0.5 mg/dL 0.0 - 1.1 [facility] pital ALK PHOSPHATASE 83 U/L 40 - 129 [facility] ospital Aspartate aminotransferase [Enzymatic ac tivity/volume] in Serum or Plasma by With P-5'-P 26 IU/L 7 - 37 [facility] Alanine aminotransferase [Enzymatic acti vity/volume] in Serum or Plasma by With P-5'-P 41 IU/L 12 - 78 [facility] ANION GAP 7 7 - 15 [facility] l Estimated GFR referenc e range: >60ml/min/1.73m >18 years: Calculated using IDMS traceable Study Equation <18 years: Calculated using IDMS tracable Bedside Schartz Equation ID Date Data Source [id number] 02/22/2020 03:57:00 PM EDT [facility] Name Value Range Interpretation Code Description Data Mariam rce(s) Supporting Document(s) Bacteria identified in Urine by Culture Laboratory test result [facility] ID Date Data Source [id number] 02/22/2020 03:56:00 PM EDT [facility] (Tara Paez [...] FOR ESBL</content>
<content></content> ID Date Data Source [id number] 02/22/2020 03:52:00 PM EDT [facility] (Tara Paez [...] Leukocytes [#/area] in Urine sediment by Microscopy hi power field Laboratory test result [facility] (Naveen [...] [facility] ID Date Data Source [id number] 02/22/2020 01:55:00 PM EDT [facility] Name Value Range Interpretation Code Description Data Mariam rce(s) Supporting Document(s) Glucose, Fasting Laboratory test result [facility] SEE SEPARATE REPORT Testing performed at reference lab . Report copy to follow on a separate form. 05/16/20 REF LAB#:[id number] Creatinine For GFR Laboratory test result 0.70-1.30 [facility] Blood Urea Nitrogen Laboratory test result 7-18 [facility] ([facility]a [facility] Sodium Level Laboratory test [...] [facility] ID Date Data Source [id number] 01/03/2020 08:20:00 AM EDT [facility] Name Value Range Interpretation Code Description Data Mariam rce(s) Supporting Document(s) Platelets reticulated/100 platelets in Blood by Automated count 7.0 % 0.0-10.91 [facility] ID Date Data Source [id number] 01/03/2020 08:20:00 AM EDT [facility] Name Value Range Interpretation Code Description Data Mariam rce(s) Supporting Document(s) Creatinine, Urine 136.0 mg/dL [facility] Malb Urine Siemens 20.5 mg/L [facility] (Wu [facility] Ac/Creat Ratio 15.0 MCG/MG 0.0-30.0 [facility] ([facility] THE [employer] STATES THAT MICROALBUMINURIA IS PRESENT IF THE MICROALBUMIN/CREATININE RATIO EXCEEDS 30 MCG/MG. THE THRESHOLD FOR CLINICAL ALBUMINURIA IS REACHED AT 300 MCG/MG. THE CLASSIFICATION OF A PATIENT SHOULD BE BASED UPON AT LEAST 2 OF 3 ABNORMAL RESULTS ON SPECIMENS COLLECTED WITHIN A 3 TO 6 MONTH TIME FRAME. ID Date Data Source [id number] 01/03/2020 08:20:00 AM EDT [facility] Name Value Range Interpretation Code Description [facility](s) Triglycerides Level 55 mg/dL [facility] Cholesterol Level 76 mg/dL [facility] HDL Cholesterol 33 mg/dL [facility] Non-HDL-C 43 mg/dL [facility] LDL Cholesterol 32 mg/dL [facility] Cholesterol Risk Ratio 2.303 [facility] ID Date Data Source [id number] 01/03/2020 08:20:00 AM EDT [facility] Name Value Range Interpretation Code Description Data Mariam rce(s) Supporting Document(s) Hemoglobin A1c 6.1 % [facility] REFERENCE RANGES: 4.5-5.6% NORMAL 5.7-6.4% SUGGESTS IMPAIRED GLUCOSE META BOLISM >= 6.5% ABNORMAL Estimated Average Glucose 128 mg/dL 60-110 [facility] ID Date Data Source [id number] 01/03/2020 08:20:00 AM EDT [facility] Name Value Range Interpretation Code Description Data Mariam e(s) Supporting Document(s) Glucose, Fasting 94 mg/dL 70-100 [...] Little GFR Left</content>
<content>ESRD GFR <15 on WHOLESALE MANAGER</content>
<content></content> Creatinine For GFR 1.16 mg/dL 0.70-1.30 [...] [facility] ID Date Data Source [id number] 01/03/2020 08:20:00 AM EDT [facility] (Tara Paez [...] Volume 99.5 fl 80.0-96.0 M [facility] ([facility] Mean Corpuscular Hemoglobin 31.6 pg 27.0-33.0 [facility] Red Cell Distribution Width 13.8 % 11.5-14.5 [facility] Mean Corpuscular HGB Conc 31.8 g/dL 32.0-36.5 [facility] Platelet Count, Automated 81 10 150-450 [facility] Lymph % 16.1 % 24.0-44.0 [facility] Laurel % 9.0 % 0.0-5.0 [facility] (Tara upton [...] % 0-3.0 [facility] Laurel # 0.6 10 0.0-0.8 [facility] Lymph # 1.1 10 1.5-5.0 [facility] Eos # 0.2 10 0.0-0.5 [facility] Baso # 0.0 10 0.0-0.2 [facility] ID Date Data Source [id number] 08/11/2019 07:50:00 AM EST [facility] Name Value Range Interpretation Code Description Data Mariam rce(s) Supporting Document(s) Magnesium [Mass/volume] in Serum or Plasma 1.9 mg/dL 1.8-2.4 [facility] ID Date Data Source [id number] 08/11/2019 07:50:00 AM EST [facility] Name Value Range Interpretation Code Description Data Mariam rce(s) Supporting Document(s) Triglycerides Level 57 mg/dL [facility] Cholesterol Level 68 mg/dL [facility] LDL Cholesterol 28 mg/dL [facility] (aTra [facility] HDL Cholesterol 29 mg/dL [facility] Non-HDL-C 39 mg/dL [facility] Cholesterol Risk Ratio 2.344 [facility] ID Date Data Source [id number] 08/11/2019 07:50:00 AM EST [facility] (Tara Paez [...] Little GFR Left</content>
<content>ESRD GFR <15 on WHOLESALE MANAGER</content>
<content></content> Chloride Level 112 meq/L 98-107 [facility] [...] PM EST Occasional Smoker completed Occasional Smoker [facility] Smoking 07/11/2020 12:00:00 AM EST - 07/28/2014 12:00:00 AM EST Patient is a former smoker completed Patient is a former smoker [facility] Vital Signs ID Date Data Source [id number] Name Value Range Interpretation Code Description Data Source(s) Body mass index (BMI) [Ratio] 23.6 kg/m2 23.6 k g/m2 [facility] [place] body weight 154 [lb_av] 154 [lb_av] [facility] [...] Normal (applies to non-numeric results) 36.4 vicky [facility] Respiratory rate 18 min Normal (applies to non-numeric results) 18 min [facility] Heart rate 77 min Normal (applies to non-numeric resul ts) 77 min [facility] Diastolic blood pressure 71 mm[Hg] Normal (applies to non-numeric results) 71 mm[Hg] [facility] Systolic blood pressure 128 mm[Hg] Normal (applies t o non-numeric results) 128 mm[Hg] [facility] Deprecated Oxygen saturation in Capillary blood by Oximetry 100 % Normal (applies to non-numeric results) 100 % [facility] Body weight Measured 145 [lb_av] Normal (applies to n on-numeric results) 145 [lb_av] [facility] Body height 174.3456 cm Normal (applies to non-numeric res ults) 174.3456 cm [facility] Body mass index (BMI) [Ratio] 21.41 kg/m2 No rmal (applies to non-numeric results) 21.41 kg/m2 [facility] Heart rate 74 /min 74 /min [facility] Diastolic blood pressure 57 mm[Hg] 57 mm[Hg] [facility] Systolic blood pressure 130 mm[Hg] 130 mm[Hg] M [facility] Body mass index (BMI) [Ratio] 22.7 kg/m2 22.7 k g/m2 [facility] [place] body weight 154 [lb_av] 154 [lb_av] [facility] [...] 96.8 [degF] [facility] Body mass index (BMI) [Ratio] 22.8 kg/m2 22.8 k g/m2 [facility] [place] body weight 154 [lb_av] 154 [lb_av] [facility] [...] k g/m2 [facility] [place] body weight 154 [lb_av] 154 [lb_av] [facility] [...] mm[Hg] M [facility] ID Date Data Source [id number] 08/25/2020 01:31:08 AM [facility] Name Value Range Interpretation Code Description Data Source(s) TRANSFER FROM [facility]
--- NOTE | 2020-09-19 18:15 | HPEPDOC ---
[facility] Medical History & Physical Date of Admission Sep 19, 2020 Date of Service: Sep 19, 2020 History and Physical Chief complaint: Who presented to the emergency room with complaints of fevers and chills History of present illness: Patient is an 80-year-old male who presents to the emergency room after reporting fevers and chills this morning patient had reported that his took his temperature and it was reported to be 100.5 F. Patient denies any chest pain, short of breath or cough. Denies any palpitations. Has not experience any nausea, vomiting, pain consultation, diarrhea, or discomfort with urination. Patient reports his appetite is fairly normal, but has experience a weight loss of approximately 100 pounds over 1 year duration. 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 Review of Systems: 10 point review of systems complete, all negative otherwise stated in HPI Physical exam: - Vitals: BP [150/69], HR [63], RR [16], Sat [95%RA], Temp [97.0F] - General: Lying in bed, No acute distress, Speaking in full sentences, AAOx3 - HEENT: NC, AT, PERRLA - CVS: RRR, +S1S2 - Lungs: Fair air entry bilaterally, No appreciable wheezing / rales / rhonchi - Abdomen: Soft, Non-distended, Non-tender - Extremities: No lower extremity edema, No calf tenderness - Neuro: No focal motor or sensory deficit - Skin: No visible rashes Labs: See below Imaging: See below EKG: See below Assessment and Plan: Fever / Chills - possibly 2/2 UTI - Patient reported fevers and chills; this morning noted a temperature 100.5 F - Review of systems is negative - Respiratory panel negative - UA slightly abnormal; urine culture pending - Will check blood cultures / procalcitonin - s/p Ceftriaoxne - Will start Cefdinir Elevated Cr - Will avoid nephrotoxic medications - Will continue with gentle IV fluid hydration Hypomagnesemia - Will supplement via IV HTN - BP well controlled - c/w Carvedilol DLP - c/w Atorvastatin and ASA CHF - Unknown ejection fraction - No evidence of exacerbation - Will hold Spironolactone for now CAD s/p CABG and Watchman procedure (07/2017) - c/w Carvedilol, ASA, Atorvastatin DVT prophylaxis - Will start Heparin Disposition: - Anticipate DC within 24 hours Vital Signs Vital Signs Date Time Temp Pulse Resp B/P (MAP) Pulse Ox O2 Delivery O2 Flow Rate FiO2 09/19/20 14:17 09/19/20 13:16 97.0 63 16 95 Room Air Laboratory Data Labs 24H Laboratory Tests 2 09/19/20 13:43: Immature Granulocyte % (Auto) 0.5, Neutrophils (%) (Auto) 80.4H, Lymphocytes (%) (Auto) 8.0L, Monocytes (%) (Auto) 10.4H, Eosinophils (%) (Auto) 0.5, Basophils (%) (Auto) 0.2, Neutrophils # (Auto) 6.9, Lymphocytes # (Auto) 0.7L, Monocytes # (Auto) 0.9H, Eosinophils # (Auto) 0.0, Basophils # (Auto) 0.0, Nucleated Red Blood Cells % (auto) 0.0, Immature Platelet Fraction 8.2, Anion Gap 9, G lomerular Filtration Rate 54.6, Lactic Acid Level 1.9, Calcium Level 8.2L, Total Bilirubin 0.6, Direct Bilirubin 0.3H, Aspartate Amino Transf (AST/SGOT) 26, Alanine Aminotransferase (ALT/SGPT) 81H, Alkaline Phosphatase 92, Total Creatine Kinase 59, Creatine Kinase MB 1.5, Creatine Kinase MB Relative Index 2.54, Troponin I 0.03, GI-Gme-S-Type Natriuretic Peptide 1390H, Total Protein 6.7, Albumin 3.5, Albumin/Globulin Ratio 1.1, Thyroid Stimulating Hormone (TSH) 1.070, Thyroxine (T4) 7.8 09/19/20 13:47: Magnesium Level 1.5L 09/19/20 16:38: Urine Color YELLOW, Urine Appearance HAZY, Urine pH 5.0, Urine Specific [place] 1.017, Urine Protein 1+H, Urine Glucose (UA) NEGATIVE, Urine Ketones NEGATIVE, Urine Blood 1+H, Urine Nitrite POSITIVEH, Urine Bilirubin NEGATIVE, Urine Urobilinogen 0.2, Urine Leukocyte Esterase 1+H, Urine WBC (Auto) 26H, Urine RBC (Auto) 5H, Urine Hyaline Casts (Auto) 0, Urine Bacteria (Auto) 1+H, Urine Squamous Epithelial Cells 0, Urine Mucus (Auto) SMALL, Urine Sperm (Auto) CBC/BMP Laboratory Tests 09/19/20 13:43 Microbiology Microbiology 09/19/20 Urine Culture, Received Pending 09/19/20 Respiratory Virus Panel (PCR) (AMIE) - Final, Complete 09/19/20 Blood Culture, Received Pending 09/19/20 Blood Culture, Received Pending Home Medications Scheduled Aspirin (Aspirin EC) 325 Mg Tabec, 325 MG PO DAILY Atorvastatin Calcium (Atorvastatin Calcium) 40 Mg Tab, 40 MG PO DAILY Carvedilol (Carvedilol) 3.125 Mg Tablet, 3.125 MG PO BID Magnesium Oxide (Magnesium) 400 Mg Cap, 400 MG PO TID Potassium Chloride (Potassium Chloride) 10 Meq Capsule.er, 10 MG PO BID Spironolactone (Spironolactone) 25 Mg Tab, 25 MG PO DAILY Allergies Coded Allergies: No Known Allergies (Unverified , 11/18/18) MICHEAL PEREZ MD Sep 19, 2020 18:15
[2020-09-19] MEDS: NS 1,000 ML IV SCH ×2 (18:23→22:24)
[2020-09-19] MEDS: MAG SULF 1GM/100ML (MAG RUN) 1 GM in IV 1 EA IV SCH ×2 (20:55→22:18)
[2020-09-19] MEDS: CARVedilol 3.125 MG TAB PO SCH (21:00)
[2020-09-19 21:25] VITALS: BP 126/50
[2020-09-19] MEDS ORDERED: HEPARIN SOD (PORCINE) 5000UNITS/ML 1ML VIAL/SYRINGE SC SCH (22:00)
[2020-09-19] MEDS: MAGNESIUM OXIDE 400MG TAB (MAG-OX) PO SCH (22:18)
[2020-09-20 05:55] LABS: BASO % 0.1 % (0.0-1.0); EOS % 0.4 % (0.0-3.0); HEMATOCRIT 35.7 % (42.0-52.0); HEMOGLOBIN 11.2 g/dl (13.5-17.5); LYMPH # 0.6 10^3/uL (1.5-5.0); LYMPH % 8.4 % (24.0-44.0); MEAN CORPUSCULAR HEMOGLOBIN 30.9 pg (27.0-33.0); MEAN CORPUSCULAR HGB CONC 31.4 g/dl (32.0-36.5); MEAN CORPUSCULAR VOLUME 98.6 fl (80.0-96.0); MONO # 0.7 10^3/uL (0.0-0.8); NEUTROPHILS # 5.6 10^3/uL (1.5-8.5); NEUTROPHILS % 80.5 % (36.0-66.0); RED BLOOD COUNT 3.62 10^6/uL (4.30-6.10); WHITE BLOOD COUNT 6.9 10^3/uL (4.0-10.0)
[2020-09-20 05:57] LABS: PLATELET COUNT, AUTOMATED 60 10^3/uL (150-450)
[2020-09-20 06:00] VITALS: BP 127/52
[2020-09-20 06:15] LABS: CALCIUM LEVEL 7.9 MG/DL (8.8-10.2); CREATININE FOR GFR 1.24 MG/DL (0.70-1.30); GLOMERULAR FILTRATION RATE 59.7 (>35); MAGNESIUM LEVEL 2.1 MG/DL (1.8-2.4); POTASSIUM SERUM 3.8 MEQ/L (3.5-5.1)
[2020-09-20] MEDS ORDERED: CEFDINIR 300 MG CAP (OMNICEF) PO SCH (09:00)
[2020-09-20] MEDS ORDERED: ASPIRIN ENTERIC 325 MG TAB PO SCH (09:00)
[2020-09-20] MEDS ORDERED: ATORVASTATIN 20 MG TAB PO SCH (09:00)
[2020-09-20] MEDS ORDERED: CEFD300CAP PO (09:25)
[2020-09-20 09:39] VITALS: BP 127/52
[2020-09-20] MEDS: CARVedilol 3.125 MG TAB PO SCH (09:39)
[2020-09-20] MEDS: MAGNESIUM OXIDE 400MG TAB (MAG-OX) PO SCH (09:40)
[2020-09-20] MEDS ORDERED: SPIR-10 PO (11:53)
--- NOTE | 2020-09-20 11:55 | DS.PDOC ---
Discharge Summary General Date of Admission Sep 19, 2020 at 13:17 Date of Discharge 09/20/2020 Discharge Summary PROCEDURES PERFORMED DURING STAY: [None]. ADMITTING DIAGNOSES / DISCHARGE DIAGNOSES: Fever / Chills - possibly 2/2 UTI s/p Elevated Cr s/p Hypomagnesemia HTN DLP CHF CAD s/p CABG and Watchman procedure (07/2017) DVT prophylaxis COMPLICATIONS/CHIEF COMPLAINT: Fever HISTORY OF PRESENT ILLNESS: Patient is an 80-year-old male who presents to the emergency room after reporting fevers and chills this morning patient had reported that his took his temperature and it was reported to be 100.5 F. Patient denies any chest pain, short of breath or cough. Denies any palpitations. Has not experience any nausea, vomiting, pain consultation, diarrhea, or discomfort with urination. Patient was admitted to the hospital service for further evaluation and treatment. HOSPITAL COURSE: Fever / Chills - possibly 2/2 UTI - Patient reported fevers and chills; this morning noted a temperature 100.5 F - Afebrile since admission - Review of systems is negative - Respiratory panel negative - UA slightly abnormal; urine culture pending - Procalcitonin negative - CXR negative - s/p Ceftriaxone in the ER; will c/w Cefdinir - Will have outpatient follow-up with primary care provider within the next 7 days s/p Elevated Cr - Will avoid nephrotoxic medications - Will hold spironolactone for an additional 24 hours - s/p gentle IV fluid hydration s/p Hypomagnesemia HTN - BP well controlled - c/w Carvedilol DLP - c/w Atorvastatin and ASA CHF - Unknown ejection fraction - No evidence of exacerbation - Will resume Spironolactone within 24 hours from discharge CAD s/p CABG and Watchman procedure (07/2017) - c/w Carvedilol, ASA, Atorvastatin DVT prophylaxis - c/w Heparin DISCHARGE MEDICATIONS: Please see below. ALLERGIES: Please see below. PHYSICAL EXAMINATION ON DISCHARGE: Vitals (See below) General: Lying in bed, appears comfortable, AAOx3 HEENT: NC, AT CVS: +S1S2 Lungs: Fair air entry b/l, no appreciated wheezing, rhonchi or rales Abdomen: Soft, ND, NT Extremities: - Edema, - Calf tenderness LABORATORY DATA: Please see below. IMAGING: CXR 09/19: Sternotomy wires, cardiac valve replacement and a multilead pacer again seen and unchanged. No cardiomegaly, pulmonary edema, pleural effusion or definite infiltrate. ACTIVITY: [As tolerated]. DISCHARGE PLAN: Please follow-up with primary care provider within the next 7 days Remain compliant with treatment plan and medications Return to the ER if you experience any problems DISPOSITION: . Home with services DISCHARGE CONDITION: [Stable]. TIME SPENT ON DISCHARGE: 35 minutes. Vital Signs/I&Os Vital Signs Date Time Temp Pulse Resp B/P (MAP) Pulse Ox O2 Delivery O2 Flow Rate FiO2 09/20/20 09:39 60 127/52 09/20/20 06:00 99.9 18 94 Room Air I&O- Last 24 Hours up to 6 AM 09/20/20 06:00 Intake Total 2130 ml Output Total 150 ml Balance 1980 ml Laboratory Data Labs 24H Laboratory Tests 2 09/19/20 13:43: Immature Granulocyte % (Auto) 0.5, Neutrophils (%) (Auto) 80.4H, Lymphocytes (%) (Auto) 8.0L, Monocytes (%) (Auto) 10.4H, Eosinophils (%) (Auto) 0.5, Basophils (%) (Auto) 0.2, Neutrophils # (Auto) 6.9, Lymphocytes # (Auto) 0.7L, Monocytes # (Auto) 0.9H, Eosinophils # (Auto) 0.0, Basophils # (Auto) 0.0, Nucleated Red Blood Cells % (auto) 0.0, Immature Platelet Fraction 8.2, Anion Gap 9, Glomerular Filtration Rate 54.6, Lactic Acid Level 1.9, Calcium Level 8.2L, Total Bilirubin 0.6, Direct Bilirubin 0.3H, Aspartate Amino Transf (AST/SGOT) 26, Alanine Aminotransferase (ALT/SGPT) 81H, Alkaline Phosphatase 92, Total Creatine Kinase 59, Creatine Kinase MB 1.5, Creatine Kinase MB Relative Index 2.54, Troponin I 0.03, BY-Sqn-A-Type Natriuretic Peptide 1390H, Total Protein 6.7, Albumin 3.5, Albumin/Globulin Ratio 1.1, Thyroid Stimulating Hormone (TSH) 1.070, Thyroxine (T4) 7.8 09/19/20 13:47: Magnesium Level 1.5L 09/19/20 16:38: Urine Color YELLOW, Urine Appearance HAZY, Urine pH 5.0, Urine Specific [place] 1.017, Urine Protein 1+H, Urine Glucose (UA) NEGATIVE, Urine Ketones NEGATIVE, Urine Blood 1+H, Urine Nitrite POSITIVEH, Urine Bilirubin NEGATIVE, Urine Uro bilinogen 0.2, Urine Leukocyte Esterase 1+H, Urine WBC (Auto) 26H, Urine RBC (Auto) 5H, Urine Hyaline Casts (Auto) 0, Urine Bacteria (Auto) 1+H, Urine Squamous Epithelial Cells 0, Urine Mucus (Auto) SMALL, Urine Sperm (Auto) 09/19/20 18:34: Procalcitonin 0.23 09/20/20 05:36: Immature Granulocyte % (Auto) 0.6, Neutrophils (%) (Auto) 80.5H, Lymphocytes (%) (Auto) 8.4L, Monocytes (%) (Auto) 10.0H, Eosinophils (%) (Auto) 0.4, Basophils (%) (Auto) 0.1, Neutrophils # (Auto) 5.6, Lymphocytes # (Auto) 0.6L, Monocytes # (Auto) 0.7, Eosinophils # (Auto) 0.0, Basophils # (Auto) 0.0, Nucleated Red Blood Cells % (auto) 0.0, Anion Gap 8, Glomerular Filtration Rate 59.7, Calcium Level 7.9L, Magnesium Level 2.1 CBC/BMP Laboratory Tests 09/19/20 13:43 09/20/20 05:36 Microbiology Microbiology 09/19/20 Urine Culture, Received Pending 09/19/20 Respiratory Virus Panel (PCR) (AMIE) - Final, Complete 09/19/20 Blood Culture, Received Pending 09/19/20 Blood Culture, Received Pending Discharge Medications Scheduled Aspirin (Aspirin EC) 325 Mg Tabec, 325 MG PO DAILY, (Reported) Atorvastatin Calcium (Atorvastatin Calcium) 40 Mg Tab, 40 MG PO DAILY, (Reported) Carvedilol (Carvedilol) 3.125 Mg Tablet, 3.125 MG PO BID, (Reported) Cefdinir (Cefdinir) 300 Mg Capsule, 300 MG PO BID Magnesium Oxide (Magnesium) 400 Mg Cap, 400 MG PO TID, (Reported) Potassium Chloride (Potassium Chloride) 10 Meq Capsule.er, 10 MG PO BID, (Reported) Spironolactone (Spironolactone) 25 Mg Tab, 25 MG PO DAILY, (Reported) Allergies Coded Allergies: No Known Allergies (Unverified , 11/18/18) MICHEAL PEREZ MD Sep 20, 2020 11:55
--- NOTE | 2020-09-21 09:23 | ECGEPIP ---
[facility] - ED Test Date: 2020-09-19 Pat Name: YARON CLAY Department: Room: [place] [address] Gender: Male [employer]: ED : 1940 Requested By: YARON MEEKS Order Number: [id number] Reading MD: Angeles Sheikh Measurements Intervals [place] Rate: 60 P: 93 MO: 224 QRS: 243 QRSD: 160 T: 57 QT: 448 QTc: 448 Interpretive Statements Atrial-sensed ventricular-paced rhythm with prolonged AV conduction Electronically Signed on 09-21-2020 9:22:40 EST by Angeles Sheikh
== END 2020-09-20 14:05 | disposition home or self-care (01) ==
LOC: M ED 13:16 → M ED INP 13:17 → ENRESERV 19:22 → M MS5PR 21:58
PROVIDERS: ADMIT Internal Medicine; ATTEND Internal Medicine
DX: R50.9 Fever, unspecified (principal); N39.0 Urinary tract infection, site not specified; E83.42 Hypomagnesemia; I10 Essential (primary) hypertension; E78.49 Other hyperlipidemia; I50.9 Heart failure, unspecified; I25.10 Atherosclerotic heart disease of native coronary artery without angina pectoris; Z95.1 Presence of aortocoronary bypass graft; Z79.82 Long term (current) use of aspirin; Z79.899 Other long term (current) drug therapy
CPT/HCPCS: 36415; 71045; 80048; 80076; 81001; 82550; 82553; 83605; 83735; 83880; 84145; 84436; 84443; 84484; 85025; 85049; 85055; 87040; 87077; 87088; 87186; 87798; 93005; 93041; 94760; 96361; 96365; 97161; 99285; G0378; J0696; J3475

== ENCOUNTER → 2020-10-02 | Outpatient (CLI) | payer MEDICARE ==
[~2020-10-02] MED LIST changes: +CEFD300CAP PO; +POTA10CA32 PO
[2020-10-02 12:15] LABS: HEMATOCRIT 35.9 % (42.0-52.0); MEAN CORPUSCULAR HEMOGLOBIN 30.5 pg (27.0-33.0); MEAN CORPUSCULAR HGB CONC 30.6 g/dl (32.0-36.5); MEAN CORPUSCULAR VOLUME 99.4 fl (80.0-96.0); PLATELET COUNT, AUTOMATED 112 10^3/uL (150-450); RED BLOOD COUNT 3.61 10^6/uL (4.30-6.10); WHITE BLOOD COUNT 6.9 10^3/uL (4.0-10.0)
[2020-10-02 12:48] LABS: ALBUMIN 3.2 GM/DL (3.2-5.2); ALT/SGPT 57 U/L (12-78); BILIRUBIN,TOTAL 0.4 MG/DL (0.2-1.0); BLOOD UREA NITROGEN 35 MG/DL (7-18); CALCIUM LEVEL 7.8 MG/DL (8.8-10.2); CARBON DIOXIDE LEVEL 23 MEQ/L (21-32); CHLORIDE LEVEL 111 MEQ/L (98-107); CHOLESTEROL LEVEL 81 MG/DL (<200); CHOLESTEROL RISK RATIO 2.025 (<5); CREATININE FOR GFR 1.15 MG/DL (0.70-1.30); GLOMERULAR FILTRATION RATE > 60.0 (>35); GLUCOSE, FASTING 142 MG/DL (70-100); HDL CHOLESTEROL 40 MG/DL (>40); LDL CHOLESTEROL 32 MG/DL (<100); MAGNESIUM LEVEL 1.8 MG/DL (1.8-2.4); NON-HDL-C 41 MG/DL; NT-PRO BNP 690 PG/ML (<450); POTASSIUM SERUM 4.8 MEQ/L (3.5-5.1); SODIUM LEVEL 138 MEQ/L (136-145); TOTAL PROTEIN 6.3 GM/DL (6.4-8.2); TRIGLYCERIDES LEVEL 43 MG/DL (<150)
== END ==
LOC: M LAB 11:46
PROVIDERS: ATTEND Internal Medicine Cardiovascular Disease
DX: I50.42 Chronic combined systolic (congestive) and diastolic (congestive) heart failure (principal); I47.2 Ventricular tachycardia; E78.2 Mixed hyperlipidemia

== ENCOUNTER → 2020-11-09 | Outpatient (CLI) | payer MEDICARE | LOC: M LABSMTC 09:40 | PROVIDERS: ATTEND Internal Medicine Cardiovascular Disease | DX: Z01.812 Encounter for preprocedural laboratory examination (principal); Z20.822 Contact with and (suspected) exposure to COVID-19 ==

== ENCOUNTER → 2020-11-12 | Outpatient (CLI) | payer MEDICARE ==
[2020-11-12 09:30] LABS: BLOOD UREA NITROGEN 24 MG/DL (7-18); CALCIUM LEVEL 7.9 MG/DL (8.8-10.2); CARBON DIOXIDE LEVEL 22 MEQ/L (21-32); CHLORIDE LEVEL 115 MEQ/L (98-107); CREATININE FOR GFR 1.01 MG/DL (0.70-1.30); GLOMERULAR FILTRATION RATE > 60.0 (>35); GLUCOSE, FASTING 102 MG/DL (70-100); MAGNESIUM LEVEL 1.8 MG/DL (1.8-2.4); POTASSIUM SERUM 3.9 MEQ/L (3.5-5.1); SODIUM LEVEL 142 MEQ/L (136-145)
== END ==
LOC: M LAB 08:31
PROVIDERS: ATTEND Internal Medicine Cardiovascular Disease
DX: I50.42 Chronic combined systolic (congestive) and diastolic (congestive) heart failure (principal)

== ENCOUNTER → 2020-12-23 | Outpatient (CLI) | payer MEDICARE ==
[2020-12-23 10:46] LABS: BLOOD UREA NITROGEN 30 MG/DL (7-18); CALCIUM LEVEL 8.4 MG/DL (8.8-10.2); CARBON DIOXIDE LEVEL 23 MEQ/L (21-32); CHLORIDE LEVEL 109 MEQ/L (98-107); CREATININE FOR GFR 1.16 MG/DL (0.70-1.30); GLOMERULAR FILTRATION RATE > 60.0 (>35); GLUCOSE, FASTING 212 MG/DL (70-100); MAGNESIUM LEVEL 1.5 MG/DL (1.8-2.4); POTASSIUM SERUM 4.3 MEQ/L (3.5-5.1); SODIUM LEVEL 140 MEQ/L (136-145)
== END ==
LOC: M LAB 09:44
PROVIDERS: ATTEND Internal Medicine Cardiovascular Disease
DX: I50.42 Chronic combined systolic (congestive) and diastolic (congestive) heart failure (principal)

== ENCOUNTER → 2020-12-23 | Outpatient (CLI) | payer MEDICARE ==
[2020-12-23 10:20] LABS: BASO % 0.1 % (0.0-1.0); EOS # 0.2 10^3/uL (0.0-0.5); EOS % 2.3 % (0.0-3.0); HEMATOCRIT 36.4 % (42.0-52.0); HEMOGLOBIN 11.4 g/dl (13.5-17.5); LYMPH % 13.8 % (24.0-44.0); MEAN CORPUSCULAR HEMOGLOBIN 31.1 pg (27.0-33.0); MEAN CORPUSCULAR HGB CONC 31.3 g/dl (32.0-36.5); MEAN CORPUSCULAR VOLUME 99.5 fl (80.0-96.0); MONO # 0.6 10^3/uL (0.0-0.8); MONO % 8.2 % (2.0-8.0); NEUTROPHILS # 5.2 10^3/uL (1.5-8.5); NEUTROPHILS % 75.2 % (36.0-66.0); RED BLOOD COUNT 3.66 10^6/uL (4.30-6.10)
[2020-12-23 10:41] LABS: PLATELET COUNT, AUTOMATED 80 10^3/uL (150-450)
[2020-12-23 10:42] LABS: HEMOGLOBIN A1c 5.8 %
[2020-12-23 10:50] LABS: ALBUMIN 3.1 GM/DL (3.2-5.2); ALT/SGPT 64 U/L (12-78); BILIRUBIN,TOTAL 0.5 MG/DL (0.2-1.0); BLOOD UREA NITROGEN 31 MG/DL (7-18); CALCIUM LEVEL 8.3 MG/DL (8.8-10.2); CARBON DIOXIDE LEVEL 23 MEQ/L (21-32); CHLORIDE LEVEL 109 MEQ/L (98-107); CHOLESTEROL LEVEL 65 MG/DL (<200); CHOLESTEROL RISK RATIO 1.857 (<5); CREATININE FOR GFR 1.15 MG/DL (0.70-1.30); GLOMERULAR FILTRATION RATE > 60.0 (>35); GLUCOSE, FASTING 205 MG/DL (70-100); HDL CHOLESTEROL 35 MG/DL (>40); LDL CHOLESTEROL 22 MG/DL (<100); NON-HDL-C 30 MG/DL; POTASSIUM SERUM 4.3 MEQ/L (3.5-5.1); SODIUM LEVEL 140 MEQ/L (136-145); TOTAL PROTEIN 5.9 GM/DL (6.4-8.2); TRIGLYCERIDES LEVEL 42 MG/DL (<150)
[2020-12-23 11:02] LABS: CREATININE, URINE 91.1 MG/DL; MALB URINE SIEMENS 13.1 MG/L; MAU/CREAT RATIO 14.3 MCG/MG (0.0-30.0)
== END ==
LOC: M LAB 09:48
PROVIDERS: ATTEND Nurse Practitioner Family
DX: I10 Essential (primary) hypertension (principal)

== ENCOUNTER → 2021-02-02 | Outpatient (CLI) | payer MEDICARE ==
[2021-02-02 19:33] LABS: BLOOD UREA NITROGEN 29 MG/DL (7-18); CALCIUM LEVEL 8.1 MG/DL (8.8-10.2); CARBON DIOXIDE LEVEL 20 MEQ/L (21-32); CHLORIDE LEVEL 114 MEQ/L (98-107); CREATININE FOR GFR 1.15 MG/DL (0.70-1.30); GLOMERULAR FILTRATION RATE > 60.0 (>35); GLUCOSE, FASTING 91 MG/DL (70-100); POTASSIUM SERUM 4.7 MEQ/L (3.5-5.1); SODIUM LEVEL 141 MEQ/L (136-145)
== END ==
LOC: M LAB 15:32
PROVIDERS: ATTEND Internal Medicine Cardiovascular Disease
DX: I50.42 Chronic combined systolic (congestive) and diastolic (congestive) heart failure (principal)

== ENCOUNTER → 2021-02-26 | Outpatient (CLI) | payer MEDICARE ==
[2021-02-26 09:34] LABS: HEMATOCRIT 37.7 % (42.0-52.0); HEMOGLOBIN 11.8 g/dl (13.5-17.5); MEAN CORPUSCULAR HEMOGLOBIN 31.7 pg (27.0-33.0); MEAN CORPUSCULAR HGB CONC 31.3 g/dl (32.0-36.5); MEAN CORPUSCULAR VOLUME 101.3 fl (80.0-96.0); RED BLOOD COUNT 3.72 10^6/uL (4.30-6.10); WHITE BLOOD COUNT 7.2 10^3/uL (4.0-10.0)
[2021-02-26 09:41] LABS: BLOOD UREA NITROGEN 34 MG/DL (7-18); CALCIUM LEVEL 8.2 MG/DL (8.8-10.2); CARBON DIOXIDE LEVEL 21 MEQ/L (21-32); CHLORIDE LEVEL 112 MEQ/L (98-107); CREATININE FOR GFR 1.11 MG/DL (0.70-1.30); GLOMERULAR FILTRATION RATE > 60.0 (>35); GLUCOSE, FASTING 127 MG/DL (70-100); MAGNESIUM LEVEL 1.9 MG/DL (1.8-2.4); NT-PRO BNP 486 PG/ML (<450); POTASSIUM SERUM 4.7 MEQ/L (3.5-5.1); SODIUM LEVEL 138 MEQ/L (136-145)
[2021-02-26 09:44] LABS: PLATELET COUNT, AUTOMATED 78 10^3/uL (150-450)
== END ==
LOC: M LAB 08:48
PROVIDERS: ATTEND Internal Medicine Cardiovascular Disease
DX: I50.42 Chronic combined systolic (congestive) and diastolic (congestive) heart failure (principal); I47.2 Ventricular tachycardia

== ENCOUNTER → 2021-03-18 | Outpatient (CLI) | payer MEDICARE ==
[2021-03-18 10:22] LABS: BLOOD UREA NITROGEN 33 MG/DL (7-18); CALCIUM LEVEL 7.9 MG/DL (8.8-10.2); CARBON DIOXIDE LEVEL 20 MEQ/L (21-32); CHLORIDE LEVEL 114 MEQ/L (98-107); CREATININE FOR GFR 1.18 MG/DL (0.70-1.30); GLOMERULAR FILTRATION RATE > 60.0 (>35); GLUCOSE, FASTING 101 MG/DL (70-100); MAGNESIUM LEVEL 1.9 MG/DL (1.8-2.4); POTASSIUM SERUM 4.1 MEQ/L (3.5-5.1); SODIUM LEVEL 140 MEQ/L (136-145)
== END ==
LOC: M LAB 09:00
PROVIDERS: ATTEND Internal Medicine Cardiovascular Disease
DX: I50.42 Chronic combined systolic (congestive) and diastolic (congestive) heart failure (principal)

== ENCOUNTER → 2021-04-07 | Outpatient (CLI) | payer MEDICARE ==
[2021-04-07 09:44] LABS: BASO % 0.3 % (0.0-1.0); EOS # 0.1 10^3/uL (0.0-0.5); EOS % 2.1 % (0.0-3.0); HEMATOCRIT 38.2 % (42.0-52.0); LYMPH # 1.1 10^3/uL (1.5-5.0); LYMPH % 17.7 % (24.0-44.0); MEAN CORPUSCULAR HEMOGLOBIN 32.1 pg (27.0-33.0); MEAN CORPUSCULAR HGB CONC 31.4 g/dl (32.0-36.5); MEAN CORPUSCULAR VOLUME 102.1 fl (80.0-96.0); MONO # 0.5 10^3/uL (0.0-0.8); MONO % 8.4 % (2.0-8.0); NEUTROPHILS # 4.5 10^3/uL (1.5-8.5); NEUTROPHILS % 71.2 % (36.0-66.0); RED BLOOD COUNT 3.74 10^6/uL (4.30-6.10); WHITE BLOOD COUNT 6.3 10^3/uL (4.0-10.0)
[2021-04-07 09:47] LABS: PLATELET COUNT, AUTOMATED 79 10^3/uL (150-450)
[2021-04-07 10:11] LABS: ALBUMIN 3.1 GM/DL (3.2-5.2); ALT/SGPT 115 U/L (12-78); BILIRUBIN,TOTAL 0.5 MG/DL (0.2-1.0); BLOOD UREA NITROGEN 31 MG/DL (7-18); CALCIUM LEVEL 8.3 MG/DL (8.8-10.2); CARBON DIOXIDE LEVEL 21 MEQ/L (21-32); CHLORIDE LEVEL 113 MEQ/L (98-107); CHOLESTEROL LEVEL 65 MG/DL (<200); CHOLESTEROL RISK RATIO 1.969 (<5); CREATININE FOR GFR 1.11 MG/DL (0.70-1.30); GLOMERULAR FILTRATION RATE > 60.0 (>35); GLUCOSE, FASTING 97 MG/DL (70-100); HDL CHOLESTEROL 33 MG/DL (>40); LDL CHOLESTEROL 24 MG/DL (<100); NON-HDL-C 32 MG/DL; POTASSIUM SERUM 4.1 MEQ/L (3.5-5.1); SODIUM LEVEL 138 MEQ/L (136-145); TOTAL PROTEIN 6.1 GM/DL (6.4-8.2); TRIGLYCERIDES LEVEL 42 MG/DL (<150)
[2021-04-07 10:13] LABS: HEMOGLOBIN A1c 5.5 %
[2021-04-07 10:15] LABS: CREATININE, URINE 76.8 MG/DL; MALB URINE SIEMENS 14.7 MG/L; MAU/CREAT RATIO 19.1 MCG/MG (0.0-30.0)
== END ==
LOC: M LAB 08:12 → M PLALAB 08:12
PROVIDERS: ATTEND Nurse Practitioner Family
DX: I10 Essential (primary) hypertension (principal)

== ENCOUNTER → 2021-04-12 | Outpatient (CLI) | payer MEDICARE ==
[~2021-04-12] MED LIST changes: -KLOR10TA76 PO; +POTA-136 PO
--- NOTE | 2021-04-12 10:21 | REP ---
INDICATION: ABN LABS. COMPARISON: CT 03/30/2017. TECHNIQUE: Real-time sonographic evaluation of right upper quadrant performed. FINDINGS: Multiple gallstones are seen in the gallbladder. There is mild gallbladder wall thickening up to 4 millimeters.. There is no intrahepatic or extrahepatic biliary dilatation, common bile duct measures 2 mm in maximum diameter. The liver and pancreas are grossly unremarkable, not optimally seen due to body habitus and bowel gas. The right kidney demonstrates no hydronephrosis, with a normal size of 9.1 cm in length. Multiple right renal cysts are present, largest is in the mid aspect 2.3 cm in diameter. Subcentimeter cysts are seen in the lower pole.No free fluid is seen. IMPRESSION: Multiple gallstones in the gallbladder with mild gallbladder wall thickening. No free fluid or biliary dilatation. Limited exam due to body habitus and bowel gas. <Electronically signed by Bryant Yanez > 04/12/21 [id number]
== END ==
LOC: M RAD 08:19
PROVIDERS: ATTEND Nurse Practitioner Family
DX: K80.20 Calculus of gallbladder without cholecystitis without obstruction (principal); N28.1 Cyst of kidney, acquired

== ENCOUNTER → 2021-04-13 | Outpatient (CLI) | payer MEDICARE ==
[2021-04-13 08:48] LABS: ALBUMIN 3.1 GM/DL (3.2-5.2); ALT/SGPT 113 U/L (12-78); AMYLASE 90 U/L (25-115); BILIRUBIN,DIRECT 0.2 MG/DL (0.0-0.2); BILIRUBIN,TOTAL 0.5 MG/DL (0.2-1.0); FERRITIN 55 NG/ML (26-388); FREE T4 1.06 NG/DL (0.76-1.46); IRON (FE) 69 UG/DL (65-175); LIPASE 197 U/L (73-393); PERCENT SATURATION 19.4 % (19.7-50.0); TOTAL IRON BINDING CAPACITY 356 UG/DL (250-450)
[2021-04-13 09:12] LABS: HEPATITIS B SURFACE ANTIBODY NEGATIVE (POSITIVE)
[2021-04-13 09:22] LABS: HEPATITIS B SURFACE ANTIGEN NEGATIVE (NEGATIVE)
[2021-04-14 17:07] LABS: ANTINUCLEAR ANTIBODIES DIRECT Negative (Negative); HBVCOREDIFF1 Negative (Negative); HBVCOREDIFF2 Negative (Negative); TISSUE TRANSGLUTAMINASE IgA <2 U/mL (0-3); TRANSFERRIN 275 mg/dL (149-313)
== END ==
LOC: M LAB 07:34
PROVIDERS: ATTEND Nurse Practitioner Family
DX: R74.01 Elevation of levels of liver transaminase levels (principal); N40.1 Benign prostatic hyperplasia with lower urinary tract symptoms; Z79.899 Other long term (current) drug therapy
CPT/HCPCS: 36415; 80076; 82150; 82728; 83516; 83690; 84439; 84443; 84466; 86038; 86704; 86705; 86706; 87340; G0103; G0472

== ENCOUNTER → 2021-04-29 | Outpatient (CLI) | payer MEDICARE ==
[2021-04-29 09:40] LABS: BLOOD UREA NITROGEN 28 MG/DL (7-18); CALCIUM LEVEL 8.1 MG/DL (8.8-10.2); CARBON DIOXIDE LEVEL 23 MEQ/L (21-32); CHLORIDE LEVEL 113 MEQ/L (98-107); CREATININE FOR GFR 1.14 MG/DL (0.70-1.30); GLOMERULAR FILTRATION RATE > 60.0 (>35); GLUCOSE, FASTING 104 MG/DL (70-100); MAGNESIUM LEVEL 1.8 MG/DL (1.8-2.4); POTASSIUM SERUM 4.2 MEQ/L (3.5-5.1); SODIUM LEVEL 142 MEQ/L (136-145)
== END ==
LOC: M LAB 08:09
PROVIDERS: ATTEND Internal Medicine Cardiovascular Disease
DX: I50.42 Chronic combined systolic (congestive) and diastolic (congestive) heart failure (principal)

== ENCOUNTER → 2021-06-09 | Outpatient (CLI) | payer MEDICARE ==
[2021-06-09 12:31] LABS: BLOOD UREA NITROGEN 32 MG/DL (7-18); CALCIUM LEVEL 8.1 MG/DL (8.8-10.2); CARBON DIOXIDE LEVEL 19 MEQ/L (21-32); CHLORIDE LEVEL 113 MEQ/L (98-107); CREATININE FOR GFR 1.15 MG/DL (0.70-1.30); GLOMERULAR FILTRATION RATE > 60.0 (>35); GLUCOSE, FASTING 231 MG/DL (70-100); MAGNESIUM LEVEL 1.9 MG/DL (1.8-2.4); POTASSIUM SERUM 4.4 MEQ/L (3.5-5.1); SODIUM LEVEL 139 MEQ/L (136-145)
== END ==
LOC: M LAB 11:36
PROVIDERS: ATTEND Internal Medicine Cardiovascular Disease
DX: I50.42 Chronic combined systolic (congestive) and diastolic (congestive) heart failure (principal)

== ENCOUNTER → 2021-07-13 | Outpatient (CLI) | payer MEDICARE ==
[~2021-07-13] MED LIST changes: +LOSA50TA28 PO; -LOSA50TA88 PO
[2021-07-13 13:48] LABS: BLOOD UREA NITROGEN 28 MG/DL (7-18); CARBON DIOXIDE LEVEL 22 MEQ/L (21-32); CHLORIDE LEVEL 111 MEQ/L (98-107); CREATININE FOR GFR 1.13 MG/DL (0.70-1.30); GLOMERULAR FILTRATION RATE > 60.0 (>35); GLUCOSE, FASTING 124 MG/DL (70-100); MAGNESIUM LEVEL 1.9 MG/DL (1.8-2.4); POTASSIUM SERUM 4.5 MEQ/L (3.5-5.1); SODIUM LEVEL 139 MEQ/L (136-145)
== END ==
LOC: M LAB 11:38
PROVIDERS: ATTEND Internal Medicine Cardiovascular Disease
DX: I50.42 Chronic combined systolic (congestive) and diastolic (congestive) heart failure (principal)

== ENCOUNTER → 2021-08-29 | Outpatient (CLI) | payer MEDICARE ==
[2021-08-29 14:23] LABS: BLOOD UREA NITROGEN 26 MG/DL (7-18); CARBON DIOXIDE LEVEL 22 MEQ/L (21-32); CHLORIDE LEVEL 114 MEQ/L (98-107); CREATININE FOR GFR 1.05 MG/DL (0.70-1.30); GLOMERULAR FILTRATION RATE > 60.0 (>35); GLUCOSE, FASTING 103 MG/DL (70-100); POTASSIUM SERUM 4.1 MEQ/L (3.5-5.1); SODIUM LEVEL 139 MEQ/L (136-145)
[2021-08-29 20:17] LABS: MAGNESIUM LEVEL 1.7 MG/DL (1.8-2.4)
== END ==
LOC: M LAB 13:36
PROVIDERS: ATTEND Internal Medicine Cardiovascular Disease
DX: I50.42 Chronic combined systolic (congestive) and diastolic (congestive) heart failure (principal)

== ENCOUNTER → 2021-09-29 | Outpatient (CLI) | payer MEDICARE ==
[2021-09-29 10:04] LABS: BLOOD UREA NITROGEN 36 MG/DL (7-18); CALCIUM LEVEL 8.3 MG/DL (8.8-10.2); CARBON DIOXIDE LEVEL 22 MEQ/L (21-32); CHLORIDE LEVEL 109 MEQ/L (98-107); GLOMERULAR FILTRATION RATE > 60.0 (>35); GLUCOSE, FASTING 184 MG/DL (70-100); MAGNESIUM LEVEL 1.8 MG/DL (1.8-2.4); POTASSIUM SERUM 4.6 MEQ/L (3.5-5.1); SODIUM LEVEL 139 MEQ/L (136-145)
== END ==
LOC: M LAB 09:04
PROVIDERS: ATTEND Internal Medicine Cardiovascular Disease
DX: I50.42 Chronic combined systolic (congestive) and diastolic (congestive) heart failure (principal)

== ENCOUNTER 2021-11-22 12:24 | Outpatient (RCR) | payer MEDICARE ==
[~2021-11-22 12:24] MED LIST changes: +LIDO5DIS41 TD; +METH-1164 PO
== END 2021-11-24 ==
LOC: M PT 12:24
PROVIDERS: ATTEND Physician Assistant
DX: M54.2 Cervicalgia (principal)

== ENCOUNTER → 2021-12-22 | Outpatient (CLI) | payer MEDICARE ==
[2021-12-22 09:49] LABS: BLOOD UREA NITROGEN 29 MG/DL (7-18); CALCIUM LEVEL 7.8 MG/DL (8.8-10.2); CARBON DIOXIDE LEVEL 22 MEQ/L (21-32); CHLORIDE LEVEL 112 MEQ/L (98-107); CREATININE FOR GFR 1.19 MG/DL (0.70-1.30); GLOMERULAR FILTRATION RATE > 60.0 (>35); GLUCOSE, FASTING 210 MG/DL (70-100); MAGNESIUM LEVEL 1.6 MG/DL (1.8-2.4); POTASSIUM SERUM 3.9 MEQ/L (3.5-5.1); SODIUM LEVEL 138 MEQ/L (136-145)
== END ==
LOC: M LAB 09:03
PROVIDERS: ATTEND Internal Medicine Cardiovascular Disease
DX: I50.42 Chronic combined systolic (congestive) and diastolic (congestive) heart failure (principal)

== ENCOUNTER → 2021-12-29 | Outpatient (CLI) | payer MEDICARE ==
[~2021-12-29] MED LIST changes: +BAYE81TA10 PO; +TAMS1CAP17 PO
[2021-12-29 09:34] LABS: BASO % 0.2 % (0.0-1.0); EOS # 0.1 10^3/uL (0.0-0.5); EOS % 1.7 % (0.0-3.0); HEMATOCRIT 36.8 % (42.0-52.0); HEMOGLOBIN 11.9 g/dl (13.5-17.5); LYMPH # 0.9 10^3/uL (1.5-5.0); LYMPH % 14.3 % (24.0-44.0); MEAN CORPUSCULAR HEMOGLOBIN 32.5 pg (27.0-33.0); MEAN CORPUSCULAR HGB CONC 32.3 g/dl (32.0-36.5); MEAN CORPUSCULAR VOLUME 100.5 fl (80.0-96.0); MONO # 0.6 10^3/uL (0.0-0.8); MONO % 9.7 % (2.0-8.0); NEUTROPHILS # 4.7 10^3/uL (1.5-8.5); NEUTROPHILS % 73.8 % (36.0-66.0); PLATELET COUNT, AUTOMATED 115 10^3/uL (150-450); RED BLOOD COUNT 3.66 10^6/uL (4.30-6.10); WHITE BLOOD COUNT 6.3 10^3/uL (4.0-10.0)
[2021-12-29 10:06] LABS: ALBUMIN 2.8 GM/DL (3.2-5.2); ALT/SGPT 121 U/L (12-78); BILIRUBIN,TOTAL 0.4 MG/DL (0.2-1.0); BLOOD UREA NITROGEN 27 MG/DL (7-18); CALCIUM LEVEL 8.3 MG/DL (8.8-10.2); CARBON DIOXIDE LEVEL 21 MEQ/L (21-32); CHLORIDE LEVEL 113 MEQ/L (98-107); CHOLESTEROL LEVEL 87 MG/DL (<200); CHOLESTEROL RISK RATIO 2.558 (<5); CREATININE FOR GFR 1.08 MG/DL (0.70-1.30); GLOMERULAR FILTRATION RATE > 60.0 (>35); GLUCOSE, FASTING 149 MG/DL (70-100); HDL CHOLESTEROL 34 MG/DL (>40); LDL CHOLESTEROL 45 MG/DL (<100); NON-HDL-C 53 MG/DL; POTASSIUM SERUM 4.3 MEQ/L (3.5-5.1); SODIUM LEVEL 141 MEQ/L (136-145); TRIGLYCERIDES LEVEL 42 MG/DL (<150)
[2022-01-01 23:06] LABS: PSA TOTAL 1.1 ng/mL (0.0-4.0)
== END ==
LOC: M LAB 08:48
PROVIDERS: ATTEND Physician Assistant
DX: N40.1 Benign prostatic hyperplasia with lower urinary tract symptoms (principal); I10 Essential (primary) hypertension; E78.5 Hyperlipidemia, unspecified

== ENCOUNTER → 2021-12-30 | Outpatient (CLI) | payer MEDICARE | LOC: M LABSMTC 09:17 | PROVIDERS: ATTEND Anesthesiology | DX: Z01.812 Encounter for preprocedural laboratory examination (principal); Z20.822 Contact with and (suspected) exposure to COVID-19 ==

== ENCOUNTER 2022-01-01 06:03 | Day surgery (SDC) | payer MEDICARE ==
[~2022-01-01] VITALS: Ht 170.2 cm; Wt 64.4 kg
[2022-01-01] MEDS ORDERED: LR 1,000 ML IV SCH ×3 (06:50→09:25)
[2022-01-01] MEDS ORDERED: MIDAZOLAM INJ 2MG/2ML VIAL (J2250 PER 1MG) As Ordered ONE (07:00)
[2022-01-01] MEDS ORDERED: fentaNYL 100 MCG/2 ML INJECTION As Ordered ONE (07:00)
[2022-01-01] MEDS ORDERED: dexameTHASONE 4 MG/ML 1ML VIAL (J1100 PER 1MG) As Ordered ONE (07:01)
[2022-01-01] MEDS ORDERED: LIDOCAINE 2% 100MG/5ML SDV (FOR ANES.) As Ordered ONE (07:01)
[2022-01-01] MEDS ORDERED: ONDANSETRON 4MG/2ML VIAL As Ordered ONE (07:01)
[2022-01-01] MEDS ORDERED: propofoL 200 MG/20 ML VIAL As Ordered ONE (07:01)
[2022-01-01] MEDS ORDERED: ACETAMINOPHEN 1000MG 100ML IV BTL (OFIRMEV) (J0131 PER 10MG) As Ordered ONE (07:01)
[2022-01-01] MEDS ORDERED: CIPRODEX OTIC SUSP 7.5ML As Ordered ONE (07:13)
[2022-01-01] MEDS ORDERED: ePHEDrine SULFATE 25 MG/5 ML(5MG/ML) SYRINGE As Ordered ONE (07:45)
[2022-01-01] MEDS ORDERED: fentaNYL 100 MCG/2 ML INJECTION IV PRN (09:25)
[2022-01-01] MEDS ORDERED: ONDANSETRON 4MG/2ML VIAL IV PRN (09:25)
[2022-01-01 09:30] VITALS: BP 123/59
== END 2022-01-01 09:36 | disposition home or self-care (01) ==
LOC: M SDC 06:03
PROVIDERS: ATTEND Otolaryngology
DX: H69.93 Unspecified Eustachian tube disorder, bilateral (principal); I48.91 Unspecified atrial fibrillation; I25.10 Atherosclerotic heart disease of native coronary artery without angina pectoris; I50.9 Heart failure, unspecified; I10 Essential (primary) hypertension; E78.5 Hyperlipidemia, unspecified; Z95.0 Presence of cardiac pacemaker; K57.92 Diverticulitis of intestine, part unspecified, without perforation or abscess without bleeding; K58.8 Other irritable bowel syndrome; K21.9 Gastro-esophageal reflux disease without esophagitis; F17.210 Nicotine dependence, cigarettes, uncomplicated; E11.9 Type 2 diabetes mellitus without complications; Z79.82 Long term (current) use of aspirin; N40.0 Benign prostatic hyperplasia without lower urinary tract symptoms; Z79.899 Other long term (current) drug therapy
CPT/HCPCS: 69436; J0131; J1100; J2250; J2405; J3010

== ENCOUNTER → 2022-01-19 | Outpatient (CLI) | payer MEDICARE ==
[2022-01-19 12:25] LABS: ALBUMIN 2.8 GM/DL (3.2-5.2); ALT/SGPT 274 U/L (12-78); BILIRUBIN,TOTAL 0.4 MG/DL (0.2-1.0); BLOOD UREA NITROGEN 30 MG/DL (7-18); CALCIUM LEVEL 7.7 MG/DL (8.8-10.2); CARBON DIOXIDE LEVEL 24 MEQ/L (21-32); CHLORIDE LEVEL 108 MEQ/L (98-107); CHOLESTEROL LEVEL 56 MG/DL (<200); CHOLESTEROL RISK RATIO 1.806 (<5); CREATININE FOR GFR 1.09 MG/DL (0.70-1.30); GLOMERULAR FILTRATION RATE > 60.0 (>35); GLUCOSE, FASTING 190 MG/DL (70-100); HDL CHOLESTEROL 31 MG/DL (>40); LDL CHOLESTEROL 15 MG/DL (<100); MAGNESIUM LEVEL 1.7 MG/DL (1.8-2.4); NON-HDL-C 25 MG/DL; POTASSIUM SERUM 4.2 MEQ/L (3.5-5.1); SODIUM LEVEL 136 MEQ/L (136-145); TOTAL PROTEIN 5.8 GM/DL (6.4-8.2); TRIGLYCERIDES LEVEL 49 MG/DL (<150)
[2022-01-22 08:09] LABS: LDL DIRECT 14 mg/dL (0-99)
== END ==
LOC: M LAB 11:24
PROVIDERS: ATTEND Internal Medicine Cardiovascular Disease
DX: I50.9 Heart failure, unspecified (principal); I47.2 Ventricular tachycardia; E78.2 Mixed hyperlipidemia; I48.91 Unspecified atrial fibrillation

== ENCOUNTER → 2022-01-29 | Outpatient (CLI) | payer MEDICARE ==
[2022-01-29 09:34] LABS: ALBUMIN 2.7 GM/DL (3.2-5.2); ALT/SGPT 110 U/L (12-78); BILIRUBIN,TOTAL 0.4 MG/DL (0.2-1.0); BLOOD UREA NITROGEN 33 MG/DL (7-18); CALCIUM LEVEL 8.4 MG/DL (8.8-10.2); CARBON DIOXIDE LEVEL 22 MEQ/L (21-32); CHLORIDE LEVEL 110 MEQ/L (98-107); CREATININE FOR GFR 1.04 MG/DL (0.70-1.30); GLOMERULAR FILTRATION RATE > 60.0 (>35); GLUCOSE, FASTING 176 MG/DL (70-100); MAGNESIUM LEVEL 1.8 MG/DL (1.8-2.4); POTASSIUM SERUM 4.8 MEQ/L (3.5-5.1); SODIUM LEVEL 138 MEQ/L (136-145); TOTAL PROTEIN 5.9 GM/DL (6.4-8.2)
== END ==
LOC: M LAB 08:35
PROVIDERS: ATTEND Internal Medicine Cardiovascular Disease
DX: E78.2 Mixed hyperlipidemia (principal); I47.2 Ventricular tachycardia

== ENCOUNTER → 2022-02-09 | Outpatient (CLI) | payer MEDICARE ==
[2022-02-09 10:45] LABS: BLOOD UREA NITROGEN 35 MG/DL (7-18); CALCIUM LEVEL 8.2 MG/DL (8.8-10.2); CARBON DIOXIDE LEVEL 23 MEQ/L (21-32); CHLORIDE LEVEL 108 MEQ/L (98-107); CREATININE FOR GFR 1.17 MG/DL (0.70-1.30); GLOMERULAR FILTRATION RATE > 60.0 (>35); GLUCOSE, FASTING 196 MG/DL (70-100); MAGNESIUM LEVEL 1.9 MG/DL (1.8-2.4); POTASSIUM SERUM 4.2 MEQ/L (3.5-5.1); SODIUM LEVEL 138 MEQ/L (136-145)
== END ==
LOC: M LAB 09:42
PROVIDERS: ATTEND Internal Medicine Cardiovascular Disease
DX: I50.42 Chronic combined systolic (congestive) and diastolic (congestive) heart failure (principal)

== ENCOUNTER → 2022-03-29 | Outpatient (CLI) | payer MEDICARE ==
[~2022-03-29] MED LIST changes: +ALEV220T22 PO; +CIPR-249 PO; +METR-265 PO; +POTA-150 PO; -POTA10TA17 PO
== END ==
LOC: M LAB 10:31
PROVIDERS: ATTEND Internal Medicine Cardiovascular Disease
DX: I50.42 Chronic combined systolic (congestive) and diastolic (congestive) heart failure (principal)

== ENCOUNTER → 2022-04-29 | Outpatient (CLI) | payer MEDICARE ==
[2022-04-29 15:45] LABS: ALBUMIN 3.3 GM/DL (3.2-5.2); BILIRUBIN,TOTAL 0.3 MG/DL (0.2-1.0); CALCIUM LEVEL 8.6 MG/DL (8.8-10.2); CREATININE FOR GFR 1.37 MG/DL (0.70-1.30); MAGNESIUM LEVEL 1.9 MG/DL (1.8-2.4); POTASSIUM SERUM 5.3 MEQ/L (3.5-5.1); TOTAL PROTEIN 7.1 GM/DL (6.4-8.2)
== END ==
LOC: M LAB 13:50
PROVIDERS: ATTEND Physician Assistant
DX: E78.2 Mixed hyperlipidemia (principal); I47.20 Ventricular tachycardia, unspecified

== ENCOUNTER → 2022-05-07 | Outpatient (CLI) | payer MEDICARE ==
[2022-05-07 17:24] LABS: CALCIUM LEVEL 8.8 MG/DL (8.8-10.2); CREATININE FOR GFR 1.42 MG/DL (0.70-1.30); GLOMERULAR FILTRATION RATE 50.8 (>35); MAGNESIUM LEVEL 2.1 MG/DL (1.8-2.4); POTASSIUM SERUM 4.6 MEQ/L (3.5-5.1)
== END ==
LOC: M LAB 16:00
PROVIDERS: ATTEND Physician Assistant
DX: I50.9 Heart failure, unspecified (principal); I48.91 Unspecified atrial fibrillation

== ENCOUNTER → 2022-06-14 | Outpatient (CLI) | payer MEDICARE ==
[~2022-06-14] MED LIST changes: +CLOP75TA99 PO; -PLAV1TAB2 PO
[2022-06-14 07:50] LABS: HEMATOCRIT 38.4 % (42.0-52.0); MEAN CORPUSCULAR HEMOGLOBIN 30.6 pg (27.0-33.0); MEAN CORPUSCULAR HGB CONC 31.3 g/dl (32.0-36.5); PLATELET COUNT, AUTOMATED 107 10^3/uL (150-450); RED BLOOD COUNT 3.92 10^6/uL (4.30-6.10); WHITE BLOOD COUNT 7.1 10^3/uL (4.0-10.0)
[2022-06-14 08:52] LABS: BLOOD UREA NITROGEN 23 MG/DL (9-23); CARBON DIOXIDE LEVEL 25 MMOL/L (20-31); CHLORIDE LEVEL 106 MMOL/L (98-107); CREATININE FOR GFR 0.94 MG/DL (0.70-1.30); GLOMERULAR FILTRATION RATE > 60.0 (>35); GLUCOSE, FASTING 114 MG/DL (74-106); MAGNESIUM LEVEL 1.6 MG/DL (1.8-2.4); POTASSIUM SERUM 4.2 MMOL/L (3.5-5.1); SODIUM LEVEL 139 MMOL/L (136-145)
== END ==
LOC: M LAB 07:13
PROVIDERS: ATTEND Internal Medicine Cardiovascular Disease
DX: I50.42 Chronic combined systolic (congestive) and diastolic (congestive) heart failure (principal)

== ENCOUNTER → 2022-06-23 | Outpatient (CLI) | payer MEDICARE | LOC: M LABSMTC 11:28 | PROVIDERS: ATTEND Internal Medicine Cardiovascular Disease | DX: Z01.812 Encounter for preprocedural laboratory examination (principal); Z11.52 Encounter for screening for COVID-19 ==

== ENCOUNTER → 2022-07-04 | Outpatient (CLI) | payer MEDICARE ==
[2022-07-04 08:31] LABS: BASO % 0.3 % (0.0-1.0); EOS # 0.3 10^3/uL (0.0-0.5); EOS % 3.8 % (0.0-3.0); HEMATOCRIT 35.1 % (42.0-52.0); HEMOGLOBIN 11.1 g/dl (13.5-17.5); LYMPH # 1.2 10^3/uL (1.5-5.0); LYMPH % 16.5 % (24.0-44.0); MEAN CORPUSCULAR HEMOGLOBIN 30.3 pg (27.0-33.0); MEAN CORPUSCULAR HGB CONC 31.6 g/dl (32.0-36.5); MEAN CORPUSCULAR VOLUME 95.9 fl (80.0-96.0); MONO # 0.7 10^3/uL (0.0-0.8); MONO % 10.3 % (2.0-8.0); NEUTROPHILS # 4.9 10^3/uL (1.5-8.5); NEUTROPHILS % 68.5 % (36.0-66.0); PLATELET COUNT, AUTOMATED 137 10^3/uL (150-450); RED BLOOD COUNT 3.66 10^6/uL (4.30-6.10); WHITE BLOOD COUNT 7.1 10^3/uL (4.0-10.0)
[2022-07-04 08:55] LABS: MAGNESIUM LEVEL 1.6 MG/DL (1.8-2.4)
[2022-07-04 08:57] LABS: ALBUMIN 2.8 G/DL (3.2-5.2); ALKALINE PHOSPHATASE 123 U/L (46-116); ALT/SGPT 31 U/L (7.0-40); AST/SGOT 28 U/L (<34); BILIRUBIN,TOTAL 0.3 MG/DL (0.3-1.2); BLOOD UREA NITROGEN 21 MG/DL (9-23); CARBON DIOXIDE LEVEL 25 MMOL/L (20-31); CHLORIDE LEVEL 108 MMOL/L (98-107); CHOLESTEROL LEVEL 84 MG/DL (<200); CHOLESTEROL RISK RATIO 2.93 (<5); CREATININE FOR GFR 0.83 MG/DL (0.70-1.30); GLOMERULAR FILTRATION RATE > 60.0 (>35); GLUCOSE, FASTING 90 MG/DL (74-106); HDL CHOLESTEROL 28.6 MG/DL (>40); LDL CHOLESTEROL 46.2 MG/DL (<100); NON-HDL-C 55 MG/DL; POTASSIUM SERUM 3.7 MMOL/L (3.5-5.1); SODIUM LEVEL 138 MMOL/L (136-145); TRIGLYCERIDES LEVEL 46 MG/DL (<150)
[2022-07-04 08:58] LABS: FOLATE > 24.0 NG/ML (>5.4)
[2022-07-04 08:59] LABS: VITAMIN B12 LEVEL 385 PG/ML (211-911)
== END ==
LOC: M LAB 07:54
PROVIDERS: ATTEND Physician Assistant
DX: D53.9 Nutritional anemia, unspecified (principal); E78.5 Hyperlipidemia, unspecified; I10 Essential (primary) hypertension; E87.6 Hypokalemia

== ENCOUNTER → 2022-07-29 | Outpatient (CLI) | payer OTHER ==
[~2022-07-29] MED LIST changes: -POTA10CA32 PO; +POTA10CA33 PO
[2022-07-29 10:52] LABS: HEMATOCRIT 37.7 % (42.0-52.0); HEMOGLOBIN 11.6 g/dl (13.5-17.5); MEAN CORPUSCULAR HEMOGLOBIN 30.3 pg (27.0-33.0); MEAN CORPUSCULAR HGB CONC 30.8 g/dl (32.0-36.5); MEAN CORPUSCULAR VOLUME 98.4 fl (80.0-96.0); PLATELET COUNT, AUTOMATED 106 10^3/uL (150-450); RED BLOOD COUNT 3.83 10^6/uL (4.30-6.10)
[2022-07-29 11:16] LABS: MAGNESIUM LEVEL 1.5 MG/DL (1.8-2.4)
[2022-07-29 11:18] LABS: BLOOD UREA NITROGEN 31 MG/DL (9-23); CALCIUM LEVEL 7.8 MG/DL (8.3-10.6); CARBON DIOXIDE LEVEL 18 MMOL/L (20-31); CHLORIDE LEVEL 107 MMOL/L (98-107); CREATININE FOR GFR 0.92 MG/DL (0.70-1.30); GLOMERULAR FILTRATION RATE > 60.0 (>35); GLUCOSE, FASTING 182 MG/DL (74-106); SODIUM LEVEL 138 MMOL/L (136-145)
== END ==
LOC: M LAB 10:25
PROVIDERS: ATTEND Internal Medicine Cardiovascular Disease
DX: I50.42 Chronic combined systolic (congestive) and diastolic (congestive) heart failure (principal)

== ENCOUNTER → 2022-08-01 | Outpatient (CLI) | payer MEDICARE, OTHER | LOC: M LABSMTC 09:45 | PROVIDERS: ATTEND Internal Medicine Cardiovascular Disease | DX: Z11.59 Encounter for screening for other viral diseases (principal) ==

== ENCOUNTER → 2022-09-09 | Outpatient (CLI) | payer OTHER ==
[2022-09-09 13:08] LABS: HEMATOCRIT 37.1 % (42.0-52.0); HEMOGLOBIN 11.9 g/dl (13.5-17.5); MEAN CORPUSCULAR HEMOGLOBIN 31.5 pg (27.0-33.0); MEAN CORPUSCULAR HGB CONC 32.1 g/dl (32.0-36.5); MEAN CORPUSCULAR VOLUME 98.1 fl (80.0-96.0); PLATELET COUNT, AUTOMATED 109 10^3/uL (150-450); RED BLOOD COUNT 3.78 10^6/uL (4.30-6.10); WHITE BLOOD COUNT 5.2 10^3/uL (4.0-10.0)
[2022-09-09 13:41] LABS: ALBUMIN 2.9 G/DL (3.2-5.2); ALKALINE PHOSPHATASE 211 U/L (46-116); ALT/SGPT 52 U/L (7.0-40); AST/SGOT 30 U/L (<34); BILIRUBIN,TOTAL 0.3 MG/DL (0.3-1.2); BLOOD UREA NITROGEN 32 MG/DL (9-23); CARBON DIOXIDE LEVEL 24 MMOL/L (20-31); CHLORIDE LEVEL 111 MMOL/L (98-107); GLOMERULAR FILTRATION RATE > 60.0 (>35); GLUCOSE, FASTING 123 MG/DL (74-106); MAGNESIUM LEVEL 1.6 MG/DL (1.8-2.4); POTASSIUM SERUM 4.4 MMOL/L (3.5-5.1); SODIUM LEVEL 138 MMOL/L (136-145); TOTAL PROTEIN 5.9 G/DL (5.7-8.2)
== END ==
LOC: M LAB 12:20
PROVIDERS: ATTEND Internal Medicine Cardiovascular Disease
DX: I48.91 Unspecified atrial fibrillation (principal); E78.2 Mixed hyperlipidemia

== ENCOUNTER → 2022-09-20 | Outpatient (CLI) | payer OTHER | LOC: M LABSMTC 09:03 | PROVIDERS: ATTEND Internal Medicine Cardiovascular Disease | DX: Z11.59 Encounter for screening for other viral diseases (principal) ==

== ENCOUNTER → 2022-10-18 | Outpatient (CLI) | payer MEDICARE, OTHER | LOC: M LAB 10:16 | PROVIDERS: ATTEND Internal Medicine Cardiovascular Disease | DX: I50.42 Chronic combined systolic (congestive) and diastolic (congestive) heart failure (principal) ==

== ENCOUNTER → 2022-12-02 | Outpatient (CLI) | payer MEDICARE ==
[~2022-12-02] MED LIST changes: +FLUT50SP17 NARES; -FLUTISP NARES
== END ==
LOC: M LAB 10:36
PROVIDERS: ATTEND Internal Medicine Cardiovascular Disease
DX: I50.42 Chronic combined systolic (congestive) and diastolic (congestive) heart failure (principal)

== ENCOUNTER → 2023-01-09 | Outpatient (CLI) | payer MEDICARE ==
[~2023-01-09] MED LIST changes: -POTA10CA33 PO; +POTA10CA60 PO
== END ==
LOC: M LAB 09:21
PROVIDERS: ATTEND Internal Medicine Cardiovascular Disease
DX: I50.42 Chronic combined systolic (congestive) and diastolic (congestive) heart failure (principal)

== ENCOUNTER → 2023-01-09 | Outpatient (CLI) | payer MEDICARE ==
[2023-01-09 11:34] LABS: HEMATOCRIT 38.3 % (42.0-52.0); HEMOGLOBIN 12.6 g/dl (13.5-17.5); MEAN CORPUSCULAR HEMOGLOBIN 32.8 pg (27.0-33.0); MEAN CORPUSCULAR HGB CONC 32.9 g/dl (32.0-36.5); MEAN CORPUSCULAR VOLUME 99.7 fl (80.0-96.0); RED BLOOD COUNT 3.84 10^6/uL (4.30-6.10); WHITE BLOOD COUNT 5.6 10^3/uL (4.0-10.0)
[2023-01-09 11:57] LABS: PLATELET COUNT, AUTOMATED 89 10^3/uL (150-450)
[2023-01-09 12:02] LABS: ALBUMIN 3.3 G/DL (3.2-5.2); BLOOD UREA NITROGEN 28 MG/DL (9-23); CALCIUM LEVEL 7.4 MG/DL (8.3-10.6); CARBON DIOXIDE LEVEL 24 MMOL/L (20-31); CHLORIDE LEVEL 108 MMOL/L (98-107); CHOLESTEROL LEVEL 79 MG/DL (<200); CHOLESTEROL RISK RATIO 2.64 (<5); CREATININE FOR GFR 0.89 MG/DL (0.70-1.30); GLOMERULAR FILTRATION RATE > 60.0 (>35); GLUCOSE, FASTING 93 MG/DL (74-106); HDL CHOLESTEROL 29.9 MG/DL (>40); LDL CHOLESTEROL 39.3 MG/DL (<100); MAGNESIUM LEVEL 1.7 MG/DL (1.8-2.4); NON-HDL-C 49.1 MG/DL; PHOSPHORUS LEVEL 3.3 MG/DL (2.4-5.1); POTASSIUM SERUM 4.2 MMOL/L (3.5-5.1); SODIUM LEVEL 136 MMOL/L (136-145); TRIGLYCERIDES LEVEL 49 MG/DL (<150)
[2023-01-09 12:03] LABS: VITAMIN B12 LEVEL 380 PG/ML (211-911)
[2023-01-09 12:23] LABS: FOLATE > 24.0 NG/ML (>5.4)
== END ==
LOC: M LAB 09:25
PROVIDERS: ATTEND Internal Medicine Cardiovascular Disease
DX: E78.5 Hyperlipidemia, unspecified (principal); I10 Essential (primary) hypertension; E83.42 Hypomagnesemia; D53.9 Nutritional anemia, unspecified